=== PATIENT | female | born 1965 | race Caucasian/White ===

== ENCOUNTER 2020-01-14 15:50 | Inpatient (IN) | payer OTHER ==
[~2020-01-14] VITALS: Ht 165.1 cm; Wt 92.7 kg
[2020-01-14] MEDS ORDERED: MORPHINE SULFATE INJ 4 MG/ML INJ 1ML IV STA (16:09)
[2020-01-14] MEDS ORDERED: ONDANSETRON HCL INJ 2MG/ML 2ML 2 MG/ML VIAL IV STA (16:09)
[2020-01-14] MEDS ORDERED: KETOROLAC TROMETHAMINE 30 MG/ML VIAL IV STA (16:09)
[2020-01-14] MEDS ORDERED: SODIUM CHLORIDE 0.9% 1000ML 1,000 ML IV STA (16:09)
--- NOTE | 2020-01-14 17:01 | Diagnostic Imaging Report ---
CT Abdomen and Pelvis without contrast INDICATION: Right flank pain, ^kidney stones ^[id number] ^1627 TECHNIQUE: Thin collimation axial images obtained from the diaphragm to the level of the pubic symphysis without nonionic intravenous contrast. Dose reduction techniques used: Automated exposure control, adjustment of the mAs and/or kVp according to patient size, standardized low-dose protocol, and/or iterative reconstruction technique. RADIATION DOSE: Total DLP: 646.71 mGy*cm Estimated effective dose: (DLP x 0.015 x size factor) mSv CTDIvol has been reviewed. It is below the limits set by the Radiation Protocol Committee (RPC). COMPARISON: None. ABDOMEN FINDINGS: Lung Bases: Posterior layering right pleural effusion and overlying atelectasis/infiltrate in the posterior lower lobe. Mild eventration of the right diaphragm. Subcentimeter calcified granuloma in the left lower lobe. Visualized portion mediastinum is normal. Liver: Cirrhosis. Gallbladder: Absent. No ductal dilatation. Pancreas: Normal attenuation without mass. Spleen: Normal size without mass. Adrenal Glands: Nodule in the lateral limb of the right adrenal gland measures 2.0 cm and -2 Hounsfield units suggestive of adenoma. The right adrenal gland is thickened. Kidneys: Right: No renal calculus. No cortical mass or hydronephrosis Left: No renal calculus. No cortical mass or hydronephrosis Lymph Nodes: No lymphadenopathy. Aorta: Diffusely calcified. No aneurysmal dilatation. PELVIS FINDINGS: Bowel: Stomach: Normal. Small Bowel: Normal in caliber with normal wall thickness. Large Bowel: Normal in caliber with normal wall thickness. Appendix: Normal. Bladder: Mildly underdistended but grossly normal. Ureters: No ureteral dilatation or calculus. Uterus: Present and contains a calcified fibroid in the anterior fundus. No adnexal mass. Peritoneum/retroperitoneum: Small amount of abdominal and pelvic ascites. No loculated fluid collection. Bones: Diffuse degenerative changes. No compression fractures or focal osseous lesions. Soft tissues: Diffuse subcutaneous edema. IMPRESSION: 1. Anasarca. No loculated fluid collections to suggest abscess. 2. Right basilar atelectasis or developing infiltrate. 3. Cirrhosis. No splenomegaly. 4. No evidence of renal calculus or obstructive uropathy. 5. No evidence for bowel obstruction or inflammation. Signed by: Dr. Nadir Dillon MD on 01/14/2020 4:58 PM
--- NOTE | 2020-01-14 17:03 | Diagnostic Imaging Report ---
EXAMINATION: CHEST SINGLE (PORTABLE) COMPARISON: No relevant priors INDICATION: Right flank pain ^ERMD ORDER ^[id number] ^1625 ^Y DISCUSSION: Frontal view of the chest obtained at 1635 hours. HEART AND MEDIASTINUM: The cardiomediastinal silhouette is unremarkable. LINES: None. LUNGS/PLEURA: Medial right basilar airspace opacity is suggestive of atelectasis or pneumonia. Small right pleural effusion. Left lateral costophrenic angle was not included on this image. No pneumothorax. BONES AND SOFT TISSUES: No focal osseous lesion. The soft tissues are normal. IMPRESSION: Right basilar airspace opacity may represent atelectasis or infiltrate. Small right pleural effusion. Signed by: Dr. Nadir Dillon MD on 01/14/2020 4:59 PM
[2020-01-14 17:31] LABS: BASOPHILS % 0.2 % (0.0-1.0); EOSINOPHILS # (AUTO) 0.1 (0.0-0.4); EOSINOPHILS % 0.9 % (0.0-6.0); HEMOGLOBIN 7.7 g/dL (12.0-16.0); LYMPHOCYTES # (AUTO) 1.3 (1.0-3.2); LYMPHOCYTES % 15.2 % (18.0-39.1); MEAN CORPUSCULAR HEMOGLOBIN 24.1 pg (28-32); MEAN CORPUSCULAR HGB CONC 32.1 g/dL (31-35); MEAN CORPUSCULAR VOLUME 75.2 fL (81-99); MONOCYTES # (AUTO) 0.5 (0.2-0.8); MONOCYTES % 5.8 % (4.4-11.3); NEUTROPHILS # (AUTO) 6.8 (2.1-6.9); NEUTROPHILS % 77.1 % (38.7-80.0); PLATELET COUNT 323 x10e3/uL (140-360); RED BLOOD COUNT 3.19 x10e6/uL (3.6-5.1)
[2020-01-14 17:39] LABS: BILIRUBIN,URINE NEGATIVE (NEGATIVE); CLARITY,URINE HAZY (CLEAR); COLOR,URINE YELLOW (YELLOW); KETONES,URINE NEGATIVE (NEGATIVE); LEUKOCYTE ESTERASE ,URINE NEGATIVE (NEGATIVE); NITRITE,URINE NEGATIVE (NEGATIVE); PROTEIN,URINE DIPSTICK >=300 (NEGATIVE); URINE UROBILINOGEN 0.2 mg/dL (0.2 - 1)
[2020-01-14 17:42] LABS: BACTERIA,URINE FEW /HPF; EPITHELIAL CELLS,URINE FEW /LPF
[2020-01-14 17:43] LABS: AMORPHOUS SEDIMENT,URINE FEW (FEW)
[2020-01-14 17:44] LABS: HYALINE CASTS 0-1 (0-1)
[2020-01-14 17:50] LABS: ALBUMIN 1.6 g/dL (3.5-5.0); ALBUMIN/GLOBULIN RATIO 0.4 (0.8-2.0); ANION GAP 10.1 mmol/L (8-16); CALCIUM 8.2 mg/dL (8.4-10.2); CREATININE, SERUM 1.12 mg/dL (0.57-1.11); POTASSIUM 4.1 mmol/L (3.5-5.1)
[2020-01-14 17:51] LABS: INR 1.09; PARTIAL THROMBOPLASTIN TIME 28.8 seconds (23.8-35.5); PROTHROMBIN TIME 14.8 seconds (11.9-14.5)
[2020-01-14 17:57] LABS: CREATINE KINASE MB 4.2 ng/mL (0-5.0)
[2020-01-14] MEDS ORDERED: SODIUM CHLORIDE 0.9% 250ML 250 ML IV ONE (18:30)
[2020-01-14] MEDS ORDERED: ASPIRIN 81 MG CHEW TAB PO ONE ×2 (18:45→19:00)
[2020-01-14] MEDS ORDERED: DEXTROSE 50% SYRINGE 50 ML IV PRN (19:00)
--- OUTSIDE RECORDS SUMMARY | 2020-01-14 19:15 | XMS REPORT | Continuity of Care Document ---
Author Author [facility] Organization [facility] Address [address] [place] [address] Phone Unavailable Care Team Providers Care Research Associate Professor Name Role Phone OTHER, ENTER NAME IN NOTES PCP Unavailable Insurance Providers Guarantor Hilary Ramos Address [address] [place] [address] Email NO EMAIL [facility] Policy Number [id number] Subscriber's Name Hilary Ramos Huseyin Relationship Self / Same As Patient Group Number [id number] Group Name NA Advance Directives Directive Response Recorded Date/Time Advance Directives No 01/31/16 11:47pm Advance Directive on File No 08/22/18 8:00am Directive to Physicians/Living Will No 01/31/16 11:47pm Health Care Proxy No 01/31/16 11:47pm Name of Surrogate/Decision Maker NA 08/22/18 3:06am Organ Donor No 01/31/16 11:47pm Medical Power of Roller Skates Assembler No 01/31/16 11:47pm Patient/Family Given Education Material R/T Directives? Y - KR...08/22/18 08/22/18 8:00am Chief Complaint and Reason for Visit Chief Complaint DKA Reason for Visit DKA (diabetic ketoacidoses) Poorly controlled diabetes mellitus Hyperglycemia due to type 2 diabetes mellitus HTN (hypertension) CVA (cerebral vascular accident) Cellulitis and abscess of foot Problems Medical Problem Onset Date Status Abscess Unknown Acute CVA (cerebral vascular accident) Unknown Acute Cellulitis and abscess of foot Unknown Acute Cellulitis of right upper extremity Unknown Acute DKA (diabetic ketoacidoses) Unknown Acute DM (diabetes mellitus) Unknown Acute Diabetic acidosis Unknown Acute Facial cellulitis Unknown Acute Facial cellulitis Unknown Acute HLD (hyperlipidemia) Unknown Acute HTN (hypertension) Unknown Acute Hyperglycemia due to type 2 diabetes mellitus Unknown Acute MRSA cellulitis Unknown Acute Poorly controlled diabetes mellitus Unknown Acute Past Problems Medical Problem Onset Date Status Abscess, scalp Unknown Acute Hyponatremia Unknown Acute Medications Current Home Medications Medication Dose Units Route Directions Days Qty Instructions Start Date Albuterol Sulfate (Proair Hfa) 108 Mcg/Act Aer 2 Puff RESPIRATORY (INHALATION) Four Times Daily As Needed 1 Inh Anastrozole (Anastrozole *) 1 Mg Tab 1 Tab ORAL Daily 30 Tablet Benzonatate (Tessalon *) 100 Mg Cap 1 Tab ORAL Three Times Daily As Needed Clindamycin Hcl 300 Mg Cap 1 Cap ORAL Three Times A Day for Cellulitis Of The Lower Extrem 10 Days 30 Cap 08/24/18 Clonidine Hcl (Catapres *) 0.3 Mg Tab 0.3 Mg ORAL Twice A Day Esomeprazole Mag * (Nexium 40 Mg *) 40 Mg Cap 1 Cap ORAL Daily Fluticasone Propionate/Salmeterol * (Advair Diskus *) 250 /50 Aer 1 Puff RESPIRATORY (INHALATION) Rt-Twice Daily 10 Disk 01/04/14 Insulin Glargine (Lantus Solostar) 100 Unit/Ml Inj 28 Units SUBCUTANEOUS Every 12 Hours for Dm 30 Days 15 Milliliter 08/24/18 Insulin Human Aspart (Novolog) 100 Unit/Ml Inj 20 Mg SUBCUTANEOUS Before Meals And At Bedtime SLIDING SCALE Linagliptin * (Tradjenta 5 Mg *) 5 Mg Tab 1 Tab ORAL Daily Lisinopril (Zestril/Prinivil *) 40 Mg Tab 1 Tab ORAL Once Daily Phenazopyridine Hcl (Pyridium) 100 Mg Tab 100 Mg ORAL Three Times A Day Pregabalin (Lyrica 100 Mg *) 100 Mg Cap 100 Mg ORAL Three Times A Day Past Home Medications Medication Directions Ordered Status Albuterol Hfa* (Proventil Hfa 90 Mcg/Act *) Aer, 2 Puff Respiratory (Inhalation) Rt-Every 4 Hours Discontinued Ascorbic Acid (Vit C 250 Mg) 250 Mg Tab, 500 Mg Oral Daily Discontinued Aspirin (Aspirin *) 81 Mg Chw, 81 Mg Oral Daily Discontinued Benztropine Mesylate (Cogentin *) 1 Mg Tab, 2 Mg Oral Bedtime Discontinued Cefuroxime Axetil (Ceftin) 500 Mg Tab, 500 Mg Oral Twice A Day 01/04/14 Discontinued Cetirizine Hcl (Zyrtec Hives Relief) 10 Mg Tab, 1 Tab Oral Daily Discontinued Chlorpromazine Hcl (Thorazine 100 Mg *) 100 Mg Tab, 200 Mg Oral Bedtime Discontinued Chlorpromazine Hcl (Thorazine 25 Mg *) 25 Mg Tab, 25 Mg Oral Three Times A Day Discontinued Ciprofloxacin Hcl (Cipro 500 Mg*) 500 Mg Tab, 1 Tab Oral Twice A Day 02/06/16 Discontinued Clindamycin Hcl (Cleoci 300 Mgn *) 300 Mg Cap, 300 Mg Oral Every 6 Hours for Cellulitis 10/27/17 Discontinued Clindamycin Hcl (Cleoci 300 Mgn *) 300 Mg Cap, 1 Cap Oral Three Times A Day for Cellulitis 10/27/17 Discontinued Clindamycin Hcl (Cleoci 300 Mgn *) 300 Mg Cap, 300 Mg Oral Every 6 Hours 01/01/16 Discontinued Clindamycin Hcl (Clindamycin Hcl 300 Mg *) 300 Mg Cap, 300 Mg Oral Three Times A Day 05/01/14 Discontinued Clonazepam (Klonopin 0.5 Mg*) 0.5 Mg Tab, 0.5 Mg Oral Three Times A Day Discontinued Clonazepam (Clonazepam 1 Mg) 1 Mg Tab, 1 Mg Oral Three Times A Day Discontinued Clonazepam (Clonazepam 1 Mg) 1 Mg Tab, 0.5 Mg Oral Am Discontinued Clonidine Hcl 0.2 Mg Tab, 0.2 Mg Oral Three Times A Day as needed for Mg 01/04/14 Discontinued Detemir (Levemir) 100 Unit/Ml Inj, 25 Units Subcutaneous Twice A Day for Diabetes 10/27/17 Discontinued Detemir Insulin * (Levemir 100 Units/Ml Insulin *) Inj, 45 Units Subcutaneous Every Evening 05/01/14 Discontinued Detemir Insulin * (Levemir 100 Units/Ml Insulin *) Inj, 15 Units Subcutaneous Before Meals 05/01/14 Discontinued Detemir Insulin * (Levemir 100 Units/Ml Insulin *) Inj, 20 Units Subcutaneous Once Daily At Bedtime Discontinued Doxycycline Hyclate (Doxycycline Hyclate 100 Mg) 100 Mg Cap, 1 Cap Oral Twice A Day for Cellulitis 10/27/17 Discontinued Doxycycline Hyclate (Doxycycline Hyclate 100 Mg) 100 Mg Cap, 1 Cap Oral Twice A Day 01/01/16 Discontinued Esomeprazole Mag * (Nexium 40 Mg *) 40 Mg Cap, 1 Cap Oral Daily Discontinued Fluconazole (Diflucan 100 Mg *) 100 Mg Tab, 100 Mg Oral Daily 05/01/14 Discontinued Furosemide (Lasix 40 Mg*) 40 Mg Tab, 40 Mg Oral Once Daily Discontinued Hyoscyamine Sulfate (Hyoscyamine Sulfate 0.125 Mg) 0.125 Mg Tab, 0.125 Mg Oral Four Times Daily As Needed Discontinued Insulin Aspart (Novolog Flexpen) Inj, 25 Subcutaneous Three Times Daily Before Meals Discontinued Insulin Aspart * (Novolog *) Inj, 25 Units Subcutaneous Three Times Daily With Meals Discontinued Insulin Detemir (Levemir 100 Units/Ml Insulin*) 100 Units/ Inj, 45 Units Subcutaneous Twice A Day Discontinued Insulin Detemir (Levemir Flexpen) 100 Unit/Ml Inj, 15 Subcutaneous Before Breakfast Discontinued Insulin Detemir (Levemir Flexpen) 100 Unit/Ml Inj, 45 Subcutaneous After Dinner Discontinued Insulin Detemir (Levemir 100 Units/Ml Insulin*) 100 Units/ Inj, 45 Units Subcutaneous Once Daily At Bedtime Discontinued Linagliptin * (Tradjenta 5 Mg *) 5 Mg Tab, 1 Tab Oral Daily Discontinued Liraglutide (Victoza 18 Mg/3 Ml (6MG/Ml) *) 18 Mg/3 Ml Syr, 1.8 Mg Subcutaneous Daily Discontinued Lisinopril (Prinivil 20 Mg*) 20 Mg Tab, 20 Mg Oral Twice A Day Discontinued Lisinopril (Lisinopril 40 Mg) 40 Mg Tab, 20 Mg Oral Twice A Day Discontinued Metformin Hcl (Metformin Hcl Er 500 Mg) 500 Mg Tab, 500 Mg Oral Three Times A Day Discontinued Methylcobalamin ([id number]) 1 Mg Chw, 2000 Mcg Oral Daily Discontinued Nifedipine (Nifedical Xl 30 Mg*) 30 Mg Tab, 1 Tab Oral Daily Discontinued Nifedipine (Nifedical Xl 30 Mg*) 30 Mg Tab, 60 Mg Oral Daily 05/01/14 Discontinued Nifedipine (Nifedical Xl 30 Mg*) 30 Mg Tab, 30 Mg Oral Daily Discontinued Nifedipine (Nifedipine Er 60 Mg (Procardia/Adalat) *) 60 Mg Tab, 60 Mg Oral Once Daily Discontinued Ondansetron Hcl (Zofran *) 4 Mg Tab, 4 Mg Oral Every 6 Hours As Needed 05/01/14 Discontinued Prednisone (Prednisone 10 Mg) 10 Mg Jose, 10 Mg Oral Twice A Day 01/04/14 Discontinued Promethazine Hcl (Phenergan 25 Mg*) 25 Mg Tab, 1 Tab Oral Every 8 Hours As Needed Discontinued Ribavirin * (Rebetol 200 Mg*) 200 Mg Cap, 400 Mg Oral Twice A Day Discontinued Sertraline Hcl (Zoloft *) 100 Mg Tab, 200 Mg Oral Daily Discontinued Social History Social History Problem Response Recorded Date/Time Onset Date Status Hx Substance Use Treatment Y - in past 08/22/2018 11:06am Not Applicable Not Applicable Hx Alcohol Use No 08/22/2018 11:06am Not Applicable Not Applicable Hx Inhalant Use Y - METHAMPHETAMINE 08/22/2018 11:06am Not Applicable Not Applicable Hx Physical Abuse No 08/22/2018 3:00am Not Applicable Not Applicable Hx Suicide Attempt Y - june 2013 08/22/2018 11:06am Not Applicable Not Applicable Smoking Status Start Date Stop Date Current every day smoker Hospital Discharge Instructions No hospital discharge instruction information available. Plan of Care Discharge Date 08/24/18 2:30pm Disposition PATIENT DISCHARGE HOME OR SELF Instructions/Education Provided Diabetic Ketoacidosis Clindamycin capsules Insulin Glargine injection Forms Provided Portal Welcome Letter Prescriptions See Medication Section Functional Status No functional status information available. Allergies, Adverse Reactions, Alerts No known allergies. Immunizations No immunization information available. Vital Signs Acute Vital Signs Vital Response Date/Time Blood Pressure 140/80 mm Hg 08/24/2018 11:44am Pulse Pulse Rate (adult) 100 beats per minute (60 - 100) 08/24/2018 11:20am Respiratory Rate 17 breaths per minute (10 - 24) 08/24/2018 11:20am Temperature Source Oral 08/24/2018 11:20am Height 5 ft 4 in 08/22/2018 3:00am Weight 204.44 lb 08/24/2018 4:58am Body Mass Index 35.1 kg/m^2 08/24/2018 4:58am Results Laboratory Results Test Name Result Units Flags Reference Collection Date/Time Result Date/Time Comments White Blood Count 6.2 K/ul 4.0-11.5 08/24/2018 5:16am 08/24/2018 5:57am Red Blood Count 4.66 M/ul 3.80-5.20 08/24/2018 5:16am 08/24/2018 5:57am Hemoglobin 11.9 g/dl 10.5-15.7 08/24/2018 5:16am 08/24/2018 5:57am Hematocrit 35.8 % 34.0-50.0 08/24/2018 5:16am 08/24/2018 5:57am Mean Corpuscular Volume 76.8 fl L 78-98 08/24/2018 5:16am 08/24/2018 5:57am Mean Corpuscular Hemoglobin 25.5 pg L 26.2-33.4 08/24/2018 5:16am 08/24/2018 5:57am Mean Corpuscular Hemoglobin Concent 33.2 g/dl 31.5-36.2 08/24/2018 5:16am 08/24/2018 5:57am Red Cell Distribution Width 13.3 % 11.5-15.5 08/24/2018 5:16am 08/24/2018 5:57am Platelet Count 145 K/ul 137-338 08/24/2018 5:16am 08/24/2018 5:57am Mean Platelet Volume 11.8 fl 8.4-11.8 08/24/2018 5:16am 08/24/2018 5:57am Neutrophils (%) (Auto) 56.5 % 44.4-80.1 08/24/2018 5:16am 08/24/2018 5:57am Lymphocytes (%) (Auto) 32.8 % 10.0-50.0 08/24/2018 5:16am 08/24/2018 5:57am Monocytes (%) (Auto) 7.5 % 3.6-12.04 08/24/2018 5:16am 08/24/2018 5:57am Eosinophils (%) (Auto) 1.6 % 0.0-5.41 08/24/2018 5:16am 08/24/2018 5:57am Basophils (%) (Auto) 1.6 % H 0.0-0.79 08/24/2018 5:16am 08/24/2018 5:57am Urine Color COLORLESS 08/22/2018 5:40am 08/22/2018 6:08am Urine Appearance CLEAR CLEAR 08/22/2018 5:40am 08/22/2018 6:08am Urine Glucose 4+ (1000 mg/dL) H NEGATIVE 08/22/2018 5:40am 08/22/2018 6:08am Urine Bilirubin NEGATIVE NEGATIVE 08/22/2018 5:40am 08/22/2018 6:08am Urine Ketones NEGATIVE NEGATIVE 08/22/2018 5:40am 08/22/2018 6:08am Urine Specific [place] 1.028 1.003-1.030 08/22/2018 5:40am 08/22/2018 6:08am Urine Blood NEGATIVE NEGATIVE 08/22/2018 5:40am 08/22/2018 6:08am Urine pH 6.000 5-9 08/22/2018 5:40am 08/22/2018 6:08am Urine Protein 2+ (200 mg/dL) H NEGATIVE 08/22/2018 5:40am 08/22/2018 6:08am Urine Urobilinogen NORMAL mg/dL 0.2-1.0 08/22/2018 5:40am 08/22/2018 6:08am Urine Nitrate NEGATIVE NEGATIVE 08/22/2018 5:40am 08/22/2018 6:08am Urine Leukocyte Esterase NEGATIVE NEGATIVE 08/22/2018 5:40am 08/22/2018 6:08am Urine RBC 20-29 /hpf H 0-5 08/22/2018 5:40am 08/22/2018 6:08am Urine WBC 1-5 /hpf 0-5 08/22/2018 5:40am 08/22/2018 6:08am Urine Epithelial Cells 1-5 /hpf 0-5 08/22/2018 5:40am 08/22/2018 6:08am Urine Bacteria None Detected /hpf None Detect 08/22/2018 5:40am 08/22/2018 6:08am Urine Casts None Detected /lpf None Detect 08/22/2018 5:40am 08/22/2018 6:08am Urine Culture Reflexed NO 08/22/2018 5:40am 08/22/2018 6:08am Venous Blood pH 7.383 7.31-7.41 08/22/2018 7:50am 08/22/2018 8:05am Venous Blood pCO2 at Patient Temp 43 mmHg 40-50 08/22/2018 7:50am 08/22/2018 8:05am Venous Blood Partial Pressure O2 58 mmHg H 36-42 08/22/2018 7:50am 08/22/2018 8:05am Venous Blood HCO3 24.6 mmol/L 22.0-26.0 08/22/2018 7:50am 08/22/2018 8:05am Venous Blood Base Excess 0.6 mmol/L -2.0-2.0 08/22/2018 7:50am 08/22/2018 8:05am Venous Blood Total Carbon Dioxide 23.6 mmol/L 22-26 08/22/2018 7:50am 08/22/2018 8:05am Venous Blood O2 Saturation (Calc) 91 % H 60-80 08/22/2018 7:50am 08/22/2018 8:05am This is a calculated result. Venous Blood Oxygen Content 6.6 mmol/L L 6.7-15.6 08/22/2018 7:50am 08/22/2018 8:05am POC Capillary Blood Glucose (Chem) 312 mg/dL H 70.0 - 110 08/24/2018 11:59am 08/24/2018 2:17pm Lactic Acid Level 3.70 mmoL/L H 0.5-2.2 08/22/2018 5:58am 08/22/2018 6:22am Results have been broadcasted to patient's location and called to (PAT). By KAREN BLOOM 08/22/18 @0621 Results read back for confirmation. Random Glucose 89 mg/dL 74-106 08/24/2018 5:16am 08/24/2018 6:17am Blood Urea Nitrogen 14 mg/dL 6-20 08/24/2018 5:16am 08/24/2018 6:17am Serum Osmolality 276 L 280-300 08/24/2018 5:16am 08/24/2018 6:17am Creatinine 0.9 mg/dL 0.50-0.90 08/24/2018 5:16am 08/24/2018 6:17am Glomerular Filtration Rate Calc > 60.00 08/24/2018 5:16am 08/24/2018 6:17am GFR RESULTS ARE REPORTED IN mL/min/1.73m2. Normal GFR: >60mL/min Moderately decreased GFR: 30-59 mL/min Severely decreased GFR: 15-29 mL/min Kidney Failure (or Dialysis): <15 mL/min The calculated eGFR is not valid for patients younger than 18 years or older than 75 years. BUN/Creatinine Ratio 15.6 09-0908/24/2018 5:1608/24/2018 6:17am Sodium Level 138 mmol/L 135-145 08/24/2018 5:1608/24/2018 6:17am Potassium Level 4.1 mmol/L 3.5-5.2 08/24/2018 5:1608/24/2018 6:17am Chloride Level 108 mmol/L 98-108 08/24/2018 5:1608/24/2018 6:17am Carbon Dioxide Level 22 mmol/L 21-32 08/24/2018 5:1608/24/2018 6:17am Anion Gap 12.1 mEq/L 09-0908/24/2018 5:1608/24/2018 6:17am Calcium Level 8.3 mg/dL L 8.6-10.0 08/24/2018 5:1608/24/2018 6:17am Phosphorus Level 3.3 mg/dL 2.5-4.5 08/22/2018 7:5008/22/2018 8:17am Magnesium Level 1.9 mg/dL 1.6-2.6 08/22/2018 7:5008/22/2018 8:17am Total Protein 5.8 g/dL L 6.6-8.7 08/23/2018 5:08/23/2018 6:02am Albumin 2.2 g/dL L 3.5-5.2 08/23/2018 5:08/23/2018 6:02am Globulin 3.6 gm/dL 08/23/2018 5:08/23/2018 6:02am Albumin/Globulin Ratio 0.6 >1.0 08/23/2018 5:08/23/2018 6:02am Total Bilirubin < 0.3 mg/dL 0.0-1.2 08/23/2018 5:08/23/2018 6:02am Aspartate Amino Transf (AST/SGOT) 20 U/L 08/23/2018 5:22am 08/23/2018 6:02am Alanine Aminotransferase (ALT/SGPT) 17 U/L 0-33 08/23/2018 5:22am 08/23/2018 6:02am Lipase 238 U/L H 13-60 08/22/2018 3:33am 08/22/2018 4:12am Hemoglobin A1c > 15.2 % H 4.0-6.0 08/22/2018 3:33am 08/22/2018 4:03am Total Alkaline Phosphatase 97 U/L 35-105 08/23/2018 5:22am 08/23/2018 6:02am Urine Amphetamines Screen POSITIVE NG/ML H NEGATIVE 08/22/2018 5:40am 08/22/2018 6:13am Urine Barbiturates, Quantitative NEGATIVE NG/ML NEGATIVE 08/22/2018 5:40am 08/22/2018 6:13am Urine Benzodiazepines Screen NEGATIVE NG/ML NEGATIVE 08/22/2018 5:40am 08/22/2018 6:13am Urine Cannabinoids NEGATIVE NG/ML NEGATIVE 08/22/2018 5:40am 08/22/2018 6:13am Urine Cocaine Metabolite NEGATIVE NG/ML NEGATIVE 08/22/2018 5:40am 08/22/2018 6:13am Urine Opiates Screen NEGATIVE NG/ML NEGATIVE 08/22/2018 5:40am 08/22/2018 6:13am Urine Phencyclidine (PCP) Level NEGATIVE NG/ML NEGATIVE 08/22/2018 5:40am 08/22/2018 6:13am Methadone Level NEGATIVE NG/ML NEGATIVE 08/22/2018 5:40am 08/22/2018 6:13am Propoxyphene Level NEGATIVE NG/ML NEGATIVE 08/22/2018 5:40am 08/22/2018 6:13am Oxycodone Level NEGATIVE NG/ML NEGATIVE 08/22/2018 5:40am 08/22/2018 6:13am Urine Drug Screen Note . 08/22/2018 5:40am 08/22/2018 5:49am DRUGS OF ABUSE CUT-OFF VALUES AMPHETAMINES (AMPH) NEGATIVE (CUT OFF CONC: 1000 NG/ML) BARBITUATES (PARAM) NEGATIVE (CUT OFF CONC: 200 NG/ML) BENZODIAZEPINES (PRECIOUS) NEGATIVE (CUT OFF CONC: 300 NG/ML) CANNABINOIDS (THC) NEGATIVE (CUT OFF CONC: 50 NG/ML) COCAINE (KIANA) NEGATIVE (CUT OFF CONC: 300 NG/ML) OPIATES (OPI) NEGATIVE (CUT OFF CONC: 300 NG/ML) PHENCYCLIDINE (PCP) NEGATIVE (CUT OFF CONC: 25 NG/ML)METHADONE (MTD) NEGATIVE (CUT OFF CONC: 300 NG/ML) PROPOXYPHENE (PPX) NEGATIVE (CUT OFF CONC: 300 NG/ML) OXYCODONE (OXY) NEGATIVE (CUT OFF CONC: 100 NG/ML) ANY POSITIVE RESULT IS UNCONFIRMED. CONFIRMATION AND QUANTITATION AVAILABLE UPON MD REQUEST. Vancomycin Level Trough 18.5 ug/mL 10-20 08/23/2018 10:23pm 08/23/2018 10:50pm Thyroid Stimulating Hormone (TSH) 0.70 uIU/mL 0.36-3.74 08/22/2018 3:33am 08/22/2018 4:15am Creatine Kinase 91 U/L 20-180 08/22/2018 3:33am 08/22/2018 4:12am Troponin I < 0.30 ng/mL 0.0-0.5 08/22/2018 3:33am 08/22/2018 4:15am Published clinical studies have shown elevations of cTnI in patients with myocardial injury, as seen in unstable angina pectoris, cardiac contusions, and heart transplants. Elevations have also been seen in patients with rhabdomyolysis and polymyositis. Elevated troponin levels point to myocardial injury, but are not necessarily indicative of an ischemic mechanism. The term W[place] should be used when there is evidence of cardiac damage, as detected by marker proteins in a clinical setting consistent with myocardial ischemia. If the clinical circumstance suggests that an ischemic mechanism is unlikely, other causes of cardiac injury should be considered. For diagnostic purposes, the results should always be assessed in conjunction with the patient's medical history, clinical examination and other findings. Creatine Kinase MB 4.5 ng/ml H 0.0-3.6 08/22/2018 3:33am 08/22/2018 4:15am DIAGNOSTIC CITERIA: CKMB CKMB RELATIVE INDEX SUGGESTIVE OF NON-AMI < or=5 N/A AWAD ZONE (INCONCLUSIVE) > 5 < or=4 SUGGESTIVE OF AMI >5 > 4 Microbiology Results Procedure Source Organism/Result Collection Date/Time Result Date/Time Result Status Blood Culture Blood SPECIMEN HAS BEEN RECEIVED IN LAB AND IS IN PROGRESS. 08/22/2018 5:58am 08/22/2018 6:01am Preliminary Procedures Procedure Status Date Provider(s) X-ray of abdomen, single view Completed 08/22/18 SHINE SCHWARZ MD X-ray of chest, single view Completed 08/22/18 SHINE SCHWARZ MD Encounters Encounter Location Arrival/Admit Date Discharge/Depart Date Attending Provider Discharged Inpatient [facility] 08/22/18 5:21am 08/24/18 2:30pm MAREN FLORIAN MD Recent Diagnosis DKA (diabetic ketoacidoses) Poorly controlled diabetes mellitus Hyperglycemia due to type 2 diabetes mellitus HTN (hypertension) CVA (cerebral vascular accident) Cellulitis and abscess of foot
--- OUTSIDE RECORDS SUMMARY | 2020-01-14 19:16 | XMS REPORT | Continuity of Care Document ---
Author Author [facility] Organization [facility] Address [address] [place] [address] Phone Unavailable Care Team Providers Care Stoker Erector Name Role Phone PHYSICIAN, NO PCP Unavailable Insurance Providers Guarantor Hilary Ramos Address [address] [place] [address] Email NONE Payer [facility] Policy Number [id number] Subscriber's Name RamosHilary alex Relationship Self / Same As Patient Group Number [id number] Group Name NA Advance Directives Directive Response Recorded Date/Time Advance Directives No 01/31/16 11:47pm Advance Directive on File No 05/22/19 1:47am Directive to Physicians/Living Will No 01/31/16 11:47pm Health Care Proxy No 01/31/16 11:47pm Organ Donor No 01/31/16 11:47pm Medical Power of Company Driver No 01/31/16 11:47pm Patient/Family Given Education Material R/T Directives? No 05/22/19 1:47am Chief Complaint and Reason for Visit Chief Complaint HYPONTREMIA,DEHYDRATION Reason for Visit Poorly controlled diabetes mellitus HTN (hypertension) PUD (peptic ulcer disease) Marijuana abuse Methamphetamine abuse Hepatitis C Breast cancer COPD (chronic obstructive pulmonary disease) Schizophrenia Diabetes mellitus Cocaine abuse Dehydration Breast cancer Cellulitis of right upper extremity CVA (cerebral vascular accident) Problems Medical Problem Onset Date Status Abdominal pain Unknown Resolved Abscess Unknown Acute Breast cancer Unknown Chronic COPD (chronic obstructive pulmonary disease) Unknown Chronic CVA (cerebral vascular accident) Unknown Acute Cellulitis and abscess of foot Unknown Acute Cellulitis of right upper extremity Unknown Acute Cocaine abuse Unknown Chronic DKA (diabetic ketoacidoses) Unknown Acute DM (diabetes mellitus) Unknown Acute Dehydration Unknown Acute Diabetes mellitus Unknown Chronic Diabetic acidosis Unknown Acute Facial cellulitis Unknown Acute Facial cellulitis Unknown Acute HLD (hyperlipidemia) Unknown Acute HTN (hypertension) Unknown Chronic Headache Unknown Resolved Hepatitis C Unknown Chronic Hyperglycemia due to type 2 diabetes mellitus Unknown Chronic Intractable vomiting with nausea Unknown Resolved MRSA cellulitis Unknown Acute Marijuana abuse Unknown Chronic Methamphetamine abuse Unknown Chronic PUD (peptic ulcer disease) Unknown Chronic Poorly controlled diabetes mellitus Unknown Chronic Schizophrenia Unknown Chronic Past Problems Medical Problem Onset Date Status Abscess, scalp Unknown Acute Dehydration Unknown Acute Hyperglycemia Unknown Resolved Hypertension Unknown Acute Hypokalemia Unknown Resolved Hyponatremia Unknown Acute Hyponatremia Unknown Resolved Intractable nausea and vomiting Unknown Acute Liver cirrhosis Unknown Acute Medications Current Home Medications Medication Dose Units Route Directions Days Qty Instructions Start Date Anastrozole (Anastrozole *) 1 Mg Tab 1 Tab ORAL Daily 30 Days 30 Tablet Aspirin (Aspirin *) 81 Mg Tab 1 Tab ORAL Daily 30 Days 30 Tablet Citalopram * (Celexa *) 20 Mg Tab 20 Mg ORAL Once Daily At Bedtime Clonidine Hcl (Catapres *) 0.3 Mg Tab 0.3 Mg ORAL Twice A Day Cyanocobalamin (Vitamin B12) 1,000 Mcg Tab 500 Mcg ORAL Once Daily Detemir (Levemir) 100 Unit/Ml Inj 25 Units SUBCUTANEOUS Twice A Day Ergocalciferol (Vitamin D) 50,000 Unit Cap 10,000 Units ORAL Daily Fluticasone Propionate 50 Mcg/Act Spr 2 [place] NASAL Daily 1 Inh Hydrochlorothiazide (Hydrochlorothiazide *) 25 Mg Tab 1 Tab ORAL Daily 30 Days 30 Tablet Insulin Human Aspart (Novolog) 100 Unit/Ml Inj Loratadine (Claritin 10 Mg) 10 Mg Cap 1 Cap ORAL Daily for Allergy Symptoms 30 Days 30 Cap Losartan Potassium (Cozaar 100 Mg *) 100 Mg Tab 1 Tab ORAL Daily 30 Days 30 Tablet Metformin Hcl (Glucophage Xr *) 500 Mg Tab 500 Mg ORAL Twice A Day Metoprolol Tartrate (Lopressor *) 50 Mg Tab 1 Tab ORAL Twice A Day 30 Days 60 Tablet Ondansetron Hcl (Zofran *) 4 Mg Tab 1 Tab ORAL Every 6 Hours (4-10-16-) for N/V 5 Days 20 Tablet 03/02/19 Pantoprazole Sodium (Protonix Ec *) 40 Mg Tab 40 Mg ORAL Before Breakfast for Gerd 30 Days 30 Tablet 12/08/18 Pregabalin (Lyrica 100 Mg *) 100 Mg Cap 100 Mg ORAL Three Times A Day Salmeterol Xinafoate/Fluticasone (Advair Diskus *) 250 /50 Aer 1 Puff RESPIRATORY (INHALATION) Rt-Twice Daily 10 Disk 01/04/14 Past Home Medications Medication Directions Ordered Status Albuterol Hfa* (Proventil Hfa 90 Mcg/Act *) Aer, 2 Puff Respiratory (Inhalation) Rt-Every 4 Hours Discontinued Albuterol Sulfate (Proair Hfa *) 108 Mcg/Act Aer, 2 Puff Respiratory (Inhalation) Four Times Daily As Needed Discontinued Amoxicillin/Clavulanate Potassium (Augmentin *) 875 Mg Tab, 1 Tab Oral Twice A Day for Pneumonia 12/08/18 Discontinued Anastrozole (Anastrozole *) 1 Mg Tab, 1 Tab Oral Daily Discontinued Ascorbic Acid (Vit C 250 Mg) 250 Mg Tab, 500 Mg Oral Daily Discontinued Aspirin (Aspirin *) 81 Mg Chw, 81 Mg Oral Daily Discontinued Benzonatate (Tessalon *) 100 Mg Cap, 1 Tab Oral Three Times Daily As Needed Discontinued Benztropine Mesylate (Cogentin *) 1 Mg [...] Times A Day Discontinued Ciprofloxacin Hcl (Cipro *) 500 Mg Tab, 1 Tab Oral Twice A Day 02/06/16 Discontinued Citalopram * (Celexa*) 10 Mg Tab, 10 Mg Oral Once Daily At Bedtime Discontinued Clindamycin Hcl (Cleocin *) 300 Mg Cap, 1 Cap Oral Three Times A Day for Cellulitis Of The Lower Extrem 08/24/18 Discontinued Clindamycin Hcl (Cleoci 300 Mgn) 300 Mg Cap, 300 Mg Oral Every 6 Hours for Cellulitis 10/27/17 Discontinued Clindamycin Hcl (Cleoci 300 Mgn) 300 Mg Cap, 1 Cap Oral Three Times A Day for Cellulitis 10/27/17 Discontinued Clindamycin Hcl (Cleoci 300 Mgn) 300 Mg Cap, 300 Mg Oral Every [...] 0.5 Mg Oral Am Discontinued Clonidine Hcl (Catapres *) 0.1 Mg Tab, 0.1 Mg Oral Twice A Day for Hypertension 12/08/18 Discontinued Clonidine Hcl (Catapres *) 0.3 Mg Tab, 0.3 Mg Oral Twice A Day Discontinued Clonidine Hcl 0.2 Mg Tab, 0.2 [...] Mg Cap, 1 Cap Oral Daily Discontinued Esomeprazole Mag * (Nexium 40 Mg *) 40 Mg Cap, 1 Cap Oral Daily Discontinued Fluconazole (Diflucan *) 100 Mg Tab, 100 Mg Oral [...] Units Subcutaneous Once Daily At Bedtime Discontinued Insulin Glargine (Toujeo Max Solostar) 300 Unit/Ml Inj, 70 Units Subcutaneous One Dose At 1999 Discontinued Insulin Glargine (Lantus Solostar) 100 Unit/Ml Inj, 28 Units Subcutaneous Every 12 Hours for Dm 08/24/18 Discontinued Insulin Glargine (Toujeo Solostar) 300 Unit/Ml Inj, 70 Subcutaneous Once Daily Discontinued Insulin Human Aspart (Novolog) 100 Unit/Ml Inj, 20 Mg Subcutaneous Before Meals And At Bedtime Discontinued Linagliptin * (Tradjenta 5 Mg *) 5 Mg Tab, 1 Tab Oral Daily Discontinued Linagliptin * (Tradjenta 5 Mg *) 5 Mg Tab, 1 Tab Oral Daily Discontinued Liraglutide (Victoza 18 Mg/3 Ml (6MG/Ml) *) 18 Mg/3 Ml Syr, 1.8 Mg Subcutaneous Daily Discontinued Lisinopril (Zestril/Prinivil *) 40 Mg Tab, 1 Tab Oral Once Daily Discontinued Lisinopril (Prinivil 20 Mg*) 20 Mg Tab, 20 Mg Oral Twice A Day Discontinued Lisinopril (Lisinopril 40 Mg) 40 Mg Tab, 20 Mg Oral Twice A Day Discontinued Magnesium Oxide (Mg Supplement (Magnesium 400 Mg) 400 Mg Cap, 1 Cap Oral Daily Discontinued Metformin Hcl (Glucophage 500 Mg *) 500 Mg Tab, 1 Tab Oral Twice A Day Discontinued Metformin Hcl (Metformin Hcl Er 500 Mg) 500 Mg Tab, 500 Mg Oral Three Times A Day Discontinued Methylcobalamin ([id number]) 1 Mg Chw, 2000 Mcg Oral Daily Discontinued Metoprolol Tartrate (Lopressor *) 25 Mg Tab, 25 Mg Oral Twice A Day Discontinued Nifedipine (Nifedical Xl 30 Mg*) 30 Mg Tab, 1 Tab Oral Daily Discontinued Nifedipine (Nifedical Xl 30 Mg*) 30 Mg Tab, 60 Mg Oral Daily 05/01/14 Discontinued Nifedipine (Nifedical Xl 30 Mg*) 30 Mg Tab, 30 Mg Oral Daily Discontinued Nifedipine (Procardia Xl *) 60 Mg Tab, 60 Mg Oral Once Daily Discontinued Ondansetron Hcl (Zofran *) 4 Mg Tab, 4 Mg Oral Every 6 Hours As Needed 05/01/14 Discontinued Phenazopyridine Hcl (Pyridium) 100 Mg Tab, 100 Mg Oral Three Times A Day Discontinued Prednisone (Prednisone 10 Mg) 10 Mg Jose, 10 Mg Oral Twice A Day 01/04/14 Discontinued Promethazine Hcl (Phenergan *) 25 Mg Tab, 1 Tab Oral Every 8 Hours As Needed Discontinued Ranitidine Hcl (Ranitidine Hcl 150 Mg) 150 Mg Tab, 1 Tab Oral Twice A Day Discontinued Ribavirin * (Rebetol 200 Mg*) 200 Mg Cap, 400 Mg Oral Twice A Day Discontinued Sertraline Hcl (Zoloft *) 100 Mg Tab, 200 Mg Oral Daily Discontinued Social History Social History Problem Response Recorded Date/Time Onset Date Status Hx Substance Use Treatment Y - in past 05/22/2019 2:02am Not Applicable Not Applicable Hx Alcohol Use No 05/22/2019 2:02am Not Applicable Not Applicable Hx Inhalant Use Y - METHAMPHETAMINE 05/22/2019 2:02am Not Applicable Not Applicable Hx Physical Abuse No 05/22/2019 2:02am Not Applicable Not Applicable Hx Suicide Attempt Y - june 2013 05/22/2019 2:02am Not Applicable Not Applicable Smoking Status Start Date Stop Date Current some day smoker Hospital Discharge Instructions No hospital discharge instruction information available. Plan of Care Discharge Date 05/22/19 5:50pm Disposition PATIENT DISCHARGE HOME OR SELF Instructions/Education Provided Dehydration, Adult, [id number] Hyponatremia, [id number] Forms Provided Portal Welcome Letter Prescriptions See Medication Section Functional Status No functional status information available. Allergies, Adverse Reactions, Alerts No known allergies. Immunizations No immunization information available. Vital Signs Acute Vital Signs Vital Response Date/Time Blood Pressure 137/78 mm Hg 05/22/2019 4:17pm Pulse Pulse Rate (adult) 64 beats per minute (60 - 100) 05/22/2019 4:17pm Respiratory Rate 17 breaths per minute (10 - 24) 05/22/2019 4:17pm Temperature Source Oral 05/22/2019 4:17pm Height 5 ft 5 in 05/21/2019 7:00pm Weight 164.19 lb 05/22/2019 4:47am Body Mass Index 27.3 kg/m^2 05/22/2019 4:47am Results Laboratory Results Test Name Result Units Flags Reference Collection Date/Time Result Date/Time Comments White Blood Count 7.6 K/ul 4.0-11.5 05/22/2019 10:05/22/2019 11:21am Red Blood Count 4.66 M/ul 3.80-5.20 05/22/2019 10:05/22/2019 11:21am Hemoglobin 11.3 g/dL 10.5-15.7 05/22/2019 10:05/22/2019 11:21am Hematocrit 34.2 % 34.0-50.0 05/22/2019 10:05/22/2019 11:21am Mean Corpuscular Volume 73.4 fl L 86-100 05/22/2019 10:05/22/2019 11:21am Mean Corpuscular Hemoglobin 24.2 pg L 26.2-33.4 05/22/2019 10:05/22/2019 11:21am Mean Corpuscular Hemoglobin Concent 33.0 g/dL 30-34 05/22/2019 10:05/22/2019 11:21am Red Cell Distribution Width 13.2 % 12.0-15.5 05/22/2019 10:05/22/2019 11:21am Platelet Count 133 K/uL L 165-450 05/22/2019 10:05/22/2019 11:21am Absolute Immature Platelet Fraction 17.4 05/22/2019 10:05/22/2019 11:21am Immature Platelet Fraction 13.1 % H 0-8 05/22/2019 10:05/22/2019 11:21am Mean Platelet Volume 13.9 fL H 9.4-12.6 05/22/2019 10:05/22/2019 11:21am Neutrophils (%) (Auto) 52.3 % 44.4-80.1 05/22/2019 10:05/22/2019 11:21am Immature Granulocyte % (Auto) 0.3 % 0.0-0.4 05/22/2019 10:05/22/2019 11:21am Lymphocytes (%) (Auto) 34.6 % 10.0-50.0 05/22/2019 10:05/22/2019 11:21am Monocytes (%) (Auto) 5.1 % 3.6-12.0 05/22/2019 10:05/22/2019 11:21am Eosinophils (%) (Auto) 6.5 % H 0.0-5.4 05/22/2019 10:05/22/2019 11:21am Basophils (%) (Auto) 1.2 % 0.1-1.2 05/22/2019 10:05/22/2019 11:21am Neutrophils # (Auto) 4.00 K/uL 1.56-6.13 05/22/2019 10:05/22/2019 11:21am Absolute Immature Granulocyte (auto 0.0 K/uL 0.0-0.03 05/22/2019 10:05/22/2019 11:21am Lymphocytes # (Auto) 2.6 K/uL 1.18-3.74 05/22/2019 10:05/22/2019 11:21am Monocytes # (Auto) 0.39 K/uL 0.24-0.86 05/22/2019 10:05/22/2019 11:21am Eosinophils # (Auto) 0.50 K/uL H 0.04-0.36 05/22/2019 10:05/22/2019 11:21am Basophils # (Auto) 0.09 K/uL H 0.01-0.08 05/22/2019 10:05/22/2019 11:21am Nucleated Red Blood Cells % 0 /100 WBC 0-0.2 05/22/2019 10:05/22/2019 11:21am Nucleated Red Blood Cells # 0 K/uL 0 05/22/2019 10:05/22/2019 11:21am Prothrombin Time 10.4 SECONDS 10.3-12.3 05/21/2019 8:05/21/2019 8:41pm THERAPEUTIC LEVEL: 1.5 to 1.9 times normal range of PT Prothromb Time International Ratio 0.94 05/21/2019 8:05/21/2019 8:41pm Recommended therapeutic range for patients receiving warfarin (coumadin) therapy: INR is 2.0 to 3.0 Recommended range for patients with mechanical prosthetic heart valves: INR is 2.5 to 3.5 Activated Partial Thromboplast Time 25.5 SECONDS 22.5-37.0 05/21/2019 8:26pm 05/21/2019 8:41pm Urine Color YELLOW 05/21/2019 9:05/21/2019 9:41pm Urine Appearance CLEAR CLEAR 05/21/2019 9:05/21/2019 9:41pm Urine Glucose (UA) >=1000 H NEGATIVE 05/21/2019 9:27pm 05/21/2019 9:41pm Urine Bilirubin NEGATIVE NEGATIVE 05/21/2019 9:05/21/2019 9:41pm Urine Ketones TRACE H NEGATIVE 05/21/2019 9:27pm 05/21/2019 9:41pm Urine Specific [place] 1.015 1.003-1.030 05/21/2019 9:27pm 05/21/2019 9:41pm Urine Blood SMALL H NEGATIVE 05/21/2019 9:27pm 05/21/2019 9:41pm Urine pH 7.000 5-9 05/21/2019 9:27pm 05/21/2019 9:41pm Urine Protein 3+ (>300 mg/dL) H NEGATIVE 05/21/2019 9:05/21/2019 9:41pm Urine Urobilinogen 0.2 E.U./dL 0.2-1.0 05/21/2019 9:2705/21/2019 9:41pm Urine Nitrate NEGATIVE NEGATIVE 05/21/2019 9:05/21/2019 9:41pm Urine Leukocyte Esterase NEGATIVE NEGATIVE 05/21/2019 9:27pm 05/21/2019 9:41pm Urine RBC 4-6 /hpf H 0-5 05/21/2019 9:27pm 05/21/2019 9:41pm Urine WBC 5-9 /hpf H 0-5 05/21/2019 9:2705/21/2019 9:41pm Urine Epithelial Cells 11-25 /hpf H 0-5 05/21/2019 9:27pm 05/21/2019 9:41pm Urine Bacteria TRACE /hpf None Detect 05/21/2019 9:27pm 05/21/2019 9:41pm Urine Casts NONE SEEN /lpf None Detect 05/21/2019 9:27pm 05/21/2019 9:41pm Urine Culture Reflexed NO 05/21/2019 9:27pm 05/21/2019 9:41pm Venous Blood pH 7.429 phunit H 7.310 - 7.410 05/21/2019 8:57pm 05/21/2019 9:52pm Venous Blood pCO2 at Patient Temp 38 mmHg L 40.0 - 50.0 05/21/2019 8:57pm 05/21/2019 9:52pm Venous Blood Partial Pressure O2 36 mmHg 36.0 - 42.0 05/21/2019 8:57pm 05/21/2019 9:52pm Venous Blood HCO3 24.5 mmol/l 18.0 - 28.2 05/21/2019 8:57pm 05/21/2019 9:52pm Venous Blood Base Excess 0.6 mmol/l -2.0 - 2.3 05/21/2019 8:57pm 05/21/2019 9:52pm Venous Blood Total Carbon Dioxide 22.7 mmol/l 22.0 - 26.0 05/21/2019 8:57pm 05/21/2019 9:52pm Venous Blood O2 Saturation (Calc) 71 % 60.0 - 80.0 05/21/2019 8:57pm 05/21/2019 9:52pm This is a calculated result. Venous Blood Oxygen Content 5.4 mmol/l 6.7 - 15.6 05/21/2019 8:57pm 05/21/2019 9:52pm POC Capillary Blood Glucose (Chem) 372 mg/dL H 70.0 - 110 05/22/2019 4:20pm 05/22/2019 4:21pm Random Glucose 265 mg/dL H 74-106 05/22/2019 10:25am 05/22/2019 11:41am Blood Urea Nitrogen 14 mg/dL 6-20 05/22/2019 10:25am 05/22/2019 11:41am Serum Osmolality 274 L 280-300 05/22/2019 10:05/22/2019 11:41am Creatinine 0.9 mg/dL 0.50-0.90 05/22/2019 10:05/22/2019 11:41am Glomerular Filtration Rate Calc > 60.00 05/22/2019 10:05/22/2019 11:41am GFR RESULTS ARE REPORTED IN mL/min/1.73m2. Normal GFR: >60mL/min Moderately decreased GFR: 30-59 mL/min Severely decreased GFR: 15-29 mL/min Kidney Failure (or Dialysis): <15 mL/min The calculated eGFR is not valid for patients younger than 18 years or older than 75 years. BUN/Creatinine Ratio 15.6 09-0905/22/2019 10:05/22/2019 11:41am Sodium Level 132 mmol/L L 135-145 05/22/2019 10:05/22/2019 11:41am Potassium Level 4.0 mmol/L 3.5-5.2 05/22/2019 10:05/22/2019 11:41am Chloride Level 99 mmol/L 98-108 05/22/2019 10:05/22/2019 11:41am Carbon Dioxide Level 22 mmol/L 21-32 05/22/2019 10:05/22/2019 11:41am Anion Gap 15.0 mEq/L 09-0905/22/2019 10:05/22/2019 11:41am Calcium Level 8.3 mg/dL L 8.6-10.0 05/22/2019 10:05/22/2019 11:41am Phosphorus Level 3.1 mg/dL 2.5-4.5 05/22/2019 10:05/22/2019 11:41am Magnesium Level 1.8 mg/dL 1.6-2.6 05/22/2019 10:05/22/2019 11:41am Total Protein 5.3 g/dL L 6.6-8.7 05/22/2019 10:05/22/2019 11:41am Albumin 2.6 g/dL L 3.5-5.2 05/22/2019 10:05/22/2019 11:41am Globulin 2.7 gm/dL 05/22/2019 10:05/22/2019 11:41am Albumin/Globulin Ratio 1.0 >1.0 05/22/2019 10:05/22/2019 11:41am Total Bilirubin 0.5 mg/dL 0.0-1.2 05/22/2019 10:05/22/2019 11:41am Aspartate Amino Transf (AST/SGOT) 23 U/L 15-32 05/22/2019 10:05/22/2019 11:41am Alanine Aminotransferase (ALT/SGPT) 16 U/L 0-33 05/22/2019 10:05/22/2019 11:41am RF-Tnd-L-Type Natriuretic Peptide 3038 pg/mL H 0-125 05/22/2019 10:05/22/2019 11:42am Total Alkaline Phosphatase 93 U/L 35-105 05/22/2019 10:05/22/2019 11:41am Troponin I < 0.30 ng/mL 0.0-0.5 05/21/2019 8:18pm 05/21/2019 9:07pm Published clinical studies have shown elevations of cTnI in patients with myocardial injury, as seen in unstable angina pectoris, cardiac contusions, and heart transplants. Elevations have also been seen in patients with rhabdomyolysis and polymyositis. Elevated troponin levels point to myocardial injury, but are not necessarily indicative of an ischemic mechanism. The term HI should be used when there is evidence of cardiac damage, as detected by marker proteins in a clinical setting consistent with myocardial ischemia. If the clinical circumstance suggests that an ischemic mechanism is unlikely, other causes of cardiac injury should be considered. For diagnostic purposes, the results should always be assessed in conjunction with the patient's medical history, clinical examination and other findings. Clinical Summary Created on: 05/22/2019 Hilary Ramos : 1965 Sex: Female Author Author [facility] Organization [facility] ist Address Unknown Phone Unavailable Care Team Providers Care Stoker Erector Name Role Phone Gustabo Mattie Figueredo MD Primary Care Physician [phone] Allergies No Known Allergies Medications End Date Status Medication Sig Dispensed Refills Start Date Active clonIDINE HCl (CATAPRES) Take 0.3 mg 0 0.3 MG tablet by mouth 2 (two) times a day. Active fluticasone-salmeterol Inhale 1-2 0 (ADVAIR) 250-50 mcg/dose puffs daily. DISKUS Active albuterol (PROAIR Inhale 2 0 HFA,PROVENTIL puffs as HFA,VENTOLIN HFA) 90 needed for mcg/actuation inhaler wheezing. Active metoprolol tartrate Take 25 mg by 0 (LOPRESSOR) 25 mg tablet mouth 2 (two) times a day. Active ranitidine (ZANTAC) 150 Take 150 mg 0 MG tablet by mouth 2 (two) times a day. Active clonIDINE (CATAPRES) 0.1 Take 0.1 mg 0 MG tablet by mouth 2 (two) times a day as needed for high blood pressure. Active citalopram (CeleXA) 10 MG Take 10 mg by 0 tablet mouth daily. 03/08/2019 Discontinued ( Reorder) insulin detemir U-100 Inject 25 0 (LEVEMIR) 100 unit/mL Units under injection the skin 2 (two) times a day. 03/08/2019 Discontinued ( Reorder) insulin ASPART (NovoLOG) Inject 6-20 0 100 unit/mL injection Units under the skin 3 (three) times a day before meals. SLIDING SCALE TID WITH MEALS 03/08/2019 Discontinued ( Stop Taking at Discharge) lisinopril Take 40 mg by 0 (PRINIVIL,ZESTRIL) 40 mg mouth daily. tablet 03/08/2019 Discontinued ( Stop Taking at Discharge) hydroCHLOROthiazide Take 25 mg by 0 (HYDRODIURIL) 25 MG mouth daily. tablet 03/08/2019 Discontinued ( Stop Taking at Discharge) atorvastatin (LIPITOR) 20 Take 40 mg by 0 MG tablet mouth nightly. Default OP ins 03/26/2019 Discontinued ( Stop Taking at Discharge) gabapentin (NEURONTIN) Take 300 mg 0 300 mg capsule by mouth 2 (two) times a day. 03/08/2019 Discontinued ( Stop Taking at Discharge) metFORMIN (GLUCOPHAGE) Take 500 mg 0 500 mg tablet by mouth 2 (two) times a day with meals. 03/08/2019 Discontinued ( Stop Taking at Discharge) losartan (COZAAR) 100 MG Take 100 mg 0 tablet by mouth daily. 03/26/2019 Discontinued ( Stop Taking at Discharge) ondansetron (ZOFRAN) 8 MG Take 8 mg by 0 tablet mouth every 8 (eight) hours as needed for nausea or vomiting. 03/26/2019 Discontinued ( Stop Taking at Discharge) pregabalin (LYRICA) 100 Take 100 mg 0 MG capsule by mouth 3 (three) times a day. 03/26/2019 Discontinued ( Stop Taking at Discharge) pantoprazole (PROTONIX) Take 40 mg by 0 40 MG EC tablet mouth daily. 04/07/2019 atorvastatin (LIPITOR) 80 Take 1 tablet 30 tablet 0 MG tablet (80 mg total) 9 by mouth nightly for 30 days. 04/08/2019 aspirin (ECOTRIN) 81 MG Take 1 tablet 30 tablet 0 enteric coated tablet (81 mg total) 9 by mouth daily for 30 days. 04/08/2019 clopidogrel (PLAVIX) 75 Take 1 tablet 30 tablet 0 mg tablet (75 mg total) 9 by mouth daily for 30 days. 04/07/2019 ranolazine (RANEXA) 500 Take 1 tablet 60 tablet 0 MG 12 hr ER tablet (500 mg 9 total) by mouth 2 (two) times a day for 30 days. 04/08/2019 isosorbide mononitrate Take 1 tablet 30 tablet 0 (IMDUR) 30 MG 24 hr (30 mg total) 9 tablet by mouth daily for 30 days. 04/07/2019 insulin detemir U-100 Inject 25 15 mL 0 (LEVEMIR) 100 unit/mL Units under 9 injection the skin 2 (two) times a day for 30 days. 04/07/2019 insulin ASPART (NovoLOG) Inject 6-20 18 mL 0 100 unit/mL injection Units under 9 the skin 3 (three) times a day before meals for 30 days. SLIDING SCALE TID WITH MEALS 03/26/2019 Discontinued ( Stop Taking at Discharge) metFORMIN (GLUCOPHAGE) Take 500 mg 0 500 mg tablet by mouth 2 (two) times a day with meals. 04/25/2019 pantoprazole (PROTONIX) Take 1 tablet 60 tablet 0 40 MG EC tablet (40 mg total) 9 by mouth 2 (two) times a day for 30 days. 04/25/2019 pregabalin (LYRICA) 75 MG Take 1 60 capsule 0 capsule capsule (75 9 mg total) by mouth 2 (two) times a day for 30 days. 04/26/2019 multivitamin (THERAGRAN) Take 1 tablet 30 tablet 0 tablet by mouth 9 daily for 30 days. 04/26/2019 thiamine mononitrate, vit Take 1 tablet 30 tablet 0 B1, (B-1) 100 mg tablet (100 mg 9 total) by mouth daily for 30 days. 04/02/2019 metoclopramide (REGLAN) 5 Take 1 tablet 21 tablet 0 MG tablet (5 mg total) 9 by mouth 3 (three) times a day before meals for 7 days. Active Problems Problem Noted Date Intractable vomiting with nausea 9 Hypertensive emergency 03/05/2019 Encounters Care Team Description Date Type Spec Mariela Alvarenga MD 03/25/2019 Anesthesia [facility] roenterology Event Geraldo Morrissey MD ESOPHAGOGASTRODUODENOSCOPY (EG D) 03/25/2019 Surgery [facility] roenterology Mattie Montejo MD Polyneuropathy (Primary Dx); Intractable vomiting with nausea, unspecified vomiting type; Cervical radiculopathy 03/23/2019 [facility] Internal Medicine - Encounter 03/26/2019 Joe Martinez MD Bhatt, Sandeep, MD Hypertensive emergency (Primar y Dx); Troponin level elevated; Elevated serum creatinine; Abdominal pain, unspecified abdominal location; Left arm numbness; Left leg numbness; Left leg weakness 03/05/2019 [facility] Surgery - Encounter 03/08/2019 03/05/2019 Travel after 05/21/2018 Social History Date Tobacco Use Types Packs/Day Years Used Current Some Day Smoker Cigarettes 1 0 Smokeless Tobacco: Never Used Tobacco Cessation: Ready to Qu it: Yes; Counseling Given: Yes Drinks/Week oz/Week Comme nts Alcohol Use Never Alcohol Habits Answer Date Recorded How often do you have a drink containing alcohol? Never 03/05/2019 How many drinks containing alcohol do you have on Not asked a typical day when you are dr inking? How often do you have six or more drinks on on e Not asked occasion? Sex Assigned at Date Recorded Not on file Industry Job Start Date Occupation Not on file Not on file Not on file Travel End Travel History Travel Start No recent travel history kamila daly. Last Filed Vital Signs Reading Time Taken Comme nts Vital Sign 135/68 03/26/2019 11:13 AM CDT Blood Pressure 64 03/26/2019 11:13 AM CDT Pulse 35.9 C (96.7 F) 03/26/2019 11:13 AM CDT Temperature 18 03/26/2019 11:13 AM CDT Respiratory Rate 98% 03/26/2019 11:13 AM CDT Oxygen Saturation - - Inhaled Oxygen Concentration 83 kg (183 lb) 03/26/2019 5:00 AM CDT Weight 165.1 cm (5' 5") 03/23/2019 10:56 AM CDT Height 30.45 03/23/2019 10:56 AM CDT Body Mass Index Plan of Treatment Health Maintenance Due Date Last Done Comments CERVICAL CANCER SCREENING 1984 BREAST CANCER SCREENING 2013 COLONOSCOPY SCREENING 2013 SHINGLES VACCINES (#1) 2013 INFLUENZA VACCINE 04/21/201909/2013 Implants Device Identifier Shelf Expiration Date Model / Serial / Lot Implanted Type Area Manufactur er Plate Plate Righ t: Ankle Procedures Comments Procedure Name Priority Date/Time Associated Diagnosis POC GLUCOSE Routine 02/2019 11:12 AM CDT POC GLUCOSE Routine 02/2019 7:28 AM CDT ESTIMATED GFR Routine 02/2019 5:15 AM CDT HC COMPLETE BLD COUNT Routine 02/2019 W/AUTO DIFF 5:15 AM CDT BASIC METABOLIC PANEL Routine 02/2019 5:15 AM CDT POC GLUCOSE Routine 01/2019 8:43 PM CDT POC GLUCOSE Routine 01/2019 5:12 PM CDT POC GLUCOSE Routine 01/2019 12:56 PM CDT ESOPHAGOGASTRODUODENOSCOP 03/25/2019 Intractable vomiting with Y (EGD) 11:24 AM CDT naus ea, unspecified vomiting type POC GLUCOSE Routine 01/2019 8:11 AM CDT ESTIMATED GFR Routine 01/2019 4:30 AM CDT HC COMPLETE BLD COUNT Routine 01/2019 W/AUTO DIFF 4:30 AM CDT BASIC METABOLIC PANEL Routine 01/2019 4:30 AM CDT POC GLUCOSE Routine 12/2018 9:38 PM CDT POC GLUCOSE Routine 12/2018 4:36 PM CDT HCV QUALITATIVE BY PCR Routine 12:22 PM CDT HEPATITIS ACUTE PANEL Routine 12/2018 12:22 PM CDT SYPHILIS TOTAL ANTIBODY STAT 0 03/24/2019 12:22 PM CDT RAPID HIV 1 & 2 STAT 03/24/2019 12:22 PM CDT HEMOGLOBIN A1C STAT 12/2018 12:22 PM CDT VITAMIN B1 LEVEL, WHOLE STAT 0 03/24/2019 BLOOD 12:22 PM CDT VITAMIN B12 LEVEL Routine 12/2018 12:22 PM CDT POC GLUCOSE Routine 12/2018 11:42 AM CDT MRI CERVICAL SPINE WO Routine 12/2018 CONTRAST 10:08 AM CDT POC GLUCOSE Routine 070 12/2018 8:[address] HEAD WO CONTRAST STAT 0 12/2018 1:20 AM CDT TROPONIN Timed 11/2018 9:30 PM CDT ECG 12-LEAD Routine 0 11/2018 8:32 PM CDT POC GLUCOSE Routine 0 11/2018 8:08 PM CDT BILIRUBIN DIRECT Timed 0 11/2018 3:30 PM CDT ESTIMATED GFR Timed 0 11/2018 3:30 PM CDT TROPONIN Timed 0 11/2018 3:30 PM CDT T4, FREE Timed 11/2018 3:30 PM CDT THYROID STIMULATING Timed 11/2018 HORMONE 3:30 PM CDT PREALBUMIN LEVEL Timed 11/2018 3:30 PM CDT PHOSPHORUS LEVEL Timed 11/2018 3:30 PM CDT MAGNESIUM LEVEL Timed 11/2018 3:30 PM CDT LIPID PANEL Timed 11/2018 3:30 PM CDT AMYLASE LEVEL Timed 11/2018 3:30 PM CDT LIPASE LEVEL Timed 0 11/2018 3:30 PM CDT LACTIC ACID LEVEL Timed 11/2018 3:30 PM CDT HEMOGLOBIN A1C Timed 11/2018 3:30 PM CDT COMPREHENSIVE METABOLIC Timed 0 03/23/2019 PANEL 3:30 PM CDT CREATINE KINASE, TOTAL Timed (CPK) 3:30 PM CDT B NATRIURETIC PEPTIDE Timed 11/2018 3:30 PM CDT PROTHROMBIN TIME WITH INR Timed 03/23/2019 3:30 PM CDT HC COMPLETE BLD COUNT Timed 11/2018 W/AUTO DIFF 3:30 PM CDT POC GLUCOSE Routine 11/2018 3:16 PM CDT POC GLUCOSE Routine 02/19 11:49 AM CDT ESTIMATED GFR STAT 02/19 9:40 AM CDT BASIC METABOLIC PANEL STAT 9:40 AM CDT POC GLUCOSE Routine 02/19 8:23 AM CDT POC GLUCOSE Routine 02/19 7:08 AM CDT POC GLUCOSE Routine 02/19 3:58 AM CDT POC GLUCOSE Routine 02/19 11:49 PM CDT POC GLUCOSE Routine 02/19 8:48 PM CDT POC GLUCOSE Routine 02/19 5:02 PM CDT US RENAL Routine 02/19 4:30 PM CDT NM MYOCARDIAL PERFUSION Routine 0 03/07/2019 REST STRESS 1 DAY 12:26 PM CDT CV STRESS TEST NUCLEAR Routine CARDIO 12:26 PM CDT POC GLUCOSE Routine 02/19 12:03 PM CDT ESTIMATED GFR Routine 02/19 5:30 AM CDT HC COMPLETE BLD COUNT Routine W/AUTO DIFF 5:30 AM CDT PHOSPHORUS LEVEL Routine 02/19 5:30 AM CDT MAGNESIUM LEVEL Routine 02/19 5:30 AM CDT COMPREHENSIVE METABOLIC Routine 0 03/07/2019 PANEL 5:30 AM CDT POC GLUCOSE Routine 02/19 4:53 AM CDT POC GLUCOSE Routine 02/19 12:14 AM CDT POC GLUCOSE Routine 02/19 8:34 PM CDT POC GLUCOSE Routine 02/19 5:43 PM CDT MRA NECK WO CONTRAST Routine 02/19 4:54 PM CDT MRI BRAIN WO CONTRAST Routine 4:28 PM CDT ECHOCARDIOGRAM WITH Routine 02/19 AGITATED SALINE (73401) 2:45 PM CDT POC GLUCOSE Routine 02/19 10:33 AM CDT POC GLUCOSE Routine 02/19 6:00 AM CDT TROPONIN Timed 02/19 5:55 AM CDT ESTIMATED GFR Routine 02/19 3:00 AM CDT TROPONIN Timed 02/19 3:00 AM CDT COMPREHENSIVE METABOLIC Routine 0 03/06/2019 PANEL 3:00 AM CDT CBC WITH PLATELET AND Routine DIFFERENTIAL 3:00 AM CDT LIPID PANEL Routine 02/19 3:00 AM CDT MAGNESIUM LEVEL Routine 02/19 3:00 AM CDT PHOSPHORUS LEVEL Routine 02/19 3:00 AM CDT IONIZED CALCIUM Routine 02/19 3:00 AM CDT POC GLUCOSE Routine 02/19 2:47 AM CDT URINALYSIS SCREEN AND STAT MICROSCOPY, WITH REFLEX 2:00 AM CDT TO CULTURE URINE CULTURE STAT 02/19 2:[address] ABDOMEN PELVIS WO STAT 02/19 CONTRAST 10:[address] HEAD WO CONTRAST STAT 02/19 10:24 PM CDT XR CHEST 1 VW PORTABLE STAT 9:52 PM CDT ESTIMATED GFR STAT 02/19 9:40 PM CDT TROPONIN STAT 02/19 9:40 PM CDT LIPASE LEVEL STAT 02/19 9:40 PM CDT COMPREHENSIVE METABOLIC STAT 0 03/05/2019 PANEL 9:40 PM CDT HC COMPLETE BLD COUNT STAT W/AUTO DIFF 9:40 PM CDT ECG ED PRELIMINARY Routine 02/19 INTERPRETATION 9:24 PM CDT HI CRITICAL CARE, E/M Routine 30-74 MINUTES 9:24 PM CDT ECG 12-LEAD Routine 02/19 9:20 PM CDT after 05/21/2018 Results * POC glucose (03/26/2019 11:12 AM CDT) Only the most recent of 27 results within the time period is included. POC glucose 189 (H) 65 - 99 mg/dL LIND Comment: TAOISM ROQUE YANG RN Notified [facility] Meter ID: [id number] [employer] Inspector: Reina Marx Specimen Performing Organization Address City/[facility]/ Zipcode Phone Number [facility] [id number] [place] [address] PATHOLOGY AND GENOMIC MEDICINE [address] * Estimated GFR (03/26/2019 5:15 AM CDT) Only the most recent of 7 results within the time period is included. Estimated GFR 36 (A) mL/min/1.73 m2 LIND Comment: TAOISM SUG [place] CatergoryUnitsNov[facility] Hospit[facility] rpretation G1 >=90 Normal or high G2 60-89Mildly decreased S1n03-12 Mildly to moderately decreased R0n27-99 Moderately to severely decreased G4 15-29Severely decreased G5 <15Kidney failure The eGFR was calculated using the Chronic Kidney Disease Epidemiology Collaboration (CKD-EPI) equation. Interpretation is based on recommendations of the National Kidney Foundation-Kidney Disease Outcomes Quality Initiative (NKF-KDOQI) published in 2014. Specimen Plasma specimen Performing Organization Address City/[facility]/ [place] [address] PATHOLOGY AND GENOMIC MEDICINE [address] * CBC with platelet and differential (03/26/2019 5:15 AM CDT) Only the most recent of 6 results within the time period is included. WBC 5.9 4.5 - 11.0 k/uL [facility] RBC 3.83 (L) 4.20 - 5.50 m/uL [facility] HGB 9.8 (L) 12.0 - 16.0 g/dL [facility] HCT 29.8 (L) 37.0 - 47.0 % [facility] MCV 77.8 (L) 82.0 - 100.0 fL [facility] MCH 25.6 (L) 27.0 - 34.0 pg [facility] MCHC 32.9 31.0 - 37.0 g/dL [facility] RDW - SD 38.5 37.0 - 55.0 fL [facility] MPV 14.1 (H) 6.9 - 11.0 fL [facility] Platelet count 105 (L) 150 - 400 K/uL [facility] Nucleated RBC 0.00 /100 WBC [facility] Neutrophils 52.5 39.0 - 69.0 % [facility] Lymphocytes 35.2 25.0 - 45.0 % [facility] Monocytes 8.2 0.0 - 10.0 % [facility] Eosinophils 2.9 0.0 - 5.0 % [facility] Basophils 0.9 0.0 - 1.0 % [facility] Immature 0.3 0.0 - 1.0 % LIND granulocytes [facility] Specimen Blood Performing Organization Address City/State/ [place] [address] PATHOLOGY AND GENOMIC MEDICINE [address] * Basic metabolic panel (03/26/2019 5:15 AM CDT) Only the most recent of 3 results within the time period is included. Sodium 138 135 - 148 mEq/L [facility] Potassium 4.3 3.5 - 5.0 mEq/L [facility] Chloride 104 98 - 112 mEq/L [facility] CO2 25 24 - 31 mEq/L [facility] Anion gap 9@ANIO 7 - 15 mEq/L [facility] BUN 39 (H) 6 - 20 mg/dL [facility] Creatinine 1.59 (H) 0.50 - 0.90 mg/dL [facility] Glucose 146 (H) 65 - 99 mg/dL [facility] Calcium 8.2 (L) 8.3 - 10.2 mg/dL [facility] Specimen Plasma specimen Performing Organization Address City/State/ [place] [address] PATHOLOGY AND GENOMIC MEDICINE [address] * Syphilis total antibody (03/24/2019 12:22 PM CDT) [facility] Syphilis total Non-reactiveComment: No Non-reactiv e LIND antibody serological evidence of TAOISM syphilis infection. HOSPITAL Specimen Blood Performing Organization Address City/State/ Zipcode Phone Number [facility] DEPARTMENT OF [address] [place] [address] PATHOLOGY AND GENOMIC MEDICINE [place]IND TAOISM[address] * HCV qualitative by PCR (03/24/2019 12:22 PM CDT) [facility] HCV PCR result Detected (A) Not-Detected [facility] HCV RNA See link below for PDF Lab LIND qualitative ReportComment: Case Number: TAOISM [id number] HOSPITAL Specimen Serum Performing Organization Address City/State/ Zipcode Phone Number [facility] DEPARTMENT OF [address] [place] [address] PATHOLOGY AND GENOMIC MEDICINE [id number] [place] [address] * Rapid HIV 1 & 2 (03/24/2019 12:22 PM CDT) [facility] Rapid HIV 1 and Non-Reactive Non-Reactive [place] [id number] [facility] Specimen Blood Performing Organization Address City/State/ Zipcode Phone Number [facility] [place] [address] [place] [address] PATHOLOGY AND GENOMIC MEDICINE [facility] [id number] [place] [address] * Vitamin B1 level, whole blood (03/24/2019 12:22 PM CDT) [facility] Vitamin B1 108 70 - 180 nmol/L [facility] REF LAB Comment: INTERPRETIVE INFORMATION: Vitamin B1, Whole Blood This assay measures the concentration of thiamine diphosphate (TDP), the primary active for m of vitamin B1. Approximately 90 percent of vitamin B1 present in whole blood is TDP. Thiamine and thiamine monophosphate, which comprise the remaining 10 percent, are not measured. Test developed and characteristics determined by [facility]. See Compliance Statement B: [employer]/CS Performed by [facility], [address], [place] [id number] [email or web address], Amrik Mckeon MD - Lab. Director Specimen Plasma specimen Performing Organization Address City/[facility]/ Zipcode Phone Number [facility] [address] [place] [address] [facility] [address] [place] [address] * Hepatitis acute panel (03/24/2019 12:22 PM CDT) Pathologist [facility] Hepatitis A IgM Non-reactive Non-reactive [facility] Hepatitis B Non-reactive Non-reactive LIND core IgM [facility] Hepatitis B Non-reactive Non-reactive LIND surface Ag [facility] Hepatitis C Ab Reactive (A) Non-reactive LIND Comment: TAOISM HCV antibody testing initially HOSPITAL Reactive. Confirmation by HCV RNA PCR will be performed and reported separately when completed. Repeat HCV RNA PCR will not be performed if done within 30 days. Specimen Serum Performing Organization Address City/State/ Zipcode Phone Number [facility] DEPARTMENT OF [address] [place] [id number] PATHOLOGY AND [address] * Hemoglobin A1c (03/24/2019 12:22 PM CDT) Only the most recent of 2 results within the time period is included. Pathologist [facility] Hemoglobin A1C 8.8 (H) 4.0 - 5.6 % LIND Comment: TAOISM SUG [place] HbA1c cutoffs for diagnosing [facility] diabetes: 4.0% - 5.6%=normal 5.7% - 6.4%=increased risk fo r diabetes (prediabetes) >=6.5%=diabetes Goals for glycemic control (ADA 2016) < 7.0%Target for non adults with diabetes. More or less stringent target s may be appropriate for individual patients. <7.5% Target for Children and adolescents with type 1 diabetes. Specimen Blood Performing Organization Address City/State/ Zipcode Phone Number [facility] [place] [address] [place] [address] PATHOLOGY AND GENOMIC MEDICINE [facility] [place] [address] [facility]. [address] * Vitamin B12 level (03/24/2019 12:22 PM CDT) Pathologist [facility] Vitamin B12 >1600 (H) 211 - 946 pg/mL LIND Comment: TAOISM Significant overlap exists HOSPITAL between normal and deficiency states. However, most patients with deficiencies will have Serum B12 <200 pg/mL. Specimen Serum Performing Organization Address City/State/ Zipcode Phone Number [facility] DEPARTMENT OF [address] [place] [address] PATHOLOGY AND GENOMIC MEDICINE LIND TAOISM [address] [place] [id number] HOSPITAL * MRI Cervical Spine Wo Contrast (03/24/2019 10:08 AM CDT) Specimen Narrative Performed At This result has an attachment that is not avai lable. [facility] EXAMINATION: MRI CERVICAL SPI NE WO CONTRAST CLINICAL HISTORY: Radiculopat hy, Breast cancerhepatitis CMRI screen for metallic implant COMPARISON:None TECHNIQUE: Multiplanar multis equence noncontrast enhanced examination was performed of the cervical spi ne. FINDINGS: Examination is slightly degra ded by patient motion. No fracture. 2 mm anterolisthesis C3 on C4, C4 on C5, C5 on C6, C6 on C7, C7 on T1, and T1 on T2, degenerative. No suspicious o sseous lesion. Marrow edema about the left C3-4 facet joint greater the right, degenerative. The cerv icomedullary junction is normal in appearance. No spinal cord signal abnormalit y. No prevertebral edema. Multip le thyroid nodules are present bilaterally. Axial images through the disc spaces demonstrate the following: C1-C2: Degenerative changes a tlantodental articulation without significant spinal canal stenosis. C2-C3: Severe left facet arth ropathy and mild uncovertebral arthropathy contributes to moderate left neural foraminal stenosis, without significant spinal canal, subarticular zo ne, or right neural foraminal stenosis. C3-C4: Severe facet arthropat hy with marrow edema and mild uncovertebral arthropathy contributes to se agustina bilateral neural foraminal stenosis, mild spinal canal and mild bilater al subarticular zone stenosis. C4-C5: Severe facet arthropat hy contributes to severe right greater than left neural foraminal stenosis as well as mild right greater than left subarticular zone stenosis without signifi cant spinal canal stenosis. C5-C6: Uncovertebral and face t arthropathy contributes to severe right and moderate to severe left neura l foraminal stenosis as well as mild bilateral subarticular zone stenosis, w ithout significant spinal canal stenosis. C6-C7: Uncovertebral and face t arthropathy contributes to severe right and moderate to severe left neura l foraminal stenosis as well as mild bilateral subarticular zone stenosis, w ithout significant spinal canal stenosis. C7-T1: Facet arthropathy cont ributes to severe left and moderate to severe right neural foraminal stenosis as well as mild bilateral subarticular zone stenosis, without significant spinal ca nal stenosis. IMPRESSION: 1. Multilevel severe facet ar thropathy with multilevel degenerative spondylolisthesis resulting i n severe neural foraminal stenosis and mild subarticular zone stenosis. T here is marrow edema about the C3-4 facet joints, degenerative. 2. Multiple thyroid nodules. Further evaluation with thyroid ultrasound can be performed. [facility]-[id number] Procedure Note Hm Interface, Radiology Results Incoming - 03/24/2019 10:21 AM CDT EXAMINATION: MRI CERVICAL SPINE WO CONTRAST CLINICAL HISTORY: Radiculopathy, Breast cancer hepatitis C MRI screen for meta llic implant COMPARISON: None TECHNIQUE: Multiplanar multisequence noncontrast enhanced examination was perfor med of the cervical spine. FINDINGS: Examination is slightly degraded by patient motion. No fracture. 2 mm anterolist hesis C3 on C4, C4 on C5, C5 on C6, C6 on C7, C7 on T1, and T1 on T2, degenerative. No suspicious o sseous lesion. Marrow edema about the left C3-4 facet joint greater the right, degenerative. The cervicomedullary junction is normal in appearance. No s cyrus cord signal abnormality. No prevertebral edema. Multiple thyroid nodules are present bilaterally. Axial images through the disc spaces demonstrate the following: C1-C2: Degenerative changes atlantodental articulation without significant spina l canal stenosis. C2-C3: Severe left facet arthropathy and mild uncovertebral arthropathy contribu leticia to moderate left neural foraminal stenosis, without significant spinal canal, subarticular zone, or right neural foraminal stenosis. C3-C4: Severe facet arthropathy with marrow edema and mild uncovertebral arthrop athy contributes to severe bilateral neural foraminal stenosis, mild spinal canal and mild bilateral subarticular zone stenosis. C4-C5: Severe facet arthropathy contributes to severe right greater than left ne ural foraminal stenosis as well as mild right greater than left subarticular zone stenosis with out significant spinal canal stenosis. C5-C6: Uncovertebral and facet arthropathy contributes to severe right and moder ate to severe left neural foraminal stenosis as well as mild bilateral subarticular zone stenosis, without significant spinal canal stenosis. C6-C7: Uncovertebral and facet arthropathy contributes to severe right and moder ate to severe left neural foraminal stenosis as well as mild bilateral subarticular zone stenosis, without significant spinal canal stenosis. C7-T1: Facet arthropathy contributes to severe left and moderate to severe right neural foraminal stenosis as well as mild bilateral subarticular zone stenosis, without significa nt spinal canal stenosis. IMPRESSION: 1. Multilevel severe facet art hropathy with multilevel degenerative spondylolisthesis resulting in severe neural foraminal stenosis and mild subarticular zone stenosis. There is marrow edema about the C3-4 facet joints, degenerative. 2. Multiple thyroid nodules. F urther evaluation with thyroid ultrasound can be performed. [facility]-[id number] Performing Organization Address City/State/ Zipcode Phone Number [facility] [address] [place] [address] * CT Head Wo Contrast (03/24/2019 1:20 AM CDT) Only the most recent of 2 results within the time period is included. Specimen Narrative Performed At EXAMINATION: CT HEAD WO CONTRAST JARRETT Rooney CLINICAL HISTORY: Altered lev el of consciousness (LOC)unexplained COMPARISON:03/05/[address] TECHNIQUE: Noncontrast enhanc ed images of the brain were obtained from the skull base to the vertex. Both soft tissue and bone reconstruction algorithms were performed. CT scans are performed using radiation dose reduction techniques (iterative reconstruction and/or automat ed exposure control). Technical factors are evaluated and adjusted to ens ure appropriate moderation of exposure. Automated dose management technology is applied to adjust radiatio n exposure while achieving a diagnostic quality image. FINDINGS: Mild generalized brain parenc hymal volume loss. Nonspecific hypoattenuation of the supratentorial white pj er, likely chronic microangiopathic changes. Mild cerebrovascular calcification s. The brain parenchyma is other smith unremarkable. The brothers-white matter differentiation is preserved. No evidence of acute intra or extra-axial hemorrhage, mass, mass effect or acute territorial infarction. There is no acute hydrocephalus. Basal cisterns are patent. No acute soft tissue hematoma or laceration. No skull fractures or aggressive bony lesions. Paranasal sinuses and mastoid air cells are clear. Orbits are normal. IMPRESSION: No acute intracranial abnorma lity identified. [facility]-[id number] Procedure Note Interface, Radiology Results Incoming - 03/24/2019 1:27 AM CDT EXAMINATION: CT HEAD WO CONTRAST CLINICAL HISTORY: Altered level of consciousness (LOC) unexplained COMPARISON: 03/05/[address] TECHNIQUE: Noncontrast enhanced images of the brain were obtained from the skull base to the vertex. Both soft tissue and bone reconstruction algorithms were performed. CT scans are performed using radiation dose reduction techniques (iterative nohemi nstruction and/or automated exposure control). Technical factors are evaluated and adjusted to ens ure appropriate moderation of exposure. Automated dose management technology is applied to adjust radiation exposure while achieving a diagnostic quality im age. FINDINGS: Mild generalized brain parenchymal volume loss. Nonspecific hypoattenuation of t he supratentorial white matter, likely chronic microangiopathic changes. Mild cerebrovascular calc ifications. The brain parenchyma is otherwise unremarkable. The brothers-white matter differenti ation is preserved. No evidence of acute intra or extra-axial hemorrhage, mass, mass effect or acute territorial infarction. There is no acute hydrocephalus. Basal cisterns are patent. No acute soft tissue hematoma or laceration. No skull fractures or aggressive govind ny lesions. Paranasal sinuses and mastoid air cells are clear. Orbits are normal. IMPRESSION: No acute intracranial abnormality identified. [facility]-[id number] Performing Organization Address City/[facility]/ Zipcode Phone Number [facility] [address] [place] [address] * Troponin (03/23/2019 9:30 PM CDT) Only the most recent of 5 results within the time period is included. Pathologist [facility] Troponin 0.049 (H) 0.000 - 0.040 ng/mL LIND Comment: TAOISM ROQUE YANG [facility] changed methodology effective : 01/25/2019 at 10:00 am The new method has a 99th percentile cutoff of 0.040 ng/mL Specimen Plasma specimen Performing Organization Address [facility]/ Zipcode Phone Number [facility] [place] [address] [facility] [place] [address] PATHOLOGY AND GENOMIC MEDICINE [facility] [address] * ECG 12 lead (03/23/2019 8:32 PM CDT) Only the most recent of 2 results within the time period is included. Ventricular 71 [facility] rate Atrial rate 71 [facility] HI interval 166 [facility] QRSD interval 90 [facility] QT interval 410 [facility] QTC interval 445 [facility] P axis 1 64 [facility] QRS axis 1 56 [facility] T wave axis 259 [facility] EKG impression Normal sinus rhythm-T wave [facility] MUSE abnormality, consider inferio r ischemia-T wave abnormality, consider anterolateral ischemia-Abnormal ECG-- Specimen Narrative Performed At Performing Organization Address City/State/ Zipcode Phone Number [facility] MUSE [address] [facility] [place] [address] * Prothrombin time with INR (03/23/2019 3:30 PM CDT) Prothrombin 13.5 11.5 - 14.5 sec [facility].1 HOUS TON Comment: TAOISM [facility] International Normalized [facility] Ratio (INR) is a therapeutic monitoring tool for patients who are stable on oral anticoagulant therapy. An INR of 2.0-3.0 is suggested for deep vein thrombosis/pulmonary embolism. Specimen Blood Performing Organization Address [facility]/ [facility] Phone Number [facility] [place] [address] PATHOLOGY [address] * Thyroid stimulating hormone (03/23/2019 3:30 PM CDT) TSH 0.97 0.27 - 4.20 uIU/mL [facility] Specimen Plasma specimen Performing Organization Address [facility]/ [facility] Phone Number [facility] [place] [address] PATHOLOGY [address] * T4, free (03/23/2019 3:30 PM CDT) T4, free 1.4 0.9 - 1.7 ng/dL [facility] Specimen Plasma specimen Performing Organization Address [facility]/ [place] [facility] Phone Number [facility] DEPARTMENT [address] * Prealbumin level (03/23/2019 3:30 PM CDT) Prealbumin 17 16 - 32 mg/dL [facility] Specimen Serum Performing Organization Address City/State/ Zipcode Phone Number [facility] DEPARTMENT OF [address] [place] [address] PATHOLOGY AND GENOMIC MEDICINE [facility] [address] [place] [address] HOSPITAL * Phosphorus level (03/23/2019 3:30 PM CDT) Only the most recent of 3 results within the time period is included. Phosphorus 3.4 2.4 - 4.5 mg/dL [facility] Specimen Plasma specimen Performing Organization Address City/[facility]/ [facility] Phone Number [facility] DEPARTMENT OF [address] [place] [address]. [place] [address] PATHOLOG[address] * B natriuretic peptide (03/23/2019 3:30 PM CDT) BNP 453 (H) 0 - 100 pg/mL [facility] Specimen Blood Performing Organization Address [facility]/ [facility] Phone Number [facility] DEPARTMENT OF [address] [place] [address]. [place] [address] PATHOLOG[address] * Magnesium level (03/23/2019 3:30 PM CDT) Only the most recent of 3 results within the time period is included. Magnesium 1.6 1.6 - 2.6 mg/dL [facility] Specimen Plasma specimen Performing Organization Address [facility]/ [facility] Phone Number [facility] DEPARTMENT OF [address] [place] [address]. [place] [address] PATHOLOGY AND GENOMIC MEDICINE [address] * Lipase level (03/23/2019 3:30 PM CDT) Only the most recent of 2 results within the time period is included. Lipase 58 13 - 60 U/L [facility] Specimen Plasma specimen Performing Organization Address City/[facility]/ Zipcode Phone Number [facility] DEPARTMENT OF [address] [place] [address]. [place] [address] PATHOLOGY AND GENOMIC MEDICINE [address] * Lactic acid level (03/23/2019 3:30 PM CDT) Lactic acid 1.0 0.5 - 2.2 mmol/L [facility] Specimen Plasma specimen Performing Organization Address City/State/ Zipcode Phone Number [facility] DEPARTMENT OF [address] [place] [address]. [place] [address] PATHOLOGY AND GENOMIC MEDICINE [address] * Creatine kinase, total (CPK) (03/23/2019 3:30 PM CDT) Creatine kinase 62 26 - 192 U/L [facility] Specimen Plasma specimen Performing Organization Address City/State/ Zipcode Phone Number [facility] [place] [address] PATHOLOGY [address] * Bilirubin direct (03/23/2019 3:30 PM CDT) Bilirubin <0.2 0.0 - 0.3 mg/dL [facility] Specimen Plasma specimen Performing Organization Address City/[facility]/ [facility] Phone Number [facility] [place] [address] PATHOLOGY [address] * Amylase level (03/23/2019 3:30 PM CDT) Amylase 33 13 - 73 U/L [facility] Specimen Plasma specimen Performing Organization Address City/[facility]/ [facility] Phone Number [facility] DEPARTMENT [address] [place] [address] PATHOLOGY AND GENOMIC MEDICINE [address] * Lipid panel (03/23/2019 3:30 PM CDT) Only the most recent of 2 results within the time period is included. Cholesterol 160 0 - 199 mg/dL [facility] Triglycerides 190 (H) 0 - 149 mg/dL [facility] HDL cholesterol 38 (L) 40 - 99,999 mg/dL [facility] LDL cholesterol 99 0 - 99 mg/dL [facility] Lipid panel See below HOUS TON interpretation Comment: METH ODIST SUGAR Total Cholesterol [facility] (mg/dL) <200 Desirable 200-239Borderline -high >=240High Triglycerides (mg/dL) <150 Normal 150-199Borderline -high 200-499High >=500Very high HDL Cholesterol (mg/dL) <40Low (male) <50Low (female) LDL Cholesterol (mg/dL) <100 Optimal 100-129Near or above optimal 130-159Borderline -high 160-189High >=190Very high Risk Catergories that modify LDL goals. Risk Catergories LDL goal (mg/dL) CHD and CHD risk equivalent<100 (10-year risk >20%) Multiple (2+) risk factors <130 (10-year risk=<20%) 0-1 risk factors <160 (<10-year risk) Defining levels of lipids in metabolic syndrome Triglycerides >=150 mg/dL HDL Cholesterol Men <40 mg/dL Women <50 mg/dL Non-HDL cholesterol is a second target for therapy in persons with high triglycerides (> =200 mg/dL) Specimen Plasma specimen Performing Organization Address City/State/ Zipcode Phone Number [facility] [place] [address] [place] [address] PATHOLOGY AND GENOMIC MEDICINE [facility] [id number] [place] [address] * Comprehensive metabolic panel (03/23/2019 3:30 PM CDT) Only the most recent of 4 results within the time period is included. Sodium 141 135 - 148 mEq/L [facility] Potassium 3.7 3.5 - 5.0 mEq/L [facility] Chloride 104 98 - 112 mEq/L [facility] CO2 28 24 - 31 mEq/L [facility] Anion gap 9@ANIO 7 - 15 mEq/L [facility] BUN 24 (H) 6 - 20 mg/dL [facility] Creatinine 1.32 (H) 0.50 - 0.90 mg/dL [facility] Glucose 165 (H) 65 - 99 mg/dL [facility] Calcium 9.0 8.3 - 10.2 mg/dL [facility] Protein 6.3 6.3 - 8.3 g/dL [facility] Albumin 2.7 (L) 3.5 - 5.0 g/dL [facility] A/G ratio 0.8 0.7 - 3.8 [facility] Alkaline 92 35 - 104 U/L LIND phosphatase [facility] AST 27 10 - 35 U/L [facility] ALT 24 5 - 50 U/L [facility] Total bilirubin 0.4 0.2 - 1.2 mg/dL [facility] Specimen Plasma specimen Performing Organization Address City/State/ Zipcode Phone Number [facility] [place] [address] [place] [address] PATHOLOGY AND GENOMIC MEDICINE [facility] [address] * US Renal (03/07/2019 4:30 PM CDT) Specimen Narrative Performed At EXAMINATION:US RENAL RADI[facility] CLINICAL HISTORY:Renal fa ilureacute (kidney injury) COMPARISON:None. FINDINGS: The right kidney measures 9.8 x 4.5 x 4.7 cm, parenchymal thickness 1.6 cm The left kidney measures9 .8 x 6 x 5 cm, parenchymal thickness 1.9 cm The kidneys are normal in siz e and echogenicity. There is no evidence of renal mass, calculi, or hydronephro sis. The urinary bladder is unrema rkable. Incidental note is made of mi ld splenomegaly, splenic length 14.3 cm, unchanged from a recent CT 03/05/2019. IMPRESSION: Normal renal ultrasound exami [facility]. [id number] Procedure Note Interface, Radiology Results Incoming - 03/07/2019 4:55 PM CDT EXAMINATION: US RENAL CLINICAL HISTORY: Renal failure acute (kidney injury) COMPARISON: None. FINDINGS: The right kidney measures 9.8 x 4.5 x 4.7 cm, parenchymal thickness 1.6 cm The left kidney measures 9.8 x 6 x 5 cm, parenchymal thickness 1.9 cm The kidneys are normal in size and echogenicity. There is no evidence of renal m ass, calculi, or hydronephrosis. The urinary bladder is unremarkable. Incidental note is made of mild splenomegaly, splenic length 14.3 cm, unchanged from a recent CT 03/05/2019. IMPRESSION: Normal renal ultrasound examination. [id number] Performing Organization Address [facility]/ [facility] Phone Number [facility] [address] [place] [address] * Cv stress test (03/07/2019 12:26 PM CDT) Resting BP [facility] Protocol Name FRANKIE [facility] Time in 00:03:03 [facility] Exercise Phase Max Systolic BP 150 [facility] Max Diastolic 92 [facility] BP Max Heart Rate 82 [facility] Max Predicted 165 [facility] Heart Rate Test Indication [facility] Arrhy During Ex [facility] ECG Interp [facility] Before EX ECG Interp [facility] During Ex Ex Summary [facility] Comment Overall HR [facility] Response to Exercise Overall BP [facility] Response To Exercise Reason for [facility] Termination Stress Test Reason for Termination: [facility] Impression -Comments: -- Waveform interpreted in report associated with image study.No interpretation i s provided as part of this Stress ECG report.- Specimen Narrative Performed At Performing Organization Address [facility]/ [facility] Phone Number [facility] MUSE [address] [place] [address] * Nm myocardial perfusion (03/07/2019 12:26 PM CDT) Target HR 165.00 bpm HM SYN[facility] Resting HR 66 BPM HM [facility] Resting BP 150/92 mmHg HM [facility] Specimen Narrative Performed At This result has an attachment that is not avai lable. SYNGO The study is normal. SPECT images demonstrate a normal perfusion study. Normal left ventricular sy stolic function. Performing Organization Address [facility]/ [facility] Phone Number [facility] [address] [place] [address] * MRA Neck Wo Contrast (03/06/2019 4:54 PM CDT) Specimen Narrative Performed At EXAMINATION:MRA NECK WO CONTRAST HM RA DIANT CLINICAL HISTORY:Stroke follow up COMPARISON:None. TECHNIQUE: Neck MRA using 2D and 3D time -of-flight technique with multi-planar MIP and 3D reconstruction. T1 weighted M RI images of the neck were obtained . FINDINGS: There is atherosclerotic dise ase with 30% narrowing of the right carotid bulb/proximal ICA according t o the NASCET criteria. There is no evidence of signi ficant stenosis of the left carotid bulb/proximal ICA according to the NASCET c riteria (0%). There is normal flow-related signal with no significant stenosis of the bilateral vertebral arteries. The left vertebral artery is dominant. IMPRESSION: Approximately 30% stenosis of the right proximal internal carotid artery per NASCET criteria. No other sig nificant stenosis of the cervical carotid or vertebral arteries. [id number] Procedure Note Interface, Radiology Results Incoming - 03/06/2019 6:22 PM CDT EXAMINATION: MRA NECK WO CONTRAST CLINICAL HISTORY: Stroke follow up COMPARISON: None. TECHNIQUE: Neck MRA using 2D and 3D [id number] technique with multi-planar MIP and 3D r econstruction. T1 weighted MRI images of the neck were obtained . FINDINGS: There is atherosclerotic disease with 30% narrowing of the right carotid bulb/pr oximal ICA according to the NASCET criteria. There is no evidence of significant stenosis of the left carotid bulb/proximal I CA according to the NASCET criteria (0%). There is normal flow-related signal with no significant stenosis of the bilatera l vertebral arteries. The left vertebral artery is dominant. IMPRESSION: Approximately 30% stenosis of the right proximal internal carotid artery per JORGE LUIS CET criteria. No other significant stenosis of the cervical carotid or vertebral arteries. [facility]-[id number] Performing Organization Address City/State/ Zipcode Phone Number [facility] [address] [place] [address] * MRI Brain Wo Contrast (03/06/2019 4:28 PM CDT) Specimen Narrative Performed At EXAMINATION: MRI BRAIN WO CONTRAST RADI ANT CLINICAL HISTORY: Strokef ollow up COMPARISON:CT head 019 TECHNIQUE: Multiplanar and mu ltisequence MRI imaging of the brain was obtained without contrast. FINDINGS: No evidence of acute intracra nial hemorrhage, mass, mass effect, acute infarct or midline shift. Ventricles and sulci are norm al in appearance for patient's age. Minimal chronic microvascular ischemic change . No abnormal susceptibility. Basal cisterns are clear. Major intracranial massimo w voids are maintained. Bilateral lens extractions. M ild scattered paranasal sinus mucosal thickening. Mastoid air cells are clear. IMPRESSION: 1. No acute intracranial abno rmality. [facility]-[id number] Procedure Note Hm Interface, Radiology Results Incoming - 03/06/2019 4:34 PM CDT EXAMINATION: MRI BRAIN WO CONTRAST CLINICAL HISTORY: Stroke follow up COMPARISON: CT head 03/05/2019 TECHNIQUE: Multiplanar and multisequence MRI imaging of the brain was obtained w ithout contrast. FINDINGS: No evidence of acute intracranial hemorrhage, mass, mass effect, acute infarct o r midline shift. Ventricles and sulci are normal in appearance for patient's age. Minimal chronic microvascular ischemic change. No abnormal susceptibility. Basal cisterns are clear. Major int racranial flow voids are maintained. Bilateral lens extractions. Mild scattered paranasal sinus mucosal thickening. Mastoid air cells are clear. IMPRESSION: 1. No acute intracranial abnor mality. [facility]-[id number] Performing Organization Address City/State/ Zipcode Phone Number NAT [address] [place] [address] * Echocardiogram complete w contrast and 3D if needed (03/06/2019 2:45 PM CDT) Velocity Ratio 0.86 m/s SYNGO (V1/V2) IVS,d 0.99 cm SYNGO Ao root annulus 2.97 cm HM SY[facility] EF 55.32 % HM [facility] LA volume 58.00 cm3 HM [facility] LVPWD,d 1.27 cm HM [facility] AoV Mean PG 4.21 mmHg SYNGO AV LVOT peak 6.65 mmHg HM SYNGO gradient MV valve area p 3.21 cm2 SYNGO 1/2 method E/A ratio 1.15 S YNGO E wave 278.71 msec HM SYNGO decelartion time LVOT Diam,S 1.90 cm HM SYNGO LVOT area 2.83 cm2 HM SY[facility]GO LVOT Vmax 1.29 m/s HM SY[facility]GO LVOT VTI 0.23 m HM [facility] AoV Peak PG 9.05 mmHg HM SYNGO MV Peak E Wally 0.94 m/s HM SYNGO MV stenosis 68.50 ms HM SYNGO pressure 1/2 time MV Peak A Wally 0.82 m/s HM SYNGO LV Vol,s A2C 42.60 mL HM SYNGO LV Vol,d A2C 95.78 mL HM [facility] AoV Area, Vmax 2.44 cm2 HM [facility] AoV Area, VTI 2.54 cm2 HM SY[facility] AoV Vmax 1.50 m/s HM SYNGO LA Area d A4C 31 cm2 HM SYNGO LV,d 3.13 cm HM SYNGO LV,s 2.26 cm HM SYNGO LV Vol,d A4C 89.78 ml HM SYNGO LV Vol,s A4C 33.01 ml HM SYNGO RVSP (TR) 23.80 mmHg HM SYNGO TR Vpeak 2.29 mm/s HM SYNGO MV E A ratio 1.15 HM S YNGO RA pressure 5.00 mmHg HM SYNGO TR pk grad 19 mmHg HM SYNGO MR peak grad 56.04 mmHg HM SYNGO RVSP 23.80 mmHg HM SYN[facility] LV SYS VOL 17.38 ml HM SYNGO LV NIETO VOL 38.90 ml HM SYNGO LA diam s 3.10 cm HM SYNGO LA Vol MOD A4C 30.77 ml HM SYNGO LV SV Teich 2D 21.52 ml HM SYNGO LVOT SI 35.25 ml/m2 HM SYNGO AoV Cusp sep 1.56 HM S YNGO Aortic Root 3.00 cm HM SYNGO AoV Vmn 0.96 HM S YNGO IVS s 2D 1.48 HM S YNGO LA Ao Ratio 1.04 HM S YNGO Mmode D E excurs 1.30 HM S YNGO E f slope 0.05 HM S YNGO E prime lat 0.04 HM S YNGO E fidencio sept 0.06 HM S YNGO PV acc T slope 6.50 HM S YNGO PV AT 69.20 msec HM SYNGO AoV VTI 0.26 m HM SYNGO LV EF,A2C 55.52 % HM SYNGO LV EF,A4C 63.23 % HM SYNGO LV EF,BP 59.64 % HM SYNGO [place],d A2C 7.22 cm HM SYNGO Ram[place],d A4C 7.43 cm HM SYNGO Ramírez [place],s A2C 6.15 cm HM SYNGO Ramí[place],s A4C 6.00 cm HM SYNGO LV SV,A2C 53.18 % HM SYNGO LV SV,A4C 56.77 % HM SYNGO LV Vol,d BP 93.92 ml HM SYNGO LV Vol,s BP 37.91 nl HM SYNGO MR Vmax 4.09 m/s HM SYNGO LVOT Vmn 0.97 HM S YNGO LVOT mean grad 3.93 mmHg HM SYNGO LVPW s PLAX 1.58 cm HM SYNGO MV Decel slope 3.39 m/s2 HM SYNGO Specimen Narrative Performed At This result has an attachment that is not avai lable. HM SYNGO Left ventricular systolic function is normal. Left Ventricular ejection fraction is 55 - 60%. BUBBLE STUDY PERFORMED. Performing Organization Address City/State/ Zipcode Phone Number SY[facility] [address] [place] [address] * Ionized calcium (03/06/2019 3:00 AM CDT) pH 7.48 [facility] Ionized calcium 1.09 (L) 1.11 - 1.32 mmol/L [facility] Specimen Plasma specimen Performing Organization Address City/[facility]/ Zipcode Phone Number [facility] [place] [id number] [place] [address] [place] [address] PATHOLOGY AND GENOMIC MEDICINE [facility] [id number] [place] [address] [place] [address] [facility] * Urinalysis screen and microscopy, with reflex to culture (03/06/2019 2:00 AM CDT) Specimen site Clean catch [facility] Color, UA Yellow [facility] Appearance, UA Clear [facility] Specific 1.022 1.001 - 1.035 LIND gravity, UA [facility] pH, UA 7.0 5.0 - 8.5 [facility] Protein, UA 3+ (A) Negative [facility] Glucose, UA 3+ (A) Negative [facility] Ketones, UA Trace (A) Negative [facility] Bilirubin, UA Negative Negative [facility] Blood, UA Small (A) Negative [facility] Nitrite, UA Negative Negative [facility] Urobilinogen, Negative <2.0 [facility] Leukocyte Negative Negative LIND esterase, UA [facility] Epithelial Few Few /HPF [place] cells, UA [facility] WBC, UA 0-5 0 - 4 /HPF [facility] RBC, UA 0-5 0 - 5 /HPF [facility] Bacteria, UA None seen None seen [facility] Yeast, UA None seen RYAN DAN [facility] Yeast with None seen RYAN DAN pseudohyphae, TAOISM BERK[facility] Specimen Urine Performing Organization Address City/[facility]/ Zipcode Phone Number [facility] [place] [id number] [place] [address] [place] [address] PATHOLOGY AND GENOMIC MEDICINE [address] [facility] [address] * Urine culture (03/06/2019 2:00 AM CDT) Urine culture SEE COMMENTComment: RYAN DAN Bacteriuria screen negative. TAOISM CL [facility] Specimen Urine Performing Organization Address City/[facility]/ Zipcode Phone Number [facility] DEPARTMENT OF [address] [place] [address] [place] [address] PATHOLOGY AND GENOMIC MEDICINE [address] Ha [address] * CT Abdomen Pelvis Wo Contrast (03/05/2019 10:25 PM CDT) Specimen Narrative Performed At EXAM: CT ABDOMEN PELVIS WO CONTRAST RAD IANT CLINICAL HISTORY:Abd pain unspecified, Nauseavomiting TECHNIQUE: Multidetector CT o f the abdomen and pelvis was performed without intravenous administration of iodinated contrast with multiplanar reformats. CT scans are performed using radiation dose reduction techniques (iterative reconstruction and/or automat ed exposure control). Technical factors are evaluated and adjusted to ens ure appropriate moderation of exposure. Automated dose management technology is applied to adjust radiatio n exposure while achieving a diagnostic quality image. COMPARISON:None FINDINGS: Evaluation of the parenchyma, lymph nodes, and the vessels is limited without intravenous contrast. Lung bases: Dependent atelect asis. A couple scattered calcified granulomas seen. Otherwise unremarkable. Liver:No evidence for amy picious focal hepatic lesion. Gallbladder and biliary:T he gallbladder is absent. Clips within the gallbladder fossa. Pancreas:No focal pancrea tic lesion identified. No pancreatic duct dilatation. Spleen: Unremarkable. Gastrointestinal:Stomach is unremarkable in appearance. Large and small bowel are normal in caliber. Appendix is visualized and appears normal. Minimal amount of scattered colonic s tool identified. Peritoneum:No ascites or free air. Adrenals: Right adrenal later al limb lipid rich adenoma measuring 2.1 cm (axial image 39, series 3). Kidneys and ureters:There is no evidence for large irregular renal mass, obstructing calculi, hydronep hrosis, or hydroureter. Urinary bladder: Unremarkable . Reproductive organs:Parti ally calcified fundal fibroid measuring less than 2 cm seen. Lymph nodes:No enlarged l ymph nodes in the abdomen or pelvis. Vascular:Mild atheroscler otic changes of the abdominal aorta and major branch vessels. Evaluation of vessel lumens is limited due to lack of IV contrast. Abdominal wall:Unremarkab le. Bones:Minimal thoracolumb ar spondylosis. No acute osseous bodies seen. IMPRESSION: 1.No evidence for acute a bdominopelvic for process on the current noncontrast CT. 2.Patient is status post cholecystectomy. 3.Right adrenal lateral l imb lipid rich adenoma measuring 2.1 cm (axial image 39, series 3). 4.Partially calcified fun casimiro fibroid measuring less than 2 cm. 5.Additional chronic find ings as listed. [facility]-[id number] Procedure Note Interface, Radiology Results Incoming - 03/05/2019 10:35 PM CDT EXAM: CT ABDOMEN PELVIS WO CONTRAST CLINICAL HISTORY: Abd pain unspecified, Nausea vomiting TECHNIQUE: Multidetector CT of the abdomen and pelvis was performed without intr avenous administration of iodinated contrast with multiplanar reformats. CT scans are performed using radiation dose reduction techniques (iterative nohemi nstruction and/or automated exposure control). Technical factors are evaluated and adjusted to ens ure appropriate moderation of exposure. Automated dose management technology is applied to adjust radiation exposure while achieving a diagnostic quality im age. COMPARISON: None FINDINGS: Evaluation of the parenchyma, lymph nodes, and the vessels is limited without in travenous contrast. Lung bases: Dependent atelectasis. A couple scattered calcified granulomas seen. Otherwise unremarkable. Liver: No evidence for suspicious focal hepatic lesion. Gallbladder and biliary: The gallbladder is absent. Clips within the gallbladde r fossa. Pancreas: No focal pancreatic lesion identified. No pancreatic duct dilatation. Spleen: Unremarkable. Gastrointestinal: Stomach is unremarkable in appearance. Large and small bowel are normal in caliber. Appendix is visualized and appears normal. Minimal amount of scattered colonic stool identified. Peritoneum: No ascites or free air. Adrenals: Right adrenal lateral limb lipid rich adenoma measuring 2.1 cm (axial image 39, series 3). Kidneys and ureters: There is no evidence for large irregular renal mass, obstr ucting calculi, hydronephrosis, or hydroureter. Urinary bladder: Unremarkable. Reproductive organs: Partially calcified fundal fibroid measuring less than 2 c m seen. Lymph nodes: No enlarged lymph nodes in the abdomen or pelvis. Vascular: Mild atherosclerotic changes of the abdominal aorta and major branch vessels. Evaluation of vessel lumens is limited due to lack of IV contrast. Abdominal wall: Unremarkable. Bones: Minimal thoracolumbar spondylosis. No acute osseous bodies seen. IMPRESSION: 1. No evidence for acute abdo minopelvic for process on the current noncontrast CT. 2. Patient is status post cho lecystectomy. 3. Right adrenal lateral limb lipid rich adenoma measuring 2.1 cm (axial image 39, series 3). 4. Partially calcified fundal fibroid measuring less than 2 cm. 5. Additional chronic finding s as listed. [facility]-[id number] Performing Organization Address City/State/ Zipcode Phone Number [facility] [address] [place] [address] * XR Chest 1 Vw Portable (03/05/2019 9:52 PM CDT) Specimen Narrative Performed At EXAMINATION:XR CHEST 1 VW PORTABLE [facility] CLINICAL HISTORY:SOB TECHNIQUE:XR CHEST 1 VW P ORTABLE COMPARISON:None. FINDINGS: Lines/tubes:Multiple EKG leads project over the patient. Heart and mediastinum:Unr emarkable Lungs:The lungs are well inflated. There is no evidence of pneumonia or pulmonary edema. Pleura:There is no pleura l effusion. There is no pneumothorax. Bones and Soft Tissues:Th ere are mild degenerative changes of the visualized skeleton. There is no acute o r suspicious osseous abnormality. IMPRESSION: No acute cardiopulmonary abno rmality. [facility]-[id number] Procedure Note Interface, Radiology Results Incoming - 03/05/2019 10:03 PM CDT EXAMINATION: XR CHEST 1 VW PORTABLE CLINICAL HISTORY: SOB TECHNIQUE: XR CHEST 1 VW PORTABLE COMPARISON: None. FINDINGS: Lines/tubes: Multiple EKG leads project over the patient. Heart and mediastinum: Unremarkable Lungs: The lungs are well inflated. There is no evidence of pneumonia or pulmon rich edema. Pleura: There is no pleural effusion. There is no pneumothorax. Bones and Soft Tissues: There are mild degenerative changes of the visualized s [place]. There is no acute or suspicious osseous abnormality. IMPRESSION: No acute cardiopulmonary abnormality. [facility]-[id number] Performing Organization Address City/State/ Zipcode Phone Number [address] [place] [address] * ECG ED Preliminary Interpretation - Not an Order (03/05/2019 9:24 PM CDT) Narrative Performed At Joe Martinez MD 03/05/2019 11:34 PM ECG ED Preliminary Interpreta tion - Not an Order Performed by: Joe Martinez MD Authorized by: Joe Martinez MD ECG reviewed by ED Physician in the absence of a lace machine operator: yes Interpretation: Interpretation: abnormal Rate: ECG rate:107 ECG rate assessment: tach ycardic Rhythm: Rhythm: sinus tachycardia Ectopy: Ectopy: none QRS: QRS axis:Normal Conduction: Conduction: normal ST segments: ST segments:Non-speci fic T waves: T waves: non-specific * CRITICAL CARE (03/05/2019 9:24 PM CDT) Narrative Performed At Joe Martinez MD 03/05/2019 11:34 PM Critical Care Performed by: Joe Martinez MD Authorized by: Joe Martinez MD Critical care provider statem ent: Critical care time (minut es):45 Critical care was necessa ry to treat or prevent imminent or life-threatening deterioratio n of the following conditions: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 failure or compromise Critical care was time sp ent personally by me on the following activities:Ordering and p erforming treatments and interventions, ordering and review of labora tory studies, ordering and review of radiographic studies, pulse o ximetry, re-evaluation of patient's condition and discussions with consulta nts after 05/21/2018 Insurance Type Payer Benefit Subscriber ID Effective Phone Address Plan / Dates Group O SHYAM HOWE xxxxxxxxx [id number] HE[employer] [facility] Advance Directives For more information, please contact: [phone] 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 05/21/19 11:54pm 05/22/19 5:50pm MAREN FLORIAN MD Recent Diagnosis Poorly controlled diabetes mellitus HTN (hypertension) PUD (peptic ulcer disease) Marijuana abuse Methamphetamine abuse Hepatitis C Breast cancer COPD (chronic obstructive pulmonary disease) Schizophrenia Diabetes mellitus Cocaine abuse Dehydration Breast cancer Cellulitis of right upper extremity CVA (cerebral vascular accident)
--- OUTSIDE RECORDS SUMMARY | 2020-01-14 19:16 | XMS REPORT | Continuity of Care Document ---
Author Author [facility] Organization [facility] Address [address] [place] [address] Phone Unavailable Care Team Providers Care Estimation Manager Name Role Phone CAITLIN COHEN PCP Insurance Providers Guarantor Hilary Ramos Address [address] [place] [address] Email NO EMAIL [facility] Policy Number [id number] Subscriber's Name David Ramoscarmel Fontanez Relationship Self / Same As Patient Group Number [id number] Group Name NA Advance Directives Directive Response Recorded Date/Time Advance Directives No 01/31/16 11:47pm Advance Directive on File No 10/21/18 3:07pm Resuscitation Status Full Code 10/22/18 10:34am Directive to Physicians/Living Will No 01/31/16 11:47pm Health Care Proxy No 01/31/16 11:47pm Organ Donor No 01/31/16 11:47pm Medical Power of Special Trackwork Blacksmith No 01/31/16 11:47pm Patient/Family Given Education Material R/T Directives? Yes 10/21/18 3:07pm Chief Complaint and Reason for Visit Chief Complaint INTACTABLE NAUSEA, VOMITING, HYPERTENSION, HYPERGL Reason for Visit Hyperglycemia due to type 2 diabetes mellitus HTN (hypertension) COPD (chronic obstructive pulmonary disease) Abscess PUD (peptic ulcer disease) Marijuana abuse Methamphetamine abuse Hepatitis C Breast cancer COPD (chronic obstructive pulmonary disease) Schizophrenia Diabetes mellitus Abdominal pain Intractable vomiting with nausea Problems Medical Problem Onset Date Status Abdominal pain Unknown Resolved Abscess Unknown Acute Breast cancer Unknown COPD (chronic obstructive pulmonary disease) Unknown Chronic CVA (cerebral vascular accident) Unknown Acute Cellulitis and abscess of foot Unknown Acute Cellulitis of right upper extremity Unknown Acute DKA (diabetic ketoacidoses) Unknown Acute DM (diabetes mellitus) Unknown Acute Diabetes mellitus Unknown Chronic Diabetic acidosis Unknown Acute Facial cellulitis Unknown Acute Facial cellulitis Unknown Acute HLD (hyperlipidemia) Unknown Acute HTN (hypertension) Unknown Chronic Hepatitis C Unknown Chronic Hyperglycemia due to type 2 diabetes mellitus Unknown Acute Intractable vomiting with nausea Unknown Resolved MRSA cellulitis Unknown Acute Marijuana abuse Unknown Chronic Methamphetamine abuse Unknown Chronic PUD (peptic ulcer disease) Unknown Chronic Poorly controlled diabetes mellitus Unknown Acute Schizophrenia Unknown Chronic Past Problems Medical Problem Onset Date Status Abscess, scalp Unknown Acute Hypertension Unknown Acute Hyponatremia Unknown Acute Intractable nausea and vomiting Unknown Acute Medications Current Home Medications Medication Dose Units Route Directions Days Qty Instructions Start Date Albuterol Sulfate (Proair Hfa) 108 Mcg/Act Aer 2 Puff RESPIRATORY (INHALATION) Four Times Daily As Needed 1 Inh Clonidine Hcl (Catapres *) 0.3 Mg Tab 0.3 Mg ORAL Twice A Day Esomeprazole Mag * (Nexium 40 Mg *) 40 Mg Cap 1 Cap ORAL Daily Fluticasone Propionate/Salmeterol * (Advair Diskus *) 250 /50 Aer 1 Puff RESPIRATORY (INHALATION) Rt-Twice Daily 10 Disk 01/04/14 Hydrochlorothiazide (Hydrochlorothiazide *) 25 Mg Tab 1 Tab ORAL Daily 30 Days 30 Tablet Insulin Glargine (Lantus Solostar) 100 Unit/Ml Inj 28 Units SUBCUTANEOUS Every 12 Hours for Dm 30 Days 15 Milliliter 08/24/18 Insulin Glargine (Toujeo Solostar) 300 Unit/Ml Inj 70 SUBCUTANEOUS Once Daily Linagliptin * (Tradjenta 5 Mg *) 5 Mg Tab 1 Tab ORAL Daily Lisinopril (Zestril/Prinivil *) 40 Mg Tab 1 Tab ORAL Once Daily Phenazopyridine Hcl (Pyridium) 100 Mg Tab 100 Mg ORAL Three Times A Day Pregabalin (Lyrica 100 Mg *) 100 Mg Cap 100 Mg ORAL Three Times A Day Ranitidine Hcl (Ranitidine Hcl 150 Mg) 150 Mg Tab 1 Tab ORAL Twice A Day Past Home Medications Medication Directions Ordered Status Albuterol Hfa* (Proventil Hfa 90 Mcg/Act *) Aer, 2 Puff Respiratory (Inhalation) Rt-Every 4 Hours Discontinued Anastrozole (Anastrozole *) 1 Mg Tab, [...] Three Times A Day Discontinued Ciprofloxacin Hcl (Cipro*) 500 Mg Tab, 1 Tab Oral Twice A Day 02/06/16 Discontinued Clindamycin Hcl (Cleocin *) 300 Mg Cap, 1 Cap Oral Three Times A Day for Cellulitis Of The Lower Extrem 08/24/18 Discontinued Clindamycin Hcl (Cleoci 300 Mgn *) [...] Subcutaneous Once Daily At Bedtime Discontinued Insulin Human Aspart (Novolog) 100 Unit/Ml [...] Oral Three Times A Day Discontinued Methylcobalamin (Z08-Sibkta) 1 Mg Chw, 2000 Mcg Oral Daily [...] Substance Use Treatment Y - in past 10/21/2018 12:42pm Not Applicable Not Applicable Hx Alcohol Use No 10/21/2018 12:42pm Not Applicable Not Applicable Hx Inhalant Use Y - METHAMPHETAMINE 10/21/2018 12:42pm Not Applicable Not Applicable Hx Physical Abuse No 10/21/2018 12:42pm Not Applicable Not Applicable Hx Suicide Attempt Y - june 2013 10/21/2018 12:42pm Not Applicable Not Applicable Smoking Status Start Date Stop Date Current every day smoker Hospital Discharge Instructions No hospital discharge instruction information available. Plan of Care Discharge Date 10/22/18 3:09pm Disposition PATIENT DISCHARGE HOME OR SELF Instructions/Education Provided Nausea, Adult Hyperglycemia, Ygvr-ye-Elhm Hypertension, Lpgs-gx-Msiy Forms Provided Portal Welcome Letter Prescriptions See Medication Section Functional Status No functional status information available. Allergies, Adverse Reactions, Alerts No known allergies. Immunizations No immunization information available. Vital Signs Acute Vital Signs Vital Response Date/Time Blood Pressure 146/86 mm Hg 10/22/2018 11:40am Pulse Pulse Rate (adult) 89 beats per minute (60 - 100) 10/22/2018 11:40am Respiratory Rate 20 breaths per minute (10 - 24) 10/22/2018 11:40am Temperature Source Oral 10/22/2018 11:40am Height 5 ft 5 in 10/21/2018 8:00am Weight 181.38 lb 10/22/2018 5:22am Body Mass Index 30.2 kg/m^2 10/22/2018 5:22am Results Laboratory Results Test Name Result Units Flags Reference Collection Date/Time Result Date/Time Comments White Blood Count 8.8 K/ul 4.0-11.5 10/22/2018 4:10/22/2018 5:17am Red Blood Count 5.76 M/ul H 3.80-5.20 10/22/2018 4:10/22/2018 5:17am Hemoglobin 13.9 g/dl 10.5-15.7 10/22/2018 4:10/22/2018 5:17am Hematocrit 43.8 % 34.0-50.0 10/22/2018 4:10/22/2018 5:17am Mean Corpuscular Volume 76.0 fl L 78-98 10/22/2018 4:10/22/2018 5:17am Mean Corpuscular Hemoglobin 24.1 pg L 26.2-33.4 10/22/2018 4:10/22/2018 5:17am Mean Corpuscular Hemoglobin Concent 31.7 g/dl 31.5-36.2 10/22/2018 4:10/22/2018 5:17am Red Cell Distribution Width 13.2 % 11.5-15.5 10/22/2018 4:10/22/2018 5:17am Platelet Count 161 K/ul 137-338 10/22/2018 4:10/22/2018 5:17am Mean Platelet Volume 12.5 fl H 8.4-11.8 10/22/2018 4:10/22/2018 5:17am Neutrophils (%) (Auto) 68.1 % 44.4-80.1 10/22/2018 4:1210/22/2018 5:17am Lymphocytes (%) (Auto) 19.5 % 10.0-50.0 10/22/2018 4:10/22/2018 5:17am Monocytes (%) (Auto) 8.1 % 3.6-12.04 10/22/2018 4:10/22/2018 5:17am Eosinophils (%) (Auto) 2.8 % 0.0-5.41 10/22/2018 4:10/22/2018 5:17am Basophils (%) (Auto) 1.5 % H 0.0-0.79 10/22/2018 4:10/22/2018 5:17am Urine Color LIGHT YELLOW 10/21/2018 10:0510/21/2018 10:20am Urine Appearance CLEAR CLEAR 10/21/2018 10:0510/21/2018 10:20am Urine Glucose 4+ (1000 mg/dL) H NEGATIVE 10/21/2018 10:0510/21/2018 10:20am Urine Bilirubin NEGATIVE NEGATIVE 10/21/2018 10:0510/21/2018 10:20am Urine Ketones 1+(SMALL) H NEGATIVE 10/21/2018 10:0510/21/2018 10:20am Urine Specific [place] 1.020 1.003-1.030 10/21/2018 10:0510/21/2018 10:20am Urine Blood TRACE NEGATIVE 10/21/2018 10:0510/21/2018 10:20am Urine pH 8.000 5-9 10/21/2018 10:0510/21/2018 10:20am Urine Protein 3+ (600 mg/dL) H NEGATIVE 10/21/2018 10:0510/21/2018 10:20am Urine Urobilinogen NORMAL mg/dL 0.2-1.0 10/21/2018 10:0510/21/2018 10:20am Urine Nitrate NEGATIVE NEGATIVE 10/21/2018 10:0510/21/2018 10:20am Urine Leukocyte Esterase NEGATIVE NEGATIVE 10/21/2018 10:05am 10/21/2018 10:20am Urine RBC 6-10 /hpf H 0-5 10/21/2018 10:0510/21/2018 10:20am Urine WBC 1-5 /hpf 0-5 10/21/2018 10:05am 10/21/2018 10:20am Urine Epithelial Cells 1-5 /hpf 0-5 10/21/2018 10:05am 10/21/2018 10:20am Urine Bacteria None Detected /hpf None Detect 10/21/2018 10:05am 10/21/2018 10:20am Urine Casts 2-5 /lpf None Detect 10/21/2018 10:05am 10/21/2018 10:20am Urine Culture Reflexed NO 10/21/2018 10:05am 10/21/2018 10:20am Arterial Blood pH 7.48 phunit H 7.350 - 7.450 10/21/2018 8:49am 10/21/2018 8:50am Arterial Blood Partial Pressure CO2 47 mmHg H 23.0 - 33.0 10/21/2018 8:49am 10/21/2018 8:50am Arterial Blood Partial Pressure O2 75 mmHg L 83.0 - 108 10/21/2018 8:49am 10/21/2018 8:50am Arterial Blood HCO3 33.2 mmol/l 18.0 - 28.2 10/21/2018 8:49am 10/21/2018 8:50am POC Capillary Blood Glucose (Chem) 277 mg/dL H 70.0 - 110 10/22/2018 11:11am 10/22/2018 11:12am Arterial Blood Base Excess 11.0 mmol/l H -2.0-2.0 10/21/2018 8:49am 10/21/2018 12:59pm Arterial Blood Total CO2 30.2 mmol/l 22.0 - 26.0 10/21/2018 8:49am 10/21/2018 8:50am Arterial Blood Oxygen Saturation 96 % 94.0 - 98.0 10/21/2018 8:49am 10/21/2018 8:50am This is a calculated result. Oxygen Content 8.6 mmol/l 6.7 - 15.6 10/21/2018 8:49am 10/21/2018 8:50am Random Glucose 73 mg/dL L 74-106 10/22/2018 4:12am 10/22/2018 5:35am Blood Urea Nitrogen 18 mg/dL 6-20 10/22/2018 4:12am 10/22/2018 5:35am Serum Osmolality 278 L 280-300 10/22/2018 4:10/22/2018 5:35am Creatinine 1.2 mg/dL H 0.50-0.90 10/22/2018 4:10/22/2018 5:35am Glomerular Filtration Rate Calc 46.82 L 10/22/2018 4:10/22/2018 5:35am GFR RESULTS ARE REPORTED IN mL/min/1.73m2. Normal GFR: >60mL/min Moderately decreased GFR: 30-59 mL/min Severely decreased GFR: 15-29 mL/min Kidney Failure (or Dialysis): <15 mL/min The calculated eGFR is not valid for patients younger than 18 years or older than 75 years. BUN/Creatinine Ratio 15.0 09-0910/22/2018 4:10/22/2018 5:35am Sodium Level 139 mmol/L 135-145 10/22/2018 4:10/22/2018 5:35am Potassium Level 3.0 mmol/L L 3.5-5.2 10/22/2018 4:10/22/2018 5:35am Chloride Level 98 mmol/L 98-108 10/22/2018 4:10/22/2018 5:35am Carbon Dioxide Level 28 mmol/L 21-32 10/22/2018 4:10/22/2018 5:35am Anion Gap 16.0 mEq/L 09-0910/22/2018 4:10/22/2018 5:35am Calcium Level 8.5 mg/dL L 8.6-10.0 10/22/2018 4:10/22/2018 5:35am Magnesium Level 1.8 mg/dL 1.6-2.6 10/21/2018 8:0810/21/2018 9:02am Total Protein 6.3 g/dL L 6.6-8.7 10/22/2018 4:10/22/2018 5:35am Albumin 2.3 g/dL L 3.5-5.2 10/22/2018 4:10/22/2018 5:35am Globulin 4.0 gm/dL 10/22/2018 4:10/22/2018 5:35am Albumin/Globulin Ratio 0.6 >1.0 10/22/2018 4:12am 10/22/2018 5:35am Total Bilirubin 0.3 mg/dL 0.0-1.2 10/22/2018 4:12am 10/22/2018 5:35am Aspartate Amino Transf (AST/SGOT) 25 U/L 15-32 10/22/2018 4:12am 10/22/2018 5:35am Alanine Aminotransferase (ALT/SGPT) 19 U/L 0-33 10/22/2018 4:12am 10/22/2018 5:35am Amylase Level 90 U/L 28-100 10/21/2018 8:08am 10/21/2018 9:02am Lipase 124 U/L H 13-60 10/21/2018 8:08am 10/21/2018 9:02am Total Alkaline Phosphatase 124 U/L H 35-105 10/22/2018 4:12am 10/22/2018 5:35am Urine Amphetamines Screen POSITIVE NG/ML H NEGATIVE 10/21/2018 10:05am 10/21/2018 10:29am Urine Barbiturates, Quantitative NEGATIVE NG/ML NEGATIVE 10/21/2018 10:05am 10/21/2018 10:29am Urine Benzodiazepines Screen NEGATIVE NG/ML NEGATIVE 10/21/2018 10:05am 10/21/2018 10:29am Urine Cannabinoids NEGATIVE NG/ML NEGATIVE 10/21/2018 10:05am 10/21/2018 10:29am Urine Cocaine Metabolite NEGATIVE NG/ML NEGATIVE 10/21/2018 10:05am 10/21/2018 10:29am Urine Opiates Screen NEGATIVE NG/ML NEGATIVE 10/21/2018 10:05am 10/21/2018 10:29am Urine Phencyclidine (PCP) Level NEGATIVE NG/ML NEGATIVE 10/21/2018 10:05am 10/21/2018 10:29am Methadone Level NEGATIVE NG/ML NEGATIVE 10/21/2018 10:05am 10/21/2018 10:29am Propoxyphene Level NEGATIVE NG/ML NEGATIVE 10/21/2018 10:05am 10/21/2018 10:29am Oxycodone Level NEGATIVE NG/ML NEGATIVE 10/21/2018 10:05am 10/21/2018 10:29am Urine Drug Screen Note . 10/21/2018 10:05am 10/21/2018 10:08am DRUGS OF ABUSE CUT-OFF VALUES AMPHETAMINES (AMPH) [...] CONFIRMATION AND QUANTITATION AVAILABLE UPON MD REQUEST. Venous Blood pH 7.383 7.31-7.41 08/22/2018 7:50am [...] mmol/L L 6.7-15.6 08/22/2018 7:50am 08/22/2018 8:05am Lactic Acid Level 3.70 mmoL/L H 0.5-2.2 08/22/2018 5:58am 08/22/2018 6:22am Results have been broadcasted to patient's location and called to (PAT). By KAREN BLOOM 08/22/18 @0621 Results read back for confirmation. Phosphorus Level 3.3 mg/dL 2.5-4.5 08/22/2018 7:50am 08/22/2018 8:17am Hemoglobin A1c > 15.2 % H 4.0-6.0 08/22/2018 3:33am 08/22/2018 4:03am Vancomycin Level Trough 18.5 ug/mL 10-20 08/23/2018 [...] indicative of an ischemic mechanism. The term CA should be used when there is evidence [...] Result Date/Time Result Status Blood Culture Blood FINAL REPORT. 08/22/2018 5:58am 08/22/2018 6:01am Final Procedures Procedure Status Date Provider(s) INSERTION OF INFUSION DEV INTO R SUBCLAV VEIN, PERC APPROACH Completed 08/22/18 MAREN FLORIAN MD ULTRASONOGRAPHY OF RIGHT SUBCLAVIAN VEIN, GUIDANCE Completed 08/22/18 MAREN FLORIAN MD X-ray of abdomen, single view Completed 08/22/18 SHINE SCHWARZ MD X-ray of chest, single view Completed 08/22/18 SHINE SCHWARZ MD Encounters Encounter Location Arrival/Admit Date Discharge/Depart Date Attending Provider Discharged Inpatient [facility] 10/21/18 10:13am 10/22/18 3:09pm MIKI MASON JR, MD Discharged Inpatient [facility] 08/22/18 5:21am 08/24/18 2:30pm MAREN FLORIAN MD Recent Diagnosis Hyperglycemia due to type 2 diabetes mellitus HTN (hypertension) COPD (chronic obstructive pulmonary disease) Abscess PUD (peptic ulcer disease) Marijuana abuse Methamphetamine abuse Hepatitis C Breast cancer COPD (chronic obstructive pulmonary disease) Schizophrenia Diabetes mellitus Abdominal pain Intractable vomiting with nausea
--- OUTSIDE RECORDS SUMMARY | 2020-01-14 19:16 | XMS REPORT | Continuity of Care Document ---
Author Author [facility] Organization [facility] Address [address] [place] [address] Phone Unavailable Care Team Providers Care Dining Room Hostess Name Role Phone BERT HERNADEZ MD PCP Insurance Providers Guarantor Fernando Ramos Address [address] [place] [address] Email NONE [facility] Policy Number [id number] Subscriber's Name Fernando Ramos Relationship Self / Same As Patient Group Number [id number] Group Name NA Advance Directives Directive Response Recorded Date/Time Advance Directives No 01/31/16 11:47pm Advance Directive on File No 12/06/18 8:19am Directive to Physicians/Living Will No 01/31/16 11:47pm Health Care Proxy No 01/31/16 11:47pm Name of Surrogate/Decision Maker N/A 12/05/18 11:47pm Organ Donor No 01/31/16 11:47pm Medical Power of Differential Specialist No 01/31/16 11:47pm Patient/Family Given Education Material R/T Directives? Y - SIGNED 12/05/18...AG 12/06/18 8:19am Chief Complaint and Reason for Visit Chief Complaint LIVER CIRRHOSIS,DEHYDRATION,METHAMPHETAMINE ABUSE Reason for Visit Methamphetamine abuse Abdominal pain Cellulitis and abscess of foot Abscess Problems Medical Problem Onset Date Status Abdominal [...] Abscess, scalp Unknown Acute Dehydration Unknown Acute Hypertension Unknown Acute Hyponatremia Unknown Acute Intractable nausea and vomiting Unknown Acute Liver cirrhosis Unknown Acute Medications Current Home Medications Medication Dose Units Route Directions Days Qty Instructions Start Date Amoxicillin/Clavulanate Potassium (Augmentin *) 875 Mg Tab 1 Tab ORAL Twice A Day for Pneumonia 10 Days 20 Tablet 12/08/18 Anastrozole (Anastrozole *) 1 Mg Tab 1 Tab ORAL Daily 30 Days 30 Tablet Aspirin (Aspirin *) 81 Mg Tab 1 Tab ORAL Daily 30 Days 30 Tablet Citalopram * (Celexa*) 10 Mg Tab 10 Mg ORAL Once Daily At Bedtime Clonidine Hcl (Catapres *) 0.1 Mg Tab 0.1 Mg ORAL Twice A Day for Hypertension 60 Tablet 12/08/18 Cyanocobalamin (Vitamin B12) 1,000 Mcg Tab 500 Mcg ORAL Once Daily Fluticasone Propionate 50 Mcg/Act Spr 2 [place] NASAL Daily 1 Inh Hydrochlorothiazide (Hydrochlorothiazide *) 25 Mg Tab 1 Tab ORAL Daily 30 Days 30 Tablet Insulin Glargine (Toujeo Max Solostar) 300 Unit/Ml Inj 70 Units SUBCUTANEOUS One Dose At 1999 Loratadine (Claritin 10 Mg) 10 Mg Cap 1 Cap ORAL Daily for Allergy Symptoms 30 Days 30 Cap Losartan Potassium (Cozaar 100 Mg *) 100 Mg Tab 1 Tab ORAL Daily 30 Days 30 Tablet Magnesium Oxide (Mg Supplement (Magnesium 400 Mg) 400 Mg Cap 1 Cap ORAL Daily 30 Days 30 Cap Metformin Hcl (Glucophage 500 Mg *) 500 Mg Tab 1 Tab ORAL Twice A Day 30 Days 60 Tablet Metformin Hcl (Glucophage Xr *) 500 Mg Tab 500 Mg ORAL Twice A Day Metoprolol Tartrate (Lopressor *) 25 Mg Tab 25 Mg ORAL Twice A Day 30 Days 60 Tablet Pantoprazole Sodium (Protonix Ec *) 40 Mg Tab 40 Mg ORAL Before Breakfast for Gerd 30 Days 30 Tablet 12/08/18 Pregabalin (Lyrica 100 Mg *) 100 Mg Cap 100 Mg ORAL Three Times A Day Ranitidine Hcl (Ranitidine Hcl 150 Mg) 150 Mg Tab 1 Tab ORAL Twice A Day Salmeterol Xinafoate/Fluticasone (Advair Diskus *) 250 /50 Aer 1 Puff RESPIRATORY (INHALATION) Rt-Twice Daily 10 Disk 01/04/14 Past Home Medications Medication Directions Ordered Status Albuterol Hfa* (Proventil Hfa 90 Mcg/Act *) Aer, 2 Puff Respiratory (Inhalation) Rt-Every 4 Hours Discontinued Albuterol Sulfate (Proair Hfa *) 108 Mcg/Act Aer, 2 Puff Respiratory (Inhalation) Four Times Daily As Needed Discontinued Anastrozole (Anastrozole *) 1 Mg Tab, [...] Oral Am Discontinued Clonidine Hcl (Catapres *) 0.3 Mg [...] Once Daily At Bedtime Discontinued Insulin Glargine (Lantus Solostar) 100 Unit/Ml [...] Oral Three Times A Day Discontinued Methylcobalamin ([id number]) 1 Mg Chw, 2000 Mcg Oral Daily [...] Substance Use Treatment Y - in past 12/06/2018 8:22am Not Applicable Not Applicable Hx Alcohol Use No 12/06/2018 8:22am Not Applicable Not Applicable Hx Inhalant Use Y - METHAMPHETAMINE 12/06/2018 8:22am Not Applicable Not Applicable Hx Physical Abuse No 12/06/2018 8:22am Not Applicable Not Applicable Hx Suicide Attempt Y - june 2013 12/06/2018 8:22am Not Applicable Not Applicable Smoking Status Start Date Stop Date Current every day smoker Hospital Discharge Instructions No hospital discharge instruction information available. Plan of Care Discharge Date 12/08/18 6:45pm Disposition PATIENT DISCHARGE HOME OR SELF Instructions/Education Provided Amoxicillin; Clavulanic Acid tablets Cirrhosis Pantoprazole tablets Clonidine tablets Stimulant Use Disorder-Methamphetamines Forms Provided Portal Welcome Letter Prescriptions See Medication Section Additional Instructions/Education 1. Dr[facility] [address] [place], [place] [id number] [phone] [facility] [address] [place] [address] [phone] [facility] [address] [facility] [place], [place] [address] [phone] Care Plan and Goals OK TO DC IV AND DC HOME FOLLOW-UP WITH PRIMARY CARE PROVIDER IN 1-2 WEEKS FOLLOW-UP WITH GI IN 1-2 WEEKS RETURN TO THE ER IF symptoms worsen CALL DR. DEGROOT AT [phone] IF ANY QUESTIONS REGARDING HOSPITAL STAY. PLEASE CALL THE FLOOR AT [phone] IF ANY MEDICATION OR NURSING QUESTIONS Functional Status No functional status information available. Allergies, Adverse Reactions, Alerts No known allergies. Immunizations No immunization information available. Vital Signs Acute Vital Signs Vital Response Date/Time Blood Pressure 171/95 mm Hg 12/08/2018 5:23pm Blood Pressure 171/95 mm Hg 12/08/2018 5:23pm Pulse Pulse Rate (adult) 86 beats per minute (60 - 100) 12/08/2018 5:23pm Pulse Pulse Rate (adult) 86 beats per minute (60 - 100) 12/08/2018 5:23pm Respiratory Rate 17 breaths per minute (10 - 24) 12/08/2018 4:21pm Temperature Source Oral 12/08/2018 4:21pm Height 5 ft 5 in 12/06/2018 12:16am Weight 187.19 lb 12/08/2018 4:31am Body Mass Index 31.1 kg/m^2 12/08/2018 4:31am Results Laboratory Results Test Name Result Units Flags Reference Collection Date/Time Result Date/Time Comments Urine Casts 2-5 /lpf None Detect 10/21/2018 10:05am 10/21/2018 10:20am Arterial Blood pH 7.48 phunit H 7.350 - 7.450 10/21/2018 8:49am 10/21/2018 8:50am Arterial Blood Partial Pressure CO2 47 mmHg H 23.0 - 33.0 10/21/2018 8:49am 10/21/2018 8:50am Arterial Blood Partial Pressure O2 75 mmHg L 83.0 - 108 10/21/2018 8:49am 10/21/2018 8:50am Arterial Blood HCO3 33.2 mmol/l 18.0 - 28.2 10/21/2018 8:49am 10/21/2018 8:50am Arterial Blood Base Excess 11.0 mmol/l H -2.0-2.0 10/21/2018 8:49am 10/21/2018 12:59pm Arterial Blood Total CO2 30.2 mmol/l 22.0 - 26.0 10/21/2018 8:49am 10/21/2018 8:50am Arterial Blood Oxygen Saturation 96 % 94.0 - 98.0 10/21/2018 8:49am 10/21/2018 8:50am This is a calculated result. Oxygen Content 8.6 mmol/l 6.7 - 15.6 10/21/2018 8:49am 10/21/2018 8:50am White Blood Count 10.3 K/ul 4.0-11.5 12/08/2018 5:15am 12/08/2018 5:27am Red Blood Count 4.88 M/ul 3.80-5.20 12/08/2018 5:15am 12/08/2018 5:27am Hemoglobin 12.4 g/dl 10.5-15.7 12/08/2018 5:15am 12/08/2018 5:27am Hematocrit 37.9 % 34.0-50.0 12/08/2018 5:15am 12/08/2018 5:27am Mean Corpuscular Volume 77.6 fl L 78-98 12/08/2018 5:15am 12/08/2018 5:27am Mean Corpuscular Hemoglobin 25.4 pg L 26.2-33.4 12/08/2018 5:15am 12/08/2018 5:27am Mean Corpuscular Hemoglobin Concent 32.7 g/dl 31.5-36.2 12/08/2018 5:15am 12/08/2018 5:27am Red Cell Distribution Width 14.9 % 11.5-15.5 12/08/2018 5:15am 12/08/2018 5:27am Platelet Count 162 K/ul 137-338 12/08/2018 5:15am 12/08/2018 5:27am Mean Platelet Volume 11.3 fl 8.4-11.8 12/08/2018 5:15am 12/08/2018 5:27am Neutrophils (%) (Auto) 48.5 % 44.4-80.1 12/08/2018 5:15am 12/08/2018 5:27am Lymphocytes (%) (Auto) 37.3 % 10.0-50.0 12/08/2018 5:15am 12/08/2018 5:27am Monocytes (%) (Auto) 7.7 % 3.6-12.04 12/08/2018 5:15am 12/08/2018 5:27am Eosinophils (%) (Auto) 5.0 % 0.0-5.41 12/08/2018 5:15am 12/08/2018 5:27am Basophils (%) (Auto) 1.5 % H 0.0-0.79 12/08/2018 5:15am 12/08/2018 5:27am Prothrombin Time 10.1 SECONDS L 10.3-12.3 12/07/2018 5:05pm 12/07/2018 5:40pm THERAPEUTIC LEVEL: 1.5 to 1.9 times normal range of PT Prothromb Time International Ratio 0.92 12/07/2018 5:05pm 12/07/2018 5:40pm Recommended therapeutic range for patients receiving warfarin (coumadin) therapy: INR is 2.0 to 3.0 Recommended range for patients with mechanical prosthetic heart valves: INR is 2.5 to 3.5 Activated Partial Thromboplast Time 29.1 SECONDS 22.5-37.0 12/07/2018 5:05pm 12/07/2018 5:40pm Urine Color YELLOW 12/06/2018 3:12/06/2018 3:32am Urine Appearance CLEAR CLEAR 12/06/2018 3:12/06/2018 3:32am Urine Glucose 3+ (500 mg/dL) H NEGATIVE 12/06/2018 3:12/06/2018 3:32am Urine Bilirubin NEGATIVE NEGATIVE 12/06/2018 3:12/06/2018 3:32am Urine Ketones NEGATIVE NEGATIVE 12/06/2018 3:12/06/2018 3:32am Urine Specific [place] 1.020 1.003-1.030 12/06/2018 3:12/06/2018 3:32am Urine Blood SMALL H NEGATIVE 12/06/2018 3:12/06/2018 3:32am Urine pH 7.000 5-9 12/06/2018 3:12/06/2018 3:32am Urine Protein 3+ (>300 mg/dL) H NEGATIVE 12/06/2018 3:12/06/2018 3:32am Urine Urobilinogen 0.2 E.U./dL 0.2-1.0 12/06/2018 3:12/06/2018 3:32am Urine Nitrate NEGATIVE NEGATIVE 12/06/2018 3:12/06/2018 3:32am Urine Leukocyte Esterase NEGATIVE NEGATIVE 12/06/2018 3:am 12/06/2018 3:32am Urine RBC 0-3 /hpf 0-5 12/06/2018 3:am 12/06/2018 3:32am Urine WBC 3-4 /hpf 0-5 12/06/2018 3:19am 12/06/2018 3:32am Urine Epithelial Cells 11-25 /hpf H 0-5 12/06/2018 3:19am 12/06/2018 3:32am Urine Bacteria TRACE /hpf None Detect 12/06/2018 3:1912/06/2018 3:32am Urine Culture Reflexed NO 12/06/2018 3:12/06/2018 3:32am POC Capillary Blood Glucose (Chem) 164 mg/dL H 70.0 - 110 12/08/2018 3:53pm 12/08/2018 3:54pm Random Glucose 142 mg/dL H 74-106 12/08/2018 5:15am 12/08/2018 5:44am Blood Urea Nitrogen 32 mg/dL H 6-20 12/08/2018 5:15am 12/08/2018 5:44am Serum Osmolality 285 280-300 12/08/2018 5:15am 12/08/2018 5:44am Creatinine 1.3 mg/dL H 0.50-0.90 12/08/2018 5:15am 12/08/2018 5:44am Glomerular Filtration Rate Calc 42.53 L 12/08/2018 5:15am 12/08/2018 5:44am GFR RESULTS ARE REPORTED IN mL/min/1.73m2. Normal GFR: >60mL/min Moderately decreased GFR: 30-59 mL/min Severely decreased GFR: 15-29 mL/min Kidney Failure (or Dialysis): <15 mL/min The calculated eGFR is not valid for patients younger than 18 years or older than 75 years. BUN/Creatinine Ratio 24.6 H 12-20 12/08/2018 5:15am 12/08/2018 5:44am Sodium Level 138 mmol/L 135-145 12/08/2018 5:15am 12/08/2018 5:44am Potassium Level 3.9 mmol/L 3.5-5.2 12/08/2018 5:15am 12/08/2018 5:44am Chloride Level 103 mmol/L 98-108 12/08/2018 5:15am 12/08/2018 5:44am Carbon Dioxide Level 24 mmol/L 21-32 12/08/2018 5:15am 12/08/2018 5:44am Anion Gap 14.9 mEq/L 12-20 12/08/2018 5:15am 12/08/2018 5:44am Calcium Level 8.4 mg/dL L 8.6-10.0 12/08/2018 5:15am 12/08/2018 5:44am Phosphorus Level 4.2 mg/dL 2.5-4.5 12/07/2018 5:05pm 12/07/2018 5:49pm Magnesium Level 1.8 mg/dL 1.6-2.6 12/07/2018 5:05pm 12/07/2018 5:49pm Total Protein 5.6 g/dL L 6.6-8.7 12/08/2018 5:15am 12/08/2018 5:44am Albumin 2.0 g/dL L 3.5-5.2 12/08/2018 5:15am 12/08/2018 5:44am Globulin 3.6 gm/dL 12/08/2018 5:15am 12/08/2018 5:44am Albumin/Globulin Ratio 0.6 >1.0 12/08/2018 5:1512/08/2018 5:44am Total Bilirubin < 0.3 mg/dL 0.0-1.2 12/08/2018 5:15am 12/08/2018 5:44am Aspartate Amino Transf (AST/SGOT) 27 U/L 15-32 12/08/2018 5:15am 12/08/2018 5:44am Alanine Aminotransferase (ALT/SGPT) 27 U/L 0-33 12/08/2018 5:15am 12/08/2018 5:44am Amylase Level 203 U/L H 28-100 12/06/2018 4:10am 12/06/2018 4:46am Lipase 63 U/L H 13-60 12/07/2018 5:05pm 12/07/2018 5:49pm Total Alkaline Phosphatase 115 U/L H 35-105 12/08/2018 5:15am 12/08/2018 5:44am Urine Amphetamines Screen POSITIVE NG/ML H NEGATIVE 12/06/2018 3:19am 12/06/2018 3:40am Urine Barbiturates, Quantitative NEGATIVE NG/ML NEGATIVE 12/06/2018 3:19am 12/06/2018 3:40am Urine Benzodiazepines Screen NEGATIVE NG/ML NEGATIVE 12/06/2018 3:19am 12/06/2018 3:40am Urine Cannabinoids NEGATIVE NG/ML NEGATIVE 12/06/2018 3:19am 12/06/2018 3:40am Urine Cocaine Metabolite NEGATIVE NG/ML NEGATIVE 12/06/2018 3:19am 12/06/2018 3:40am Urine Opiates Screen NEGATIVE NG/ML NEGATIVE 12/06/2018 3:19am 12/06/2018 3:40am Urine Phencyclidine (PCP) Level NEGATIVE NG/ML NEGATIVE 12/06/2018 3:19am 12/06/2018 3:40am Methadone Level NEGATIVE NG/ML NEGATIVE 12/06/2018 3:19am 12/06/2018 3:40am Propoxyphene Level NEGATIVE NG/ML NEGATIVE 12/06/2018 3:19am 12/06/2018 3:40am Oxycodone Level NEGATIVE NG/ML NEGATIVE 12/06/2018 3:19am 12/06/2018 3:40am Urine Drug Screen Note . 12/06/2018 3:19am 12/06/2018 3:23am DRUGS OF ABUSE CUT-OFF VALUES AMPHETAMINES (AMPH) [...] CONFIRMATION AND QUANTITATION AVAILABLE UPON MD REQUEST. Pending Laboratory Results Test Name Collection Date/Time Hepatitis B Core IgM Antibody 12/07/2018 5:05pm Hepatitis C Antibody 12/07/2018 5:05pm Hepatitis A IgM Antibody 12/07/2018 5:05pm Hepatitis C RNA Quant (bDNA) 12/07/2018 5:05pm Hepatitis C RNA (PCR) IU log10 12/07/2018 5:05pm .TEST INFO 12/07/2018 5:05pm Hepatitis B Surface Antigen 12/07/2018 5:05pm Procedures Procedure Status Date Provider(s) Computed tomography of abdomen and pelvis without contrast Completed 12/06/18 SHINE SCHWARZ MD X-ray of chest, single view Completed 12/06/[address] thorax wo contrast Completed 12/08/18 FABIÁN DEGROOT MD Encounters Encounter Location Arrival/Admit Date Discharge/Depart Date Attending Provider Discharged Inpatient (obs) [facility] 12/06/18 4:41am 12/08/18 6:45pm FABIÁN DEGROOT MD Discharged Inpatient [facility] 10/21/18 10:13am 10/22/18 3:09pm MIKI MASON JR, MD Recent Diagnosis Methamphetamine abuse Abdominal pain Cellulitis and abscess of foot Abscess
--- OUTSIDE RECORDS SUMMARY | 2020-01-14 19:16 | XMS REPORT | Continuity of Care Document ---
Author Author [facility] Organization [facility] Address [address] [place] [address] Phone Unavailable Care Team Providers Care Receiving Coordinator Name Role Phone BERT HERNADEZ MD PCP Insurance Providers Guarantor Fernando Ramos Address [address] [place] [address] Email NONE [facility] Policy Number [id number] Subscriber's Name Fernando Ramos Relationship Self / Same As Patient Group Number [id number] Group Name NA Advance Directives Directive Response Recorded Date/Time Advance Directives No 01/31/16 11:47pm Advance Directive on File No 03/01/19 3:20am Directive to Physicians/Living Will No 01/31/16 11:47pm Health Care Proxy No 01/31/16 11:47pm Name of Surrogate/Decision Maker N/A 02/28/19 11:57pm Organ Donor No 01/31/16 11:47pm Medical Power of Drafting Teacher No 01/31/16 11:47pm Patient/Family Given Education Material R/T Directives? Y - SIGNED 02/28/19...AG 03/01/19 3:20am Chief Complaint and Reason for Visit Chief Complaint HTN,HYPERGLYCEMIA,DEHYDRATION,HEADACHE Reason for Visit Hyperglycemia due to type 2 diabetes mellitus HTN (hypertension) Intractable vomiting with nausea Problems Medical Problem Onset Date Status Abdominal pain Unknown Resolved Abscess Unknown Acute Breast cancer Unknown COPD (chronic obstructive pulmonary disease) Unknown Chronic CVA (cerebral vascular accident) Unknown Acute Cellulitis and abscess of foot Unknown Acute Cellulitis of right upper extremity Unknown Acute Cocaine abuse Unknown DKA (diabetic ketoacidoses) Unknown Acute DM (diabetes [...] Daily Fluticasone Propionate 50 Mcg/Act Spr 2 [place] NASAL Daily 1 Inh Hydrochlorothiazide (Hydrochlorothiazide *) [...] Tab 1 Tab ORAL Every 6 Hours (12-29-) for N/V 5 Days 20 Tablet 03/02/19 [...] Oral Three Times A Day Discontinued Methylcobalamin ([id number]) 1 Mg Chw, 2000 Mcg Oral Daily [...] Substance Use Treatment Y - in past 03/01/2019 3:28am Not Applicable Not Applicable Hx Alcohol Use No 03/01/2019 3:28am Not Applicable Not Applicable Hx Inhalant Use Y - METHAMPHETAMINE 03/01/2019 3:28am Not Applicable Not Applicable Hx Physical Abuse No 03/01/2019 3:28am Not Applicable Not Applicable Hx Suicide Attempt Y - june 2013 03/01/2019 3:28am Not Applicable Not Applicable Smoking Status Start Date Stop Date Current every day smoker Hospital Discharge Instructions No hospital discharge instruction information available. Plan of Care Discharge Date 03/02/19 12:40pm Disposition PATIENT DISCHARGE HOME OR SELF Instructions/Education Provided Ondansetron tablets Hyperglycemia General Headache Without Cause, Qkwq-cf-Gykb Hypertension Dehydration, Adult Forms Provided Portal Welcome Letter Prescriptions See Medication Section Functional Status No functional status information available. Allergies, Adverse Reactions, Alerts No known allergies. Immunizations No immunization information available. Vital Signs Acute Vital Signs Vital Response Date/Time Blood Pressure 150/82 mm Hg 03/02/2019 12:05pm Pulse Pulse Rate (adult) 87 beats per minute (60 - 100) 03/02/2019 12:05pm Respiratory Rate 18 breaths per minute (10 - 24) 03/02/2019 12:05pm Temperature Source Tympanic 03/02/2019 12:05pm Height 5 ft 4 in 02/28/2019 11:47pm Weight 178 lb 03/02/2019 4:21am Body Mass Index 30.6 kg/m^2 03/02/2019 4:21am Results Laboratory Results Test Name Result Units Flags Reference Collection Date/Time Result Date/Time Comments White Blood Count 6.3 K/ul 4.0-11.5 03/02/2019 9:03/02/2019 9:36am Red Blood Count 4.51 M/ul 3.80-5.20 03/02/2019 9:03/02/2019 9:36am Hemoglobin 11.8 g/dl 10.5-15.7 03/02/2019 9:03/02/2019 9:36am Hematocrit 35.7 % 34.0-50.0 03/02/2019 9:03/02/2019 9:36am Mean Corpuscular Volume 79.3 fl 78-98 03/02/2019 9:03/02/2019 9:36am Mean Corpuscular Hemoglobin 26.2 pg 26.2-33.4 03/02/2019 9:03/02/2019 9:36am Mean Corpuscular Hemoglobin Concent 33.0 g/dl 31.5-36.2 03/02/2019 9:03/02/2019 9:36am Red Cell Distribution Width 12.2 % 11.5-15.5 03/02/2019 9:03/02/2019 9:36am Platelet Count 113 K/ul L 137-338 03/02/2019 9:03/02/2019 9:36am Mean Platelet Volume 12.1 fl H 8.4-11.8 03/02/2019 9:03/02/2019 9:36am Neutrophils (%) (Auto) 52.1 % 44.4-80.1 03/02/2019 9:03/02/2019 9:36am Lymphocytes (%) (Auto) 38.7 % 10.0-50.0 03/02/2019 9:03/02/2019 9:36am Monocytes (%) (Auto) 5.6 % 3.6-12.0 03/02/2019 9:03/02/2019 9:36am Eosinophils (%) (Auto) 1.8 % 0.0-5.4 03/02/2019 9:03/02/2019 9:36am Basophils (%) (Auto) 1.8 % H 0.0-0.79 03/02/2019 9:23am 03/02/2019 9:36am Prothrombin Time 10.0 SECONDS L 10.3-12.3 02/28/2019 12:00am 03/01/2019 12:29am THERAPEUTIC LEVEL: 1.5 to 1.9 times normal range of PT Prothromb Time International Ratio 0.91 02/28/2019 12:0003/01/2019 12:29am Recommended therapeutic range for patients receiving warfarin (coumadin) therapy: INR is 2.0 to 3.0 Recommended range for patients with mechanical prosthetic heart valves: INR is 2.5 to 3.5 Activated Partial Thromboplast Time 22.8 SECONDS 22.5-37.0 02/28/2019 12:00am 03/01/2019 12:29am Urine Color YELLOW 03/01/2019 9:00am 03/01/2019 9:32am Urine Appearance CLEAR CLEAR 03/01/2019 9:0003/01/2019 9:32am Urine Glucose 3+ (500 mg/dL) H NEGATIVE 03/01/2019 9:0003/01/2019 9:32am Urine Bilirubin NEGATIVE NEGATIVE 03/01/2019 9:00am 03/01/2019 9:32am Urine Ketones NEGATIVE NEGATIVE 03/01/2019 9:0003/01/2019 9:32am Urine Specific [place] 1.022 1.003-1.030 03/01/2019 9:00am 03/01/2019 9:32am Urine Blood NEGATIVE NEGATIVE 03/01/2019 9:0003/01/2019 9:32am Urine pH 7.500 5-9 03/01/2019 9:0003/01/2019 9:32am Urine Protein OVER NEGATIVE 03/01/2019 9:0003/01/2019 9:32am Urine Urobilinogen NORMAL mg/dL 0.2-1.0 03/01/2019 9:0003/01/2019 9:32am Urine Nitrate NEGATIVE NEGATIVE 03/01/2019 9:00am 03/01/2019 9:32am Urine Leukocyte Esterase NEGATIVE NEGATIVE 03/01/2019 9:00am 03/01/2019 9:32am Urine RBC 1-5 /hpf 0-5 03/01/2019 9:0003/01/2019 9:38am Urine WBC 1-5 /hpf 0-5 03/01/2019 9:0003/01/2019 9:38am Urine Epithelial Cells 1-5 /hpf 0-5 03/01/2019 9:0003/01/2019 9:38am Urine Bacteria TRACE /hpf None Detect 03/01/2019 9:0003/01/2019 9:38am Urine Casts None Detected /lpf None Detect 03/01/2019 9:0003/01/2019 9:38am Urine Culture Reflexed NO 03/01/2019 9:0003/01/2019 9:38am POC Capillary Blood Glucose (Chem) 184 mg/dL H 70.0 - 110 03/02/2019 7:4203/02/2019 9:22am Random Glucose 275 mg/dL H 74-106 03/02/2019 9:03/02/2019 9:57am Blood Urea Nitrogen 26 mg/dL H 6-03/02/2019 9:03/02/2019 9:57am Serum Osmolality 283 280-300 03/02/2019 9:03/02/2019 9:57am Creatinine 0.5 mg/dL 0.50-0.90 03/02/2019 9:03/02/2019 9:57am Glomerular Filtration Rate Calc > 60.00 03/02/2019 9:03/02/2019 9:57am GFR RESULTS ARE REPORTED IN mL/min/1.73m2. Normal GFR: >60mL/min Moderately decreased GFR: 30-59 mL/min Severely decreased GFR: 15-29 mL/min Kidney Failure (or Dialysis): <15 mL/min The calculated eGFR is not valid for patients younger than 18 years or older than 75 years. BUN/Creatinine Ratio 52.0 H 12-03/02/2019 9:03/02/2019 9:57am Sodium Level 134 mmol/L L 135-145 03/02/2019 9:03/02/2019 9:57am Potassium Level 4.1 mmol/L 3.5-5.2 03/02/2019 9:03/02/2019 9:57am Chloride Level 98 mmol/L 98-108 03/02/2019 9:03/02/2019 9:57am Carbon Dioxide Level 36 mmol/L H 21-32 03/02/2019 9:2303/02/2019 9:57am Anion Gap 4.1 mEq/L L 12-20 03/02/2019 9:2303/02/2019 9:57am Calcium Level 8.4 mg/dL L 8.6-10.0 03/02/2019 9:2303/02/2019 9:57am Phosphorus Level 4.0 mg/dL 2.5-4.5 03/01/2019 9:3603/01/2019 10:21am Magnesium Level 1.9 mg/dL 1.6-2.6 03/01/2019 9:3603/01/2019 10:21am Total Protein 7.1 g/dL 6.6-8.7 02/28/2019 12:0003/01/2019 12:29am Albumin 2.9 g/dL L 3.5-5.2 02/28/2019 12:0003/01/2019 12:29am Globulin 4.2 gm/dL 02/28/2019 12:0003/01/2019 12:29am Albumin/Globulin Ratio 0.7 >1.0 02/28/2019 12:0003/01/2019 12:29am Total Bilirubin 0.5 mg/dL 0.0-1.2 02/28/2019 12:00am 03/01/2019 12:29am Aspartate Amino Transf (AST/SGOT) 21 U/L 15-32 02/28/2019 12:0003/01/2019 12:29am Alanine Aminotransferase (ALT/SGPT) 18 U/L 0-33 02/28/2019 12:0003/01/2019 12:29am Hemoglobin A1c 9.4 % H 4.0-6.0 03/01/2019 9:3603/01/2019 10:08am GM-Qqz-O-Type Natriuretic Peptide 2100 pg/mL H 0-125 02/28/2019 12:00am 03/01/2019 12:30am Total Alkaline Phosphatase 126 U/L H 35-105 02/28/2019 12:00am 03/01/2019 12:29am Urine Amphetamines Screen POSITIVE NG/ML H NEGATIVE 03/01/2019 9:0003/01/2019 9:50am Urine Barbiturates, Quantitative NEGATIVE NG/ML NEGATIVE 03/01/2019 9:00am 03/01/2019 9:50am Urine Benzodiazepines Screen NEGATIVE NG/ML NEGATIVE 03/01/2019 9:00am 03/01/2019 9:50am Urine Cannabinoids NEGATIVE NG/ML NEGATIVE 03/01/2019 9:00am 03/01/2019 9:50am Urine Cocaine Metabolite POSITIVE NG/ML H NEGATIVE 03/01/2019 9:00am 03/01/2019 9:50am Urine Opiates Screen NEGATIVE NG/ML NEGATIVE 03/01/2019 9:00am 03/01/2019 9:50am Urine Phencyclidine (PCP) Level NEGATIVE NG/ML NEGATIVE 03/01/2019 9:00am 03/01/2019 9:50am Methadone Level NEGATIVE NG/ML NEGATIVE 03/01/2019 9:00am 03/01/2019 9:50am Propoxyphene Level NEGATIVE NG/ML NEGATIVE 03/01/2019 9:00am 03/01/2019 9:50am Oxycodone Level NEGATIVE NG/ML NEGATIVE 03/01/2019 9:00am 03/01/2019 9:50am Urine Drug Screen Note . 03/01/2019 9:00am 03/01/2019 9:21am DRUGS OF ABUSE CUT-OFF VALUES AMPHETAMINES (AMPH) [...] CONFIRMATION AND QUANTITATION AVAILABLE UPON MD REQUEST. Creatine Kinase 51 U/L 20-180 03/01/2019 9:36am 03/01/2019 10:21am Troponin I < 0.30 ng/mL 0.0-0.5 03/01/2019 9:36am 03/01/2019 10:12am Published clinical studies have shown elevations of cTnI in patients with myocardial injury, as seen in unstable angina pectoris, cardiac contusions, and heart transplants. Elevations have also been seen in patients with rhabdomyolysis and polymyositis. Elevated troponin levels point to myocardial injury, but are not necessarily indicative of an ischemic mechanism. The term WA should be used when there is evidence [...] examination and other findings. Creatine Kinase MB 2.4 ng/ml 0.0-3.6 03/01/2019 9:36am 03/01/2019 10:12am DIAGNOSTIC CITERIA: CKMB CKMB RELATIVE INDEX SUGGESTIVE OF NON-AMI < or=5 N/A AWAD ZONE (INCONCLUSIVE) > 5 < or=4 SUGGESTIVE OF AMI >5 > 4 Procedures Procedure Status Date Provider(s) DXA BONE DENSITY AXIAL Completed 01/17/19 X-ray of chest, single view Completed 02/28/19 SHINE SCHWARZ MD Computed tomography of head without contrast Completed 03/01/19 SHINE SCHWARZ MD Encounters Encounter Location Arrival/Admit Date Discharge/Depart Date Attending Provider Discharged Inpatient (obs) [facility] 03/01/19 2:54am 03/02/19 12:40pm FABIÁN DEGROOT MD Registered Clinic [facility] 01/17/19 11:07am PAPO NEW MD Recent Diagnosis Hyperglycemia due to type 2 diabetes mellitus HTN (hypertension) Intractable vomiting with nausea
--- OUTSIDE RECORDS SUMMARY | 2020-01-14 19:17 | XMS REPORT | Continuity of Care Document ---
Author Author [facility] Organization [facility] Address [address] [place] [address] Phone Unavailable Allergies, Adverse Reactions, Alerts No known allergies. Medications Medication Status Dose Units Route Sig Qty Days Start Date End Date Instructions Anastrozole Active 1 ORAL Daily 30 30 Aspirin Active 1 ORAL Daily 30 30 Citalopram * Active 20 ORAL Once Daily At Bedtime Clonidine Hcl Active 0.3 ORAL Twice A Day Cyanocobalamin Active 500 ORAL Once Daily Detemir Active 25 SUBCUTANEOUS Twice A Day Ergocalciferol Active 19451 ORAL Daily Fluticasone Propionate Active 2 NASAL Daily 1 Hydrochlorothiazide Active 1 ORAL Daily 30 30 Insulin Human Aspart Active Loratadine Active 1 ORAL Daily for Allergy Symptoms 30 30 Losartan Potassium Active 1 ORAL Daily 30 30 Metformin Hcl Active 500 ORAL Twice A Day Metoprolol Tartrate Active 1 ORAL Twice A Day 60 30 Ondansetron Hcl Discontinued 1 ORAL Every 6 Hours (12-30-15) for N/V 20 March 02, 2019 11:35am March 07, 2019 Pantoprazole Sodium Discontinued 40 ORAL Before Breakfast for Gerd 30 December 08, 2018 5:41pm January 07, 2019 Pregabalin Active 100 ORAL Three Times A Day Salmeterol Xinafoate/Fluticasone Discontinued 1 RESPIRATORY (INHALATION) Rt-Twice Daily January 04, 2014 7:39am (One-Time) Albuterol Hfa* Discontinued 2 RESPIRATORY (INHALATION) Rt-Every 4 Hours August 22, 2018 Albuterol Sulfate Discontinued 2 RESPIRATORY (INHALATION) Four Times Daily As Needed December 06, 2018 Amoxicillin/Clavulanate Potassium Discontinued 1 ORAL Twice A Day for Pneumonia 10 07December 08, 2018 5:41pm March 02, 2019 Anastrozole Discontinued 1 ORAL Daily 30 October 21, 2018 Ascorbic Acid Discontinued 500 ORAL Daily April 28, 2014 Aspirin Discontinued 81 ORAL Daily December 29, 2015 Benzonatate Discontinued 1 ORAL Three Times Daily As Needed October 21, 2018 Benztropine Mesylate Discontinued 2 ORAL Bedtime January 02, 2014 Cefuroxime Axetil Discontinued 500 ORAL Twice A Day January 04, 2014 7:39am April 28, 2014 Cetirizine Hcl Discontinued 1 ORAL Daily August 22, 2018 Chlorpromazine Hcl Discontinued 200 ORAL Bedtime August 22, 2018 Chlorpromazine Hcl Discontinued 25 ORAL Three Times A Day January 02, 2014 Ciprofloxacin Hcl Discontinued 1 ORAL Twice A Day February 06, 2016 6:49pm October 27, 2017 Citalopram * Discontinued 10 ORAL Once Daily At Bedtime May 22, 2019 Clindamycin Hcl Discontinued 1 ORAL Three Times A Day for Cellulitis Of The Lower Extrem 30 August 24, 2018 12:21pm September 04, 2018 Clindamycin Hcl Discontinued 300 ORAL Every 6 Hours for Cellulitis October 27, 2017 5:27pm August 22, 2018 Clindamycin Hcl Discontinued 1 ORAL Three Times A Day for Cellulitis October 27, 2017 5:27pm August 22, 2018 Clindamycin Hcl Discontinued 300 ORAL Every 6 Hours January 01, 2016 11:58am October 27, 2017 Clindamycin Hcl Discontinued 300 ORAL Three Times A Day May 01, 2014 12:26pm August 29, 2014 one tablet po tid for 7 days Clonazepam Discontinued 0.5 ORAL Three Times A Day December 29, 2015 Clonazepam Discontinued 1 ORAL Three Times A Day April 28, 2014 Clonazepam Discontinued 0.5 ORAL Am January 02, 2014 Clonidine Hcl Discontinued 0.1 ORAL Twice A Day for Hypertension 60 December 08, 2018 5:42pm May 22, 2019 Clonidine Hcl Discontinued 0.3 ORAL Twice A Day December 06, 2018 Clonidine Hcl Discontinued 0.2 ORAL Three Times A Day as needed for Mg January 04, 2014 7:39am April 28, 2014 Detemir Discontinued 25 SUBCUTANEOUS Twice A Day for Diabetes 2 October 27, 2017 12:34pm August 24, 2018 Detemir Insulin * Discontinued 45 SUBCUTANEOUS Every Evening May 01, 2014 12:26pm November 06, 2014 Detemir Insulin * Discontinued 15 SUBCUTANEOUS Before Meals May 01, 2014 12:26pm November 06, 2014 Detemir Insulin * Discontinued 20 SUBCUTANEOUS Once Daily At Bedtime May 21, 2013 Doxycycline Hyclate Discontinued 1 ORAL Twice A Day for Cellulitis October 27, 2017 5:27pm August 22, 2018 Doxycycline Hyclate Discontinued 1 ORAL Twice A Day 20 January 01, 2016 11:58am October 27, 2017 Esomeprazole Mag * Discontinued 1 ORAL Daily December 06, 2018 Esomeprazole Mag * Discontinued 1 ORAL Daily August 22, 2018 Fluconazole Discontinued 100 ORAL Daily 7 May 01, 2014 12:26pm August 29, 2014 one tablet daily for 7 days Furosemide Discontinued 40 ORAL Once Daily December 29, 2015 Hyoscyamine Sulfate Discontinued 0.125 ORAL Four Times Daily As Needed January 02, 2014 Insulin Aspart Discontinued 25 SUBCUTANEOUS Three Times Daily Before Meals May 01, 2014 Insulin Aspart * Discontinued 25 SUBCUTANEOUS Three Times Daily With Meals October 27, 2017 Insulin Detemir Discontinued 45 SUBCUTANEOUS Twice A Day October 27, 2017 Insulin Detemir Discontinued 15 SUBCUTANEOUS Before Breakfast May 01, 2014 Insulin Detemir Discontinued 45 SUBCUTANEOUS After Dinner May 01, 2014 Insulin Detemir Discontinued 45 SUBCUTANEOUS Once Daily At Bedtime April 28, 2014 Insulin Glargine Discontinued 70 SUBCUTANEOUS One Dose At 2000 May 22, 2019 Insulin Glargine Discontinued 70 SUBCUTANEOUS Once Daily December 06, 2018 Insulin Glargine * Discontinued 28 SUBCUTANEOUS Every 12 Hours for Dm 15 August 24, 2018 11:04am December 06, 2018 Insulin Human Aspart Discontinued 20 SUBCUTANEOUS Before Meals And At Bedtime October 21, 2018 SLIDING SCALE Linagliptin * Discontinued 1 ORAL Daily December 06, 2018 Linagliptin * Discontinued 1 ORAL Daily 90 August 22, 2018 Liraglutide Discontinued 1.8 SUBCUTANEOUS Daily August 22, 2018 Lisinopril Discontinued 1 ORAL Once Daily December 06, 2018 Lisinopril Discontinued 20 ORAL Twice A Day August 22, 2018 Lisinopril Discontinued 20 ORAL Twice A Day May 01, 2014 Magnesium Oxide (Mg Supplement Discontinued 1 ORAL Daily 30 May 22, 2019 Metformin Hcl Discontinued 1 ORAL Twice A Day 60 May 22, 2019 Metformin Hcl Discontinued 500 ORAL Three Times A Day December 29, 2015 Methylcobalamin Discontinued 2000 ORAL Daily April 28, 2014 Metoprolol Tartrate Discontinued 25 ORAL Twice A Day 60 May 22, 2019 Nifedipine Discontinued 1 ORAL Daily August 22, 2018 Nifedipine Discontinued 60 ORAL Daily 60 May 01, 2014 12:26pm December 29, 2015 Nifedipine Discontinued 30 ORAL Daily May 01, 2014 Nifedipine Discontinued 60 ORAL Once Daily April 28, 2014 Ondansetron Hcl Discontinued 4 ORAL Every 6 Hours As Needed May 01, 2014 1:34pm August 29, 2014 Phenazopyridine Hcl Discontinued 100 ORAL Three Times A Day December 06, 2018 Prednisone Discontinued 10 ORAL Twice A Day January 04, 2014 7:39am April 28, 2014 Promethazine Hcl Discontinued 1 ORAL Every 8 Hours As Needed August 22, 2018 Ranitidine Hcl Discontinued 1 ORAL Twice A Day May 22, 2019 Ribavirin * Discontinued 400 ORAL Twice A Day January 02, 2014 Sertraline Hcl Discontinued 200 ORAL Daily August 22, 2018 Problems Active Problems Medical Problem Onset Date Status Abdominal pain Resolved Abscess Active Breast cancer Active COPD (chronic obstructive pulmonary disease) Active CVA (cerebral vascular accident) Active Cellulitis and abscess of foot Active Cellulitis of right upper extremity Active Cocaine abuse Active DKA (diabetic ketoacidoses) Active DM (diabetes mellitus) Active Dehydration Active Diabetes mellitus Active Diabetic acidosis Active Facial cellulitis Active Facial cellulitis Active HLD (hyperlipidemia) Active HTN (hypertension) Active Headache Resolved Hepatitis C Active Hyperglycemia due to type 2 diabetes mellitus Active Intractable vomiting with nausea Resolved MRSA cellulitis Active Marijuana abuse Active Methamphetamine abuse Active PUD (peptic ulcer disease) Active Poorly controlled diabetes mellitus Active Schizophrenia Active Inactive/Resolved Problems Medical Problem Onset Date Status Abnormal CT of the head Resolved Abscess, scalp Resolved Altered mental status Resolved Contusion of back wall of thorax Resolved Dehydration Resolved Forehead contusion Resolved Hyperglycemia Resolved Hypertension Resolved Hypokalemia Resolved Hyponatremia Resolved Hyponatremia Resolved Intractable nausea and vomiting Resolved Liver cirrhosis Resolved Procedures Procedure Date Performed Status Computed tomography of abdomen and pelvis with contrast May 21, 2019 completed Computed tomography of head without contrast June 27, 2019 completed Computed tomography of abdomen and pelvis with contrast June 27, 2019 completed Relevant Diagnostic Tests and/or Laboratory Data Laboratory Results Test Date/Time Result Interpretation Reference Range Result Comment Performing Site White Blood Count June 27, 2019 4:08pm 12.9 4.0-11.5 [facility], [address] [place] [id number] Red Blood Count June 27, 2019 4:08pm 4.88 3.80-5.20 [facility], [address] [place] [address] 27250 Hemoglobin June 27, 2019 4:08pm 11.4 10.5-15.7 [facility], [address] [place] [address] 18710 Hematocrit June 27, 2019 4:08pm 35.2 34.0-50.0 [facility], [address] [place] [address]054 Mean Corpuscular Volume June 27, 2019 4:08pm 72.1 86-100 [facility], [address] [place], [place] [id number] Mean Corpuscular Hemoglobin June 27, 2019 4:08pm 23.4 26.2-33.4 [facility], [address] [place] [address] Mean Corpuscular Hemoglobin Concent June 27, 2019 4:08pm 32.4 30-34 [facility], [address] [place], [place] [id number] Red Cell Distribution Width June 27, 2019 4:08pm 14.1 12.0-15.5 [facility], [address] [place], [place] [id number] Platelet Count June 27, 2019 4:08pm 222 165-450 [facility], [address] [place] [address] Absolute Immature Platelet Fraction May 22, 2019 10:25am 17.4 [facility], [address] [place] [address] Immature Platelet Fraction May 22, 2019 10:25am 13.1 0-8 [facility], [address] [place] [address] Mean Platelet Volume June 27, 2019 4:08pm 13.7 9.4-12.6 [facility], [address] [place], [place] [id number] Neutrophils (%) (Auto) June 27, 2019 4:08pm 82.1 44.4-80.1 [facility], [address] [place], [place] [id number] Immature Granulocyte % (Auto) June 27, 2019 4:08pm 0.5 0.0-0.4 [facility], [address] [place], [place] [id number] Lymphocytes (%) (Auto) June 27, 2019 4:08pm 11.1 10.0-50.0 [facility], [address] [place], [place] [id number] Monocytes (%) (Auto) June 27, 2019 4:08pm 5.9 3.6-12.0 [facility], [address] [place], [place] [id number] Eosinophils (%) (Auto) June 27, 2019 4:08pm 0.1 0.0-5.4 [facility], [address] [place], [place] [id number] Basophils (%) (Auto) June 27, 2019 4:08pm 0.3 0.1-1.2 [facility], [address] [place], [place] [id number] Neutrophils # (Auto) June 27, 2019 4:08pm 10.62 1.56-6.13 [facility], [address] [place], [place] [id number] Absolute Immature Granulocyte (auto June 27, 2019 4:08pm 0.1 0.0-0.03 [facility], [address] [place] [address] Lymphocytes # (Auto) June 27, 2019 4:08pm 1.4 1.18-3.74 [facility], [address] [place] [address] Monocytes # (Auto) June 27, 2019 4:08pm 0.76 0.24-0.86 [facility], [address] [place] [address] Eosinophils # (Auto) June 27, 2019 4:08pm 0.01 0.04-0.36 [facility], [address] [place] [address] Basophils # (Auto) June 27, 2019 4:08pm 0.04 0.01-0.08 [facility], [address] [place] [address] Nucleated Red Blood Cells % June 27, 2019 4:08pm 0 0-0.2 [facility], [address] [place] [address] Nucleated Red Blood Cells # June 27, 2019 4:08pm 0 0 [facility], [address] [place] [address] Prothrombin Time May 21, 2019 8:26pm 10.4 10.3-12.3 THERAPEUTIC LEVEL: 1.5 to 1.9 times normal range of PT [facility], [address] [place] [address] Prothromb Time International Ratio May 21, 2019 8:26pm 0.94 Recommended therapeutic range for patients receiving warfarin (coumadin) therapy: INR is 2.0 to 3.0Recommended range for patients with mechanical prosthetic heart valves: INR is 2.5 to 3.5 [facility], [address] [place] [address] Activated Partial Thromboplast Time May 21, 2019 8:26pm 25.5 22.5-37.0 [facility], [address] [place] [address] Urine Color June 27, 2019 5:35pm [facility], [address] [place] [address] Urine Appearance June 27, 2019 5:35pm [facility], [address] [place] [address] Urine Glucose (UA) June 27, 2019 5:35pm 4+ (1000 mg/dL) NEGATIVE [facility], [address] [place] [address] Urine Bilirubin June 27, 2019 5:35pm NEGATIVE NEGATIVE [facility], [address] [place] [address] Urine Ketones June 27, 2019 5:35pm TRACE NEGATIVE [facility], [address] [place] [address] Urine Specific [place] June 27, 2019 5:35pm 1.031 1.003-1.030 [facility], [address] [place] [address] Urine Blood June 27, 2019 5:35pm NEGATIVE NEGATIVE [facility], [address] [place] [address] Urine pH June 27, 2019 5:35pm 7.000 5-9 [facility], [address] [place] [address] Urine Protein June 27, 2019 5:35pm 3+ (300 mg/dL) NEGATIVE [facility], [address] [place] [address] Urine Urobilinogen June 27, 2019 5:35pm NORMAL 0.2-1.0 [facility], [address] [place] [address] Urine Nitrate June 27, 2019 5:35pm NEGATIVE NEGATIVE [facility], [address] [place] [address] Urine Leukocyte Esterase June 27, 2019 5:35pm NEGATIVE NEGATIVE [facility], [address] [place] [address] Urine RBC June 27, 2019 5:35pm 1-5 0-5 [facility], [address] [place] [address] Urine WBC June 27, 2019 5:35pm 1-5 0-5 [facility], [address] [place] [address] Urine Epithelial Cells June 27, 2019 5:35pm 1-5 0-5 [facility], [address] [place] [address] Urine Bacteria June 27, 2019 5:35pm None Detected None Detect [facility], [address] [place] [address] Urine Casts June 27, 2019 5:35pm None Detected None Detect [facility], [address] [place] [address] Urine Culture Reflexed June 27, 2019 5:35pm NO [facility], [address] [place] [address] Venous Blood pH May 21, 2019 8:57pm 7.429 7.310 - 7.410 [facility], [address] [place] [address] Venous Blood pCO2 at Patient Temp May 21, 2019 8:57pm 38 40.0 - 50.0 [facility], [address] [place] [address] Venous Blood Partial Pressure O2 May 21, 2019 8:57pm 36 36.0 - 42.0 [facility], [address] [place] [address] Venous Blood HCO3 May 21, 2019 8:57pm 24.5 18.0 - 28.2 [facility], [address] [place], [place] [id number] Venous Blood Base Excess May 21, 2019 8:57pm 0.6 -2.0 - 2.3 [facility], [address] [place] [id number] Venous Blood Total Carbon Dioxide May 21, 2019 8:57pm 22.7 22.0 - 26.0 [facility], [address] [place] [address] Venous Blood O2 Saturation (Calc) May 21, 2019 8:57pm 71 60.0 - 80.0 This is a calculated result. [facility], [address] [place] [address] Venous Blood Oxygen Content May 21, 2019 8:57pm 5.4 6.7 - 15.6 [facility], [address] [place] [id number] POC Capillary Blood Glucose (Chem) June 27, 2019 7:53pm 237 70.0 - 110 [facility], [address] [place] [id number] Random Glucose June 27, 2019 4:08pm 541 74-106 Results have been broadcasted to patient's location and called to (RISSA JARRETT). By NATASHA DIAL 06/27/19 @1633Results read back for confirmation. [facility], [address] [place] [id number] Blood Urea Nitrogen June 27, 2019 4:08pm 15 6-20 [facility], [address] [place] [id number] Serum Osmolality June 27, 2019 4:08pm 277 280-300 [facility], [address] [place] [id number] Creatinine June 27, 2019 4:08pm 1.0 0.50-0.90 [facility], [address] [place] [id number] Glomerular Filtration Rate Calc June 27, 2019 4:08pm 57.56 GFR RESULTS ARE REPORTED IN mL/min/1.73m2.Normal GFR: >60mL/minModerately decreased GFR: 30-59 mL/minSeverely decreased GFR: 15-29 mL/minKidney Failure (or Dialysis): <15 mL/minThe calculated eGFR is not valid for patients younger than 18 years or older than 75 years. [facility], [address] [place] [id number] BUN/Creatinine Ratio June 27, 2019 4:08pm 15.0 12-20 [facility], [address] [place] [id number] Sodium Level June 27, 2019 4:08pm 125 135-145 [facility], [address] [place] [id number] Potassium Level June 27, 2019 4:08pm 4.0 3.5-5.2 [facility], [address] [place] [address] Chloride Level June 27, 2019 4:08pm 86 98-108 [facility], [address] [place], [place] [id number] Carbon Dioxide Level June 27, 2019 4:08pm 22 21-32 [facility], [address] [place], [place] [id number] Anion Gap June 27, 2019 4:08pm 21.0 12-20 [facility], [address] [place], [place] [id number] Calcium Level June 27, 2019 4:08pm 9.2 8.6-10.0 [facility], [address] [place], [place] [id number] Phosphorus Level May 22, 2019 10:25am 3.1 2.5-4.5 [facility], [address] [place], [place] [id number] Magnesium Level May 22, 2019 10:25am 1.8 1.6-2.6 [facility], [address] [place] [id number] Total Protein June 27, 2019 4:08pm 6.8 6.6-8.7 [facility], [address] [place] [id number] Albumin June 27, 2019 4:08pm 2.6 3.5-5.2 [facility], [address] [place] [id number] Globulin June 27, 2019 4:08pm 4.2 [facility], [address] [place], [place] [id number] Albumin/Globulin Ratio June 27, 2019 4:08pm 0.6 >1.0 [facility], [address] [place] [id number] Total Bilirubin June 27, 2019 4:08pm 0.4 0.0-1.2 [facility], [address] [place], [place] [id number] Aspartate Amino Transf (AST/SGOT) June 27, 2019 4:08pm 16 15-32 [facility], [address] [place], [place] [id number] Alanine Aminotransferase (ALT/SGPT) June 27, 2019 4:08pm 17 0-33 [facility], [address] [place], [place] [id number] Lipase June 27, 2019 4:08pm 93 13-60 [facility], [address] [place], [place] [id number] Acetone Level June 27, 2019 4:08pm POSITIVE NEGATIVE [facility], [address] [place], [place] [id number] [id number]-Uqp-Q-Type Natriuretic Peptide May 22, 2019 10:25am 3038 0-125 [facility], [address] [place] [address]68 Total Alkaline Phosphatase June 27, 2019 4:08pm 115 35-105 [facility], [address] [place] [address] Urine Amphetamines Screen June 27, 2019 5:35pm NEGATIVE NEGATIVE [facility], [address] [place] [address] 116[address] Urine Barbiturates, Quantitative June 27, 2019 5:35pm NEGATIVE NEGATIVE [facility], [address] [place] [address]56[address] Urine Benzodiazepines Screen June 27, 2019 5:35pm NEGATIVE NEGATIVE [facility], [address] [place] [address]10 Urine Cannabinoids June 27, 2019 5:35pm NEGATIVE NEGATIVE [facility], [address] [place] [address] 48436 Urine Cocaine Metabolite June 27, 2019 5:35pm NEGATIVE NEGATIVE [facility], [address] [place] [address]27 Urine Opiates Screen June 27, 2019 5:35pm POSITIVE NEGATIVE [facility], [address] [place], [place] [id number] Urine Phencyclidine (PCP) Level June 27, 2019 5:35pm NEGATIVE NEGATIVE [facility], [address] [place] [address] Methadone Level June 27, 2019 5:35pm NEGATIVE NEGATIVE [facility], [address] [place] [address] Propoxyphene Level June 27, 2019 5:35pm NEGATIVE NEGATIVE [facility], [address] [place] [address]49[address] Oxycodone Level June 27, 2019 5:35pm NEGATIVE NEGATIVE [facility], [address] [place] [address] Urine Drug Screen Note June 27, 2019 5:35pm . DRUGS OF ABUSE CUT-OFF VALUESAMPHETAMINES (AMPH) NEGATIVE (CUT OFF CONC: 1000 NG/ML)BARBITUATES (PARAM) NEGATIVE (CUT OFF CONC: 200 NG/ML)BENZODIAZEPINES (PRECIOUS) NEGATIVE (CUT OFF CONC: 300 NG/ML)CANNABINOIDS (THC) NEGATIVE (CUT OFF CONC: 50 NG/ML)COCAINE (KIANA) NEGATIVE (CUT OFF CONC: 300 NG/ML)OPIATES (OPI) NEGATIVE (CUT OFF CONC: 300 NG/ML)PHENCYCLIDINE (PCP) NEGATIVE (CUT OFF CONC: 25 NG/ML)METHADONE (MTD) NEGATIVE (CUT OFF CONC: 300 NG/ML)PROPOXYPHENE (PPX) NEGATIVE (CUT OFF CONC: 300 NG/ML)OXYCODONE (OXY) NEGATIVE (CUT OFF CONC: 100 NG/ML)ANY POSITIVE RESULT IS UNCONFIRMED. CONFIRMATION AND QUANTITATION AVAILABLE UPON MD REQUEST. [facility], [address] [place] [address] Troponin I May 21, 2019 8:18pm < 0.30 0.0-0.5 Published clinical studies have shown elevations of cTnI in patients with myocardial injury, as seen in unstable angina pectoris, cardiac contusions, and heart transplants. Elevations have also been seen in patients with rhabdomyolysis and polymyositis.Elevated troponin levels point to myocardial injury, but are not necessarily indicative of an ischemic mechanism. The term IA should be used when there is evidence of cardiac damage, as detected by marker proteins in a clinical setting consistent with myocardial ischemia. If the clinical circumstance suggests that an ischemic mechanism is unlikely, other causes of cardiac injury should be considered.For diagnostic purposes, the results should always be assessed in conjunction with the patient's medical history, clinical examination and other findings. [facility], [address] [facility] [address] Diagnostic Imaging Reports Report Dictated Date/Time Dictated By Status May 21, 2019 11:30pm WILLIAM NASCIMENTO MD completed Patient: FERNANDO RAMOS MR#: [id number] : [address] BRYANT HAYES MD Pt Status: REG Pt Location: [facility] Date/Time: 05/21/19 190 Primary Care Physician: . CLARI PHYSICIAN Technologist(s): REJI WORKMAN Procedure(s): [id number] CT/CT ABD & PELVIS W Signed EXAMINATION: CT of the abdomen and pelvis with contrast. TECHNIQUE: Spiral CT images of the abdomen and pelvis were performed from the lung bases to the lesser trochanters after the intravenous administration of 100 cc Isovue-300. Coronal and sagittal reformatted images were obtained. COMPARISON: CT abdomen and pelvis without contrast 12/06/2018 CLINICAL HISTORY:Right lower quadrant pain DISCUSSION: ABDOMEN/PELVIS: LOWER THORAX:4 mm left lower lobe nodule among fibrotic scar in the lateral lung base, unchanged. HEPATOBILIARY: Nodular contour in keeping with cirrhosis. No focal hepatic lesion. No intrahepatic biliary ductal dilatation. Gallbladder has been removed. SPLEEN: Mildly heterogeneous splenic attenuation likely reflects arterial phase of scan. Mild splenomegaly (13 cm in craniocaudal span.) PANCREAS: No focal masses or ductal dilatation. ADRENALS: Unchanged right adrenal nodule measuring 2 cm, compatible with a lipid rich adenoma as shown on comparison study. No left adrenal nodule. KIDNEYS/URETERS: Punctate left renal calculus described on the comparison study is less conspicuous on the current study. No focal renal lesion with the exception of a subcentimeter hypoattenuating lesion projecting from the right kidney which is too small to further characterize though likely to represent a small cyst. No hydronephrosis. PELVIC ORGANS/BLADDER: The urinary bladder is incompletely distended but otherwise unremarkable. Uterus is neutral in position with a 2.2 cm coarsely calcified degenerated fibroid. PERITONEUM/RETROPERITONEUM: No ascites. No pneumoperitoneum. LYMPH NODES: No pelvic sidewall, retroperitoneal, or mesenteric lymphadenopathy. VESSELS: Atherosclerotic calcification of the abdominal aorta, major branch vessels, and iliac arterial systems without aneurysmal dilatation. Portal vein, splenic vein, and central superior mesenteric vein are patent. GI TRACT: The large bowel shows no evidence of distention or wall thickening. There are diverticula along the descending and sigmoid colon without wall thickening or adjacent inflammatory change. The appendix is normal. The stomach is collapsed with prominent rugal folds. There is no small bowel dilatation to suggest obstruction. Enteric contrast extends to the level of the distal ileum. BONES AND SOFT TISSUE: No osseous destructive lesions. Healed fracture deformities of the left superior and inferior pubic rami. No focal soft tissue abnormality. IMPRESSION: No acute intra-abdominal or pelvic CT abnormalities. Normal appendix in this patient with reported history of right lower quadrant pain. Cirrhosis with portal hypertension evidenced by splenomegaly. Atherosclerotic vascular disease. Large bowel diverticulosis without findings of diverticulitis. Previously described punctate left renal calculus is less conspicuous on this contrast enhanced examination. Signed by: Dr. William Nascimento M.D. on 05/21/2019 11:30 PM Transcribed By: Stagee SIGNED <electronically signed by WILLIAM NASCIMENTO MD> [id number] WILLIAM NASCIMENTO MD May 23, 2019 4:45pm NI HUANG MD completed Patient: FERNANDO RAMOS MR#: [id number] : 1965 Pt Location: [facility] [place] Date/Time: 05/21/19 Primary Care Physician: . 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 : 1965 Requested By: Order Number: Reading MD: Malika GlasgowAVanessaAVanessaC Measurements Intervals [place] Rate: 104 P: 74 DE: 144 QRS: 82 QRSD: 89 T: 31 QT: 396 QTc: 521 Interpretive Statements Sinus tachycardia Right atrial enlargement Consider left ventricular hypertrophy Prolonged QT interval Electronically Signed On 05-23-2019 16:45:33 CDT by Malika Glasgow Transcribed By: [employer] SIGNED <electronically signed by NI HUANG MD> [id number] [phone] NI HUANG MD Health Concerns No known health concerns documented Advance Directives Advance Directive Response Recorded Date/Time Advance Directives No January 31, 2016 11:47pm Advance Directive on File No June 27, 2019 3:23pm Directive to Physicians/Living Will No January 31, 2016 11:47pm Health Care Proxy No January 31, 2016 11:47pm Organ Donor No January 31, 2016 11:47pm Medical Power of Process Improvement Analyst No January 31, 2016 11:47pm Chief Complaint and Reason for Visit Chief Complaint General Complaint Reason for Visit [id number] Encounters Encounter Location(s) Arrival/Admit Date Discharge/Depart Date Provider(s) Departed Emergency Room [facility] June 27, 2019 3:10pm June 27, 2019 9:09pm ZEE DEMPSEY MD Discharged Inpatient [facility] May 21, 2019 11:54pm May 22, 2019 5:50pm MRAEN FLORIAN MD Assessments No Assessments Information Available Functional Status No Functional Status information available Goals No Goals Information Available Immunizations No Immunization Information Available Mental Status No Mental Status Information Available Medical Equipment No Medical Equipment Information available Insurance Providers Guarantor Fernando Ramos Address [address] [place] [id number] Contact Info. Home Phone: Payer Policy Id Coverage Id Subscriber's Name Subscriber Id Effective Date Expiration Date [facility] [id number] Fernando Ramos [id number] Plan of Treatment Future Tests Future scheduled test information is unavailable Pending Tests Pending diagnostic test information is unavailable Future Visits Future appointment information is unavailable Referrals to Other Providers Reason for Referral Referral Start Date Provider Provider Contact Information Provider Address FRANCES PRINGLE MD Work Phone: [phone] [facility] [address] Future Procedures Future procedure information is unavailable Future Medications Future medication information is unavailable Patient Instructions Patient instructions are unavailable Social History Smoking Status Status Date of Observation Current some day smoker June 27, 2019 3:23pm Observation Status Observation Response Date of Response Hx Substance Use Treatment Y - in past May 22, 2019 2:02am Hx Alcohol Use No May 22, 2019 2:02am Hx Inhalant Use Y - METHAMPHETAMINE May 22, 2019 2:02am Hx Physical Abuse No June 27, 2019 3:23pm Hx Suicide Attempt Y - june 2013 May 22, 2019 2:02am Assigned Sex Female Vital Signs Vital Reading Result Collection Date/Time
--- OUTSIDE RECORDS SUMMARY | 2020-01-14 19:18 | XMS REPORT | Continuity of Care Document ---
Author Author [facility] Organization [facility] Address [address] [place] [address] Phone Unavailable Allergies, Adverse Reactions, Alerts Allergen Type Severity Reaction Last Updated Verified Status Sulfa Antibiotics ([id number]) Allergy Moderate July 07, 2019 Yes Active Medications Medication Status Dose Units Route Sig Qty Days Start Date End Date Instructions Aspirin Active 1 ORAL Daily 30 30 Atorvastatin Calcium Active 20 ORAL Daily 30 30 Clopidogrel Bisulfate Active 75 ORAL Daily Detemir Active 25 SUBCUTANEOUS Twice A Day Furosemide Active 40 ORAL Once Daily 30 30 Insulin Human Aspart Active Loratadine Active 1 ORAL Daily for Allergy Symptoms 30 30 Metoclopramide Hcl Active 1 ORAL Three Times A Day 90 30 Nifedipine Active 90 ORAL Once Daily 30 30 Pantoprazole Sodium Discontinued 40 ORAL Before Breakfast for Gerd 30 December 08, 2018 5:41pm January 07, 2019 Potassium Chloride Er * Active 20 ORAL Once Daily Pregabalin Active 100 ORAL Three Times A Day Salmeterol Xinafoate/Fluticasone Discontinued 1 RESPIRATORY (INHALATION) Rt-Twice Daily January 04, 2014 7:39am (One-Time) Tamsulosin Hcl Active 1 ORAL Twice A Day 1 tab bid for 15 days Albuterol Hfa* Discontinued 2 RESPIRATORY (INHALATION) Rt-Every 4 Hours August 22, 2018 Albuterol Sulfate Discontinued 2 RESPIRATORY (INHALATION) Four Times Daily As Needed December 06, 2018 Amoxicillin/Clavulanate Potassium Discontinued 1 ORAL Twice A Day for Pneumonia 20 December 08, 2018 5:41pm March 02, 2019 Anastrozole Discontinued 1 ORAL Daily 30 30 July 07, 2019 Anastrozole Discontinued 1 ORAL Daily 30 [...] 6:49pm October 27, 2017 Citalopram * Discontinued 20 ORAL Once Daily At Bedtime July 07, 2019 Citalopram * Discontinued 10 ORAL Once Daily [...] Am January 02, 2014 Clonidine Hcl Discontinued 0.3 ORAL Twice A Day July 07, 2019 Clonidine Hcl Discontinued 0.1 ORAL Twice A Day for Hypertension 60 December 08, 2018 5:42pm May 22, 2019 Clonidine Hcl Discontinued 0.3 ORAL Twice A Day December 06, 2018 Clonidine Hcl Discontinued 0.2 ORAL Three Times A Day as needed for Mg January 04, 2014 7:39am April 28, 2014 Cyanocobalamin Discontinued 500 ORAL Once Daily July 07, 2019 Detemir Discontinued 25 SUBCUTANEOUS Twice A Day [...] January 01, 2016 11:58am October 27, 2017 Ergocalciferol Discontinued 03168 ORAL Daily July 07, 2019 Esomeprazole Mag * Discontinued 1 ORAL Daily December 06, 2018 Esomeprazole Mag * Discontinued 1 ORAL Daily 30 August 22, 2018 Fluconazole Discontinued 100 ORAL Daily 7 May 01, 2014 12:26pm August 29, 2014 one tablet daily for 7 days Fluticasone Propionate Discontinued 2 NASAL Daily 1 July 07, 2019 Furosemide Discontinued 40 ORAL Once Daily December 29, 2015 Hydrochlorothiazide Discontinued 1 ORAL Daily 30 July 07, 2019 Hyoscyamine Sulfate Discontinued 0.125 ORAL Four Times [...] Discontinued 45 SUBCUTANEOUS Once Daily At Bedtime 45 April 28, 2014 Insulin Glargine Discontinued 70 [...] ORAL Twice A Day May 01, 2014 Losartan Potassium Discontinued 1 ORAL Daily 30 July 07, 2019 Magnesium Oxide (Mg Supplement Discontinued 1 ORAL Daily 30 May 22, 2019 Metformin Hcl Discontinued 500 ORAL Twice A Day July 07, 2019 Metformin Hcl Discontinued 1 ORAL Twice A Day 60 May 22, 2019 Metformin Hcl Discontinued 500 ORAL Three Times A Day December 29, 2015 Methylcobalamin Discontinued 2000 ORAL Daily April 28, 2014 Metoprolol Tartrate Discontinued 1 ORAL Twice A Day 60 July 07, 2019 Metoprolol Tartrate Discontinued 25 ORAL Twice A Day 60 30 May 22, 2019 Nifedipine Discontinued 1 ORAL Daily August 22, 2018 Nifedipine Discontinued 60 ORAL Daily 60 May 01, 2014 12:26pm December 29, 2015 Nifedipine Discontinued 30 ORAL Daily May 01, 2014 Nifedipine Discontinued 60 ORAL Once Daily April 28, 2014 Ondansetron Hcl Discontinued 1 ORAL Every 6 Hours (4-10-16-22) for N/V 20 March 02, 2019 11:35am July 07, 2019 Ondansetron Hcl Discontinued 4 ORAL Every 6 Hours As Needed May 01, 2014 1:34pm August 29, 2014 Phenazopyridine Hcl Discontinued 100 ORAL Three Times A Day December 06, 2018 Prednisone Discontinued 10 ORAL Twice A Day January 04, 2014 7:39am April 28, 2014 Pregabalin Discontinued 100 ORAL Three Times A Day July 07, 2019 Promethazine Hcl Discontinued 1 ORAL Every 8 Hours As Needed August 22, 2018 Ranitidine Hcl Discontinued 1 ORAL Twice A Day May 22, 2019 Ribavirin * Discontinued 400 ORAL Twice A Day January 02, 2014 Sertraline Hcl Discontinued 200 ORAL Daily August 22, 2018 Trimethoprim/Sulfamethoxazole Discontinued 1 ORAL Twice A Day for Infection 20 July 07, 2019 Problems Active Problems Medical Problem Onset Date Status Abdominal pain Resolved Abscess Active Anxiety Active Breast cancer Active CAD (coronary artery disease) Active COPD (chronic obstructive pulmonary disease) Active CVA (cerebral vascular accident) Resolved Cellulitis and abscess of foot Active Cellulitis [...] of the head Resolved Abscess, scalp Resolved Acute exacerbation of CHF (congestive heart failure) Resolved Altered mental status Resolved Anemia Resolved Benzodiazepine abuse Resolved Contusion of back wall of thorax Resolved Dehydration Resolved Forehead contusion Resolved Hyperglycemia Resolved Hypertension Resolved Hypokalemia Resolved Hyponatremia Resolved Hyponatremia Resolved Intractable nausea and vomiting Resolved Liver cirrhosis Resolved Renal insufficiency Resolved Procedures No procedure information available. Relevant Diagnostic Tests and/or Laboratory Data Laboratory Results Test Date/Time Result Interpretation Reference Range Result Comment Performing Site White Blood Count October 08, 2019 3:40pm 11.2 4.0-11.5 [facility], [address] [place], [place] [id number] Red Blood Count October 08, 2019 3:40pm 5.80 3.80-5.20 [facility], [address] [place], [place] [id number] Hemoglobin October 08, 2019 3:40pm 13.6 10.5-15.7 [facility], [address] [place], [place] [id number] Hematocrit October 08, 2019 3:40pm 42.3 34.0-50.0 [facility], [address] [place], [place] [id number] Mean Corpuscular Volume October 08, 2019 3:40pm 72.9 86-100 [facility], [address] [place], [place] [id number] Mean Corpuscular Hemoglobin October 08, 2019 3:40pm 23.4 26.2-33.4 [facility], [address] [place], [place] [id number] Mean Corpuscular Hemoglobin Concent October 08, 2019 3:40pm 32.2 30-34 [facility], [address] [place], [place] [id number] Red Cell Distribution Width October 08, 2019 3:40pm 14.3 12.0-15.5 [facility], [address] [place], [place] [id number] Platelet Count October 08, 2019 3:40pm 240 165-450 [facility], [address] [place], [place] [id number] Mean Platelet Volume October 08, 2019 3:40pm 12.0 9.4-12.6 [facility], [address] [place], [place] [id number] Neutrophils (%) (Auto) October 08, 2019 3:40pm 54.9 44.4-80.1 [facility], [address] [place], [place] [id number] Immature Granulocyte % (Auto) October 08, 2019 3:40pm 0.4 0.0-0.4 [facility], [address] [place], [place] [id number] Lymphocytes (%) (Auto) October 08, 2019 3:40pm 34.9 10.0-50.0 [facility], [address] [place], [place] [id number] Monocytes (%) (Auto) October 08, 2019 3:40pm 7.8 3.6-12.0 [facility], [address] [place], [place] [id number] Eosinophils (%) (Auto) October 08, 2019 3:40pm 0.8 0.0-5.4 [facility], [address] [place], [place] [address] Basophils (%) (Auto) October 08, 2019 3:40pm 1.2 0.1-1.2 [facility], [address] [place], [place] [id number] Neutrophils # (Auto) October 08, 2019 3:40pm 6.17 1.56-6.13 [facility], [address] [place] [address] Absolute Immature Granulocyte (auto October 08, 2019 3:40pm 0.0 0.0-0.03 [facility], [address] [place], [place] [id number] Lymphocytes # (Auto) October 08, 2019 3:40pm 3.9 1.18-3.74 [facility], [address] [place] [address] Monocytes # (Auto) October 08, 2019 3:40pm 0.88 0.24-0.86 [facility], [address] [place] [address] Eosinophils # (Auto) October 08, 2019 3:40pm 0.09 0.04-0.36 [facility], [address] [place] [address] Basophils # (Auto) October 08, 2019 3:40pm 0.14 0.01-0.08 [facility], [address] [place] [address] Nucleated Red Blood Cells % October 08, 2019 3:40pm 0 0-0.2 [facility], [address] [place] [address] Nucleated Red Blood Cells # October 08, 2019 3:40pm 0 0 [facility], [address] [place] [address] Urine Color October 08, 2019 4:30pm LT. YELLOW [facility], [address] [place] [address] Urine Appearance October 08, 2019 4:30pm CLEAR CLEAR [facility], [address] [place], [place] [id number] Urine Glucose (UA) October 08, 2019 4:30pm >=1000 NEGATIVE [facility], [address] [place] [address] Urine Bilirubin October 08, 2019 4:30pm NEGATIVE NEGATIVE [facility], [address] [place] [address] Urine Ketones October 08, 2019 4:30pm SMALL, 15 MG/DL NEGATIVE [facility], [address] [place] [address] Urine Specific Varnell October 08, 2019 4:30pm 1.020 1.003-1.030 [facility], [address] [place], [place] [id number] Urine Blood October 08, 2019 4:30pm TRACE-INTACT NEGATIVE [facility], [address] [place], [place] [id number] Urine pH October 08, 2019 4:30pm 6.500 5-9 [facility], [address] [place], [place] [id number] Urine Protein October 08, 2019 4:30pm 3+ (>300 mg/dL) NEGATIVE [facility], [address] [place] [address] Urine Urobilinogen October 08, 2019 4:30pm 0.2 0.2-1.0 [facility], [address] [place], [place] [id number] Urine Nitrate October 08, 2019 4:30pm NEGATIVE NEGATIVE [facility], [address] [place], [place] [id number] Urine Leukocyte Esterase October 08, 2019 4:30pm NEGATIVE NEGATIVE [facility], [address] [place] [address] Urine RBC October 08, 2019 4:30pm 0-3 0-5 [facility], [address] [place], [place] [id number] Urine WBC October 08, 2019 4:30pm 0-5 0-5 [facility], [address] [place], [place] [id number] Urine Epithelial Cells October 08, 2019 4:30pm 0-5 0-5 [facility], [address] [place], [place] [id number] Urine Bacteria October 08, 2019 4:30pm SMALL None Detect [facility], [address] [place] [address] Urine Culture Reflexed October 08, 2019 4:30pm NO [facility], [address] [place], [place] [id number] Random Glucose October 08, 2019 3:40pm 154 74-106 [facility], [address] [place], [place] [id number] Blood Urea Nitrogen October 08, 2019 3:40pm 30 6-20 [facility], [address] [place], [place] [address] Serum Osmolality October 08, 2019 3:40pm 274 280-300 [facility], [address] [place], [place] [address] Creatinine October 08, 2019 3:40pm 1.7 0.50-0.90 [facility], [address] [place], [place] [id number] Glomerular Filtration Rate Calc October 08, 2019 3:40pm 31.20 GFR RESULTS ARE REPORTED IN mL/min/1.73m2.Normal GFR: >60mL/minModerately decreased GFR: 30-59 mL/minSeverely decreased GFR: 15-29 mL/minKidney Failure (or Dialysis): <15 mL/minThe calculated eGFR is not valid for patients younger than 18 years or older than 75 years. [facility], [address] [place] [address] BUN/Creatinine Ratio October 08, 2019 3:40pm 17.6 12-20 [facility], [address] [place] [address] Sodium Level October 08, 2019 3:40pm 132 135-145 [facility], [address] [place], [place] [address] Potassium Level October 08, 2019 3:40pm 3.9 3.5-5.2 [facility], [address] [place] [address] Chloride Level October 08, 2019 3:40pm 89 98-108 [facility], [address] [place], [place] [address] Carbon Dioxide Level October 08, 2019 3:40pm 25 21-32 [facility], [address] [place], [place] [address] Anion Gap October 08, 2019 3:40pm 21.9 12-20 [facility], [address] [place], [place] [id number] Calcium Level October 08, 2019 3:40pm 9.6 8.6-10.0 [facility], [address] [place], [place] [address] Total Protein October 08, 2019 3:40pm 7.1 6.6-8.7 [facility], [address] [place], [place] [address] Albumin October 08, 2019 3:40pm 3.3 3.5-5.2 [facility], [address] [place], [place] [address] Globulin October 08, 2019 3:40pm 3.8 [facility], [address] [place], [place] [address] Albumin/Globulin Ratio October 08, 2019 3:40pm 0.9 >1.0 [facility], [address] [place], [place] [address] Total Bilirubin October 08, 2019 3:40pm 0.4 0.0-1.2 [facility], [address] [place], [place] [address] Aspartate Amino Transf (AST/SGOT) October 08, 2019 3:40pm 22 15-32 [facility], [address] [place], [place] [address] Alanine Aminotransferase (ALT/SGPT) October 08, 2019 3:40pm 25 0-33 [facility], [address] [place] [address] Amylase Level October 08, 2019 3:40pm 87 28-100 [facility], [address] [place] [address] Lipase October 08, 2019 3:40pm 91 13-60 [facility], [address] [place] [address] Total Alkaline Phosphatase October 08, 2019 3:40pm 194 35-105 [facility], [address] [place] [address] Urine Amphetamines Screen October 08, 2019 4:30pm POSITIVE NEGATIVE [facility], [address] [place], [place] [id number] Urine Barbiturates, Quantitative October 08, 2019 4:30pm NEGATIVE NEGATIVE [facility], [address] [place] [address] Urine Benzodiazepines Screen October 08, 2019 4:30pm POSITIVE NEGATIVE [facility], [address] [place], [place] [id number] Urine Cannabinoids October 08, 2019 4:30pm NEGATIVE NEGATIVE [facility], [address] [place], [place] [address] Urine Cocaine Metabolite October 08, 2019 4:30pm NEGATIVE NEGATIVE [facility], [address] [place], [place] [address] Urine Opiates Screen October 08, 2019 4:30pm NEGATIVE NEGATIVE [facility], [address] [place], [place] [address] Urine Phencyclidine (PCP) Level October 08, 2019 4:30pm NEGATIVE NEGATIVE [facility], [address] [place] [address] Methadone Level October 08, 2019 4:30pm NEGATIVE NEGATIVE [facility], [address] [place], [place] [address] Propoxyphene Level October 08, 2019 4:30pm NEGATIVE NEGATIVE [facility], [address] [place], [place] [address] Oxycodone Level October 08, 2019 4:30pm NEGATIVE NEGATIVE [facility], [address] [place], [place] [id number] Urine Drug Screen Note October 08, 2019 4:30pm . DRUGS OF ABUSE CUT-OFF VALUESAMPHETAMINES (AMPH) [...] CONFIRMATION AND QUANTITATION AVAILABLE UPON MD REQUEST. [facility], [address] [facility] [address] Health Concerns No known health concerns documented Advance Directives Advance Directive Response Recorded Date/Time Advance Directives No January 31, 2016 11:47pm Advance Directive on File No October 08, 2019 2:59pm Directive to Physicians/Living Will No January 31, 2016 11:47pm Health Care Proxy No January 31, 2016 11:47pm Organ Donor No January 31, 2016 11:47pm Medical Power of Industrial Staff Nurse No January 31, 2016 11:47pm Chief Complaint and Reason for Visit Chief Complaint General Complaint Reason for Visit [id number] Encounters Encounter Location(s) Arrival/Admit Date Discharge/Depart Date Provider(s) Departed Emergency Room [facility] October 08, 2019 3:00pm October 08, 2019 7:49pm Aidee ESPARZA DO Assessments No Assessments Information Available Functional Status No Functional Status information available Goals No Goals Information Available Immunizations No Immunization Information Available Mental Status No Mental Status Information Available Medical Equipment No Medical Equipment Information available Insurance Providers Guarantor Hilary Ramos Address [address] [address] Contact Info. Home Phone: Payer Policy Id Coverage Id Subscriber's Name Subscriber Id Effective Date Expiration Date [facility] [id number] Hilary Ramos [id number] Plan of Treatment Future Tests Future scheduled test information is unavailable Pending Tests Pending diagnostic test information is unavailable Future Visits Future appointment information is unavailable Referrals to Other Providers Reason for Referral Referral Start Date Provider Provider Contact Information Provider Address FRANCES PRINGLE MD Work Phone: [phone] [facility] [address] Future Procedures Future procedure information is unavailable Future Medications Future medication information is unavailable Patient Instructions Stimulant Use Disorder-Amphetamines Substance Use Disorder Social History Smoking Status Status Date of Observation Smokes tobacco daily (finding) October 08, 2019 2:59pm Observation Status Observation Response Date of Response Hx Substance Use Treatment Y - in past July 07, 2019 3:32am Hx Alcohol Use No July 07, 2019 3:32am Hx Inhalant Use Y - METHAMPHETAMINE July 07, 2019 3:32am Hx Physical Abuse No October 08, 2019 2:59pm Hx Suicide Attempt Y - june 2013 July 07, 2019 3:32am Assigned Sex Female Vital Signs Vital Reading Result Collection Date/Time
--- OUTSIDE RECORDS SUMMARY | 2020-01-14 19:18 | XMS REPORT ---
Author Author [facility] Address Unknown Phone Unavailable Care Team Providers Care Tool Machinist Name Role Phone Fer DOTY GARCÍA Unavailable Unavailable SHIMON TENORIO Unavailable Unavailable DR Olivier SILVER Unavailable Unavailable Papo Yang Unavailable Unavailable Payers Payer Name Policy Type Policy Number Effective Date Expiration Date Problems This patient has no known problems. Allergies, Adverse Reactions, Alerts Allergy Name Allergy Type Status Severity Reaction(s) Onset Date Inactive Date Treating Clinician Comments Sulfa (Sulfonamide Antibiotics) DA Active U 2019-06-21 00:00:00 Medications This patient has no known medications. Encounters Start Date/Time End Date/Time Encounter Type Admission Type Attending Clinicians Care Facility Care Department Encounter ID 2019-06-27 22:34:00 2019-07-01 19:18:00 Inpatient [facility] [id number] Results Test Description Test Time Test Comments Text Results Atomic Results Result Comments CHEST SINGLE (PORTABLE) 2020-01-14 16:58:00 [facility] [address] [place], [place] [address] Patient Name: FERNANDO BOO MR #: [id number] : 1965 Age/Sex: 54/F Req #: [id number] Adm Physician: Ordered by: LEE CALDERA PROGRAM FACILITATOR Report #: [id number] Location: ER Room/Bed: Procedure: [id number] DX/CHEST SINGLE (PORTABLE) Exam Date: 01/14/20 Exam Time: 1625 REPORT STATUS: Signed EXAMINATION: CHEST SINGLE (PORTABLE) GAMA RISON: No relevant priors INDICATION: Right flank pain ERMD ORDER [id number] 1625 Y DISCUSSION: Frontal view of the chest obtained at 1635 hours. HEART AND MEDIASTINUM: The cardiomediastinal silhouette is unremarkable. LINES: None. LUNGS/PLEURA: Medial right basilar airspace opacity is suggestive of atelectasis or pneumonia. Small right pleural effusion. Left lateral costophrenic angle was not included on this image. No pneumothorax. BONES AND SOFT TISSUES: No focal osseous lesion. The soft tissues are normal. IMPRESSION: Right basilar airspace opacity may represent atelectasis or infiltrate. Small right pleural effusion. Signed by: Dr. Issac Mi MD on 01/14/2020 4:59 PM Dictated By: ISSAC MI MD 58 Transcribed By: SHARON on 01/14/201658 COPY TO: LEE CALDERA NP CT ABDOMEN/PELVIS 2020-01-14 16:53:00 [place] [address] Patient Name: FERNANDO BOO MR #: [id number] : 1965 Age/Sex: 54/F Req #: [id number] Adm Physician: Ordered by: LEE CALDERA NP Report #: [id number] Location: ER Room/Bed: Procedure: [id number] CT/CT ABDOMEN/PELVIS WO Exam Date: 01/14/20 Exam Time: 1625 REPORT STATUS: Signed CT Abdomen and Pelvis without contrast INDICATION: Right flank pain, kidney stones [id number] 1625 TECHNIQUE: Thin collimation axial images obtained from the diaphragm to the level of the pubic symphysis without nonionic intravenous contrast. Dose reduction techniques used: Automated exposure control, adjustment of the mAs and/or kVp according to patient size, standardized low-dose protocol, and/or iterative reconstruction technique. RADIATION DOSE: Total DLP: 646.71 mGy*cm Estimated effective dose: (DLP x 0.015 x size factor) mSv CTDIvol has been reviewed. It is below the limits set by the Radiation Protocol Committee (RPC). COMPARISON: None. ABDOMEN FINDINGS: Lung Bases: Posterior layering right pleural effusion and overlying atelectasis/infiltrate in the posterior lower lobe. Mild eventration of the right diaphragm. Subcentimeter calcified granuloma in the left lower lobe. Visualized portion mediastinum is normal. Liver: Cirrhosis. Gallbladder: Absent. No ductal dilatation. Pancreas: Normal attenuation without mass. Spleen: Normal size without mass. Adrenal Glands: Nodule in the lateral limb of the right adrenal gland measures 2.0 cm and -2 Hounsfield units suggestive of adenoma. The right adrenal gland is thickened. Kidneys: Right: No renal calculus. No cortical mass or hydronephrosis Left: No renal calculus. No cortical mass or hydronephrosis Lymph Nodes: No lymphadenopathy. Aorta: Diffusely calcified. No aneurysmal dilatation. PELVIS FINDINGS: Bowel: Stomach: Normal. Small Bowel: Normal in caliber with normal wall thickness. Large Bowel: Normal in caliber with normal wall thickness. Appendix: Normal. Bladder: Mildly underdistended but grossly normal. Ureters: No ureteral dilatation or calculus. Uterus: Present and contains a calcified fibroid in the anterior fundus. No adnexal mass. Peritoneum/retroperitoneum: Small amount of abdominal and pelvic ascites. No loculated fluid collection. Bones: Diffuse degenerative changes. No compression fractures or focal osseous lesions. Soft tissues: Diffuse subcutaneous edema. IMPRESSION: 1. Anasarca. No loculated fluid collections to suggest abscess. 2. Right basilar atelectasis or developing infiltrate. 3. Cirrhosis. No splenomegaly. 4. No evidence of renal calculus or obstructive uropathy. 5. No evidence for bowel obstruction or inflammation. Signed by: Dr. Issac Mi MD on 01/14/2020 4:58 PM Dictated By: ISSAC MI MD Electronically Sig niels By: ISSAC MI MD on 01/14/201657 Transcribed By: SHARON on 01/14/201657 COPY TO: LEE CALDERA NP POCT-GLUCOSE METER 2019-10-26 16:47:00 POC-GLUCOSE METER ([employer]) (test nkpu=5486) 150 mg/dL 70-110 : Notified RN/MD: TESTED AT [address] [address]: Brush Or Broom Cutter/Mastic Sprayer DD=[id number] for Marylu Ellison MR, MRA, BRAIN, WITHOUT [id number] 14:45:00Reason for exam:->EVAL FOR STROKEAddendum BeginsREPORT STATUS:A The findings were discussed with Dr. Lang on 10/26/2019 2:43 PM. Signed: Taylor Abernathy MDReport Verified Date/Time: 10/26/2019 14:45:38 Addendum EndsFINAL REPORT MR, MRA, BRAIN, WITHOUT CONTRAST, MR, BRAIN, WITH \\T\\ WITHOUT CONTRAST, MR, MRA, NECK, WITHOUT IV CONTRAST INDICATION: EVAL FOR STROKEEVAL FOR STROKE TECHNIQUE: Multiplanar, multisequence MR imaging of the brain without intravenous contrast.MRA of the head utilizing 3-D xbmi-qn-flkcxt technique, with 3-D reconstructions.MRA of the neck utilizing 2-D and 3-D jfjx-qc-ccwkkd technique, with 3-D reconstructions. COMPARISON: None FINDINGS: MRI Brain:Intracranial: There is restricted diffusion and FLAIR hyperintensity within the mesial left occipital and parietal lobes as well as within the left splenium of the corpus callosum, without associated enhancement, consistent with acute infarct in the left RESOLUTION AGENT territory. No intracranial hemorrhage. A few scattered foci of T2 prolongation within the periventricular and subcortical white matter are a nonspecific finding commonly attributed to chronic small vessel ischemic disease. No mass effect. No hydrocephalus. Sinuses: Mucosal thickening and frothy secretions within the right sphenoid sinus. Mildly coastal thickening in the remainder of the paranasal sinuses. Mastoids are clear. Orbits: Globes are intact. Calvarium \\T\\ scalp: Unremarkable. MRA Head:No proximal branch arterial occlusion. There is severe focal stenosis of the left RESOLUTION AGENT at the P2/P3 junction. Distal reconstitution with normal caliber of left P3 and P4. Left RESOLUTION AGENT is predominantly supplied by P-comm. Anterior circulation is unremarkable. No evidence of intracranial aneurysm. MRA Neck:The carotid arteries in the neck are patent including their bifurcations. There is antegrade flow in the vertebral arteries in the neck. IMPRESSION:1.Acute infarc t in the left RESOLUTION AGENT territory.2.No acute intracranial hemorrhage.3.High-grade foca l stenosis of the left RESOLUTION AGENT at the P2/P3 junction, with distal reconstitution to normal caliber. No arterial occlusion. Addendum will be made to this report upo n successful communication with the ordering physician. Signed: Taylor Abernathy Verified Date/Time: 10/26/2019 14:26:17 , MRA, NECK, WITHOUT IV [id number] 14:45:00Reason for exam:->EVAL FOR STROKEAddendum BeginsREPORT STATUS:A The findings were discussed with Dr. Lang on 10/26/2019 2:43 PM. Signed: [facility] Verified Date/Time: 10/26/2019 14:45:38 Addendum EndsFINAL REPORT MR, MRA, BRAIN, WITHOUT CONTRAST, MR, BRAIN, WITH \\T\\ WITHOUT CONTRAST, MR, MRA, NECK, WITHOUT IV CONTRAST INDICATION: EVAL FOR STROKEEVAL FOR STROKE TECHNIQUE: Multiplanar, multisequence MR imaging of the brain without intravenous contr ast.MRA of the head utilizing 3-D gfua-rj-ehgvrw technique, with 3-D reconstruct ions.MRA of the neck utilizing 2-D and 3-D dzru-xv-etxbac technique, with 3-D re constructions. COMPARISON: None FINDINGS: MRI Brain:Intracranial: There is restr icted diffusion and FLAIR hyperintensity within the mesial left occipital and pa rietal lobes as well as within the left splenium of the corpus callosum, without associated enhancement, consistent with acute infarct in the left RESOLUTION AGENT territory. No intracranial hemorrhage. A few scattered foci of T2 prolongation within the periventricular and subcortical white matter are a nonspecific finding commonly attributed to chronic small vessel ischemic disease. No mass effect. No hydro cephalus. Sinuses: Mucosal thickening and frothy secretions within the right sph enoid sinus. Mildly coastal thickening in the remainder of the paranasal sinuses . Mastoids are clear. Orbits: Globes are intact. Calvarium \\T\\ scalp: Unremarkab le. MRA Head:No proximal branch arterial occlusion. There is severe focal stenos is of the left RESOLUTION AGENT at the P2/P3 junction. Distal reconstitution with normal mel fawn of left P3 and P4. Left RESOLUTION AGENT is predominantly supplied by P-comm. Anterior ci rculation is unremarkable. No evidence of intracranial aneurysm. MRA Neck:The ca rotid arteries in the neck are patent including their bifurcations. There is antegrade flow in the vertebral arteries in the neck. IMPRESSION:1.Acute infarc t in the left RESOLUTION AGENT territory.2.No acute intracranial hemorrhage.3.High-grade foca l stenosis of the left RESOLUTION AGENT at the P2/P3 junction, with distal reconstitution to normal caliber. No arterial occlusion. Addendum will be made to this report upo n successful communication with the ordering physician. Signed: Taylor Abernathy Verified Date/Time: 10/26/2019 14:26:17 , BRAIN, [id number] 14:45:00Reason for exam:->EVAL FOR STROKEAddendum BeginsREPORT STATUS:A The findings were discussed with Dr. Lang on 10/26/2019 2:43 PM. Signed: Taylor Abernathy Verified Date/Time: 10/26/2019 14:45:38 Addendum EndsFINAL REPORT MR, MRA, BRAIN, WITHOUT CONTRAST, MR, BRAIN, WITH \\T\\ WITHOUT CONTRAST, MR, MRA, NECK, WITHOUT IV CONTRAST INDICATION: EVAL FOR STROKEEVAL FOR STROKE TECHNIQUE: Multiplanar, multisequence MR imaging of the brain without intravenous contrast.MRA of the head utilizing 3-D wraj-fl-cqcfyk technique, with 3-D reconstructions.MRA of the neck utilizing 2-D and 3-D yyji-bg-ievjcl technique, with 3-D reconstructions. COMPARISON: None FINDINGS: MRI Brain:Intracranial: There is restricted diffusion and FLAIR hyperintensity within the mesial left occipital and parietal lobes as well as within the left splenium of the corpus callosum, without associated enhancement, consistent with acute infarct in the left RESOLUTION AGENT territory. No intracranial hemorrhage. A few scattered foci of T2 prolongation within the periventricular and subcortical white matter are a nonspecific finding commonly attributed to chronic small vessel ischemic disease. No mass effect. No hydro cephalus. Sinuses: Mucosal thickening and frothy secretions within the right sph enoid sinus. Mildly coastal thickening in the remainder of the paranasal sinuses . Mastoids are clear. Orbits: Globes are intact. Calvarium \\T\\ scalp: Unremarkab le. MRA Head:No proximal branch arterial occlusion. There is severe focal stenos is of the left RESOLUTION AGENT at the P2/P3 junction. Distal reconstitution with normal mel fawn of left P3 and P4. Left RESOLUTION AGENT is predominantly supplied by P-comm. Anterior ci rculation is unremarkable. No evidence of intracranial aneurysm. MRA Neck:The ca rotid arteries in the neck are patent including their bifurcations. There is antegrade flow in the vertebral arteries in the neck. IMPRESSION:1.Acute infarc t in the left RESOLUTION AGENT territory.2.No acute intracranial hemorrhage.3.High-grade foca l stenosis of the left RESOLUTION AGENT at the P2/P3 junction, with distal reconstitution to normal caliber. No arterial occlusion. Addendum will be made to this report upo n successful communication with the ordering physician. Signed: Taylor Abernathy Verified Date/Time: 10/26/2019 14:26:17 -GLUCOSE [id number] 12:10:00* Test Item Value Reference Range Comments POC-GLUCOSE METER (BEAKER) (test jeeo=4449) 235 mg/dL 70-110 : Notified RN/MD: TESTED AT [place] [address]: Brush Or Broom Cutter/Mastic Sprayer IQ=[id number] for Marylu Ellison RAPID INFLUENZA A&B [id number] 10:26:00* Test Item Value Reference Range Comments RAPID INFLUENZA A AG (BEAKER) (test qqeu=7740) Negative Negative, Inconclusive RAPID INFLUENZA B AG (BEAKER) (test aerv=1682) Negative Negative, Inconclusive RAD, CHEST, 1 VIEW, NON [id number] 08:50:00Reason for exam:->PNEUMONIAIs the patient ?->NoShould this be performed at the bedside?->YesFINAL REPORT Comparison: None TECHNIQUE: Single view of the chest FINDINGS: Trace left pleural effusion otherwise lungs are clear. Cardiac silhouette is within normal limits. Soft tissues and bones unremarkable. Signed: Wellington Lamepyeimy Verified Date/Time: 10/26/2019 08:50:55 Reading Location: [facility] Radiology Reading Room -GLUCOSE [id number] 06:46:00* Test Item Value Reference Range Comments POC-GLUCOSE METER (BEAKER) (test tcpz=9030) 130 mg/dL 70-110 : Notified RN/MD: TESTED AT [address] [address]: Brush Or Broom Cutter/Mastic Sprayer NP=[id number] for Vannesa Zuniga COMPREHENSIVE METABOLIC [id number] 06:03:00* Test Item Value Reference Range Comments TOTAL PROTEIN (BEAKER) (test baqf=428) 5.5 gm/dL 6.0-8.5 ALBUMIN (BEAKER) (test qcng=4432) 2.7 g/dL 3.5-5.0 ALKALINE PHOSPHATASE (BEAKER) (test efvc=845) 138 U/L 30-115 BILIRUBIN TOTAL (BEAKER) (test zrpr=595) 0.5 mg/dL 0.1-1.2 SODIUM (BEAKER) (test exxo=950) 139 meq/L 135-148 POTASSIUM (BEAKER) (test zzrm=318) 3.8 meq/L 3.6-5.5 CHLORIDE (BEAKER) (test thzw=204) 113 meq/L 98-106 CO2 (BEAKER) (test vhoc=049) 19 meq/L 20-29 BLOOD UREA NITROGEN (BEAKER) (test waud=651) 34 mg/dL 10-26 CREATININE (BEAKER) (test fdng=323) 1.03 mg/dL 0.50-1.20 GLUCOSE RANDOM (BEAKER) (test wcnc=109) 116 mg/dL 70-110 CALCIUM (BEAKER) (test xhkz=597) 8.5 mg/dL 8.5-10.5 AST (SGOT) (BEAKER) (test qjur=015) 48 U/L 5-40 ALT (SGPT) (BEAKER) (test hcav=220) 43 U/L 5-50 EGFR (BEAKER) (test gbta=5854) 56 mL/min/1.73 sq m ESTIMATED GFR IS NOT ACCURATE CREATININE CLEARANCE IN PREDICTING GLOMERULAR FILTRATION RATE. ESTIMATED GFR IS NOT APPLICABLE FOR DIALYSIS PATIENTS. Brush Or Broom Cutter ID - FELIPAINTROPONIN [id number] 05:48:00* Test Item Value Reference Range Comments TROPONIN I (BEAKER) (test meaf=382) 0.03 ng/mL 0.00-0.15 Troponin I (TnI) levels must be interpreted in the context of the presenting sym ptoms and the clinical findings. Elevated TnI levels indicate myocardial damage, but are not specific for ischemic heart disease. Elevated TnI levels are seen in patients with other cardiac conditions (including myocarditis and congestive h eart failure), and slight TnI elevations occur in patients with other conditions , including sepsis, renal failure, acidosis, acute neurological disease, and per sistent tachyarrhythmia.Brush Or Broom Cutter ID - [id number] 05:42:00* Test Item Value Reference Range Comments MAGNESIUM (BEAKER) (test flxq=495) 1.7 mg/dL 1.5-3.0 Brush Or Broom Cutter ID - FELIPAINCBC W/PLT COUNT & AUTO [id number] 05:22:00* Test Item Value Reference Range Comments WHITE BLOOD CELL COUNT (BEAKER) (test recm=526) 12.9 K/ L 4.0-10.0 RED BLOOD CELL COUNT (BEAKER) (test xahf=541) 3.88 M/ L 4.00-5.00 HEMOGLOBIN (BEAKER) (test ibtq=338) 9.5 GM/DL 12.0-15.5 HEMATOCRIT (BEAKER) (test sovo=200) 29.3 % 36.0-46.0 MEAN CORPUSCULAR VOLUME (BEAKER) (test yfpm=767) 75.5 fL 82.0-99.0 MEAN CORPUSCULAR HEMOGLOBIN (BEAKER) (test ekdn=524) 24.5 pg 27.0-33.0 MEAN CORPUSCULAR HEMOGLOBIN CONC (BEAKER) (test ymqz=764) 32.4 GM/DL 32.0-36.0 RED CELL DISTRIBUTION WIDTH (BEAKER) (test nzcz=343) 15.6 % 12.0-15.0 PLATELET COUNT (BEAKER) (test nhuz=439) 159 K/CU MM 150-430 MEAN PLATELET VOLUME (BEAKER) (test lmct=073) 12.7 fL 6.0-11.5 NUCLEATED RED BLOOD CELLS (BEAKER) (test iurp=086) 0 /100 WBC 0-0 NEUTROPHILS RELATIVE PERCENT (BEAKER) (test xnzw=256) 79 % LYMPHOCYTES RELATIVE PERCENT (BEAKER) (test clrj=028) 16 % MONOCYTES RELATIVE PERCENT (BEAKER) (test pdqs=751) 5 % EOSINOPHILS RELATIVE PERCENT (BEAKER) (test gjig=829) 0 % BASOPHILS RELATIVE PERCENT (BEAKER) (test rdcg=762) 1 % NEUTROPHILS ABSOLUTE COUNT (BEAKER) (test mhaw=333) 10.11 K/ L 1.80-8.00 LYMPHOCYTES ABSOLUTE COUNT (BEAKER) (test mcpy=559) 1.99 K/ L 1.48-4.50 MONOCYTES ABSOLUTE COUNT (BEAKER) (test bemo=348) 0.61 K/ L 0.00-1.30 EOSINOPHILS ABSOLUTE COUNT (BEAKER) (test iqov=550) 0.04 K/ L 0.00-0.50 BASOPHILS ABSOLUTE COUNT (BEAKER) (test mhva=994) 0.06 K/ L 0.00-0.20 IMMATURE GRANULOCYTES-RELATIVE PERCENT (BEAKER) (test itqc=2127) 1 % 0-0 URINALYSIS W/ REFLEX URINE [id number] 04:45:00* Test Item Value Reference Range Comments COLOR (BEAKER) (test dmau=516) Yellow CLARITY (BEAKER) (test dvbn=513) Clear SPECIFIC GRAVITY UA (BEAKER) (test zprl=703) 1.020 1.001-1.035 PH UA (BEAKER) (test ibls=049) 6.0 5.0-8.0 PROTEIN UA (BEAKER) (test klmq=615) 100 mg/dL Negative GLUCOSE UA (BEAKER) (test eema=315) Negative Negative KETONES UA (BEAKER) (test vjup=976) Negative Negative BILIRUBIN UA (BEAKER) (test izsb=098) Negative Negative BLOOD UA (BEAKER) (test wmgq=809) Moderate Negative NITRITE UA (BEAKER) (test hnur=265) Negative Negative LEUKOCYTE ESTERASE UA (BEAKER) (test adhu=622) Trace Negative UROBILINOGEN UA (BEAKER) (test vipb=288) 0.2 mg/dL 0.2-1.0 BACTERIA (BEAKER) (test jnmw=411) Occasional RBC UA-MANUAL (BEAKER) (test hvcb=3990) 10-20 /HPF WBC UA-MANUAL (BEAKER) (test wetp=0865) <5 /HPF SQUAMOUS EPITHELIAL MANUAL (BEAKER) (test jicl=3559) 5-10 /HPF SOURCE(BEAKER) (test gnuq=0289) HEMOGLOBIN [id number] 00:43:00* Test Item Value Reference Range Comments HEMOGLOBIN A1C (BEAKER) (test hhia=453) 13.6 % 4.3-6.1 Brush Or Broom Cutter ID - JUSTINTROPONIN [id number] 00:32:00* Test Item Value Reference Range Comments TROPONIN I (BEAKER) (test pqnc=540) < ng/mL 0.00-0.15 Troponin I (TnI) levels must be interpreted in the context of the presenting sym ptoms and the clinical findings. Elevated TnI levels indicate myocardial damage, but are not specific for ischemic heart disease. Elevated TnI levels are seen in patients with other cardiac conditions (including myocarditis and congestive h eart failure), and slight TnI elevations occur in patients with other conditions , including sepsis, renal failure, acidosis, acute neurological disease, and per sistent tachyarrhythmia.Brush Or Broom Cutter ID - [id number] 00:26:00* Test Item Value Reference Range Comments MAGNESIUM (BEAKER) (test yccq=524) 1.7 mg/dL 1.5-3.0 Specimen markedly hemolyzed Brush Or Broom Cutter ID - JUSTINLIPID [id number] 00:25:00* Test Item Value Reference Range Comments TRIGLYCERIDES (BEAKER) (test lhve=787) 87 mg/dL Specimen markedly hemolyzed CHOLESTEROL (BEAKER) (test ekin=709) 139 mg/dL Specimen markedly hemolyzed HDL CHOLESTEROL (BEAKER) (test tyxe=062) 56 mg/dL LDL CHOLESTEROL CALCULATED (BEAKER) (test lgdx=386) 66 mg/dL Triglyceride Reference Range: Low Risk <150 Borderline 150-199 High Risk 200-499 Very High Risk >=500Cholesterol Reference Range: Low Risk <200 Borderline 200-239 High Risk >240HDL Cholesterol Reference Range: Low Risk >=60 High Risk <40LDL Cholesterol Reference Range: Optimal <100 Near Optimal 100-129 Borderline 130-159 High 160-189 Very High >=190 Brush Or Broom Cutter ID - JUSTINOperator ID - JUSTINOperator ID - JUSTINCBC W/PLT COUNT & AUTO [id number] 00:25:00* Test Item Value Reference Range Comments WHITE BLOOD CELL COUNT (BEAKER) (test xkwj=929) 14.2 K/ L 4.0-10.0 RED BLOOD CELL COUNT (BEAKER) (test tfxk=831) 4.17 M/ L 4.00-5.00 HEMOGLOBIN (BEAKER) (test elfd=383) 10.1 GM/DL 12.0-15.5 HEMATOCRIT (BEAKER) (test zsdh=328) 32.6 % 36.0-46.0 MEAN CORPUSCULAR VOLUME (BEAKER) (test nrhl=266) 78.2 fL 82.0-99.0 MEAN CORPUSCULAR HEMOGLOBIN (BEAKER) (test mbbp=108) 24.2 pg 27.0-33.0 MEAN CORPUSCULAR HEMOGLOBIN CONC (BEAKER) (test qlrt=733) 31.0 GM/DL 32.0-36.0 RED CELL DISTRIBUTION WIDTH (BEAKER) (test ffpj=886) 15.9 % 12.0-15.0 PLATELET COUNT (BEAKER) (test rfoq=557) 149 K/CU MM 150-430 MEAN PLATELET VOLUME (BEAKER) (test asrs=043) 12.7 fL 6.0-11.5 NUCLEATED RED BLOOD CELLS (BEAKER) (test bmxs=480) 0 /100 WBC 0-0 NEUTROPHILS RELATIVE PERCENT (BEAKER) (test otxo=377) 79 % LYMPHOCYTES RELATIVE PERCENT (BEAKER) (test wqqw=272) 15 % MONOCYTES RELATIVE PERCENT (BEAKER) (test xvtq=791) 5 % EOSINOPHILS RELATIVE PERCENT (BEAKER) (test ihpb=640) 1 % BASOPHILS RELATIVE PERCENT (BEAKER) (test ajaf=845) 1 % NEUTROPHILS ABSOLUTE COUNT (BEAKER) (test echi=455) 11.23 K/ L 1.80-8.00 LYMPHOCYTES ABSOLUTE COUNT (BEAKER) (test yvkp=403) 2.13 K/ L 1.48-4.50 MONOCYTES ABSOLUTE COUNT (BEAKER) (test qcck=436) 0.67 K/ L 0.00-1.30 EOSINOPHILS ABSOLUTE COUNT (BEAKER) (test iuer=153) 0.07 K/ L 0.00-0.50 BASOPHILS ABSOLUTE COUNT (BEAKER) (test gxwv=493) 0.07 K/ L 0.00-0.20 IMMATURE GRANULOCYTES-RELATIVE PERCENT (BEAKER) (test kjys=1745) 0 % 0-0 POCT-GLUCOSE [id number] 23:57:00* Test Item Value Reference Range Comments POC-GLUCOSE METER (BEAKER) (test ubzl=7208) 98 mg/dL 70-110 : TESTED AT [address] [address]: Brush Or Broom Cutter/Mastic Sprayer SZ=[id number] for Haydee Reyna BLOOD [id number] 07:43:00* Test Item Value Reference Range Comments Culture Observations (test code=COB1) NO GROWTH AFTER 5 DAYS URINE [id number] 13:08:00* Test Item Value Reference Range Comments Culture Observations (test code=COB1) THREE OR MORE SPECIES OF BACTERIA ISOLATED. PROBABLE CONTAMINATION. Culture Observations (test code=COB17) IDENTIFICATION AND SUSCEPTIBILITY NOT INDICATED. Isolate 1 (test code=ISO1) METHICILLIN RESISTANT STAPH AUREUS oxacillin maribell (test code=ox) ug/mL gentamicin (test code=gm) ug/mL ciprofloxacin (test code=cip) ug/mL levofloxacin (test code=lev) ug/mL clindamycin (test code=cc) ug/mL linezolid (test code=lnz) ug/mL doxycycline (test code=dx) ug/mL tetracycline (test code=tet) ug/mL nitrofurantoin (test code=ftn) ug/mL rifampicin (test code=rif) ug/mL trimethoprim/sulfamethoxazole (test code=sxt) ug/mL Isolate 1 (test code=ISO11) METHICILLIN RESISTANT STAPH AUREUS oxacillin maribell (test code=ox) ug/mL gentamicin (test code=gm) ug/mL ciprofloxacin (test code=cip) ug/mL levofloxacin (test code=lev) ug/mL clindamycin (test code=cc) ug/mL linezolid (test code=lnz) ug/mL doxycycline (test code=dx) ug/mL tetracycline (test code=tet) ug/mL nitrofurantoin (test code=ftn) ug/mL rifampicin (test code=rif) ug/mL trimethoprim/sulfamethoxazole (test code=sxt) ug/mL GLUCOMETER GLUCOSE- LAB USE [id number] 16:24:00* Test Item Value Reference Range Comments GLUCOMETER (test code=GMG) 117 mg/dL 70-100 DAILY MAINTENANCEMeter ID: [id number]: [id number] RADHA ROSY GLUCOMETER GLUCOSE- LAB USE [id number] 10:30:00* Test Item Value Reference Range Comments GLUCOMETER (test code=GMG) 209 mg/dL 70-100 DAILY MAINTENANCEMeter ID: [id number]: [id number] RADHA ROSY BASIC METABOLIC PANEL 2019-07-01 06:05:00* Test Item Value Reference Range Comments GLUCOSE (test code=06D) 168 mg/dL 75-100 SODIUM (test code=01A) 135 mmol/L 136-145 POTASSIUM (test code=01B) 4.2 mmol/L 3.6-5.1 CHLORIDE (test code=04A) 104 mmol/L 98-107 CO2 (test code=02A) 23 mmol/L 22-32 ANION GAP (test code=ANG) 12.2 mmol/L BUN (test code=05D) 34 mg/dL 7-18 CREATININE (test code=03E) 1.2 mg/dL 0.4-1.1 BUN/CREA (test code=BCR) 29 12-20 CALCIUM (test code=09D) 7.9 mg/dL 8.3-9.5 CBC (INCLUDES AUTOMATED DIFFERENTIAL)*[id number] 05:49:00* Test Item Value Reference Range Comments WBC (test code=WBC) 9.4 10\\S\\3/uL 4.5-11.0 RBC (test code=RBC) 4.16 10\\S\\6/uL 4.20-5.60 HGB (test code=HBG) 9.7 g/dL 12.0-15.5 HCT (test code=HCT) 31.4 % 35.0-44.0 MCV (test code=MCV) 75.5 fL 81.0-99.0 MCH (test code=MCH) 23.3 pg 27.0-31.0 MCHC (test code=MCHC) 30.9 g/dL 32.0-36.0 RDW (test code=RDW) 14.5 % 11.5-14.5 PLT (test code=PLT) 277 10\\S\\3/uL 130-400 MPV (test code=MPV) 12.4 fL 9.4-12.4 NEUTROP # (test code=NE#) 5.9 10\\S\\3/uL 1.6-8.0 LYMPH # (test code=LY#) 2.1 10\\S\\3/uL 1.1-3.5 MONOCYTE # (test code=MO#) 0.7 10\\S\\3/uL 0.0-1.1 EOSINOPH # (test code=EO#) 0.5 10\\S\\3/uL 0.0-0.7 BASOPHIL # (test code=BA#) 0.1 10\\S\\3/uL 0.0-0.3 IG # (test code=IG#) 0.08 10\\S\\3/uL 0.00-0.06 NRBC # (test code=NRBC#) 0.00 10\\S\\3/uL 0.00-0.01 NEUTROPH % (test code=NE%) 63.4 % 35.0-73.0 LYMPH % (test code=LY%) 22.6 % 20.0-55.0 MONO % (test code=MO%) 7.6 % 2.5-10.0 EOSINOPH % (test code=EO%) 4.8 % 0.0-5.0 BASOPHIL % (test code=BA%) 0.7 % 0.0-2.0 IG % (test code=IG%) 0.9 % 0.0-0.8 NRBC% (test code=NRBC%) 0.0 % 0.0-0.2 MANDIFF (test code=WMDIFF) NO NO RBC MORPH (test code=WRBCMOR) NORMAL GLUCOMETER GLUCOSE- LAB USE [id number] 04:40:00* Test Item Value Reference Range Comments GLUCOMETER (test code=GMG) 188 mg/dL 70-100 Meter ID: [id number]: 9586 JORGE UKAGWU GLUCOMETER GLUCOSE- LAB USE [id number] 19:43:00* Test Item Value Reference Range Comments GLUCOMETER (test code=GMG) 196 mg/dL 70-100 Meter ID: [id number]: 9586 JORGE UKAGWU GLUCOMETER GLUCOSE- LAB USE [id number] 16:55:00* Test Item Value Reference Range Comments GLUCOMETER (test code=GMG) 227 mg/dL 70-100 DAILY MAINTENANCEMeter ID: [id number]: 9924 RADHA GALLEGOS GLUCOMETER GLUCOSE- LAB USE [id number] 04:26:00* Test Item Value Reference Range Comments GLUCOMETER (test code=GMG) 232 mg/dL 70-100 Meter ID: [id number]: 9586 JORGE UKAGWU BASIC METABOLIC PANEL *WW*2019-06-30 02:17:00* Test Item Value Reference Range Comments GLUCOSE (test code=06D) 186 mg/dL 75-100 SODIUM (test code=01A) 135 mmol/L 136-145 POTASSIUM (test code=01B) 4.3 mmol/L 3.6-5.1 CHLORIDE (test code=04A) 100 mmol/L 98-107 CO2 (test code=02A) 27 mmol/L 22-32 ANION GAP (test code=ANG) 12.3 mmol/L BUN (test code=05D) 34 mg/dL 7-18 CREATININE (test code=03E) 1.5 mg/dL 0.4-1.1 BUN/CREA (test code=BCR) 23 12-20 CALCIUM (test code=09D) 7.4 mg/dL 8.3-9.5 VANCOMYCIN TROUGH *WW*2019-06-30 02:17:00* Test Item Value Reference Range Comments VANC TROGH (test code=VANCT) 24.6 ug/dL 10.0-20.0 PRO TIME AND PTT *WW*2019-06-30 01:35:00* Test Item Value Reference Range Comments PT (test code=TT) 11.3 s 9.8-13.6 INR (test code=INR) 1.0 INRH (test code=INRH) SUGGESTED THERAPEUTIC RANGE FOR INR: 2.5 - 3.5 For Patients with Prosthetic Valves or Patients with recurrent Thromboembolic Events 2.0 - 3.0 For Most Other Applications PTT (test code=PTT) 21.4 s 20.2-38.0 PTTH (test code=PTTH) To monitor the effectiveness of heparin, we offer the Anti-Xa (Heparin Assay). It can be used for either unfractionated or LMW Heparin. Order Code is ANTI-XA CBC (INCLUDES AUTOMATED DIFFERENTIAL)*[id number] 01:19:00* Test Item Value Reference Range Comments WBC (test code=WBC) 11.9 10\\S\\3/uL 4.5-11.0 RBC (test code=RBC) 3.85 10\\S\\6/uL 4.20-5.60 HGB (test code=HBG) 9.0 g/dL 12.0-15.5 HCT (test code=HCT) 28.8 % 35.0-44.0 MCV (test code=MCV) 74.8 fL 81.0-99.0 MCH (test code=MCH) 23.4 pg 27.0-31.0 MCHC (test code=MCHC) 31.3 g/dL 32.0-36.0 RDW (test code=RDW) 14.4 % 11.5-14.5 PLT (test code=PLT) 244 10\\S\\3/uL 130-400 MPV (test code=MPV) 12.8 fL 9.4-12.4 NEUTROP # (test code=NE#) 8.2 10\\S\\3/uL 1.6-8.0 LYMPH # (test code=LY#) 2.3 10\\S\\3/uL 1.1-3.5 MONOCYTE # (test code=MO#) 1.1 10\\S\\3/uL 0.0-1.1 EOSINOPH # (test code=EO#) 0.2 10\\S\\3/uL 0.0-0.7 BASOPHIL # (test code=BA#) 0.1 10\\S\\3/uL 0.0-0.3 IG # (test code=IG#) 0.09 10\\S\\3/uL 0.00-0.06 NRBC # (test code=NRBC#) 0.00 10\\S\\3/uL 0.00-0.01 NEUTROPH % (test code=NE%) 68.6 % 35.0-73.0 LYMPH % (test code=LY%) 19.3 % 20.0-55.0 MONO % (test code=MO%) 8.9 % 2.5-10.0 EOSINOPH % (test code=EO%) 2.0 % 0.0-5.0 BASOPHIL % (test code=BA%) 0.4 % 0.0-2.0 IG % (test code=IG%) 0.8 % 0.0-0.8 NRBC% (test code=NRBC%) 0.0 % 0.0-0.2 MANDIFF (test code=WMDIFF) NO NO RBC MORPH (test code=WRBCMOR) NORMAL GLUCOMETER GLUCOSE- LAB USE [id number] 20:31:00* Test Item Value Reference Range Comments GLUCOMETER (test code=GMG) 104 mg/dL 70-100 Meter ID: [id number]: 9586 JORGE UKAGWU PROTEIN URINE RANDOM 2019-06-29 18:15:00* Test Item Value Reference Range Comments PROT RAND (test code=ID) 809 mg/dL NRR (test code=NRR) * NO REFRENCE RANGE AVAILABLE FOR RANDOM SPECIMEN* DRUGS OF ABUSE *WW*2019-06-29 18:15:00* Test Item Value Reference Range Comments DRUG SCRN (test code=HDOA) URINE DRUG SCREEN This is an unconfirmed screening result and should not be used for non-medical purposes CANNABINOD (test code=88C) Negative NEGATIVE AMPHETAMINE (test code=84A) Negative NEGATIVE BENZODIAZP (test code=86A) Negative NEGATIVE BARBITURAT (test code=85A) Negative NEGATIVE OPIATES (test code=92B) POSITIVE NEGATIVE COCAINE (test code=87A) Negative NEGATIVE PHENCYCLID (test code=66A) Negative NEGATIVE METHADONE (test code=64A) Negative NEGATIVE DOAH (test code=DOAH.) URINE DRUG SCREEN Cut-off values are as follows: Cannabinoids 50 ng/mL Cocaine 300 ng/mL Amphetamines 1000 ng/mL Phencyclidine 25 ng/mL Benzodiazepines 200 ng.mL Methadone 300 ng/mL Barbiturates 200 ng/mL Opiates 2000 ng/mL CREATININE RANDOM URINE *WW*2019-06-29 18:15:00* Test Item Value Reference Range Comments NRR (test code=NRR) * NO REFRENCE RANGE AVAILABLE FOR RANDOM SPECIMEN* JOANNE GUZMÁN (test code=CREAR) 233.0 mg/dL GLUCOMETER GLUCOSE- LAB USE [id number] 16:44:00* Test Item Value Reference Range Comments GLUCOMETER (test code=GMG) 211 mg/dL 70-100 CLEANED METERMeter ID: [id number]: 9150 JOSÉ MIGUEL SUBRAMANIAN VANCOMYCIN RANDOM WW2019-06-29 13:23:00* Test Item Value Reference Range Comments VANC RANDOM (test code=VANCR) 18.7 ug/dL 10.0-20.0 GLYCOHEMOGLOBIN *WW*2019-06-29 12:38:00* Test Item Value Reference Range Comments Hb A1C % (test code=HBA) 13.3 % 4.2-6.3 GLUCOMETER GLUCOSE- LAB USE [id number] 12:04:00* Test Item Value Reference Range Comments GLUCOMETER (test code=GMG) 131 mg/dL 70-100 CLEANED METERMeter ID: [id number]: 9150 JOSÉ MIGUEL SUBRAMANIAN ERYTHROCYTE SED RATE *WW*2019-06-29 08:38:00* Test Item Value Reference Range Comments SED RATE (test code=SEDR) 54 mm/hr 0-30 U/S CAROTID COLOR DOPPLER GIOVANNA*WW*2019-06-29 08:16:35Exam: Carotid Doppler ultrasoundHistory: Acute strokeLocation: X4Jphvrttly: High-resolution grayscale, color Doppler, and spectral analysis ofthe carotid and vertebral arteries was performed.Findings:There is mild calcified and soft plaque within the carotid bulbs and proximalinternal carotid arteries bilaterally but without evidence of high velocitystenosis. Velocities are within normal limits. Normal antegrade flow is seen inboth vertebral arteries.The ICA to CCA ratio on the right was 0.4 and on the left was 1.1.Note is made of large multinodular goiter bilaterally with solid and cysticcomponents on the right measuring 3.7 x 3.4 cm and on the left measuring 2.2 x2.4 cm.Impression:1. Mild calcified and soft plaque within the carotid bulbs and proximalinternal carotid arteries without evidence of high velocity stenosis. Likelylarge multinodular goiter. Comparison with any prior exams recommended. If notavailable, ultrasound-guided fine-needle aspiration of the largest lesion onthe right may be of further benefit.CBC (INCLUDES AUTOMATED DIFFERENTIAL)*[id number] 08:15:00* Test Item Value Reference Range Comments WBC (test code=WBC) 7.8 10\\S\\3/uL 4.5-11.0 RBC (test code=RBC) 3.51 10\\S\\6/uL 4.20-5.60 HGB (test code=HBG) 8.3 g/dL 12.0-15.5 HCT (test code=HCT) 26.2 % 35.0-44.0 MCV (test code=MCV) 74.6 fL 81.0-99.0 MCH (test code=MCH) 23.6 pg 27.0-31.0 MCHC (test code=MCHC) 31.7 g/dL 32.0-36.0 RDW (test code=RDW) 14.2 % 11.5-14.5 PLT (test code=PLT) 180 10\\S\\3/uL 130-400 MPV (test code=MPV) 12.4 fL 9.4-12.4 NEUTROP # (test code=NE#) 5.1 10\\S\\3/uL 1.6-8.0 LYMPH # (test code=LY#) 1.7 10\\S\\3/uL 1.1-3.5 MONOCYTE # (test code=MO#) 0.8 10\\S\\3/uL 0.0-1.1 EOSINOPH # (test code=EO#) 0.1 10\\S\\3/uL 0.0-0.7 BASOPHIL # (test code=BA#) 0.0 10\\S\\3/uL 0.0-0.3 IG # (test code=IG#) 0.03 10\\S\\3/uL 0.00-0.06 NRBC # (test code=NRBC#) 0.00 10\\S\\3/uL 0.00-0.01 NEUTROPH % (test code=NE%) 64.9 % 35.0-73.0 LYMPH % (test code=LY%) 21.9 % 20.0-55.0 MONO % (test code=MO%) 10.6 % 2.5-10.0 EOSINOPH % (test code=EO%) 1.7 % 0.0-5.0 BASOPHIL % (test code=BA%) 0.5 % 0.0-2.0 IG % (test code=IG%) 0.4 % 0.0-0.8 NRBC% (test code=NRBC%) 0.0 % 0.0-0.2 MANDIFF (test code=WMDIFF) NO NO RBC MORPH (test code=WRBCMOR) NORMAL BASIC METABOLIC PANEL *WW*2019-06-29 06:28:00* Test Item Value Reference Range Comments GLUCOSE (test code=06D) 400 mg/dL 75-100 SODIUM (test code=01A) 133 mmol/L 136-145 POTASSIUM (test code=01B) 4.2 mmol/L 3.6-5.1 CHLORIDE (test code=04A) 97 mmol/L 98-107 CO2 (test code=02A) 29 mmol/L 22-32 ANION GAP (test code=ANG) 11.2 mmol/L BUN (test code=05D) 22 mg/dL 7-18 CREATININE (test code=03E) 1.6 mg/dL 0.4-1.1 BUN/CREA (test code=BCR) 14 12-20 CALCIUM (test code=09D) 7.2 mg/dL 8.3-9.5 GLUCOMETER GLUCOSE- LAB USE [id number] 06:10:00* Test Item Value Reference Range Comments GLUCOMETER (test code=GMG) 426 mg/dL 70-100 Meter ID: [id number]: 9125 IRVINEstatelyDilcia LISA LIPID PANEL WW2019-06-29 06:09:00* Test Item Value Reference Range Comments CHOLESTROL (test code=44A) 138 mg/dL 140-200 TRIGLYCERI (test code=42B) 145 mg/dL <=149 HDL (test code=83D) 34.0 mg/dL 40.0-60.0 LDL (test code=34B) 83 mg/dL <=99 CHL/HDL (test code=CHR) 4.0 0.0-3.4 GLYCOHEMOGLOBIN *WW*2019-06-28 22:29:00* Test Item Value Reference Range Comments Hb A1C % (test code=HBA) 13.4 % 4.2-6.3 GLUCOMETER GLUCOSE- LAB USE [id number] 22:11:00* Test Item Value Reference Range Comments GLUCOMETER (test code=GMG) 186 mg/dL 70-100 Meter ID: [id number]: 9125 Power LiensN LISA GLUCOMETER GLUCOSE- LAB USE [id number] 20:44:00* Test Item Value Reference Range Comments GLUCOMETER (test code=GMG) 68 mg/dL 70-100 Meter ID: [id number]: 9936 COLLEEN MCDANIEL GLUCOMETER GLUCOSE- LAB USE [id number] 20:14:00* Test Item Value Reference Range Comments GLUCOMETER (test code=GMG) 57 mg/dL 70-100 Meter ID: [id number]: 9936 COLLEEN MCDANIEL GLUCOMETER GLUCOSE- LAB USE [id number] 18:42:00* Test Item Value Reference Range Comments GLUCOMETER (test code=GMG) 80 mg/dL 70-100 CLEANED METERMeter ID: [id number]: 9383 CELSO FERRER GLUCOMETER GLUCOSE- LAB USE [id number] 16:44:00* Test Item Value Reference Range Comments GLUCOMETER (test code=GMG) 52 mg/dL 70-100 Meter ID: [id number]: 3654 ESEQUIEL BROWN LIPID PANEL 2019-06-28 16:18:00* Test Item Value Reference Range Comments CHOLESTROL (test code=44A) 198 mg/dL 140-200 TRIGLYCERI (test code=42B) 202 mg/dL <=149 HDL (test code=83D) 41.0 mg/dL 40.0-60.0 LDL (test code=34B) 124 mg/dL <=99 CHL/HDL (test code=CHR) 4.8 0.0-3.4 CPK 2019-06-28 16:07:00* Test Item Value Reference Range Comments CPK (test code=32A) 53 IU/L 26-192 TROPONIN I 2019-06-28 16:05:00* Test Item Value Reference Range Comments TROPONIN I (test code=A84) 0.029 ng/mL 0.000-0.045 XR SPINE THORACIC W/SWIM 3VWS2019-06-28 15:04:09Thoracic spine, 3 viewsLocation Code: E5Rpqvlccy history: PainComments: AP, lateral, and swimmer lateral views of the thoracic spine wereobtained. There is no acute fracture or malalignment. Mild diffuse spondylosisis noted. The paraspinal soft tissues are unremarkable.Impression: No acute abnormality. Mild diffuse spondylosis.XR SPINE LUMBAR COMPLETE2019-06-28 15:02:03Lumbar spine series, 5 viewsLocation Code: [id number] HISTORY: [id number]: Left flank painCOMPARISON: None.COMMENTS: AP, oblique, and lateral views of the lumbar spine demonstrate noacute fracture or malalignment. There is moderate multilevel disc spacenarrowing with endplate sclerosis and osteophyte formation. The soft tissuesare unremarkable.IMPRESSION: Moderate multilevel lumbar spondylosis with otherwise no acuteabnormality. Note made of mild contrast within the renal collecting systems.MRA NECK W/O CONTRAST*WW*2019-06-28 14:20:20MRA of the neck without contrastLocation: [id number]: Acute strokeTECHNIQUE: 3-D time of flight MR angiography of the neck was performed.FINDINGS:1. The common, internal, and external carotid arteries have a normalappearance. There is no evidence of significant atheromatous plaque orstenosis.2. Normal appearing carotid bulbs bilaterally.3. Normal antegrade flow in both vertebral arteries.4. No evidence of ulceration.IMPRESSION:1. Unremarkable examination. No evidence of significant stenosis.MRA HEAD W/O CONTRAST*WW*2019-06-28 14:19:33MRA brain without contrastLocation code: Y9Bkpzurkm history: StrokeTechnique: 3-D [id number] MR angiography of the intracranial circulationwas performed without contrast. Volume rendered 3-D reformatted images of thevessels were obtained from source data. Findings:The terminal portions of the internal carotid arteries bifurcate into normalanterior and middle cerebral arteries. The anterior communicating artery ispatent. Basilar artery is seen terminating an feeding the right posteriorcerebral artery. The left posterior cerebral artery arises from the carotidsystem. The posterior communicating arteries are patent bilaterally. There isno focal stenosis, major branch occlusion, aneurysm, or vascular malformation.Impression: No acute abnormality. Left posterior cerebral artery arises fromthe carotid system which is a normal variation although the patient's acutestroke is in the left occipital region.MRI BRAIN W/O CONTRAST*WW*2019-06-28 14:17:23MRI brain without contrastLocation code: M7Miykjhrl history: Stroke, TIAComparison: NoneTechnique: Multiplanar multisequence MR imaging of the brain was perform edwithout contrast. Findings: There is a focal acute to subacute left occipital infarct withdiffusion restriction. No hemorrhagic component or mass effect. No o therinfarcts seen.No evidence of extra-axial fluid collections, midline shift, o r hydrocephalus.Normal appearing midline structures including corpus callosum, o ptic chiasm,and pituitary gland.The posterior fossa and internal auditory canals are unremarkable. The orbits,globes, sinuses, and skull base are unremarkable.I mpression: Acute to subacute nonhemorrhagic left occipital infarct. The patient' s nurse,Celso, was called with these results immediately at 2:15 PM on 07/08/19. URINALYSIS WITH MICRO *WW*2019-06-28 13:39:00* Test Item Value Reference Range Comments COLOR (test code=COLU) YELLOW YELLOW CLARITY (test code=CLA) HAZY CLEAR GLUCOSE UR (test code=UA GLUCOSE) 3+ NEGATIVE BILI UR (test code=BILE) NEGATIVE NEGATIVE KETONES UR (test code=FARTUN) NEGATIVE NEGATIVE SP GRAVITY (test code=SPGR) 1.020 1.005-1.030 PH UR (test code=PH) 6.5 4.5-8.0 PROTEIN UR (test code=PU) 3+ NEGATIVE UROBIL UR (test code=UROQ) 0.2 EU/dL 0.2-1.0 NITRITE UR (test code=NITRITE) NEGATIVE NEGATIVE BLOOD UR (test code=UA BLOOD) TRACE-INTACT NEGATIVE LEUK ES UR (test code=LEUK) TRACE NEGATIVE WBC UR (test code=UWBC) 30 /HPF 0-5 RBC UR (test code=URBC) 6 /HPF 0-2 EPITH UR (test code=UEPC) MODERATE /LPF FEW BACTERIA UR (test code=UBACT) MODERATE /HPF NONE CAST UR (test code=CAST) /LPF NONE CRYSTAL UR (test code=CRYU) / LPF NONE MUCUS UR (test code=MUC) / HPF NONE AMORPH UR (test code=DASHA) / HPF NONE TRICH UR (test code=UTRICH) /HPF NONE YEAST UR (test code=UY) /HPF NONE SPERM UR (test code=USPERM) /HPF NONE U/S KIDNEY (RENAL)*WW*2019-06-28 12:49:19RENAL ULTRASOUNDLocation Code: [id number] HISTORY: Left flank painCOMPARISON: None.COMMENT: Mead scale and selective color Doppler sonographic imaging of thekidneys was performed.The kidneys are of normal echogenicity with no focal mass, or hydronephrosis.The right kidney measures 10.6 x 4.3 x 4.6 cm. 6 mm calculus present along theupper pole.The left kidney measures 11.9 x 5.7 x 4.8 cm. 7 mm nonobstructing calculus ispresent within a midpole calyx. Cortical thickness is normal on each side.The bladder is unremarkable. IMPRESSION: 1. Small, nonobstructing bilateral renal calculi.2. Small amount of perisplenic fluid within the left upper quadrant. GLUCOMETER GLUCOSE- LAB USE [id number] 11:23:00* Test Item Value Reference Range Comments GLUCOMETER (test code=GMG) 192 mg/dL 70-100 CLEANED METERMeter ID: [id number]: 3654 ESEQUIEL EALM PRO TIME AND PTT 2019-06-28 06:35:00* Test Item Value Reference Range Comments PT (test code=TT) 11.6 s 9.8-13.6 INR (test code=INR) 1.0 INRH (test code=INRH) SUGGESTED THERAPEUTIC RANGE FOR INR: 2.5 - 3.5 For Patients with Prosthetic Valves or Patients with recurrent Thromboembolic Events 2.0 - 3.0 For Most Other Applications PTT (test code=PTT) 23.2 s 20.2-38.0 PTTH (test code=PTTH) To monitor the effectiveness of heparin, we offer the Anti-Xa (Heparin Assay). It can be used for either unfractionated or LMW Heparin. Order Code is ANTI-XA COMPREHENSIVE METABOLIC ENGLISH *WW*2019-06-28 06:02:00* Test Item Value Reference Range Comments GLUCOSE (test code=06D) 313 mg/dL 75-100 SODIUM (test code=01A) 133 mmol/L 136-145 POTASSIUM (test code=01B) 3.6 mmol/L 3.6-5.1 CHLORIDE (test code=04A) 96 mmol/L 98-107 CO2 (test code=02A) 26 mmol/L 22-32 ANION GAP (test code=ANG) 14.6 mmol/L BUN (test code=05D) 13 mg/dL 7-18 CREATININE (test code=03E) 1.0 mg/dL 0.4-1.1 BUN/CREA (test code=BCR) 13 12-20 CALCIUM (test code=09D) 8.4 mg/dL 8.3-9.5 BILI TOTAL (test code=11A) 0.4 mg/dL 0.2-1.0 PROTEIN (test code=07D) 6.4 g/dL 6.4-8.2 ALBUMIN (test code=08D) 1.9 g/dL 3.5-4.8 GLOBULIN (test code=GLB) 4.5 g/dL 1.5-3.8 ALB/GLOB (test code=AGRR) 0.4 1.0-2.6 ALK PHOS (test code=35A) 103 IU/L 42-121 AST (test code=30A) 16 IU/L <=42 ALT (test code=31A) 19 IU/L <=78 MAGNESIUM WW2019-06-28 06:02:00* Test Item Value Reference Range Comments MAGNESIUM (test code=48A) 1.7 mg/dL 1.8-2.4 CBC (INCLUDES AUTOMATED DIFFERENTIAL)*[id number] 05:56:00* Test Item Value Reference Range Comments WBC (test code=WBC) 11.5 10\\S\\3/uL 4.5-11.0 RBC (test code=RBC) 4.32 10\\S\\6/uL 4.20-5.60 HGB (test code=HBG) 10.0 g/dL 12.0-15.5 HCT (test code=HCT) 31.6 % 35.0-44.0 MCV (test code=MCV) 73.1 fL 81.0-99.0 MCH (test code=MCH) 23.1 pg 27.0-31.0 MCHC (test code=MCHC) 31.6 g/dL 32.0-36.0 RDW (test code=RDW) 13.9 % 11.5-14.5 PLT (test code=PLT) 229 10\\S\\3/uL 130-400 MPV (test code=MPV) 12.4 fL 9.4-12.4 NEUTROP # (test code=NE#) 8.2 10\\S\\3/uL 1.6-8.0 LYMPH # (test code=LY#) 2.1 10\\S\\3/uL 1.1-3.5 MONOCYTE # (test code=MO#) 0.8 10\\S\\3/uL 0.0-1.1 EOSINOPH # (test code=EO#) 0.3 10\\S\\3/uL 0.0-0.7 BASOPHIL # (test code=BA#) 0.1 10\\S\\3/uL 0.0-0.3 IG # (test code=IG#) 0.05 10\\S\\3/uL 0.00-0.06 NRBC # (test code=NRBC#) 0.00 10\\S\\3/uL 0.00-0.01 NEUTROPH % (test code=NE%) 71.2 % 35.0-73.0 LYMPH % (test code=LY%) 18.3 % 20.0-55.0 MONO % (test code=MO%) 7.0 % 2.5-10.0 EOSINOPH % (test code=EO%) 2.6 % 0.0-5.0 BASOPHIL % (test code=BA%) 0.5 % 0.0-2.0 IG % (test code=IG%) 0.4 % 0.0-0.8 NRBC% (test code=NRBC%) 0.0 % 0.0-0.2 MANDIFF (test code=WMDIFF) NO NO RBC MORPH (test code=WRBCMOR) NORMAL GLUCOMETER GLUCOSE- LAB USE [id number] 04:31:00* Test Item Value Reference Range Comments GLUCOMETER (test code=GMG) 341 mg/dL 70-100 CLEANED METERMeter ID: [id number]: 9588 LAURA ENGLE [id number] 12:10:00* Test Item Value Reference Range Comments GLUBED (test code=GLUBED) 91 mg/dL 74-106 Performed by certified chemical plant operator at [facility] [id number] 08:33:00* Test Item Value Reference Range Comments GLUBED (test code=GLUBED) 161 mg/dL 74-106 Performed by certified chemical plant operator at [facility] BASIC METABOLIC [id number] 06:12:00* Test Item Value Reference Range Comments SODIUM (test code=NA) 135 mmol/L 136-145 POTASSIUM (test code=K) 3.6 mmol/L 3.5-5.1 CHLORIDE (test code=CL) 100.0 mmol/L 98-107 CARBON DIOXIDE (test code=CO2) 22.0 mmol/L 21-32 ANION GAP (test code=GAP) 16.6 10-20 GLUCOSE (test code=GLU) 251 mg/dL 74-106 BLOOD UREA NITROGEN (test code=BUN) 22 mg/dL 7-18 GLOMERULAR FILTRATION RATE (test code=GFR) 39 mL/min >=60 Estimated GFR by using Modified MDRD formula.Chronic kidney disease is defined as either kidney damageor GFR <60 mL/min/1.73 m2 for >3 months. CREATININE (test code=CREAT) 1.40 mg/dL 0.55-1.02 Note change in reference range due to change in reagent. BUN/CREATININE RATIO (test code=BUN/CREA) 15.4 10-20 CALCIUM (test code=CA) 7.8 mg/dL 8.5-10.1 [id number] 03:55:00* Test Item Value Reference Range Comments GLUBED (test code=GLUBED) 289 mg/dL 74-106 Performed by certified chemical plant operator at [facility] [id number] 00:41:00* Test Item Value Reference Range Comments GLUBED (test code=GLUBED) 83 mg/dL 74-106 Performed by certified chemical plant operator at [facility] [id number] 00:41:00* Test Item Value Reference Range Comments GLUBED (test code=GLUBED) 59 mg/dL 74-106 Performed by certified chemical plant operator at [facility] [id number] 00:41:00* Test Item Value Reference Range Comments GLUBED (test code=GLUBED) 50 mg/dL 74-106 Performed by certified chemical plant operator at [facility] [id number] 20:32:00* Test Item Value Reference Range Comments GLUBED (test code=GLUBED) 225 mg/dL 74-106 Performed by certified chemical plant operator at [facility] [id number] 16:07:00* Test Item Value Reference Range Comments GLUBED (test code=GLUBED) 334 mg/dL 74-106 [facility] [id number] 13:40:00* Test Item Value Reference Range Comments GLUBED (test code=GLUBED) 149 mg/dL 74-106 Performed by certified chemical plant operator at [facility] [id number] 12:38:00* Test Item Value Reference Range Comments GLUBED (test code=GLUBED) 44 mg/dL 74-106 Performed by certified chemical plant operator at [facility] [id number] 11:35:00* Test Item Value Reference Range Comments GLUBED (test code=GLUBED) 47 mg/dL 74-106 Performed by certified chemical plant operator at [facility] [id number] 08:16:00* Test Item Value Reference Range Comments GLUBED (test code=GLUBED) 91 mg/dL 74-106 Performed by certified chemical plant operator at [facility] COMPREHENSIVE METABOLIC [id number] 06:14:00* Test Item Value Reference Range Comments SODIUM (test code=NA) 138 mmol/L 136-145 POTASSIUM (test code=K) 3.7 mmol/L 3.5-5.1 CHLORIDE (test code=CL) 104.0 mmol/L 98-107 CARBON DIOXIDE (test code=CO2) 26.0 mmol/L 21-32 ANION GAP (test code=GAP) 11.7 10-20 GLUCOSE (test code=GLU) 109 mg/dL 74-106 BLOOD UREA NITROGEN (test code=BUN) 27 mg/dL 7-18 GLOMERULAR FILTRATION RATE (test code=GFR) 43 mL/min >=60 Estimated GFR by using Modified MDRD formula.Chronic kidney disease is defined as either kidney damageor GFR <60 mL/min/1.73 m2 for >3 months. CREATININE (test code=CREAT) 1.30 mg/dL 0.55-1.02 Note change in reference range due to change in reagent. BUN/CREATININE RATIO (test code=BUN/CREA) 20.3 10-20 TOTAL PROTEIN (test code=PROT) 4.9 gram/dL 6.4-8.2 ALBUMIN (test code=ALB) 1.7 g/dL 3.4-5.0 GLOBULIN (test code=GLOB) 3.2 gram/dL 2.7-4.2 ALBUMIN/GLOBULIN RATIO (test code=A/G) 0.5 0.75-1.50 CALCIUM (test code=CA) 7.6 mg/dL 8.5-10.1 BILIRUBIN TOTAL (test code=BILT) 0.30 mg/dL 0.0-1.0 SGOT/AST (test code=AST) 24 IUnit/L 15-37 SGPT/ALT (test code=ALT) 18 IUnit/L 12-78 ALKALINE PHOSPHATASE TOTAL (test code=ALKP) 72 IUnit/L 45-117 Note change in reference range due to change in reagent. [id number] 06:14:00* Test Item Value Reference Range Comments LIPASE (test code=LIP) 189 U/L 73.0-393.0 COMPREHENSIVE METABOLIC [id number] 05:59:00* Test Item Value Reference Range Comments SODIUM (test code=NA) 138 mmol/L 136-145 POTASSIUM (test code=K) 3.7 mmol/L 3.5-5.1 CHLORIDE (test code=CL) 104.0 mmol/L 98-107 CARBON DIOXIDE (test code=CO2) mmol/L 21-32 ANION GAP (test code=GAP) 10-20 GLUCOSE (test code=GLU) mg/dL 74-106 BLOOD UREA NITROGEN (test code=BUN) mg/dL 7-18 GLOMERULAR FILTRATION RATE (test code=GFR) mL/min >=60 CREATININE (test code=CREAT) mg/dL 0.55-1.02 BUN/CREATININE RATIO (test code=BUN/CREA) 10-20 TOTAL PROTEIN (test code=PROT) gram/dL 6.4-8.2 ALBUMIN (test code=ALB) g/dL 3.4-5.0 GLOBULIN (test code=GLOB) gram/dL 2.7-4.2 ALBUMIN/GLOBULIN RATIO (test code=A/G) 0.75-1.50 CALCIUM (test code=CA) mg/dL 8.5-10.1 BILIRUBIN TOTAL (test code=BILT) mg/dL 0.0-1.0 SGOT/AST (test code=AST) IUnit/L 15-37 SGPT/ALT (test code=ALT) IUnit/L 12-78 ALKALINE PHOSPHATASE TOTAL (test code=ALKP) IUnit/L 45-117 [id number] 05:59:00* Test Item Value Reference Range Comments LIPASE (test code=LIP) U/L 73.0-393.0 [id number] 01:19:00* Test Item Value Reference Range Comments GLUBED (test code=GLUBED) 114 mg/dL 74-106 Performed by certified chemical plant operator at [facility] [id number] 20:24:00* Test Item Value Reference Range Comments GLUBED (test code=GLUBED) 37 mg/dL 74-106 [facility] certified chemical plant [facility] [id number] 19:37:00* Test Item Value Reference Range Comments GLUBED (test code=GLUBED) 135 mg/dL 74-106 Performed by certified chemical plant operator at [facility] [id number] 15:38:00* Test Item Value Reference Range Comments GLUBED (test code=GLUBED) 267 mg/dL 74-106 Performed by certified chemical plant operator at [facility] [id number] 11:37:00* Test Item Value Reference Range Comments GLUBED (test code=GLUBED) 284 mg/dL 74-106 Performed by certified chemical plant operator at [facility] [id number] 08:30:00* Test Item Value Reference Range Comments GLUBED (test code=GLUBED) 331 mg/dL 74-106 [facility] certified chemical [facility] BASIC METABOLIC [id number] 06:41:00* Test Item Value Reference Range Comments SODIUM (test code=NA) 136 mmol/L 136-145 POTASSIUM (test code=K) 3.3 mmol/L 3.5-5.1 CHLORIDE (test code=CL) 95.0 mmol/L 98-107 CARBON DIOXIDE (test code=CO2) 29.0 mmol/L 21-32 ANION GAP (test code=GAP) 15.3 10-20 GLUCOSE (test code=GLU) 332 mg/dL 74-106 BLOOD UREA NITROGEN (test code=BUN) 26 mg/dL 7-18 GLOMERULAR FILTRATION RATE (test code=GFR) 36 mL/min >=60 Estimated GFR by using Modified MDRD formula.Chronic kidney disease is defined as either kidney damageor GFR <60 mL/min/1.73 m2 for >3 months. CREATININE (test code=CREAT) 1.50 mg/dL 0.55-1.02 Note change in reference range due to change in reagent. BUN/CREATININE RATIO (test code=BUN/CREA) 17.7 10-20 CALCIUM (test code=CA) 8.4 mg/dL 8.5-10.1 LIPID PROFILE (CORONARY RISK)2019-06-22 06:41:00* Test Item Value Reference Range Comments TRIGLYCERIDES (test code=TRIG) 272 mg/dL 20-150 CHOLESTEROL (test code=CHOL) 202 mg/dL 0-200 CHOLESTEROL/HDL RATIO (test code=CHOLHDL) 5.0 RATIO 0-4.9 RISK ASSOCIATED WITH CHOL/HDL RATIOS: Risk Male Female1/2 AVERAGE 3.43 3.27AVERAGE 4.97 4.442X AVERAGE 9.55 7.053X AVERAGE 23.39 11.04 REFERENCE VALUE IS RELATED TO RISK LEVELS ASRECOMMENDED BY THE STUART. HEART, LUNG, AND BLOOD INST. HDL CHOLESTEROL (test code=HDL) 40 mg/dL 40-60 LIPOPROTEIN LDL (test code=LDL) 127 mg/dL 100-129 RN PERSONNEL, CONTACT PHYSICIAN IMMEDIATELY IF THIS IS A STROKE, AMI OR CAROTID STENOSIS PATIENT WHEN THE LDL >100 (1ST OCCURENCE, THIS ADMISSION) Reference Interval: mg/dL mmol/L Optimal <100 <2.6Near/above optimal 100-129 2.6- 3.3Borderline High 130-159 3.4-4.1High 160-189 4.1-4.9Very High >=190 >=4.9=========This LDL result is a direct measurement.========= [id number] 06:41:00* Test Item Value Reference Range Comments LIPASE (test code=LIP) 533 U/L 73.0-393.0 BASIC METABOLIC [id number] 06:31:00* Test Item Value Reference Range Comments SODIUM (test code=NA) 136 mmol/L 136-145 POTASSIUM (test code=K) 3.3 mmol/L 3.5-5.1 CHLORIDE (test code=CL) 95.0 mmol/L 98-107 CARBON DIOXIDE (test code=CO2) mmol/L 21-32 ANION GAP (test code=GAP) 10-20 GLUCOSE (test code=GLU) mg/dL 74-106 BLOOD UREA NITROGEN (test code=BUN) mg/dL 7-18 GLOMERULAR FILTRATION RATE (test code=GFR) mL/min >=60 CREATININE (test code=CREAT) mg/dL 0.55-1.02 BUN/CREATININE RATIO (test code=BUN/CREA) 10-20 CALCIUM (test code=CA) mg/dL 8.5-10.1 LIPID PROFILE (CORONARY RISK)2019-06-22 06:31:00* Test Item Value Reference Range Comments TRIGLYCERIDES (test code=TRIG) mg/dL 20-150 CHOLESTEROL (test code=CHOL) mg/dL 0-200 CHOLESTEROL/HDL RATIO (test code=CHOLHDL) RATIO 0-4.9 HDL CHOLESTEROL (test code=HDL) mg/dL 40-60 LIPOPROTEIN LDL (test code=LDL) mg/dL 100-129 [id number] 06:31:00* Test Item Value Reference Range Comments LIPASE (test code=LIP) U/L 73.0-393.0 CBC W/O [id number] 06:25:00* Test Item Value Reference Range Comments WHITE BLOOD CELL (test code=WBC) 10.2 K/mm3 4.5-12.5 RED BLOOD CELL (test code=RBC) 4.95 mill/mm3 3.7-5.2 HEMOGLOBIN (test code=HGB) 11.4 gram/dL 11.5-15.5 HEMATOCRIT (test code=HCT) 35.6 % 36.0-46.0 MEAN CELL VOLUME (test code=MCV) 71.9 fL 80-98 MEAN CELL HGB (test code=MCH) 23.0 picogram 27.0-33.0 MEAN CELL HGB CONCETRATION (test code=MCHC) 32.0 gram/dL 33.0-36.0 RED CELL DISTRIBUTION WIDTH (test code=RDW) 13.8 % 11.6-16.2 PLATELET COUNT (test code=PLT) 138 K/mm3 150-450 MEAN PLATELET VOLUME (test code=MPV) TEST NOT PERFORMED fL 6.7-11.0 Unable to determine due to platelet abnormality [id number] 06:22:00* Test Item Value Reference Range Comments GLYCOSYLATED HEMOGLOBIN (HA1C) (test code=GLYHGB) 13.8 % HbA1 4.8-6.0 ESTIMATED AVERAGE GLUCOSE (test code=EAG) 349 MG/DL [id number] 20:37:00* Test Item Value Reference Range Comments GLUBED (test code=GLUBED) 111 mg/dL 74-106 Performed by certified chemical plant operator at [facility] [id number] 19:00:00* Test Item Value Reference Range Comments GLUBED (test code=GLUBED) 182 mg/dL 74-106 Performed [facility] certified chemical plant [facility] [id number] 17:19:00* Test Item Value Reference Range Comments TROPONIN-I (test code=TROPI) 0.069 ng/mL 0-0.045 PREVIOUSLY CALLED COMMENTS TO RETAIL STORE ASSOCIATE: COLLECT 3 HOURS AFTER PREVIOUS [id number] 16:37:00* Test Item Value Reference Range Comments GLUBED (test code=GLUBED) 256 mg/dL 74-106 Performed by certified chemical plant operator at [facility] [id number] 13:52:00* Test Item Value Reference Range Comments TROPONIN-I (test code=TROPI) 0.063 ng/mL 0-0.045 Results called to PREVIOUS [facility] V.LAB.DRP 06/21/19 2716 COMMENTS TO RETAIL STORE ASSOCIATE: COLLECT 3 HOURS AFTER PREVIOUS [id number] 12:09:00* Test Item Value Reference Range Comments GLUBED (test code=GLUBED) 444 mg/dL 74-106 Performed by certified chemical plant operator at [facility] [id number] 07:08:00* Test Item Value Reference Range Comments GLUBED (test code=GLUBED) 349 mg/dL 74-106 Performed by certified chemical plant operator at [facility] - CT ABD PELVIS [id number] 06:01:00 Name: FERNANDO BOO [facility] : 1965 Age/S: 53 / F Osmar Gomes Unit #: [id number] Loc: [place] [address] Phys: Dorothea Ramires MD Acct: [id number] Dis Date: Status: REG ER PHONE #: [phone] Exam Date: 06/21/2019 05 FAX #: [phone] Reason: falls, bruising to abdomen EXAMS: CPT CODE: [id number] CT ABD PELVIS W/CONT 73731 EXAM: - CT ABD PELVIS W/CONT HISTORY: Fall, pain. TECHNIQUE: Axial tomograms through the abdomen and pelvis were obtained after intravenous contrast. Coronal and sagittal reformatted images are provided. This exam was performed according to our departmental dose-optimization program, which includes automated exposure control, adjustment of the mA and/or kV according to patient size and/or use of iterative reconstruction technique. COMPARISON: None available time of interpretation. FINDINGS: The visualized lung bases are clear. Status post cholecystectomy. The liver, spleen, pancreas, left adrenal and kidneys demonstrate no significant abnormalities. There is a 1.6 cm nodule in right adrenal gland. The appendix has a normal appearance. The bowel is unremarkable. There is no adenopathy or free fluid. The osseous structures demonstrate degenerative change without focal lesion. There is no evidence of acute osseous abnormality. There is calcified plaque involving the abdominal aorta and it's major branching vessels. IMPRESSION: No significant abnormalities demonstrated. Other findings as mentioned above. at 0601 Reported and signed by: Lawrence Dai MD PAGE 1 Signed Report (CONTINUED) Name: FERNANDO BOO [facility] : 1965 Age/S: 53 / F Osmar Gomes Unit #: [id number] Loc: [place] [address] Phys: Dorothea Ramires MD Acct: [id number] Dis Date: Status: REG ER PHONE #: [phone] Exam Date: 06/21/2019 05 FAX #: [phone] Reason: falls, bruising to abdomen EXAMS: CPT CODE: [id number] CT ABD PELVIS W/CONT 61214 <Continued> CC: Dorothea Ramires MD Technologist:OSMIN TORRES CT CTDI: DLP: Trnscb Date/Time: 06/21/2019 (600) [email or web address] Orig Print D/T: S: 06/21/2019 (0604) PAGE 2 Signed Report URINALYSIS [id number] 04:44:00* Test Item Value Reference Range Comments UA COLOR (test code=COLU) LIGHT YELLOW YELLOW UA APPEARANCE (test code=APPU) CLEAR CLEAR UA GLUCOSE DIPSTICK (test code=DGLUU) 300-500 (3+) mg/dL NEGATIVE UA BILIRUBIN DIPSTICK (test code=BILU) NEGATIVE NEGATIVE UA KETONE DIPSTICK (test code=KETU) TRACE mg/dL NEGATIVE UA SPECIFIC GRAVITY (test code=SGU) 1.010 1.001-1.035 UA BLOOD DIPSTICK (test code=JULIANNA) 1+ (Small) NEGATIVE UA PH DIPSTICK (test code=RAFIA) 7.0 5.0-8.0 UA PROTEIN DIPSTICK (test code=PROU) 100 (2+) mg/dL Neg-15 UA UROBILINIOGEN DIPSTICK (test code=URO) 0.2 mg/dL 0.0-0.2 UA NITRITE DIPSTICK (test code=COLETTE) NEGATIVE NEGATIVE UA LEUKOCYTE ESTERASE W REFLEX (test code=LEUUR) NEGATIVE NEGATIVE UA WBC (test code=WBCU) 0-5 per HPF 0-5 UA RBC (test code=RBCU) 0-2 #/HPF 0-5 UA EPITHELIAL CELLS (test code=EPIU) None seen per HPF FEW UA BACTERIA (test code=BACU) NONE SEEN #/HPF NONE Urine Source? Clean CatchDRUGS OF ABUSE SCREEN [id number] 04:44:00* Test Item Value Reference Range Comments URN COCAINE (test code=COCAURN) NEGATIVE <300 ng/mL URN CANNABINOIDS (test code=CANNABURN) NEGATIVE <50 ng/mL URN AMPHETAMINE (test code=AMPHETURN) NEGATIVE <1000 ng/mL URN BARBITURATE (test code=BARBITURN) NEGATIVE <200 ng/mL URN BENZODIAZEPINE (test code=BENZOURN) NEGATIVE <200 ng/mL URN OPIATES (test code=OPIATURN) NEGATIVE <300 ng/mL URN PHENCYCLIDINE (PCP) (test code=PHENCURN) NEGATIVE <25 ng/mL URN METHADONE (test code=METHAURN) NEGATIVE <300 ng/mL Urine Source? Clean CatchURINALYSIS [id number] 04:32:00* Test Item Value Reference Range Comments UA COLOR (test code=COLU) LIGHT YELLOW YELLOW UA APPEARANCE (test code=APPU) CLEAR CLEAR UA GLUCOSE DIPSTICK (test code=DGLUU) 300-500 (3+) mg/dL NEGATIVE UA BILIRUBIN DIPSTICK (test code=BILU) NEGATIVE NEGATIVE UA KETONE DIPSTICK (test code=KETU) TRACE mg/dL NEGATIVE UA SPECIFIC GRAVITY (test code=SGU) 1.010 1.001-1.035 UA BLOOD DIPSTICK (test code=JULIANNA) 1+ (Small) NEGATIVE UA PH DIPSTICK (test code=RAFIA) 7.0 5.0-8.0 UA PROTEIN DIPSTICK (test code=PROU) 100 (2+) mg/dL Neg-15 UA UROBILINIOGEN DIPSTICK (test code=URO) 0.2 mg/dL 0.0-0.2 UA NITRITE DIPSTICK (test code=COLETTE) NEGATIVE NEGATIVE UA LEUKOCYTE ESTERASE W REFLEX (test code=LEUUR) NEGATIVE NEGATIVE UA WBC (test code=WBCU) 0-5 per HPF 0-5 UA RBC (test code=RBCU) 0-2 #/HPF 0-5 UA EPITHELIAL CELLS (test code=EPIU) None seen per HPF FEW UA BACTERIA (test code=BACU) NONE SEEN #/HPF NONE Urine Source? Clean CatchDRUGS OF ABUSE SCREEN [id number] 04:32:00* Test Item Value Reference Range Comments URN COCAINE (test code=COCAURN) <300 ng/mL URN CANNABINOIDS (test code=CANNABURN) <50 ng/mL URN AMPHETAMINE (test code=AMPHETURN) <1000 ng/mL URN BARBITURATE (test code=BARBITURN) <200 ng/mL URN BENZODIAZEPINE (test code=BENZOURN) <200 ng/mL URN OPIATES (test code=OPIATURN) <300 ng/mL URN PHENCYCLIDINE (PCP) (test code=PHENCURN) <25 ng/mL URN METHADONE (test code=METHAURN) <300 ng/mL Urine Source? Clean CatchURINALYSIS [id number] 04:30:00* Test Item Value Reference Range Comments UA COLOR (test code=COLU) YELLOW UA APPEARANCE (test code=APPU) CLEAR UA BILIRUBIN DIPSTICK (test code=BILU) NEGATIVE UA SPECIFIC GRAVITY (test code=SGU) 1.001-1.035 UA PH DIPSTICK (test code=RAFIA) 5.0-8.0 UA UROBILINIOGEN DIPSTICK (test code=URO) mg/dL 0.0-0.2 UA NITRITE DIPSTICK (test code=COLETTE) NEGATIVE UA LEUKOCYTE ESTERASE W REFLEX (test code=LEUUR) NEGATIVE UA WBC (test code=WBCU) 0-5 per HPF 0-5 UA RBC (test code=RBCU) 0-2 #/HPF 0-5 UA EPITHELIAL CELLS (test code=EPIU) None seen per HPF FEW UA BACTERIA (test code=BACU) NONE SEEN #/HPF NONE Urine Source? Clean CatchDRUGS OF ABUSE SCREEN [id number] 04:30:00* Test Item Value Reference Range Comments URN COCAINE (test code=COCAURN) <300 ng/mL URN CANNABINOIDS (test code=CANNABURN) <50 ng/mL URN AMPHETAMINE (test code=AMPHETURN) <1000 ng/mL URN BARBITURATE (test code=BARBITURN) <200 ng/mL URN BENZODIAZEPINE (test code=BENZOURN) <200 ng/mL URN OPIATES (test code=OPIATURN) <300 ng/mL URN PHENCYCLIDINE (PCP) (test code=PHENCURN) <25 ng/mL URN METHADONE (test code=METHAURN) <300 ng/mL Urine Source? Clean CatchBASIC METABOLIC [id number] 04:08:00* Test Item Value Reference Range Comments SODIUM (test code=NA) 125 mmol/L 136-145 RESULT VERIFIED BY REPEAT ANALYSIS POTASSIUM (test code=K) 3.5 mmol/L 3.5-5.1 CHLORIDE (test code=CL) 81.0 mmol/L 98-107 CARBON DIOXIDE (test code=CO2) 31.0 mmol/L 21-32 ANION GAP (test code=GAP) 16.5 10-20 GLUCOSE (test code=GLU) 650 mg/dL 74-106 Results called to by DARA 06/21/19 0406Critical results verified and read back by Nurse? Y BLOOD UREA NITROGEN (test code=BUN) 26 mg/dL 7-18 GLOMERULAR FILTRATION RATE (test code=GFR) 29 mL/min >=60 Estimated GFR by using Modified MDRD formula.Chronic kidney disease is defined as either kidney damageor GFR <60 mL/min/1.73 m2 for >3 months. CREATININE (test code=CREAT) 1.80 mg/dL 0.55-1.02 Note change in reference range due to change in reagent. BUN/CREATININE RATIO (test code=BUN/CREA) 14.5 10-20 CALCIUM (test code=CA) 7.9 mg/dL 8.5-10.1 HEPATIC FUNCTION [id number] 04:08:00* Test Item Value Reference Range Comments TOTAL PROTEIN (test code=PROT) 6.2 gram/dL 6.4-8.2 ALBUMIN (test code=ALB) 2.2 g/dL 3.4-5.0 GLOBULIN (test code=GLOB) 4.0 gram/dL 2.7-4.2 ALBUMIN/GLOBULIN RATIO (test code=A/G) 0.6 0.75-1.50 BILIRUBIN TOTAL (test code=BILT) 0.70 mg/dL 0.0-1.0 BILIRUBIN DIRECT (test code=BILD) 0.18 mg/dL 0.0-0.20 SGOT/AST (test code=AST) 26 IUnit/L 15-37 SGPT/ALT (test code=ALT) 22 IUnit/L 12-78 ALKALINE PHOSPHATASE TOTAL (test code=ALKP) 111 IUnit/L 45-117 Note change in reference range due to change in reagent. CREATINE KINASE (CK)2019-06-21 04:08:00* Test Item Value Reference Range Comments CREATINE KINASE (CK) (test code=CK) 78 IUnit/L 26-208 [id number] 04:08:00* Test Item Value Reference Range Comments LIPASE (test code=LIP) 451 U/L 73.0-393.0 [id number] 04:08:00* Test Item Value Reference Range Comments TROPONIN-I (test code=TROPI) 0.053 ng/mL 0-0.045 Results called to by [employer]LAB.SABRINA 06/21/19 0407Critical results verified and read back by Nurse? Y [id number] 04:08:00* Test Item Value Reference Range Comments ALCOHOL (test code=ALC) 4 mg/dL 0.0-3.0 INTERPRETIVE DATA NOTE: POSITIVE SCREENING RESULTS SHOULD BE CONSIDERED PRESUMPTIVE.WHEN COLLECTED FOR MEDICAL PURPOSES ONLY. SPECIMEN WILL NOTBE COLLECTED BY CHAIN OF CUSTODY.IF A CONFIRMATION OF POSITIVE RESULTS IS DESIRED, ACONFIRMATION TEST MUST BE REQUESTED BY THE PHYSICIAN AT ANADDITIONAL CHARGE TO THE PATIENT. LACTIC [id number] 04:08:00* Test Item Value Reference Range Comments LACTIC ACID (test code=LACT) 2.9 mmol/L 0.4-1.[address] RAMIRES by [facility] GroupLAB.SABRINA 06/21/19 0408Critical results verified and read back by Nurse? Y HCG SERUM [id number] 03:53:00* Test Item Value Reference Range Comments HCG SERUM QUAL (test code=HCGQL) NEGATIVE NEGATIVE This HCGQL test is NOT applicable for MALE patients.Check with nurse about probable order error.If Tumor Marker Test needed, nurse should order test "HCGTU"(Test #[id number]) BASIC METABOLIC [id number] 03:48:00* Test Item Value Reference Range Comments SODIUM (test code=NA) 125 mmol/L 136-145 RESULT VERIFIED BY REPEAT ANALYSIS POTASSIUM (test code=K) 3.5 mmol/L 3.5-5.1 CHLORIDE (test code=CL) 81.0 mmol/L 98-107 CARBON DIOXIDE (test code=CO2) mmol/L 21-32 ANION GAP (test code=GAP) 10-20 GLUCOSE (test code=GLU) mg/dL 74-106 BLOOD UREA NITROGEN (test code=BUN) mg/dL 7-18 GLOMERULAR FILTRATION RATE (test code=GFR) mL/min >=60 CREATININE (test code=CREAT) mg/dL 0.55-1.02 BUN/CREATININE RATIO (test code=BUN/CREA) 10-20 CALCIUM (test code=CA) mg/dL 8.5-10.1 HEPATIC FUNCTION [id number] 03:48:00* Test Item Value Reference Range Comments TOTAL PROTEIN (test code=PROT) gram/dL 6.4-8.2 ALBUMIN (test code=ALB) g/dL 3.4-5.0 GLOBULIN (test code=GLOB) gram/dL 2.7-4.2 ALBUMIN/GLOBULIN RATIO (test code=A/G) 0.75-1.50 BILIRUBIN TOTAL (test code=BILT) mg/dL 0.0-1.0 BILIRUBIN DIRECT (test code=BILD) mg/dL 0.0-0.20 SGOT/AST (test code=AST) IUnit/L 15-37 SGPT/ALT (test code=ALT) IUnit/L 12-78 ALKALINE PHOSPHATASE TOTAL (test code=ALKP) IUnit/L 45-117 CREATINE KINASE (CK)2019-06-21 03:48:00* Test Item Value Reference Range Comments CREATINE KINASE (CK) (test code=CK) IUnit/L 26-208 [id number] 03:48:00* Test Item Value Reference Range Comments LIPASE (test code=LIP) U/L 73.0-393.0 [id number] 03:48:00* Test Item Value Reference Range Comments TROPONIN-I (test code=TROPI) ng/mL 0-0.045 [id number] 03:48:00* Test Item Value Reference Range Comments ALCOHOL (test code=ALC) mg/dL 0-3 - XR CHEST 1 [id number] 03:44:00 FAX: [facility] [phone] [place]: B St: REG Name: FERNANDO HAHN [facility] : [birth year] Age/S: 53/F [address] Unit #: [id number] Loc: [place] [address] Phys: Dorothea Ramires MD Acct: [id number] Dis Date: Status: REG ER PHONE #: [phone] Exam Date: 06/21/2019322 FAX #: [phone] Reason: Altered Mental Status EXAMS: CPT CODE: [id number] XR CHEST 1 V 49078 - XR CHEST 1 V, 06/21/2019 2:48 AM Reason For Examination: Altered Mental Status Gama rison: None available Location: R16 Findings LUNGS: No definite pulmonary edema or consolidation PLEURA: No pleural effusions CARDIOMEDIASTINAL SILHOUETTE Unremarkable IMPRESSION: No plain film evidence of acute cardiopulmonary abnormality at 0344 Reported and signed by: Mercy Murphy M.D. CC: Dorothea Ramires MD Technologist: RT ROGERS Trnscrd Date/Time/By: 06/21/2019 (0344) : By: [email or web address] Orig Print D/T: S: 06/21/2019 (0348) PAGE 1 Signed Report - CT C-SPINE W/O CONTRAST 2019-06-21 03:34:00 Name: FERNANDO BOO [facility] : 1965 Age/S: 53 / F [address] Unit #: [id number] Loc: [place] [address] Phys: Dorothea Ramires MD Acct: [id number] Dis Date: Status: REG ER PHONE #: [phone] Exam Date: 06/21/2019 0320 FAX #: [phone] Reason: fall EXAMS: CPT CODE: [id number] CT C-SPINE W/O CONTRAST 38[address] EXAM: - CT C-SPINE W/O CONTRAST HISTORY: Fall. TECHNIQUE: Axial tomograms through the cervical spine were obtained without intravenous contrast. Sagittal and coronal reformatted images are provided. This exam was performed according to our departmental dose-optimization program, which includes automated exposure control, adjustment of the mA and/or kV according to patient size and/or use of iterative reconstruction technique. COMPARISON: None available time of interpretation. FINDINGS: Vertebral heights and alignment are maintained. No acute fracture or subluxation. The prevertebral soft tissues are within normal limits. The visualized soft tissues of the neck show no significant abnormalities. Degenerative disc disease and facet arthropathy is present at multiple levels. Thyroid nodules are present, largest is complex 2 cm nodule in right lobe. Further evaluation is recommended. IMPRESSION: No acute osseous abnormality with other findings as above. at 0334 Reported and signed by: Lawrence Dai MD CC: Dorothea Ramires MD Technologist:YANCY FIGUEROA, RT CTDI: DLP: Trnscb Date/Time: 06/21/2019 (333) [email or web address] Orig Print D/T: S: 06/21/2019 (0337) PAGE 1 Signed Report CBC W/AUTO [id number] 03:30:00* Test Item Value Reference Range Comments WHITE BLOOD CELL (test code=WBC) 9.6 K/mm3 4.5-12.5 RED BLOOD CELL (test code=RBC) 4.73 mill/mm3 3.7-5.2 HEMOGLOBIN (test code=HGB) 11.2 gram/dL 11.5-15.5 HEMATOCRIT (test code=HCT) 34.2 % 36.0-46.0 MEAN CELL VOLUME (test code=MCV) 72.3 fL 80-98 MEAN CELL HGB (test code=MCH) 23.7 picogram 27.0-33.0 MEAN CELL HGB CONCETRATION (test code=MCHC) 32.7 gram/dL 33.0-36.0 RED CELL DISTRIBUTION WIDTH (test code=RDW) 13.5 % 11.6-16.2 RED CELL DISTRIBUTION WIDTH SD (test code=RDW-SD) 34.5 fL 37.0-51.0 PLATELET COUNT (test code=PLT) 131 K/mm3 150-450 MEAN PLATELET VOLUME (test code=MPV) TEST NOT PERFORMED fL 6.7-11.0 NEUTROPHIL % (test code=NT%) 71.4 % 39.0-69.0 IMMATURE GRANULOCYTE % (test code=IG%) 0.5 % 0.0-5.0 LYMPHOCYTE % (test code=LY%) 19.7 % 25.0-55.0 MONOCYTE % (test code=MO%) 6.4 % 0.0-10.0 EOSINOPHIL % (test code=EO%) 1.1 % 0.0-5.0 BASOPHIL % (test code=BA%) 0.9 % 0.0-1.0 NUCLEATED RBC % (test code=NRBC%) 0.0 % 0-0 NEUTROPHIL # (test code=NT#) 6.86 K/mm3 1.8-7.7 IMMATURE GRANULOCYTE # (test code=IG#) 0.05 x10 3/uL 0-0.03 LYMPHOCYTE # (test code=LY#) 1.90 K/mm3 1.0-5.0 MONOCYTE # (test code=MO#) 0.62 K/mm3 0-0.8 EOSINOPHIL # (test code=EO#) 0.11 K/mm3 0.0-0.5 BASOPHIL # (test code=BA#) 0.09 K/mm3 0.0-0.2 NUCLEATED RBC # (test code=NRBC#) 0.00 K/mm3 0.0-0.1 MANUAL DIFF REQUIRED (test code=MDIFF) NO - CT HEAD/BRAIN W/O [id number] 03:27:00 Name: BOOFERNANDO M [facility] : 1965 Age/S: 53 / F [address] Unit #: [id number] Loc: [facility] [place] [address] Phys: Dorothea Ramires MD Acct: [id number] Dis Date: Status: REG ER PHONE #: [phone] Exam Date: 06/21/2019 0310 FAX #: [phone] Reason: Altered Mental Status EXAMS: CPT CODE: [id number] CT HEAD/BRAIN W/O CONT 74869 Examination: Noncontrast head CT Indication: Altered mental status Comparison: None Location: R16 Technique: Multiple CT images of the brain were obtained from the skull base to the vertex. No intravenous contrast was administered. One or more of the following dose reduction techniques were used: Automated exposure control, adjustment of the mA and/or kV according to patient size, and/or utilization of iterative reconstruction technique. Findings: The ventricles and sulci are relatively symmetric The basilar cisterns are patent. There is no intracranial hemorrhage or mass effect. No intra-axial or extra-axial fluid collections are seen. There are mild periventricular and subcortical white matter hypodensities which are non specific, but likely the sequelae of chronic microvascular ischemia. The visualized paranasal sinuses and mastoid air cells are clear. Impression: 1. No acute intracranial hemo rrhage or significant mass effect 2. Additional findings as ab ove at 0327 Reported and signed by: Mercy Murphy M.D. PAGE 1 Signed Report (CONTINUED) Name: FERNANDO BOO [facility] : 1965 Age/S: 53 / F [address] [facility] Unit #: [id number] Loc: [place] [place] [address] Phys: Dorothea Ramires MD Acct: [id number] Dis Date: Status: REG ER PHONE #: [phone] Exam Date: 309 FAX #: [phone] Reason: Altered Men mikey Status EXAMS: CPT CODE: [id number] CT HEAD/BRAIN W/O CONT [id number] <Continued> CC: Dorothea Ramires MD Technologist:YANCY FIGUEROA, RT CTDI: DLP: Trnscb Date/Time: 06/21/2019 (326) [email or web address] Orig Print D/T: S: 06/21/2019 (033) PAGE 2 Signed Report [id number] 03:11:00* Test Item Value Reference Range Comments GLUBED (test code=GLUBED) > 500 mg/dL 74-106 Performed by certified chemical plant operator at [facility] Calcidiol [Mass/volume] in Serum or [id number] 15:52:00* Test Item Value Reference Range Comments Calcidiol [Mass/volume] in Serum or Plasma (test zois=0728-3) 9.2 ng/mL 30-100 Liver (Hepatic) [id number] 15:49:00* Test Item Value Reference Range Comments Aspartate aminotransferase [Enzymatic activity/volume] in Serum or Plasma by With P-5 (test wviw=38232-6) 45 U/L 15-37 Alanine aminotransferase [Enzymatic activity/volume] in Serum or Plasma by With P-5'- (test phta=6489-9) 86 U/L 12-78 Alkaline phosphatase [Enzymatic activity/volume] in Serum or Plasma (test kjwl=6155-2) 149 U/L 45-117 Bilirubin.total [Mass/volume] in Serum or Plasma (test vfsn=7744-7) 0.3 mg/dL 0.2-1.0 Bilirubin.direct [Mass/volume] in Serum or Plasma (test hkrl=4274-5) <0.1 mg/dL 0-0.2 Protein [Mass/volume] in Serum or Plasma (test fydw=5233-6) 6.0 g/dL 6.4-8.2 Albumin [Mass/volume] in Serum or Plasma by Bromocresol purple (BCP) dye binding meth (test oqgb=64717-1) 2.1 g/dL 3.4-5.0 Globulin (test code=GLOB) 3.9 g/dL 2.3-3.5 Albumin/Globulin Ratio (test code=A/G) 0.5 1.1-1.8 Urea nitrogen [Mass/volume] in Serum or [id number] 15:49:00* Test Item Value Reference Range Comments Urea nitrogen [Mass/volume] in Serum or Plasma (test tjas=5085-9) 34 mg/dL 7-18 Creatinine [Mass/volume] in Serum or Uxovcv1380-42-47 15:49:00* Test Item Value Reference Range Comments Creatinine [Mass/volume] in Serum or Plasma (test cagl=4024-0) 1.12 mg/dL 0.55-1.3 Glomerular Filtration Rate (test code=GFR) 51 mL =/>90 FOR CHRONIC KIDNEY DISEASE: GFR STAGE DESCRIPTION=/>90 STAGE 1 NORMAL--OR-- MINIMAL KIDNEY DAMAGE WITH NORMAL GFR 60-89 STAGE 2 MILD DECREASE IN GFR 30-59 STAGE 3 MODERATE DECREASE IN GFR 15-29 STAGE 4 SEVERE DECREASE IN GFR <15 STAGE 5 KIDNEY FAILURE The Glomerular Filtration Rate (GFR) has been calculated using the IDMS-Traceable MDRD Study Equation. Vitamin D, 25 (OH), [id number] 18:47:00* Test Item Value Reference Range Comments Vitamin D, 25 (OH), TOTAL (test code=VITD) 9.9 ng/mL 30-100 Vitamin D Concentration Vitamin D Status <20 ng/mL Deficient 20 - 30 ng/mL Insufficient 30 - 100 ng/mL Sufficient >100 ng/mL Upper Safety Limit Comprehensive metabolic [id number] 18:32:00* Test Item Value Reference Range Comments Sodium level (test tfkl=WPJ6862) 125 meq/L 135-145 4.4 Chloride measurement (test ztcv=HAQ0238) 94 meq/L 101-111 Bicarbonate (test code=CO2) 22 meq/L 21-31 Glucose measurement (test nfka=SMY8364) 586 mg/dL 65-120 Repeated & Called to PAPO YANG MD on 03/03/18 at 1831 by [employer] Was there 100% Readback? Y ADA Clinical Practice Recommendation: <100 mg/dl=Normal Fasting Glucose BUN Bld-mCnc (test vxjk=1929-5) 21 mg/dL 6-20 Creatinine measurement (test viaf=VSQ3085) 0.96 mg/dL 0.44-1.00 The creatinine method used has been calibrated to be traceable to Isotope dilution Mass Spectrometry (IDMS). For more information: www.nkdep.nih.gov Estimated glomerular filtration rate (GFR) determination (test pjsl=49290-7) 61 mL =/>90 FOR CHRONIC KIDNEY DISEASE: GFR STAGE DESCRIPTION=/>90 STAGE 1 NORMAL--OR-- MINIMAL KIDNEY DAMAGE WITH NORMAL GFR 60-89 STAGE 2 MILD DECREASE IN GFR 30-59 STAGE 3 MODERATE DECREASE IN GFR 15-29 STAGE 4 SEVERE DECREASE IN GFR <15 STAGE 5 KIDNEY FAILURE The Glomerular Filtration Rate (GFR) has been calculated using the IDMS-Traceable MDRD Study Equation. Aspartate aminotransferase (AST) measurement (test kdtq=NQL2107) 37 [iU]/L 10-42 ALT/SGPT (test code=SGPT) 34 [iU]/L 10-60 Alkaline Phosphatase (test code=ALK) 116 [iU]/L 42-121 Bilirubin total (test zxeu=JKX9428) 0.2 mg/dL 0.3-1.2 Calcium Level (test code=CA) 8.5 mg/dL 8.5-10.5 Serum total protein measurement (test lpib=3290-5) 5.9 g/dL 6.0-8.3 Albumin measurement (test qxah=AJB7554) 2.3 g/dL 3.2-5.5 Globulin (test code=GLOB) 3.6 g/dL 2.3-3.5 Albumin/Globulin Ratio (test code=A/G) 0.6 1.1-1.8
--- OUTSIDE RECORDS SUMMARY | 2020-01-14 19:18 | XMS REPORT | Continuity of Care Document ---
Author Author [facility] Organization [facility] Address [address] [place] [address] Phone Unavailable Allergies, Adverse Reactions, Alerts Allergen Type Severity Reaction Last Updated Verified Status Sulfa Antibiotics ([id number]) Allergy Moderate July 07, 2019 Yes Active [...] 2016 11:58am October 27, 2017 Ergocalciferol Discontinued 14207 ORAL Daily July 07, 2019 Esomeprazole Mag [...] 22, 2019 Nifedipine Discontinued 1 ORAL Daily 30 August 22, 2018 Nifedipine Discontinued 60 ORAL [...] Resolved Altered mental status Resolved Anemia Resolved Contusion of back wall of thorax Resolved Dehydration Resolved Forehead contusion Resolved Hyperglycemia Resolved Hypertension Resolved Hypokalemia Resolved Hyponatremia Resolved Hyponatremia Resolved Intractable nausea and vomiting Resolved Liver cirrhosis Resolved Renal insufficiency Resolved Procedures Procedure Date Performed Status EMERGENCY DEPT VISIT June 27, [address] HEAD/BRAIN W/O DYE June 27, 2019 completed TX/PRO/DX INJ NEW DRUG ADDON June 27, 2019 completed THER/PROPH/DIAG IV INF INIT June 27, 2019 completed ASSAY GLUCOSE BLOOD QUANT June 27, 2019 completed ASSAY GLUCOSE BLOOD QUANT June 27, 2019 completed ASSAY GLUCOSE BLOOD QUANT June 27, 2019 completed TEST FOR ACETONE/KETONES June 27, 2019 completed COMPLETE CBC W/AUTO DIFF WBC June 27, 2019 completed ASSAY OF LIPASE June 27, 2019 completed ROUTINE VENIPUNCTURE June 27, 2019 completed COMPREHEN METABOLIC PANEL June 27, 2019 completed DRUG TEST PRSMV CHEM ANLYZR June 27, [address] ABD & PELV W/CONTRAST June 27, 2019 completed URINALYSIS AUTO W/SCOPE June 27, 2019 completed June 27, 2019 completed June 27, 2019 completed MORPHINE SULFATE INJECTION June 27, 2019 completed INSULIN PER 5 UNITS INJ June 27, 2019 completed INSULIN PER 5 UNITS INJ June 27, 2019 completed Computed tomography of abdomen and pelvis with contrast May 21, 2019 completed Computed tomography of head without contrast June 27, 2019 completed Computed tomography of abdomen and pelvis with contrast June 27, 2019 completed X-ray of chest, single view July 06, 2019 completed X-ray of chest, single view July 07, 2019 completed Magnetic resonance imaging of brain without contrast July 07, 2019 completed Relevant Diagnostic Tests and/or Laboratory Data Laboratory Results Test Date/Time Result Interpretation Reference Range Result Comment Performing Site White Blood Count July 09, 2019 4:12pm 10.9 4.0-11.5 [facility], [address] [place] [address] Red Blood Count July 09, 2019 4:12pm 4.25 3.80-5.20 [facility], [address] [place] [address] Hemoglobin July 09, 2019 4:12pm 10.3 10.5-15.7 [facility], [address] [place] [address] Hematocrit July 09, 2019 4:12pm 32.6 34.0-50.0 [facility], [address] [place], [place] [id number] Mean Corpuscular Volume July 09, 2019 4:12pm 76.7 86-100 [facility], [address] [place] [address] 22968 Mean Corpuscular Hemoglobin July 09, 2019 4:12pm 24.2 26.2-33.4 [facility], [address] [place] [address] Mean Corpuscular Hemoglobin Concent July 09, 2019 4:12pm 31.6 30-34 [facility], [address] [place], [place] [id number] Red Cell Distribution Width July 09, 2019 4:12pm 15.9 12.0-15.5 [facility], [address] [place] [address] Platelet Count July 09, 2019 4:12pm 267 165-450 [facility], [address] [place] [address] Absolute Immature Platelet Fraction May 22, 2019 10:25am 17.4 [facility], [address] [place] [address] Immature Platelet Fraction May 22, 2019 10:25am 13.1 0-8 [facility], [address] [place] [address] Mean Platelet Volume July 09, 2019 4:12pm 12.6 9.4-12.6 [facility], [address] [place], [place] [id number] Neutrophils (%) (Auto) July 09, 2019 4:12pm 89.1 44.4-80.1 [facility], [address] [place] [address] Immature Granulocyte % (Auto) July 09, 2019 4:12pm 0.6 0.0-0.4 [facility], [address] [place], [place] [id number] Lymphocytes (%) (Auto) July 09, 2019 4:12pm 7.2 10.0-50.0 [facility], [address] [place] [address] Monocytes (%) (Auto) July 09, 2019 4:12pm 2.9 3.6-12.0 [facility], [address] [place] [address] Eosinophils (%) (Auto) July 09, 2019 4:12pm 0 0.0-5.4 [facility], [address] [place] [address] Basophils (%) (Auto) July 09, 2019 4:12pm 0.2 0.1-1.2 [facility], [address] [place], [place] [id number] Neutrophils # (Auto) July 09, 2019 4:12pm 9.67 1.56-6.13 [facility], [address] [place], [place] [id number] Absolute Immature Granulocyte (auto July 09, 2019 4:12pm 0.1 0.0-0.03 [facility], [address] [place], [place] [id number] Lymphocytes # (Auto) July 09, 2019 4:12pm 0.8 1.18-3.74 [facility], [address] [place] [address] Monocytes # (Auto) July 09, 2019 4:12pm 0.32 0.24-0.86 [facility], [address] [place] [address] Eosinophils # (Auto) July 09, 2019 4:12pm 0.00 0.04-0.36 [facility], [address] [place] [address] Basophils # (Auto) July 09, 2019 4:12pm 0.02 0.01-0.08 [facility], [address] [place] [address] Nucleated Red Blood Cells % July 09, 2019 4:12pm 0 0-0.2 [facility], [address] [place] [address] Nucleated Red Blood Cells # July 09, 2019 4:12pm 0 0 [facility], [address] [place] [address] Erythrocyte Sedimentation Rate July 07, 2019 9:20am 74 0.00-20 [facility], [address] [place] [address] Iron Level July 05, 2019 1:46pm 26 37-145 [facility], [address] [place] [address] Vitamin B12 Level July 05, 2019 1:46pm 1469 211-946 [facility], [address] [place], [place] [id number] Folate July 05, 2019 1:46pm 10.07 4.78-24.2 [facility], [address] [place] [address] Prothrombin Time May 21, 2019 8:26pm 10.4 10.3-12.3 THERAPEUTIC LEVEL: 1.5 to 1.9 times normal range of PT [place] [address] Prothromb Time International Ratio May 21, 2019 8:26pm 0.94 Recommended therapeutic range for patients receiving warfarin (coumadin) therapy: INR is 2.0 to 3.0Recommended range for patients with mechanical prosthetic heart valves: INR is 2.5 to 3.5 [facility], [address] [place] [address] Activated Partial Thromboplast Time May 21, 2019 8:26pm 25.5 22.5-37.0 [facility], [address] [place] [address] Urine Color July 07, 2019 2:45pm COLORLESS [facility], [address] [place] [address] Urine Appearance July 07, 2019 2:45pm CLEAR CLEAR [facility], [address] [place], [place] [id number] Urine Glucose (UA) July 07, 2019 2:45pm 4+ (1000 mg/dL) NEGATIVE [facility], [address] [place], [place] [id number] Urine Bilirubin July 07, 2019 2:45pm NEGATIVE NEGATIVE [facility], [address] [place] [address] Urine Ketones July 07, 2019 2:45pm NEGATIVE NEGATIVE [facility], [address] [place], [place] [id number] Urine Specific [place] July 07, 2019 2:45pm 1.009 1.003-1.030 [facility], [address] [place], [place] [id number] Urine Blood July 07, 2019 2:45pm NEGATIVE NEGATIVE [facility], [address] [place] [address] Urine pH July 07, 2019 2:45pm 7.000 5-9 [facility], [address] [place] [address] Urine Protein July 07, 2019 2:45pm 2+ (200 mg/dL) NEGATIVE [facility], [address] [place] [address] Urine Urobilinogen July 07, 2019 2:45pm NORMAL 0.2-1.0 [facility], [address] [place], [place] [id number] Urine Nitrate July 07, 2019 2:45pm NEGATIVE NEGATIVE [facility], [address] [place], [place] [id number] Urine Leukocyte Esterase July 07, 2019 2:45pm NEGATIVE NEGATIVE [facility], [address] [place], [place] [id number] Urine RBC July 07, 2019 2:45pm 1-5 0-5 [facility], [address] [place], [place] [id number] Urine WBC July 07, 2019 2:45pm 1-5 0-5 [facility], [address] [place], [place] [id number] Urine Epithelial Cells July 07, 2019 2:45pm <1 0-5 [facility], [address] [place], [place] [id number] Urine Bacteria July 07, 2019 2:45pm None Detected None Detect [facility], [address] [place] [address] Urine Casts July 07, 2019 2:45pm None Detected None Detect [facility], [address] [place] [address] Urine Culture Reflexed July 07, 2019 2:45pm ALREADY ORDERED [facility], [address] [place] [address] Urine Amorphous Sediment July 07, 2019 2:49am MODERATE None Seen [facility], [address] [place] [address] Urine Pathogenic Casts July 07, 2019 2:49am Coarse granular 1-5 None Detect [facility], [address] [place], [place] [address] Venous Blood pH May 21, 2019 8:57pm 7.429 7.310 - 7.410 [facility], [address] [place] [address] Venous Blood pCO2 at Patient Temp May 21, 2019 8:57pm 38 40.0 - 50.0 [facility], [address] [place] [address] Venous Blood Partial Pressure O2 May 21, 2019 8:57pm 36 36.0 - 42.0 [facility], [address] [place] [address] Venous Blood HCO3 May 21, 2019 8:57pm 24.5 18.0 - 28.2 [facility], [address] [place] [address] Venous Blood Base Excess May 21, 2019 8:57pm 0.6 -2.0 - 2.3 [facility], [address] [place] [address] Venous Blood Total Carbon Dioxide May 21, 2019 8:57pm 22.7 22.0 - 26.0 [facility], [address] [place] [address] Venous Blood O2 Saturation (Calc) May 21, 2019 8:57pm 71 60.0 - 80.0 This is a calculated result. [facility], [address] [place] [address] Venous Blood Oxygen Content May 21, 2019 8:57pm 5.4 6.7 - 15.6 [facility], [address] [place], [place] [id number] POC Capillary Blood Glucose (Chem) July 09, 2019 7:58pm 292 70.0 - 110 [facility], [address] [place], [place] [id number] Random Glucose July 09, 2019 4:12pm 567 74-106 Results have been broadcasted to patient's location and called to (RADHA). By TU BARAJAS 07/09/19 @1641[facility]. [facility], [address] [place], [place] [address] Blood Urea Nitrogen July 09, 2019 4:12pm 49 6-20 [facility], [address] [place], [place] [address] Serum Osmolality July 09, 2019 4:12pm 304 280-300 [facility], [address] [place], [place] [address] Creatinine July 09, 2019 4:12pm 1.5 0.50-0.90 [facility], [address] [place], [place] [address] Glomerular Filtration Rate Calc July 09, 2019 4:12pm 36.05 GFR RESULTS ARE REPORTED IN mL/min/1.73m2.Normal GFR: >60mL/minModerately decreased GFR: 30-59 mL/minSeverely decreased GFR: 15-29 mL/minKidney Failure (or Dialysis): <15 mL/minThe calculated eGFR is not valid for patients younger than 18 years or older than 75 years. [facility], [address] [place], [place] [address] BUN/Creatinine Ratio July 09, 2019 4:12pm 32.7 12-20 [facility], [address] [place], [place] [address] Sodium Level July 09, 2019 4:12pm 132 135-145 [facility], [address] [place], [place] [address] Potassium Level July 09, 2019 4:12pm 4.6 3.5-5.2 [facility], [address] [place], [place] [address] Chloride Level July 09, 2019 4:12pm 95 98-108 [facility], [address] [place], [place] [address] Carbon Dioxide Level July 09, 2019 4:12pm 24 21-32 [facility], [address] [place], [place] [address] Anion Gap July 09, 2019 4:12pm 17.6 12-20 [facility], [address] [place], [place] [address] Calcium Level July 09, 2019 4:12pm 9.0 8.6-10.0 [facility], [address] [place], [place] [address] Phosphorus Level July 08, 2019 8:45am 4.0 2.5-4.5 [facility], [address] [place], [place] [address] Magnesium Level July 08, 2019 8:45am 1.7 1.6-2.6 [facility], [address] [place], [place] [address] Total Protein July 06, 2019 10:02pm 7.1 6.6-8.7 [facility], [address] [place], [place] [address] Albumin July 06, 2019 10:02pm 3.3 3.5-5.2 [facility], [address] [place] [address] Globulin July 06, 2019 10:02pm 3.8 [facility], [address] [place], [place] [address] Albumin/Globulin Ratio July 06, 2019 10:02pm 0.9 >1.0 [facility], [address] [place] [address] Total Bilirubin July 06, 2019 10:02pm < 0.3 0.0-1.2 [facility], [address] [place] [address] Aspartate Amino Transf (AST/SGOT) July 06, 2019 10:02pm 27 15-32 [facility], [address] [place], [place] [address] Alanine Aminotransferase (ALT/SGPT) July 06, 2019 10:02pm 19 0-33 [facility], [address] [place], [place] [address] Lipase June 27, 2019 4:08pm 93 13-60 [facility], [address] [place], [place] [address] Ammonia July 05, 2019 1:46pm 22.0 11-51 [facility], [address] [place], [place] [address] Acetone Level June 27, 2019 4:08pm POSITIVE NEGATIVE [facility], [address] [place] [address] Hemoglobin A1c July 05, 2019 1:46pm 13.3 4.4-6.4 [facility], [address] [place] [address] WV-Ias-X-Type Natriuretic Peptide July 08, 2019 8:45am 4899 0-125 [facility], [address] [place], [place] [address] Total Alkaline Phosphatase July 06, 2019 10:02pm 129 35-105 [facility], [address] [place], [place] [address] Urine Amphetamines Screen July 07, 2019 2:45pm POSITIVE NEGATIVE [facility], [address] [place] [address] Urine Barbiturates, Quantitative July 08, 2019 11:38am NEGATIVE NEGATIVE [facility], [address] [place] [address] Urine Benzodiazepines Screen July 08, 2019 11:38am NEGATIVE NEGATIVE [facility], [address] [place], [place] [id number] Urine Cannabinoids July 08, 2019 11:38am NEGATIVE NEGATIVE [facility], [address] [place] [address] Urine Cocaine Metabolite July 08, 2019 11:38am NEGATIVE NEGATIVE [facility], [address] [place] [address] Urine Opiates Screen July 08, 2019 11:38am NEGATIVE NEGATIVE [facility], [address] [place] [address] Urine Phencyclidine (PCP) Level July 08, 2019 11:38am NEGATIVE NEGATIVE [facility], [address] [place], [place] [address] Methadone Level July 08, 2019 11:38am NEGATIVE NEGATIVE [facility], [address] [place] [address] Propoxyphene Level July 08, 2019 11:38am NEGATIVE NEGATIVE [place] [address] Oxycodone Level July 08, 2019 11:38am NEGATIVE NEGATIVE [place] [address] Urine Drug Screen Note July 07, 2019 2:45pm . DRUGS OF ABUSE CUT-OFF VALUESAMPHETAMINES (AMPH) [...] CONFIRMATION AND QUANTITATION AVAILABLE UPON MD REQUEST. [place] [address] Cholesterol Level July 08, 2019 8:45am 165 150-200 [place] [address] Triglycerides Level July 08, 2019 8:45am 143 <150 [place] [address] HDL Cholesterol July 08, 2019 8:45am 62 >65 HDL EXPECTED VALUES:FEMALES: >65 mg/dL NO RISK 45-65 mg/dL MODERATE RISK <45 mg/dL HIGH RISKMALES: >55 mg/dL NO RISK 35-55 mg/dL MODERATE RISK <35 mg/dL HIGH RISK [place] [address] LDL Cholesterol July 08, 2019 8:45am 82 <100 LDL Expected Values:Optimal <100 mg/dLNear optimal/above optimal 100-129 mg/dLBorderline high 130-159 mg/dLHigh 160-189 mg/dLVery high >190 mg/dL [place] [address] Coronary Heart Disease Risk Ratio July 08, 2019 8:45am 2.661 NATIONAL CHOLESTEROL GUIDELINES [facility] ([facility]) guidelines for classificaton, testing and management of cholesterol levels in adults over 20 years of age. This new classification creates three categories of risk for coronary heart disease, regardless of age or sex, according to total and LDL cholesterols levels: Based on total cholesterol levelDesirable <200 mg/dlBorderline-high 200-239 mg/dlHigh >=240 mg/dl Based on cholesterol ratioCHD RISK CHOL/HDL RATIO MALE FEMALE0.5 x Average 3.4 3.31.0 x Average 5.0 4.42.0 x Average 9.6 7.13.0 x Average 13.5 11.0 [facility], [address] [place] [address] Ferritin July 05, 2019 1:46pm 29.3 13-150 [facility], [address] [place], [place] [id number] Cortisol PM Sample July 05, 2019 1:46pm 13.1 2.3-11.9 [facility], [address] [place], [place] [address] DEHYDROEPIANDROSTERONE July 05, 2019 1:46pm <20 31-701 Age 1 - 5 years 0 - 67 6 - 7 years 0 - 110 8 - 10 years 0 - 185 11 - 12 years 0 - 201 13 - 14 years 0 - 318 15 - 16 years 39 - 481 17 - 19 years 40 - 491 >19 years 31 - 701Performed at: [facility] [id number] Director: Eliseo Stout MD, Phone: [phone] [facility] A# [id number], [address] [facility], [address] [facility] [address] Thyroid Stimulating Hormone (TSH) July 08, 2019 8:45am 0.67 0.36-3.74 [facility], [address] [place] [address] Thyroxine (T4) July 08, 2019 8:45am 8.4 4.5-11.7 [facility], [address] [place] [address] C-Peptide July 05, 2019 1:46pm 3.5 1.1-4.4 C-Peptide reference interval is for fasting patients. [facility] A# [id number], [address] [place] [address] Follicle Stimulating Hormone July 05, 2019 1:46pm 42.9 . Adult Female: Follicular phase 3.5 - 12.5 Ovulation phase 4.7 - 21.5 Luteal phase 1.7 - 7.7 Postmenopausal 25.8 - 134.8 [facility] A# [id number], [address] [place] [address] Luteinizing Hormone July 05, 2019 1:46pm 22.4 . Adult Female: Follicular phase 2.4 - 12.6 Ovulation phase 14.0 - 95.6 Luteal phase 1.0 - 11.4 Postmenopausal 7.7 - 58.5FOLLICULAR PHASE 2.4-126OVULATION PHASE 14.0- 95.6LUTEAL PHASE 1.0-11.4POSTMENOPAUSAL 7.7-58.5 [facility] A# [id number], [address] [place] [address] Tumor Marker Alpha Fetoprotein July 05, 2019 1:46pm 4.0 0.0-8.3 [facility] Electrochemiluminescence Immunoassay(ECLIA)Values obtained with different assay methods or kits cannotbe used interchangeably. Results cannot be interpreted asabsolute evidence of the presence or absence of malignantdisease.This test is not interpretable in females. [facility] A# [id number], [address] [place] [address] Hepatitis B Core IgM Antibody July 05, 2019 1:46pm Negative Negative [facility] A# [id number], [address] [place] [address] Hepatitis C Antibody July 05, 2019 1:46pm > 11.0 0.0-0.9 Negative: < 0.8 Indeterminate: 0.8 - 0.9 Positive: > 0.9 The CDC recommends that a positive HCV antibody result be followed up with a HCV Nucleic Acid Amplification test ([id number]).Performed at: [facility] [place], [place] [id number] Director: Mykel Ceja MD, Phone: [phone] NEGATIVE: <0.8 INDETERMINATE: 0.8-0.9 POSITIVE: >0.9In order to reduce the incidence of a false positive result, the [facility] recommends that all s/co ratios between 1.0 and 10.9 be confirmed with additional RIBA or PCR testing. [facility] A# [id number], [address] [place] [id number] Hepatitis A IgM Antibody July 05, 2019 1:46pm Negative Negative [facility] A# [id number], [address] [place], [place] [id number] Vitamin D 25-Hydroxy July 05, 2019 1:46pm 16.10 6.4-49.5 [facility], [address] [place] [address] Progesterone Level July 05, 2019 1:46pm 0.2 . Follicular phase 0.1 - 0.9 Luteal phase 1.8 - 23.9 Ovulation phase 0.1 - 12.0 First trimester 11.0 - 44.3 Second trimester 25.4 - 83.3 Third trimester 58.7 - 214.0 Postmenopausal 0.0 - 0.1Performed at: - [facility] [address] [id number] Director: Mykel Ceja MD, Phone: [phone] [facility] A# [id number], [address] [place] [address] Prolactin July 05, 2019 1:46pm 10.6 4.8-23.3 [facility] A# [id number], [address] [place], [place] [address] Insulin Level July 05, 2019 1:46pm 8.6 2.6-24.[address] [address] Insulin-like Growth Factor III July 05, 2019 1:46pm 9062 [phone] Performed at: - [facility] [address] [id number] Director: Eliseo Stout MD, Phone: [phone] [facility] A# [id number], [address] [place], [place] [address] Estradiol (E2) Level July 05, 2019 1:46pm <5.0 . Adult Female: Follicular phase 12.5 - 166.0 Ovulation phase 85.8 - 498.0 Luteal phase 43.8 - 211.0 Postmenopausal <6.0 - 54.7 1st trimester 215.0 - >4300.0 Girls (1-10 years) 6.0 - 27.0Roche ECLIA methodology [facility] A# [id number], [address] [facility] [address] [facility] [address] Insulin-like Growth Factor I July 05, 2019 1:46pm 36 53-190 Performed at: [facility] [address] [id number] Director: Eliseo Stout MD, Phone: [phone] [facility] A# [id number], [address] [facility], [facility] [address] [place] [id number] Hepatitis B Surface Antigen July 05, 2019 1:46pm Negative Negative [facility] A# [id number], [address] [facility] [address] [facility] [address] Creatine Kinase July 07, 2019 4:00pm 186 20-180 [facility], [address] [place], [place] [id number] Troponin I July 07, 2019 4:00pm < 0.30 0.0-0.5 Published clinical studies have shown elevations of cTnI in patients with myocardial injury, as seen in unstable angina pectoris, cardiac contusions, and heart transplants. Elevations have also been seen in patients with rhabdomyolysis and polymyositis.Elevated troponin levels point to myocardial injury, but are not necessarily indicative of an ischemic mechanism. The term ME should be used when there is evidence of cardiac damage, as detected by marker proteins in a clinical setting consistent with myocardial ischemia. If the clinical circumstance suggests that an ischemic mechanism is unlikely, other causes of cardiac injury should be considered.For diagnostic purposes, the results should always be assessed in conjunction with the patient's medical history, clinical examination and other findings. [facility], [address] [place] [address] Creatine Kinase MB July 07, 2019 4:00pm 5.3 0.0-3.6 DIAGNOSTIC CITERIA: CKMB CKMB RELATIVE INDEX SUGGESTIVE OF NON-AMI < or=5 N/AGRAY ZONE (INCONCLUSIVE) > 5 < or=4SUGGESTIVE OF AMI >5 > 4 [facility], [address] [place] [address] Microbiology Results Procedure Source Result Collection Date/Time Result Date/Time Result Comment Performing Site Blood Culture BLOOD SPECIMEN HAS BEEN RECEIVED IN LAB AND IS IN PROGRESS. July 07, 2019 11:50am July 07, 2019 11:55am [facility], [address] [facility] [address] Diagnostic Imaging Reports Report Dictated Date/Time Dictated By Status May 21, 2019 11:30pm WILLIAM DALE MD completed Patient: HILARY RAMOS MR#: [id number] : [address] BRYANT HAYES MD Pt Status: REG ER Pt Location: [facility] Date/Time: 05/21/19 190 Primary Care Physician: . NO PHYSICIAN Technologist(s): REJI WORKMAN Procedure(s): [id number] CT/CT ABD & PELVIS W Signed EXAMINATION: [...] contrast enhanced examination. Signed by: Dr. William Dale M.D. on 05/21/2019 11:30 PM Transcribed By: [employer] SIGNED <electronically signed by WILLIAM DALE MD> 29 31 WILLIAM DALE MD May 23, 2019 4:45pm NI RODRIGEZ MD completed Patient: HILARY RAMOS MR#: [id number] : 1965 Pt Location: [facility] Date/Time: 05/21/19 Primary Care Physician: . 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 F.A.A.C Transcribed By: [employer] SIGNED <electronically signed by NI RODRIGEZ MD> 1645 [id number] NI RODRIGEZ MD June 27, 2019 5:04pm WILLIAM VILLANUEVA MD completed Patient: HILARY RAMOS MR#: [id number] : [address] ENRIQUETA NICOLE ACNP Pt Status: REG ER Pt Location: [facility] Date/Time: 06/27/19 1547 Primary Care Physician: FRANCES PRINGLE MD Technologist(s): ANNALISA BROWN Procedure(s): [id number] CT/CT HEAD W/O CONTRAST Signed Exam: Head CT without contrast History: Trauma, fall, altered mental status Comparison studies: Head CT 03/01/2019 and 10/26/2017. Technique: Axial images were obtained from the skull base to the vertex. Coronal and sagittal images reconstructed from the axial data. Dose modulation, iterative reconstruction, and/or weight based adjustment of the mA/kV was utilized to reduce the radiation dose to as low as reasonably achievable. Radiation dose: Total DLP: 780 mGy*cm. Estimated effective dose: DLP x 0.015 Intravenous contrast: None Findings: Scalp: No abnormalities. Bones: No fractures, blastic or lytic lesions. Brain sulci: Appropriate for age. Ventricles: Normal in size and configuration. No hydrocephalus. Extra-axial spaces: No masses, no fluid collection. Parenchyma: Indeterminate 2.5 cm focal hypodensity in the splenium of the corpus callosum on the left without associated midline shift or herniation. No acute hemorrhage. No other mass or acute cortical infarct. Sellar/suprasellar region: No abnormalities. Craniocervical junction: Patent foramen magnum. No Chiari one malformation. Incidental findings: Lens replacements for previous cataract surgery. Atherosclerotic calcifications in the carotid siphons. IMPRESSION: 1. Indeterminate focal hypodensity centered in the splenium of the corpus callosum on the left without midline shift or herniation. Differential includes age-indeterminate nonhemorrhagic infarct, primary or metastatic neoplasm or less likely demyelinating lesion. Recommend brain MRI with IV contrast to further evaluate. 2. No acute hemorrhage or other changes from the prior head CT of 03/01/2019. Findings and recommendations were discussed with CERTIFIED PESTICIDE APPLICATOR Will Nicole at 5:01 PM on 06/27/2019. Signed by: Dr. William Villanueva M.D. on 06/27/2019 5:04 PM Transcribed By: [employer] SIGNED <electronically signed by WILLIAM VILLANUEVA MD> 03 06 WILLIAM VILLANUEVA MD June 27, 2019 5:12pm AKOSUA RUSSO MD completed Patient: HILARY RAMOS MR#: [id number] : [address] ENRIQUETA NICOLE ACNP Pt Status: REG ER Pt Location: [facility] Date/Time: 06/27/19 1641 Primary Care Physician: FRANCES PRINGLE MD Technologist(s): SELMA POE Procedure(s): [id number] CT/CT ABD & PELVIS W Signed EXAMINATION: CT of the abdomen and pelvis with contrast. TECHNIQUE: Helical CT images of the abdomen and pelvis were performed from the lung bases to the lesser trochanters after the intravenous administration of 100 cc of Isovue 300 and the oral administration of none. Coronal and sagittal reformatted images were obtained.Dose modulation, iterative reconstruction, and/or weight based adjustment of the mA/kV was utilized to reduce the radiation dose to as low as reasonably achievable. COMPARISON: None. CLINICAL HISTORY:Bilateral flank pain DISCUSSION: ABDOMEN/PELVIS: LOWER THORAX:Unremarkable. HEPATOBILIARY: Nodular contour of the liver No intra-or extrahepatic biliary ductal dilation. Cholecystectomy clips. SPLEEN: No splenomegaly. PANCREAS: No focal masses or ductal dilatation. ADRENALS: No adrenal nodules. KIDNEYS/URETERS: No hydronephrosis, stones, or solid mass lesions. Punctate left renal calculus. PELVIC ORGANS/BLADDER: Bladder is unremarkable. Calcified pelvic fibroid. PERITONEUM/RETROPERITONEUM: No free air or fluid. LYMPH NODES: No intra-abdominal, retroperitoneal, pelvic or inguinal lymphadenopathy. VESSELS: Vascular calcifications. GI TRACT: No distention or wall thickening. Scattered diverticulosis. BONES AND SOFT TISSUE: No bony destructive lesions. Soft tissue stranding in the subcutaneous fat. IMPRESSION: No acute CT finding. Cirrhotic liver morphology. Diffuse subcutaneous soft tissue edema. Signed by: Dr. Akosua Russo M.D. on 06/27/2019 5:12 PM Transcribed By: [employer] SIGNED <electronically signed by AKOSUA RUSSO MD> 11 13 AKOSUA RUSSO MD July 06, 2019 9:59pm FRED ALCOCER MD completed Patient: HILARY RAMOS MR#: [id number] : [address] ENRIQUETA NICOLE Pt Status: REG ER Pt Location: [facility] Date/Time: 07/06/19 2113 Primary Care Physician: FRANCES PRINGLE MD Technologist(s): SELMA POE Procedure(s): [id number] RAD/CHEST 1 VIEW Signed EXAMINATION: CHEST 1 VIEW INDICATION: Dyspnea COMPARISON: 02/28/2019 FINDINGS: AP view TUBES and LINES: None. LUNGS: Lungs are well inflated. Pulmonary vascular congestion and mild interstitial edema. PLEURA: No pneumothorax. Suspected trace bilateral pleural effusions. HEART AND MEDIASTINUM: The cardiomediastinal silhouette is unremarkable. BONES AND SOFT TISSUES: No acute osseous lesion. Soft tissues are unremarkable. UPPER ABDOMEN: No free air under the diaphragm. IMPRESSION: Pulmonary vascular congestion and mild additional edema. Suspected trace bilateral pleural effusions. Signed by: Dr. Fred Alcocer MD on 07/06/2019 9:59 PM Transcribed By: [employer] SIGNED <electronically signed by FRED ALCOCER MD> 58 01 FRED ALCOCER MD July 07, 2019 9:12am MOSHE PERKINS MD completed Patient: HILARY RAMOS MR#: [id number] : [address] FABIÁN DEGROOT MD Pt Status: ADM Mala Pt Location: [facility] Date/Time: 07/07/19 0800 Primary Care Physician: FRANCES PRINGLE MD Technologist(s): HANS FONTANEZ Procedure(s): [id number] RAD/CHEST 1 VIEW Signed EXAM: CHEST 1 VIEW DATE: 07/07/2019 3:11 AM INDICATION: Shortness of breath COMPARISON: 07/06/2019 FINDINGS: The trachea is midline. There is mild prominence of the interstitium and central pulmonary vasculature, similar to slightly decreased from the prior examination. There is no evidence for new large focal consolidation or pneumothorax. There is blunting of the bilateral costophrenic angles and trace pleural effusions are possible. The cardiomediastinal silhouette is stable in appearance. No acute osseous abnormalities identified. IMPRESSION: No significant detrimental interval change from 07/06/2019. Signed by: Dr. 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 F.A.A.C Transcribed By: [employer] SIGNED <electronically signed by NI RODRIGEZ MD> 7 7 NI RODRIGEZ MD July 07, 2019 4:18pm WILLIAM VILLANUEVA MD completed Patient: HILARY RAMOS MR#: [id number] : [address] NI RODRIGEZ MD Pt Status : ADM Mala Pt Location: [facility] Date/Time: 07/07/19 0749 Primary Care Physician: FRANCES PRINGLE MD Technologist(s): MRI OPERATIONS Procedure(s): [id number] MRI/MRI BRAIN WITHOUT CONTRAST Signed Exam: Brain MRI without IV contrast History: Altered mental status Comparison studies: Head CT 06/27/2019. Technique: Sagittal and axial T2 FS, axial DWI, axial T2*GRE, axial T1 FLAIR and axial coronal T2 FLAIR. Intravenous contrast: None Findings: Several pulse sequences are limited artifacts related to patient motion. In spite of limitations: Scalp: Normal in signal. No masses. Bone marrow: Normal in signal intensity. Brain sulci: Appropriate for age. Ventricles: Normal in size. No hydrocephalus. Extra axial spaces: No mass, no fluid collection. Extra axial spaces: No mass or fluid collection. Parenchyma: Hypodensity in the splenium of the corpus callosum on the left as described on the prior 06/27/2019 CT correlates to a now subacute infarct with T2 FLAIR hyperintensity and increased DWI signal with only slightly decreased ADC signal. Similar signal changes are also now present in the posterior sphenoid gyrus, precuneus gyrus of the left posterior medial parietal lobe and cuneus gyrus of the left superior medial occipital lobe. Chronic infarct with encephalomalacia and gliosis present in the right paramedian genu of the corpus callosum A few scattered T2 FLAIR hyperintense foci in the supratentorial white matter are nonspecific but are most compatible with chronic microvascular ischemic changes. Suprasellar region: No abnormalities. Craniocervical junction: Patent foramen magnum. No Chiari malformation. Vessels: Flow voids of the dural venous sinuses are maintained. Flow-voids of the major intracranial arteries are suboptimally evaluated due to motion artifacts. Grossly patent internal carotid arteries, vertebral arteries and basilar artery. IMPRESSION: Exam limited by motion artifacts. In spite of artifacts: 1. Subacute, nonhemorrhagic left medial parieto-occipital infarct which involves the splenium of the corpus callosal in the distal left [place] territory. Infarct in the splenium of the corpus callosum correlates to hypodensity described on the prior 06/27/[address] and may have been acute at that time. 2. Small chronic infarct in the genu of the corpus callosum on the right. 3. Mild chronic microvascular ischemic changes. Signed by: Dr. William Villanueva M.D. on 07/07/2019 4:18 PM Transcribed By: [employer] SIGNED <electronically signed by WILLIAM VILLANUEVA MD> 1618 1620 WILLIAM VILLANUEVA MD Health Concerns No known health concerns documented Advance Directives Advance Directive Response Recorded Date/Time Advance Directives No January 31, 2016 11:47pm Advance Directive on File No July 07, 2019 3:15am Directive to Physicians/Living Will No January 31, 2016 11:47pm Health Care Proxy No January 31, 2016 11:47pm Organ Donor No January 31, 2016 11:47pm Medical Power of [place] Attendant No January 31, 2016 11:47pm Patient/Family Given Education Material R/T Directives? No July 07, 2019 3:15am Chief Complaint and Reason for Visit Chief Complaint ACUTE EXACERBATION OF CHF,ANEMIA,RENAL INSUFFICIEN Reason for Visit HTN (hypertension) CVA (cerebral vascular accident) COPD (chronic obstructive pulmonary disease) Diabetes mellitus Anxiety CAD (coronary artery disease) Facial cellulitis Anxiety Encounters Encounter Location(s) Arrival/Admit Date Discharge/Depart Date Provider(s) Discharged Inpatient (obs) [facility] July 06, 2019 11:34pm July 09, 2019 10:33pm FABIÁN DEGROOT MD Registered Clinic [facility] July 05, 2019 1:01pm FRANCES PRINGLE MD Departed Emergency Room [facility] June 27, 2019 3:10pm June 27, 2019 9:09pm ZEE DEMPSEY MD Discharged Inpatient [facility] May 21, 2019 11:54pm May 22, 2019 5:50pm MAREN FLORIAN MD Recent Diagnosis Onset Date HTN (hypertension) CVA (cerebral vascular accident) COPD (chronic obstructive pulmonary disease) Diabetes mellitus Anxiety CAD (coronary artery disease) Facial cellulitis Anxiety Assessments Diagnosis Onset Date Resolution Status HTN (hypertension) Active CVA (cerebral vascular accident) Active COPD (chronic obstructive pulmonary disease) Active Diabetes mellitus Active Anxiety Active CAD (coronary artery disease) Active Facial cellulitis Active Anxiety Active Functional Status No Functional Status information available Goals No Goals Information Available Immunizations No Immunization Information Available Mental Status No Mental Status Information Available Medical Equipment No Medical Equipment Information available Insurance Providers Guarantor RamosHilary alex Address [facility] [address] [facility] [address] Contact Info. Home Phone: Payer Policy Id Coverage Id Subscriber's Name Subscriber Id Effective Date Expiration Date [facility] [id number] Hilary Ramos [id number] Plan of Treatment Future Tests Future scheduled test information is unavailable Pending Tests Test Name Date ordered Insulin Antibody July 05, 2019 1:46pm Blood Drug Screen Comment July 07, 2019 4:00pm Future Visits Future appointment information is unavailable Referrals to Other Providers Referral information is unavailable Future Procedures Future procedure information is unavailable Future Medications Future medication information is unavailable Patient Instructions Form- Discharge Against Medical Advice Social History Smoking Status Status Date of Observation Current some day smoker July 07, 2019 3:15am Observation Status Observation Response Date of Response Hx Substance Use Treatment Y - in past July 07, 2019 3:32am Hx Alcohol Use No July 07, 2019 3:32am Hx Inhalant Use Y - METHAMPHETAMINE July 07, 2019 3:32am Hx Physical Abuse No July 07, 2019 3:32am Hx Suicide Attempt Y - june 2013 July 07, 2019 3:32am Assigned Sex Female Vital Signs Vital Reading Result Collection Date/Time
--- OUTSIDE RECORDS SUMMARY | 2020-01-14 19:19 | XMS REPORT | Continuity of Care Document ---
Author Author [facility] Organization [facility] Address [address] [place] [address] Phone Unavailable Care Team Providers Care Men'S Designer Name Role Phone MD FRANCES PRINGLE PCP Allergies, Adverse Reactions, Alerts Allergen Type Severity Reaction Last Updated Verified Status Sulfa Antibiotics ([id number]) Allergy Moderate July 07, 2019 Yes Active Medications Medication Status Dose Units Route Sig Qty Days Start Date End Date Instructions Aspirin Active 1 ORAL Daily 30 30 Atorvastatin Calcium Active 20 ORAL Daily 30 30 Clopidogrel Bisulfate Active 75 ORAL Daily Detemir Active 30 SUBCUTANEOUS Twice A Day for Diabetes 2 December 29, 2019 6:23pm Furosemide Active 40 ORAL Once Daily 30 30 Insulin Human Aspart Active Metoclopramide Hcl Active 1 ORAL Three Times A Day 90 30 Metolazone Active 1 ORAL Every 3 Days 30 30 Metoprolol Tartrate Active 25 ORAL Twice A Day 60 30 Nifedipine Active 90 ORAL Once Daily 30 30 Pantoprazole Sodium Active 40 ORAL Before Breakfast for Gerd December 08, 2018 5:41pm Potassium Chloride Er * Active 20 ORAL Once Daily Pregabalin Active 100 ORAL Three Times A Day Sacubitril-Valsartan 24-26MG * Active 1 ORAL Twice A Day 60 30 Salmeterol Xinafoate/Fluticasone Active 1 RESPIRATORY (INHALATION) Rt-Twice Daily January 04, 2014 7:39am Tamsulosin Hcl Active 1 ORAL Twice A [...] 2014 Cetirizine Hcl Discontinued 1 ORAL Daily 30 August 22, 2018 Chlorpromazine Hcl Discontinued 200 [...] Detemir Discontinued 25 SUBCUTANEOUS Twice A Day December 29, 2019 Detemir Discontinued 25 SUBCUTANEOUS Twice A [...] Hyclate Discontinued 1 ORAL Twice A Day January 01, 2016 11:58am October 27, 2017 Ergocalciferol Discontinued [id number] ORAL Daily July 07, 2019 Esomeprazole Mag * Discontinued 1 ORAL Daily December 06, 2018 Esomeprazole Mag * Discontinued 1 ORAL Daily August 22, 2018 Fluconazole Discontinued 100 ORAL Daily May 01, 2014 12:26pm August 29, 2014 one tablet daily for 7 days Fluticasone Propionate Discontinued 2 NASAL Daily July 07, 2019 Furosemide Discontinued 40 ORAL Once Daily December 29, 2015 Hydrochlorothiazide Discontinued 1 ORAL Daily 30 30 July 07, 2019 Hyoscyamine Sulfate Discontinued [...] SUBCUTANEOUS Every 12 Hours for Dm 15 30 August 24, 2018 11:04am December 06, 2018 [...] ORAL Twice A Day May 01, 2014 Loratadine Discontinued 1 ORAL Daily for Allergy Symptoms December 29, 2019 Losartan Potassium Discontinued 1 ORAL Daily 30 [...] ORAL Every 6 Hours (4-10-16-22) for N/V 07 02March 02, 2019 11:35am July 07, 2019 Ondansetron [...] 1 ORAL Twice A Day for Infection 10 07July 07, 2019 Problems Active Problems Medical Problem Onset Date Status Diabetic acidosis Active Facial cellulitis Active DKA (diabetic ketoacidoses) Active Facial cellulitis Active Poorly controlled diabetes mellitus Active Cellulitis of right upper extremity Active Hyperglycemia due to type 2 diabetes mellitus Active MRSA cellulitis Active Abscess Active DM (diabetes mellitus) Active HTN (hypertension) Active HLD (hyperlipidemia) Active CVA (cerebral vascular accident) Resolved Cellulitis and abscess of foot Active PUD (peptic ulcer disease) Active Marijuana abuse Active Methamphetamine abuse Active Hepatitis C Active Breast cancer Active COPD (chronic obstructive pulmonary disease) Active Schizophrenia Active Diabetes mellitus Active Abdominal pain Resolved Intractable vomiting with nausea Resolved Cocaine abuse Active Dehydration Active Headache Resolved Anxiety Active CAD (coronary artery disease) Active Hyponatremia Active Inactive/Resolved Problems Medical Problem Onset Date Status Abscess, scalp Resolved Hyponatremia Resolved Intractable nausea and vomiting Resolved Hypertension Resolved Liver cirrhosis Resolved Dehydration Resolved Hyperglycemia Resolved Hyponatremia Resolved Hypokalemia Resolved Contusion of back wall of thorax Resolved Forehead contusion Resolved Abnormal CT of the head Resolved Altered mental status Resolved Acute exacerbation of CHF (congestive heart failure) Resolved Anemia Resolved Renal insufficiency Resolved Benzodiazepine abuse Resolved Vomiting Resolved Procedures Procedure Date Performed Status Computed tomography of abdomen and pelvis with contrast December 26, 2019 completed Relevant Diagnostic Tests and/or Laboratory Data Laboratory Results Test Date/Time Result Interpretation Reference Range Result Comment Performing Site White Blood Count December 29, 2019 5:21am 9.3 4.0-11.[address] [facility], [address] [place], [place] [id number] Red Blood Count December 29, 2019 5:21am 4.34 3.80-5.[address] [facility], [address] [place], [place] [id number] Hemoglobin December 29, 2019 5:21am 10.3 10.5-15.[address] [facility], [address] [place] [address] Hematocrit December 29, 2019 5:21am 32.3 34.0-50.[address] [facility], [address] [place], [place] [id number] Mean Corpuscular Volume December 29, 2019 5:21am 74.4 86-[address] [facility], [address] [place], [place] [id number] Mean Corpuscular Hemoglobin December 29, 2019 5:21am 23.7 26.2-33.[address] [facility], [address] [place] [address] Mean Corpuscular Hemoglobin Concent December 29, 2019 5:21am 31.9 30-[address] [facility], [address] [place], [place] [id number] Red Cell Distribution Width December 29, 2019 5:21am 13.2 12.0-15.[address] [facility], [address] [place], [place] [id number] Platelet Count December 29, 2019 5:21am 184 165-450 [facility], [address] [place], [place] [id number] Mean Platelet Volume December 29, 2019 5:21am 12.4 9.4-12.6 [facility], [address] [place], [place] [id number] Neutrophils (%) (Auto) December 29, 2019 5:21am 67.3 44.4-80.1 [facility], [address] [place], [place] [id number] Immature Granulocyte % (Auto) December 29, 2019 5:21am 0.4 0.0-0.4 [facility], [address] [place], [place] [id number] Lymphocytes (%) (Auto) December 29, 2019 5:21am 25.0 10.0-50.0 [facility], [address] [place], [place] [id number] Monocytes (%) (Auto) December 29, 2019 5:21am 5.1 3.6-12.0 [facility], [address] [place] [address] Eosinophils (%) (Auto) December 29, 2019 5:21am 1.7 0.0-5.4 [facility], [address] [place], [place] [id number] Basophils (%) (Auto) December 29, 2019 5:21am 0.5 0.1-1.2 [facility], [address] [place] [address] Neutrophils # (Auto) December 29, 2019 5:21am 6.25 1.56-6.13 [facility], [address] [place] [address] Absolute Immature Granulocyte (auto December 29, 2019 5:21am 0.0 0.0-0.03 [facility], [address] [place] [address] Lymphocytes # (Auto) December 29, 2019 5:21am 2.3 1.18-3.74 [facility], [address] [place], [place] [id number] Monocytes # (Auto) December 29, 2019 5:21am 0.47 0.24-0.86 [facility], [address] [place] [address] Eosinophils # (Auto) December 29, 2019 5:21am 0.16 0.04-0.36 [facility], [address] [place] [address] Basophils # (Auto) December 29, 2019 5:21am 0.05 0.01-0.08 [facility], [address] [place], [place] [id number] Nucleated Red Blood Cells % December 29, 2019 5:21am 0 0-0.[address] [facility], [address] [place], [place] [id number] Nucleated Red Blood Cells # December 29, 2019 5:21am [address] [facility], [address] [place], [place] [id number] Urine Color December 27, 2019 4:40am LIGHT YELLOW [facility], [address] [place], [place] [id number] Urine Appearance December 27, 2019 4:40am CLEAR CLEAR [facility], [address] [place] [address] Urine Glucose (UA) December 27, 2019 4:40am 4+ (1000 mg/dL) NEGATIVE [facility], [address] [place], [place] [id number] Urine Bilirubin December 27, 2019 4:40am NEGATIVE NEGATIVE [facility], [address] [place] [address] Urine Ketones December 27, 2019 4:40am 1+(SMALL) NEGATIVE [facility], [address] [place], [place] [id number] Urine Specific [place] December 27, 2019 4:40am 1.046 1.003-1.030 [facility], [address] [place], [place] [id number] Urine Blood December 27, 2019 4:40am NEGATIVE NEGATIVE [facility], [address] [place], [place] [id number] Urine pH December 27, 2019 4:40am 7.000 5-9 [facility], [address] [place], [place] [id number] Urine Protein December 27, 2019 4:40am 3+ (600 mg/dL) NEGATIVE [facility], [address] [place], [place] [id number] Urine Urobilinogen December 27, 2019 4:40am NORMAL 0.2-1.0 [facility], [address] [place], [place] [id number] Urine Nitrate December 27, 2019 4:40am NEGATIVE NEGATIVE [facility], [address] [place], [place] [id number] Urine Leukocyte Esterase December 27, 2019 4:40am NEGATIVE NEGATIVE [facility], [address] [place], [place] [id number] Urine RBC December 27, 2019 4:40am 1-5 0-5 [facility], [address] [place], [place] [id number] Urine WBC December 27, 2019 4:40am 1-5 0-5 [facility], [address] [place], [place] [id number] Urine Epithelial Cells December 27, 2019 4:40am 1-5 0-5 [facility], [address] [place], [place] [id number] Urine Bacteria December 27, 2019 4:40am TRACE None Detect [facility], [address] [place] [address] Urine Casts December 27, 2019 4:40am None Detected None Detect [facility], [address] [place] [address] Urine Culture Reflexed December 27, 2019 4:40am NO [facility], [address] [place], [place] [id number] POC Capillary Blood Glucose (Chem) December 29, 2019 4:00pm 146 70.0 - [address] [facility], [address] [place] [address] Random Glucose December 29, 2019 5:21am 343 74-[address] [facility], [address] [place], [place] [id number] Blood Urea Nitrogen December 29, 2019 5:21am 45 6-[address] [facility], [address] [place], [place] [id number] Serum Osmolality December 29, 2019 5:21am 288 280-[address] [facility], [address] [place], [place] [id number] Creatinine December 29, 2019 5:21am 1.7 0.50-0.[address] [facility], [address] [place], [place] [id number] Glomerular Filtration Rate Calc December 29, 2019 5:21am 31.09 GFR RESULTS ARE REPORTED IN mL/min/1.73m2.Normal GFR: >60mL/minModerately decreased GFR: 30-59 mL/minSeverely decreased GFR: 15-29 mL/minKidney Failure (or Dialysis): <15 mL/minThe calculated eGFR is not valid for patients younger than 18 years or older than 75 years[address] [facility], [address] [place], [place] [id number] BUN/Creatinine Ratio December 29, 2019 5:21am 26.5 12-[address] [facility], [address] [place] [address] Sodium Level December 29, 2019 5:21am 131 135-[address] [facility], [address] [place], [place] [id number] Potassium Level December 29, 2019 5:21am 4.1 3.5-5.[address] [facility], [address] [place], [place] [id number] Chloride Level December 29, 2019 5:21am 95 98-[address] [facility], [address] [place], [place] [id number] Carbon Dioxide Level December 29, 2019 5:21am 25 21-[address] [facility], [address] [place] [address] Anion Gap December 29, 2019 5:21am 15.1 12-[address] [facility], [address] [place], [place] [id number] Calcium Level December 29, 2019 5:21am 8.0 8.6-10.0 [facility], [address] [place], [place] [id number] Total Protein December 26, 2019 7:46pm 6.5 6.6-8.7 [facility], [address] [place], [place] [id number] Albumin December 26, 2019 7:46pm 3.0 3.5-5.2 [facility], [address] [place], [place] [id number] Globulin December 26, 2019 7:46pm 3.5 [facility], [address] [place], [place] [id number] Albumin/Globulin Ratio December 26, 2019 7:46pm 0.9 >1.0 [facility], [address] [place], [place] [id number] Total Bilirubin December 26, 2019 7:46pm 0.4 0.0-1.2 [facility], [address] [place], [place] [id number] Aspartate Amino Transf (AST/SGOT) December 26, 2019 7:46pm 22 15-32 [facility], [address] [place], [place] [id number] Alanine Aminotransferase (ALT/SGPT) December 26, 2019 7:46pm 16 0-33 [facility], [address] [place], [place] [id number] Lipase December 26, 2019 7:46pm 134 13-60 [facility], [address] [place], [place] [id number] Total Alkaline Phosphatase December 26, 2019 7:46pm 163 35-105 [facility], [address] [place], [place] [id number] Urine Amphetamines Screen December 27, 2019 4:40am NEGATIVE NEGATIVE [facility], [address] [place], [place] [id number] Urine Barbiturates, Quantitative December 27, 2019 4:40am NEGATIVE NEGATIVE [facility], [address] [place], [place] [id number] Urine Benzodiazepines Screen December 27, 2019 4:40am NEGATIVE NEGATIVE [facility], [address] [place], [place] [id number] Urine Cannabinoids December 27, 2019 4:40am NEGATIVE NEGATIVE [facility], [address] [place], [place] [id number] Urine Cocaine Metabolite December 27, 2019 4:40am NEGATIVE NEGATIVE [facility], [address] [place], [place] [id number] Urine Opiates Screen December 27, 2019 4:40am NEGATIVE NEGATIVE [facility], [address] [place], [place] [id number] Urine Phencyclidine (PCP) Level December 27, 2019 4:40am NEGATIVE NEGATIVE [facility], [address] [place], [place] [id number] Methadone Level December 27, 2019 4:40am NEGATIVE NEGATIVE [facility], [address] [place] [address] Propoxyphene Level December 27, 2019 4:40am NEGATIVE NEGATIVE [facility], [address] [place], [place] [id number] Oxycodone Level December 27, 2019 4:40am NEGATIVE NEGATIVE [facility], [address] [place], [place] [address] Urine Drug Screen Note December 27, 2019 4:40am . DRUGS OF ABUSE CUT-OFF VALUESAMPHETAMINES (AMPH) [...] CONFIRMATION AND QUANTITATION AVAILABLE UPON MD REQUEST. [facility], [address] [place], [place] [address] Diagnostic Imaging Reports Report Dictated Date/Time Dictated By Status December 26, 2019 10:05pm BRYAN VILLEDA MD completed Patient: HILARY RAMOS MMR#: [id number] : [address] ENRIQUETA NICOLE Pt Status: REG ER Pt Location: [facility] Date/Time: 12/26/192023 Primary Care Physician: FRANCES PRINGLE MD Technologist(s): ANNALISA BROWN Procedure(s): [id number] CT/CT ABD & PELVIS W Signed EXAMINATION: CT of the abdomen and pelvis with contrast. TECHNIQUE: Helical CT images of the abdomen and pelvis were performed from the lung bases to the lesser trochanters after the intravenous administration of 100 cc of Isovue 300. Coronal and sagittal reformatted images were obtained. Dose modulation, iterative reconstruction, and/or weight based adjustment of the mA/kV was utilized to reduce the radiation dose to as low as reasonably achievable. COMPARISON: CT Abdomen/Pelvis 06/27/2019. CLINICAL HISTORY:Bilateral flank pain DISCUSSION: ABDOMEN/PELVIS: LOWER THORAX:Small hiatal hernia with mild distal esophageal wall thickening. HEPATOBILIARY: Nodular contour of the liver. No evidence of focal lesion. Hepatic steatosis. No intra-or extrahepatic biliary ductal dilation. Cholecystectomy clips. SPLEEN: No splenomegaly. PANCREAS: No focal masses or ductal dilatation. ADRENALS: Unchanged 2 cm right adrenal nodule, previously characterized as adrenal adenoma. KIDNEYS/URETERS: No evidence of hydronephrosis, stone, or solid mass. Subcentimeter right mid pole renal hypodensity is too small to characterize, but likely represents a cyst. Left upper pole renal scarring. PELVIC ORGANS/BLADDER: Partially decompressed bladder. Calcified uterine fibroid. PERITONEUM/RETROPERITONEUM: No free air or fluid. LYMPH NODES: No evidence of lymphadenopathy. VESSELS: Moderate atherosclerotic calcifications of the abdominal aorta and branch vessels. GI TRACT: Mild wall thickening in the stomach and jejunal loops. No evidence of bowel obstruction. Scattered colonic diverticulosis. Normal appendix. BONES AND SOFT TISSUE: No bony destructive lesions. Soft tissue stranding in the subcutaneous fat. IMPRESSION: Findings suggestive of gastroenteritis. Cirrhotic liver morphology. Signed by: Dr. Bryan Villeda MD on 12/26/2019 10:05 PM Transcribed By: [employer] SIGNED <electronically signed by BRYAN VILLEDA MD> 04 07 BRYAN VILLEDA MD December 27, 2019 9:50pm NI HUANG MD completed Patient: HILARY RAMOS [facility]#: [id number] : 1965 Pt Location: 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 F.A.A.C Measurements Intervals [place] Rate: 101 P: 81 CO: 136 QRS: 78 QRSD: 97 T: 56 QT: 399 QTc: 518 Interpretive Statements Sinus tachycardia Biatrial enlargement Left ventricular hypertrophy Prolonged QT interval Electronically Signed On 12-27-2019 21:50:10 CDT by Malika Glasgow Transcribed By: [employer] SIGNED <electronically signed by NI HUANG MD> 49 49 NI HUANG MD Health Concerns Health Concerns may be documented in an alternate section. Advance Directives Advance Directive Response Recorded Date/Time Advance Directives No January 31, 2016 11:47pm Advance Directive on File No December 27, 2019 12:43am Directive to Physicians/Living Will No January 31, 2016 11:47pm Health Care Proxy No January 31, 2016 11:47pm Organ Donor No January 31, 2016 11:47pm Medical Power of Media Strategist No January 31, 2016 11:47pm Patient/Family Given Education Material R/T Directives? No December 27, 2019 12:43am Chief Complaint and Reason for Visit Chief Complaint N/V, HYPERGLYCEMIA, WEAKNESS, DEHYDRATION Reason for Visit Hyperglycemia due to type 2 diabetes mellitus HTN (hypertension) COPD (chronic obstructive pulmonary disease) Anxiety CAD (coronary artery disease) Hepatitis C Hyponatremia Encounters Encounter Location(s) Arrival/Admit Date Discharge/Depart Date Provider(s) Discharged Inpatient [facility] December 27, 2019 12:01am December 29, 2019 7:45pm MIKI MASON JR, MD Recent Diagnosis Onset Date Hyperglycemia due to type 2 diabetes mellitus HTN (hypertension) COPD (chronic obstructive pulmonary disease) Anxiety CAD (coronary artery disease) Hepatitis C Hyponatremia Assessments Diagnosis Onset Date Resolution Status Hyperglycemia due to type 2 diabetes mellitus Active HTN (hypertension) Active COPD (chronic obstructive pulmonary disease) Active Anxiety Active CAD (coronary artery disease) Active Hepatitis C Active Hyponatremia Active Functional Status No Functional Status information available Goals Goals may be documented in an alternate section. Immunizations No Immunization Information Available Mental Status No Mental Status Information Available Medical Equipment No Medical Equipment Information available Insurance Providers Guarantor Hilary Ramos Address [address] [address] Contact Info. Home Phone: Payer Policy Id Coverage Id Subscriber's Name Subscriber Id Effective Date Expiration Date [facility] [id number] Hilary Ramos [id number] Plan of Treatment Future Tests Future scheduled test information is unavailable Pending Tests Test Name Date ordered Hepatitis C Virus Quantitation April 06, 2013 11:14am N/A April 06, 2013 11:14am Hepatitis C RNA (bDNA) IU/ml April 06, 2013 11:14am Hepatitis C Virus DNA (log IU/mL) April 06, 2013 11:14am Future Visits Future appointment information is unavailable Referrals to Other Providers Referral information is unavailable Future Procedures Future procedure information is unavailable Future Medications Future medication information is unavailable Patient Instructions Insulin Detemir injection 1,800-Calorie 5-Day Menus Carbohydrate Counting for Diabetes Mellitus, Adult Social History Smoking Status Status Date of Observation Smokes tobacco daily (finding) December 27, 2019 12:43am Observation Status Observation Response Date of Response Hx Substance Use Treatment Y - in past December 27, 2019 3:39am Hx Alcohol Use No December 27, 2019 3:39am Hx Inhalant Use Y - METHAMPHETAMINE December 27, 2019 3:39am Hx Physical Abuse No December 27, 2019 3:39am Hx Suicide Attempt Y - june 2013 December 27, 2019 3:39am Assigned Sex Female Vital Signs Vital Reading Result Collection Date/Time Weight 149.44 [lb_av] December 28, 2019 5:35am BMI (Body Mass Index) 24.1 kg/m2 December 28, 2019 5:35am Hospital Discharge Instructions Additional Instructions Instructions Physician Documentation Lopez follow up instructions * If you have any questions or concerns, please contact [phone] and ask for the hospitalist on duty. If you are having a medical emergency, please report to the nearest emergency room in your area. * Access your patient portal or follow up with your PCP regarding any procedures or tests that have not yet been resulted. Follow up with: PCP Follow up appointment in: 7 days Activity on discharge: as tolerated Diet on discharge: cardiac, diabetic (2000 calories) Condition on discharge: stable
[2020-01-14] MEDS ORDERED: INSULIN REGULAR, HUMAN 100 UNIT/1 ML 3ML VIAL IV ONE (19:30)
--- NOTE | 2020-01-14 20:17 | NUR ---
[facility] MAN HERE AT THIS TIME FOR BEDSIDE ECHO.
[2020-01-14] MEDS ORDERED: SODIUM CHLORIDE 0.9% 250ML 250 ML ONE (21:32)
--- NOTE | 2020-01-14 21:40 | NUR ---
1ST UNIT OF BLOOD STARTED AT THIS TIME, PT EDUCATED ABOUT S/S OF TRANSFUSION REACTION, VERBALIZED UNDERSTANDING. CALL LIGHT WITHIN REACH, ENCOURAGED TO CALL FOR ASSISTANCE.
[2020-01-14] MEDS: INSULIN LISPRO 100 UNIT/1 ML 3ML VIAL SQ SCH (23:34)
[2020-01-15] MEDS ORDERED: SODIUM CHLORIDE 0.9% 250ML 250 ML ONE ×2 (00:45→12:34)
[2020-01-15] MEDS ORDERED: ONDANSETRON HCL INJ 2MG/ML 2ML 2 MG/ML VIAL ONE (05:13)
[2020-01-15] MEDS ORDERED: MORPHINE SULFATE 2 MG/ML SYR 1ML ONE (05:14)
[2020-01-15] MEDS ORDERED: FUROSEMIDE INJ 10 MG/ML 2 ML VIAL ONE (05:28)
[2020-01-15] MEDS: ONDANSETRON HCL INJ 2MG/ML 2ML 2 MG/ML VIAL IV PRN ×2 (05:30→11:42)
[2020-01-15] MEDS: MORPHINE SULFATE 2 MG/ML SYR 1ML IV PRN ×4 (05:30→21:10)
[2020-01-15 07:04] LABS: BASOPHILS # (AUTO) 0.1 (0.0-0.1); BASOPHILS % 0.5 % (0.0-1.0); EOSINOPHILS # (AUTO) 0.1 (0.0-0.4); EOSINOPHILS % 1.2 % (0.0-6.0); HEMATOCRIT 28.5 % (34.2-44.1); HEMOGLOBIN 9.2 g/dL (12.0-16.0); LYMPHOCYTES # (AUTO) 1.4 (1.0-3.2); LYMPHOCYTES % 12.3 % (18.0-39.1); MEAN CORPUSCULAR HEMOGLOBIN 25.1 pg (28-32); MEAN CORPUSCULAR HGB CONC 32.3 g/dL (31-35); MEAN CORPUSCULAR VOLUME 77.7 fL (81-99); MONOCYTES # (AUTO) 0.6 (0.2-0.8); MONOCYTES % 5.4 % (4.4-11.3); NEUTROPHILS # (AUTO) 8.8 (2.1-6.9); NEUTROPHILS % 80.1 % (38.7-80.0); PLATELET COUNT 273 x10e3/uL (140-360); RED BLOOD COUNT 3.67 x10e6/uL (3.6-5.1); RED CELL DISTRIBUTION WIDTH 15.7 % (11.7-14.4)
[2020-01-15] MEDS ORDERED: FUROSEMIDE INJ 10 MG/ML 2 ML VIAL IV ONE (07:15)
[2020-01-15 07:33] LABS: ALBUMIN 1.7 g/dL (3.5-5.0); ALBUMIN/GLOBULIN RATIO 0.4 (0.8-2.0); ANION GAP 10.2 mmol/L (8-16); CALCIUM 8.2 mg/dL (8.4-10.2); CREATININE, SERUM 1.19 mg/dL (0.57-1.11); POTASSIUM 4.2 mmol/L (3.5-5.1)
[2020-01-15] MEDS: INSULIN LISPRO 100 UNIT/1 ML 3ML VIAL SQ SCH ×4 (07:36→21:00)
[2020-01-15] MEDS: VANCOMYCIN 1GM/NS 250 ML 250 ML IV SCH (07:47)
[2020-01-15 07:53] LABS: CREATINE KINASE MB 3.9 ng/mL (0-5.0)
[2020-01-15] MEDS ORDERED: PANTOPRAZOLE 40 MG 10ML VIAL IV SCH (09:00)
--- NOTE | 2020-01-15 09:13 | NUR ---
Received patient via bed from ER. AAOX3 to time, person, place, patient forgetful. Respirations even and unlabored. O2 2L NC.Tele #[phone] SR [id number]. Oriented patient to room. Instructed to use call light for assistance. Voiced understanding. Will continue to monitor.
[2020-01-15 09:22] VITALS: BP 189/87
[2020-01-15 09:40] VITALS: BP 189/87
[2020-01-15] MEDS ORDERED: PROVENTIL HFA6.7 GM INH (09:57)
[2020-01-15] MEDS ORDERED: LYRICA100 MG PO (09:57)
[2020-01-15] MEDS ORDERED: FUROSEMIDE40 MG PO (09:57)
[2020-01-15] MEDS ORDERED: PLAVIX75 MG PO (09:57)
[2020-01-15] MEDS ORDERED: ATORVASTATIN CA20 MG PO (09:57)
[2020-01-15] MEDS ORDERED: VANCOMYCIN HCL1 GM IV (09:57)
[2020-01-15] MEDS ORDERED: CARVEDILOL12.5 MG PO (09:57)
[2020-01-15] MEDS ORDERED: promethazine PO (09:57)
[2020-01-15] MEDS ORDERED: sodium chloride PO (09:57)
[2020-01-15] MEDS ORDERED: POTASSIUM CHLO20 ME1 PO (09:57)
[2020-01-15] MEDS ORDERED: novolog flexpen SQ (09:57)
[2020-01-15] MEDS ORDERED: ENTRESTO 24 MG1 EACH PO (09:57)
[2020-01-15] MEDS ORDERED: ASPIR 8181 MG PO (09:57)
[2020-01-15] MEDS ORDERED: PROTONIX40 MG PO (09:57)
[2020-01-15] MEDS ORDERED: NICOTINE PATCH1 EAC2 TD (09:57)
[2020-01-15] MEDS ORDERED: LEVEMIR FL100 UNIT/1 SC (09:57)
[2020-01-15] MEDS ORDERED: FLOMAX0.4 MG PO (09:57)
[2020-01-15] MEDS ORDERED: ADVAIR 250-501 EACH INH (09:57)
[2020-01-15] MEDS ORDERED: AMLODIPINE BESY10 MG PO (09:57)
[2020-01-15] MEDS: ALBUTEROL/IPRATROPIUM 3 ML NEB NEB SCH ×3 (11:00→19:27)
[2020-01-15] MEDS: ASPIRIN 325 MG TAB EC PO SCH (11:19)
[2020-01-15] MEDS: VALSARTAN/SACUBITRIL 24MG/26MG 1 EA TAB PO SCH ×2 (11:20→16:40)
[2020-01-15] MEDS: AMLODIPINE BESYLATE 10 MG TAB PO SCH (11:20)
[2020-01-15] MEDS: CLOPIDOGREL BISULFATE 75 MG TAB PO SCH (11:20)
[2020-01-15] MEDS: METOPROLOL SUCCINATE 50 MG TAB XL PO SCH (11:20)
[2020-01-15 11:44] VITALS: BP 195/92
[2020-01-15] MEDS ORDERED: INSULIN GLARGINE 100 UNITS/ML VIAL SQ SCH (11:45)
[2020-01-15] MEDS ORDERED: NICOTINE 21 MG/EA PATCH TOP PRN (12:00)
[2020-01-15] MEDS: AZITHROMYCIN 250 MG TAB PO SCH (12:40)
[2020-01-15] MEDS: CEFEPIME 1GM/NS 0.9% 50 ML 50 ML IV SCH (12:40)
[2020-01-15] MEDS: INSULIN GLARGINE 100 UNITS/ML VIAL SQ SCH (13:00)
[2020-01-15 13:02] LABS: CREATINE KINASE MB 3.8 ng/mL (0-5.0)
[2020-01-15] MEDS: METRONIDAZOLE 500MG/NS 100ML 100 ML IV SCH ×2 (13:55→21:37)
[2020-01-15 15:44] VITALS: BP 143/78
[2020-01-15] MEDS: LACTOBACILLUS ACIDOPHILUS CAPSULE PO SCH (16:40)
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
--- NOTE | 2020-01-15 19:18 | NUR ---
Report given to oncoming nurse of patient's status. Resting in bed with eyes closed. Arousable to verbal stimuli. Respirations even and unlabored. Side rails upx2, call light within reach.
--- NOTE | 2020-01-15 19:20 | NUR ---
BS nursing report with morning nurse. Pt resting in bed with eyes closed. Arousable to verbal stimuli. RR even and unlabored. Bed low and locked call light within reach.
[2020-01-15 20:00] VITALS: BP 141/92
[2020-01-15] MEDS: HEPARIN SOD (PORCINE) 5,000 UNIT/ML VIAL SC SCH (21:25)
[2020-01-15] MEDS: ATORVASTATIN 20 MG TAB PO SCH (21:25)
[2020-01-15 21:46] VITALS: BP 142/92
[2020-01-16] VITALS (8 sets, daily range): BP systolic 118–184; BP diastolic 60–87
[2020-01-16] MEDS: MORPHINE SULFATE 2 MG/ML SYR 1ML IV PRN ×3 (01:50→09:24)
[2020-01-16] MEDS: METRONIDAZOLE 500MG/NS 100ML 100 ML IV SCH ×3 (05:49→21:28)
[2020-01-16 05:52] LABS: BASOPHILS # (AUTO) 0.1 (0.0-0.1); BASOPHILS % 0.4 % (0.0-1.0); EOSINOPHILS % 0.3 % (0.0-6.0); HEMATOCRIT 29.1 % (34.2-44.1); HEMOGLOBIN 9.6 g/dL (12.0-16.0); LYMPHOCYTES % 7.9 % (18.0-39.1); MEAN CORPUSCULAR HEMOGLOBIN 25.8 pg (28-32); MEAN CORPUSCULAR VOLUME 78.2 fL (81-99); MONOCYTES # (AUTO) 0.5 (0.2-0.8); MONOCYTES % 3.8 % (4.4-11.3); PLATELET COUNT 265 x10e3/uL (140-360); RED BLOOD COUNT 3.72 x10e6/uL (3.6-5.1); RED CELL DISTRIBUTION WIDTH 15.7 % (11.7-14.4)
[2020-01-16 06:27] LABS: ANION GAP 9.5 mmol/L (8-16); CALCIUM 7.6 mg/dL (8.4-10.2); CREATININE, SERUM 1.05 mg/dL (0.57-1.11); POTASSIUM 4.5 mmol/L (3.5-5.1)
--- NOTE | 2020-01-16 07:00 | NUR ---
Received patient lying in bed with eyes open. Respiration even and unlabored without Sob. Call light in reach.
[2020-01-16] MEDS: ALBUTEROL/IPRATROPIUM 3 ML NEB NEB SCH ×3 (07:49→19:40)
[2020-01-16] MEDS: INSULIN LISPRO 100 UNIT/1 ML 3ML VIAL SQ SCH ×4 (08:33→21:00)
[2020-01-16] MEDS: VALSARTAN/SACUBITRIL 24MG/26MG 1 EA TAB PO SCH ×2 (09:04→17:41)
[2020-01-16] MEDS: ASPIRIN 325 MG TAB EC PO SCH (09:04)
[2020-01-16] MEDS: VANCOMYCIN 1GM/NS 250 ML 250 ML IV SCH (09:04)
[2020-01-16] MEDS: PANTOPRAZOLE SOD 40 MG TABEC PO SCH (09:04)
[2020-01-16] MEDS: AMLODIPINE BESYLATE 10 MG TAB PO SCH (09:05)
[2020-01-16] MEDS: METOPROLOL SUCCINATE 50 MG TAB XL PO SCH (09:05)
[2020-01-16] MEDS: AZITHROMYCIN 250 MG TAB PO SCH (09:05)
[2020-01-16] MEDS: CLOPIDOGREL BISULFATE 75 MG TAB PO SCH (09:05)
[2020-01-16] MEDS: LACTOBACILLUS ACIDOPHILUS CAPSULE PO SCH ×2 (09:05→17:41)
[2020-01-16] MEDS: HEPARIN SOD (PORCINE) 5,000 UNIT/ML VIAL SC SCH ×2 (09:06→21:29)
[2020-01-16] MEDS: INSULIN GLARGINE 100 UNITS/ML VIAL SQ SCH (09:07)
[2020-01-16] MEDS: ONDANSETRON HCL INJ 2MG/ML 2ML 2 MG/ML VIAL IV PRN (09:24)
--- NOTE | 2020-01-16 12:30 | NUR ---
FROM [facility]
[2020-01-16] MEDS: CEFEPIME 1GM/NS 0.9% 50 ML 50 ML IV SCH ×3 (12:46→23:42)
--- NOTE | 2020-01-16 17:00 | NUR ---
Patient's blood sugar is 27. Sweating and confused. Awake and respiration even and unlabored. Given D50 as ordered PRN. Notified Dr. Shultz. Verbal Orders given.
[2020-01-16] MEDS ORDERED: DEXTROSE 50% SYRINGE 50 ML IV PRN (17:15)
--- NOTE | 2020-01-16 17:15 | NUR ---
Patient's blood sugar after D50 is 73. Patient is eating dinner at this time.
--- NOTE | 2020-01-16 17:34 | NUR ---
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 Pt seen today per MST screen. 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 Pt reports not receiving enough food and still hungry, requesting supplement and snacks- RD ordered snacks and Glucerna shakes BID. Pt reports UBW of 194# 1 mo ago, no significant wt change. Pt denies any GI distress currently, reports Zofran helping. No additional questions or concerns at time of visit. Chart reviewed. Labs and meds reviewed. Will continue to monitor. Current Diet: 1800 ADA Malnutrition Evaluation (01/16/20) The patient does not meet criteria for a specified degree of malnutrition at this time. Will re-evaluate at follow-up as appropriate. Diet Education Needs Assessment: Diet education not indicated. Diet tolerance: tolerating po Nutrition Care Level: low Signed: Esther Yang RD, LD, [facility]
[2020-01-16] MEDS: NYSTATIN 15 GM POWDER UD BTL TOP SCH (17:41)
--- NOTE | 2020-01-16 19:10 | NUR ---
Report given to car shifter. Respiration even and unlabored without SOB. Call light in reach.
[2020-01-16] MEDS: ATORVASTATIN 20 MG TAB PO SCH (21:28)
[2020-01-17] VITALS (8 sets, daily range): BP systolic 132–191; BP diastolic 71–109
--- NOTE | 2020-01-17 00:40 | Consultation ---
DATE OF CONSULTATION: 01/16/2020 Cardiology Consult Note SUBJECTIVE: No major events overnight. OBJECTIVE: VITAL SIGNS: Temperature afebrile, pulse 77, respiratory rate 20, blood pressure 118/77, saturating 99% on room air. GENERAL: Elderly female, in no acute distress, sleeping in the bed. CARDIOVASCULAR: Regular rate and rhythm. No murmurs, rubs, or gallops. LUNGS: Clear to auscultation anteriorly. Decreased breath sounds at bilateral bases. ABDOMEN: Obese, soft, nontender, nondistended. NEURO AND PSYCH: Alert and oriented to person, place, and time. Normal affect. INPATIENT MEDICATIONS: Reviewed. LABORATORY DATA: Reviewed. TELEMETRY DATA: Reviewed, shows normal sinus rhythm. ASSESSMENT: 1. Suspected endocarditis. 2. Right lower lobe pneumonia. 3. Hypertension. 4. Elevated troponin. 5. Anemia. 6. Hep C with cirrhosis. RECOMMENDATIONS: Echocardiogram showed normal LV function, thickened aortic valve with moderate aortic regurgitation. If endocarditis is clinically suspected, recommend transesophageal echocardiogram. Otherwise, continue current management. Elevated troponin in the setting of anemia and pneumonia without any elevation of CK or CK-MB, likely due to type 2 MD. Given recent blood transfusion and cirrhosis, the patient is not a good candidate for anticoagulation. Continue aspirin 81 mg daily only. No need for catheterization at this time. We will continue to follow clinically. Thank you for this consult. We will continue to follow. MD ANNA YatesP/MODL /[id number]
[2020-01-17] MEDS: METRONIDAZOLE 500MG/NS 100ML 100 ML IV SCH ×3 (06:19→21:29)
[2020-01-17] MEDS: ALBUTEROL/IPRATROPIUM 3 ML NEB NEB SCH ×2 (07:20→19:57)
[2020-01-17] MEDS: PANTOPRAZOLE SOD 40 MG TABEC PO SCH (07:30)
[2020-01-17] MEDS: ONDANSETRON HCL INJ 2MG/ML 2ML 2 MG/ML VIAL IV PRN ×4 (07:45→19:55)
[2020-01-17] MEDS: MORPHINE SULFATE 2 MG/ML SYR 1ML IV PRN ×4 (07:45→19:55)
[2020-01-17] MEDS: VANCOMYCIN 1GM/NS 250 ML 250 ML IV SCH (08:00)
[2020-01-17] MEDS: ASPIRIN 325 MG TAB EC PO SCH (08:47)
[2020-01-17] MEDS: VALSARTAN/SACUBITRIL 24MG/26MG 1 EA TAB PO SCH ×2 (08:47→16:34)
[2020-01-17] MEDS: AMLODIPINE BESYLATE 10 MG TAB PO SCH (08:48)
[2020-01-17] MEDS: NYSTATIN 15 GM POWDER UD BTL TOP SCH ×2 (08:48→16:34)
[2020-01-17] MEDS: METOPROLOL SUCCINATE 50 MG TAB XL PO SCH (08:48)
[2020-01-17] MEDS: AZITHROMYCIN 250 MG TAB PO SCH (08:48)
[2020-01-17] MEDS: LACTOBACILLUS ACIDOPHILUS CAPSULE PO SCH ×2 (08:48→16:34)
[2020-01-17] MEDS: CLOPIDOGREL BISULFATE 75 MG TAB PO SCH (08:48)
[2020-01-17] MEDS ORDERED: INSULIN GLARGINE 100 UNITS/ML VIAL SQ SCH (09:00)
[2020-01-17] MEDS: HEPARIN SOD (PORCINE) 5,000 UNIT/ML VIAL SC SCH ×2 (09:00→21:00)
[2020-01-17] MEDS: INSULIN LISPRO 100 UNIT/1 ML 3ML VIAL SQ SCH ×4 (10:30→21:00)
--- NOTE | 2020-01-17 10:30 | NUR ---
ST Note: Order for modified barium swallow study noted. Spoke with radiology to coordinate time for MBS. Will call me when they are available. Discussed with NILDA Moseley.
--- NOTE | 2020-01-17 11:55 | NUR ---
pt walking in wells with PT, pt tolerating well.
[2020-01-17] MEDS: CEFEPIME 1GM/NS 0.9% 50 ML 50 ML IV SCH ×2 (12:14→23:39)
--- NOTE | 2020-01-17 16:08 | NUR ---
FAXED CLINICALS TO [facility], SPOKE WITH THE PT SHE IS IN AGREEMENT TO GO BACK AND START TRANSFER PROCESS FROM THERE IF SHE CHOOSES WHEN SHE RETURNS.
--- NOTE | 2020-01-17 19:22 | NUR ---
walking rounds complete, pt stable at shift change.
[2020-01-17] MEDS: ATORVASTATIN 20 MG TAB PO SCH (21:29)
--- NOTE | 2020-01-17 23:44 | Progress Note ---
DATE: 01/17/2020 . SUBJECTIVE: No major events overnight. OBJECTIVE: VITAL SIGNS: Temperature afebrile, pulse 83, respiratory rate 18, blood pressure 157/83, saturating 97% on 2 L nasal cannula. GENERAL: Well-developed, well-nourished, in no acute distress. CARDIOVASCULAR: Regular rate and rhythm. No murmurs, rubs, or gallops. LUNGS: Clear to auscultation anteriorly. Decreased breath sounds at the bases. ABDOMEN: Obese, soft, nontender, and nondistended. NEURO AND PSYCH: Alert and oriented to person, place, and time. Normal affect. INPATIENT MEDICATIONS: Reviewed. LABORATORY DATA: Reviewed. TELEMETRY DATA: Reviewed, shows sinus rhythm. ASSESSMENT AND PLAN: 1. Elevated troponin due to type 2 myocardial infarction. 2. Pneumonia. 3. Hypertension. 4. Hyperlipidemia. 5. Anemia. 6. Acute cirrhosis. RECOMMENDATIONS: 1. Blood cultures were negative. Transthoracic echocardiogram showed normal LV function. Thickened aortic valve, moderate aortic regurgitation. 2. Endocarditis suspected, can perform with transesophageal ultrasound, otherwise continue current management. Elevated troponin due to type [address] CT[address] Continue aspirin. No statin. Given cirrhosis. Thank you for this consult. We will continue to follow. MD KATHRYN Yates/DAVIDL /[id number]
[2020-01-18] VITALS (8 sets, daily range): BP systolic 137–190; BP diastolic 74–95
[2020-01-18] MEDS: ONDANSETRON HCL INJ 2MG/ML 2ML 2 MG/ML VIAL IV PRN ×4 (00:31→21:41)
[2020-01-18] MEDS: MORPHINE SULFATE 2 MG/ML SYR 1ML IV PRN ×6 (00:31→21:41)
[2020-01-18] MEDS: METRONIDAZOLE 500MG/NS 100ML 100 ML IV SCH (06:29)
[2020-01-18] MEDS: ALBUTEROL/IPRATROPIUM 3 ML NEB NEB SCH ×2 (07:00→19:50)
--- NOTE | 2020-01-18 07:15 | NUR ---
Bedside rounding has been completed and the pt. is in bed awake.
[2020-01-18] MEDS: PANTOPRAZOLE SOD 40 MG TABEC PO SCH (07:30)
[2020-01-18] MEDS: INSULIN LISPRO 100 UNIT/1 ML 3ML VIAL SQ SCH ×4 (08:27→21:42)
[2020-01-18] MEDS: VALSARTAN/SACUBITRIL 24MG/26MG 1 EA TAB PO SCH ×2 (09:13→17:56)
[2020-01-18] MEDS: VANCOMYCIN 1GM/NS 250 ML 250 ML IV SCH (09:13)
[2020-01-18] MEDS: METOPROLOL SUCCINATE 50 MG TAB XL PO SCH (09:14)
[2020-01-18] MEDS: CLOPIDOGREL BISULFATE 75 MG TAB PO SCH (09:14)
[2020-01-18] MEDS: LACTOBACILLUS ACIDOPHILUS CAPSULE PO SCH ×2 (09:14→17:56)
[2020-01-18] MEDS: AMLODIPINE BESYLATE 10 MG TAB PO SCH (09:14)
[2020-01-18] MEDS: NYSTATIN 15 GM POWDER UD BTL TOP SCH ×2 (09:15→17:00)
[2020-01-18] MEDS: HEPARIN SOD (PORCINE) 5,000 UNIT/ML VIAL SC SCH ×2 (09:17→21:42)
[2020-01-18] MEDS: CEFEPIME 1GM/NS 0.9% 50 ML 50 ML IV SCH ×2 (12:27→23:25)
--- NOTE | 2020-01-18 13:38 | NUR ---
FAXED COVID FORM AND NOTIFIED BUILDING DR SIMON [place] TOMORROW.
--- NOTE | 2020-01-18 14:48 | Diagnostic Imaging Report ---
EXAM: CT Chest WITH contrast- Pulmonary Embolism Protocol INDICATION: Shortness of breath COMPARISON: Chest radiograph 01/14/2020 TECHNIQUE: Chest was scanned utilizing a multidetector helical scanner from the lung apex through the level of the diaphragm after administration of IV contrast. Thin section reconstructions were obtained with special concentration on the pulmonary arteries. Coronal and sagittal reformations were obtained. Pulmonary embolism protocol was performed. IV CONTRAST: 100 cc of Isovue 370 RADIATION DOSE: Total DLP: 551 mGy*cm Dose modulation, iterative reconstruction, and/or weight based adjustment of the mA/kV was utilized to reduce the radiation dose to as low as reasonably achievable. COMPLICATIONS: None FINDINGS: LINES/ TUBES: Right PICC line terminates in superior vena cava. PULMONARY ARTERIES: No filling defect is identified within the pulmonary arteries to the segmental level. The subsegmental pulmonary arteries are not well opacified. Main pulmonary artery measures 2.6 m in diameter. LUNGS AND AIRWAYS: The central airways are patent. No focal pneumonia or pulmonary edema. Dependent right greater than left lower lobe subsegmental atelectasis. PLEURA: Small bilateral pleural effusions. No pneumothorax. HEART AND MEDIASTINUM: Heterogeneous nodules of the right and left thyroid lobes, the largest of which measures up to 2.3 cm in the right thyroid. No supraclavicular axillary, mediastinal, or hilar lymphadenopathy. The heart is not enlarged. No pericardial effusion. No right heart strain. Scattered atherosclerotic calcifications involve the aorta, coronary arteries, and proximal great vessels. UPPER ABDOMEN: Nodular liver surface contour compatible with cirrhosis. Small volume abdominal ascites. Mild splenomegaly to 14 cm. BONES: No acute osseous injury. No suspicious lytic or blastic lesions. SOFT TISSUES: Diffuse anasarca. IMPRESSION: No pulmonary embolism. No focal pneumonia or pulmonary edema. Small bilateral pleural effusions. Associated mild bibasilar dependent subsegmental atelectasis. Signed by: Lauren Sen MD on 01/18/2020 2:44 PM
[2020-01-18] MEDS ORDERED: SODIUM CHLORIDE 0.9% 50ML 50 ML ONE (18:12)
[2020-01-18] MEDS ORDERED: IOPAMIDOL 370 MG/ML 200 ML INFUS..BTL INJ ONE (18:13)
--- NOTE | 2020-01-18 19:20 | NUR ---
PATIENT RECEIVED. PATIENT IS AAOX3, RESTING IN BED. RESP EVEN AND UNLABORED. NO ACUTE DISTRESS NOTED AT THIS TIME. TELE IN PLACE. CALL LIGHT WITHIN REACH. INSTRUCT PATIENT TO CALL FOR ASSISTANCE. BED LOW/LOCKED. CONTINUE TO MONITOR CLOSELY
[2020-01-18] MEDS: ATORVASTATIN 20 MG TAB PO SCH (21:40)
[2020-01-19 00:14] VITALS: BP 184/87
[2020-01-19] MEDS: ONDANSETRON HCL INJ 2MG/ML 2ML 2 MG/ML VIAL IV PRN (02:56)
[2020-01-19] MEDS: MORPHINE SULFATE 2 MG/ML SYR 1ML IV PRN ×2 (02:56→09:53)
[2020-01-19 04:00] VITALS: BP 196/93
[2020-01-19 05:24] LABS: BASOPHILS # (AUTO) 0.1 (0.0-0.1); BASOPHILS % 1.1 % (0.0-1.0); EOSINOPHILS # (AUTO) 0.2 (0.0-0.4); HEMATOCRIT 28.8 % (34.2-44.1); HEMOGLOBIN 9.1 g/dL (12.0-16.0); LYMPHOCYTES # (AUTO) 1.5 (1.0-3.2); LYMPHOCYTES % 19.7 % (18.0-39.1); MEAN CORPUSCULAR HGB CONC 31.6 g/dL (31-35); MEAN CORPUSCULAR VOLUME 79.1 fL (81-99); MONOCYTES # (AUTO) 0.5 (0.2-0.8); MONOCYTES % 6.1 % (4.4-11.3); NEUTROPHILS # (AUTO) 5.3 (2.1-6.9); NEUTROPHILS % 70.7 % (38.7-80.0); PLATELET COUNT 228 x10e3/uL (140-360); RED BLOOD COUNT 3.64 x10e6/uL (3.6-5.1); RED CELL DISTRIBUTION WIDTH 16.9 % (11.7-14.4)
--- NOTE | 2020-01-19 05:35 | NUR ---
COMPLETED DRESSING CHANGE TO RIGHT UPPER ARM PICC LINE.
[2020-01-19 05:53] LABS: ANION GAP 9.8 mmol/L (8-16); CALCIUM 8.2 mg/dL (8.4-10.2); CREATININE, SERUM 1.14 mg/dL (0.57-1.11); POTASSIUM 4.8 mmol/L (3.5-5.1)
[2020-01-19] MEDS: ALBUTEROL/IPRATROPIUM 3 ML NEB NEB SCH (06:43)
--- NOTE | 2020-01-19 07:20 | NUR ---
The pt. is up in the room comp of not being able to breathe but does not have or cannula intact.
[2020-01-19 07:50] VITALS: BP 192/92
[2020-01-19] MEDS: VANCOMYCIN 1GM/NS 250 ML 250 ML IV SCH (08:00)
[2020-01-19] MEDS: PANTOPRAZOLE SOD 40 MG TABEC PO SCH (08:05)
[2020-01-19] MEDS: INSULIN LISPRO 100 UNIT/1 ML 3ML VIAL SQ SCH ×3 (08:06→16:51)
[2020-01-19] MEDS ORDERED: INSULIN GLARGINE 100 UNITS/ML VIAL SQ SCH (09:00)
[2020-01-19] MEDS ORDERED: ASPIRIN 81 MG ENTERIC COATED PO SCH (09:00)
[2020-01-19] MEDS: VALSARTAN/SACUBITRIL 24MG/26MG 1 EA TAB PO SCH ×2 (09:46→16:49)
[2020-01-19] MEDS: CLOPIDOGREL BISULFATE 75 MG TAB PO SCH (09:47)
[2020-01-19] MEDS: AMLODIPINE BESYLATE 10 MG TAB PO SCH (09:47)
[2020-01-19] MEDS: LACTOBACILLUS ACIDOPHILUS CAPSULE PO SCH ×2 (09:47→16:49)
[2020-01-19] MEDS: METOPROLOL SUCCINATE 50 MG TAB XL PO SCH (09:47)
[2020-01-19] MEDS: HEPARIN SOD (PORCINE) 5,000 UNIT/ML VIAL SC SCH (09:48)
[2020-01-19] MEDS: NYSTATIN 15 GM POWDER UD BTL TOP SCH ×2 (09:48→16:45)
[2020-01-19 10:22] VITALS: BP 192/92
--- NOTE | 2020-01-19 10:52 | NUR ---
ST NOTE: No order for NMES given at this time. Re-requested order with NILDA Humphreys. Pt fatigued, c/o feeling SOB when she uses the restroom. 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 Pt fatigued and deferred PO trials. Pt expected to d/c to SNF today, recommend continued Speech Therapy to treat dysphagia post acute care setting for laryngeal strengthening
[2020-01-19 12:00] VITALS: BP 139/67
[2020-01-19] MEDS: CEFEPIME 1GM/NS 0.9% 50 ML 50 ML IV SCH (13:17)
[2020-01-19] MEDS ORDERED: ALBUTEROL/IPRATROPIUM 3 ML NEB NEB SCH (15:00)
--- NOTE | 2020-01-19 15:04 | NUR ---
CORRECTION FACILITY DISCHARGE INFORMATION PATIENT HAS BEEN ACCEPTED TO: NAME: [facility] [id number] ACCEPTING PROCEDURES ANALYST: KARLI DOBBINS ACCEPTING MD:MARYSE ROOM: 152 NURSE CALL REPORT TO: [phone] IMM SIGNED AND OBTAINED (if applicable): THE FOLLOWING DOCUMENTS MUST ACCOMPANY PATIENT FOR TRANSFER: COPIED CHART:PACKET.
[2020-01-19] MEDS ORDERED: FUROSEMIDE INJ 10 MG/ML 2 ML VIAL IV ONE (15:30)
[2020-01-19] MEDS ORDERED: KETOROLAC TROMETHAMINE 30 MG/ML VIAL IV ONE (15:30)
[2020-01-19 16:18] VITALS: BP 187/96
[2020-01-19] MEDS ORDERED: METOPROLOL SUCCINATE 50 MG TAB XL PO SCH (17:00)
--- NOTE | 2020-01-19 18:12 | NUR ---
The pt. has been transferred back to the [facility] in stable condition with PICC line in place.
--- NOTE | 2020-01-20 11:54 | Discharge Summary ---
FINAL DIAGNOSIS: [id number] myocardial infarction. SECONDARY DIAGNOSES: 1. Likely chronic obstructive pulmonary disease, recent diagnosis of subacute bacterial endocarditis, on IV vancomycin. 2. PICC line, present on admission. 3. Old stroke. 4. Hepatitis C. 5. Hypertension. 6. Breast cancer. 7. Previous mastectomy. 8. Cirrhosis. 9. Chronic blood loss anemia, status post 2 units of packed red blood transfusion. CONSULTANTS: Dr. Garcia, Cardiology. PROCEDURES/STUDIES PERFORMED: 1. Echocardiogram. 2. Abdominal CT. 3. Chest CT. HISTORY: Per H and P. HOSPITAL COURSE: The patient was admitted with diabetes with hyperglycemia, also nausea, vomiting, potentially this is due to her vvn-VB-ncirbixiy [place]. The patient was evaluated by Cardiology, who recommended medical management only. The patient received 2 units of blood for her chronic anemia. IV vancomycin was continued for her recently diagnosed endocarditis. PICC line was present on admission. Initially we thought she also has right lower lobe pneumonia. The patient was started on antibiotics; however, her pleuritic chest pain on the right side and also shortness of breath did not really improve that much. Subsequently, a CT of the chest was done, there was no PE and no evidence of pneumonia either. Antibiotic was discontinued. IV Toradol and IV Lasix were given. Her metoprolol was increased for better blood pressure control to see this will help with her shortness of breath. The patient was discharged [facility] to the [facility] without a discharge order from me. I have updated [facility] doctor about this hospitalization. The patient was seen and examined today. It took 35 minutes total to discharge this patient. CONDITION ON DISCHARGE: Improved. DISCHARGE MEDICATIONS: Please see medication reconciliation form. MD CAROL Garcia/REYNALDO /[id number] MTDCharly
--- NOTE | 2020-01-23 11:56 | Diagnostic Imaging Report ---
PROCEDURE: X-RAY MODIFIED BARIUM SWALLOW COMPARISON: None. INDICATION: Anemia, cirrhosis, dysphagia Radiation Details: Fluoroscopy time: 1.8 minutes Cumulative dose: 7.3 mGy DISCUSSION: Fluoroscopic examination was performed in conjunction with speech pathology during swallowing a variety of thin and thick liquid consistencies. Provided images demonstrate shallow laryngeal penetration and no aspiration. CONCLUSION: Modified barium swallow demonstrating shallow laryngeal penetration and no aspiration. Please refer to the speech pathology report for further details. Signed by: Lauren Sen MD on 01/23/2020 11:52 AM
== END 2020-01-19 18:02 | DRG 280 ==
LOC: ER 15:50 → ERHOLD 19:12 → MED/SURG2 01-15 09:16
PROVIDERS: ADMIT Internal Medicine; ATTEND Internal Medicine
PROC: 30233N1 Transfusion of Nonautologous Red Blood Cells into Peripheral Vein, Percutaneous Approach (ICD-10-PCS; principal; 2020-01-14)
DX: I21.A1 Myocardial infarction type 2 (principal); I33.0 Acute and subacute infective endocarditis; J44.1 Chronic obstructive pulmonary disease with (acute) exacerbation; D50.0 Iron deficiency anemia secondary to blood loss (chronic); I10 Essential (primary) hypertension; K74.60 Unspecified cirrhosis of liver; B19.20 Unspecified viral hepatitis C without hepatic coma; E78.5 Hyperlipidemia, unspecified; I25.10 Atherosclerotic heart disease of native coronary artery without angina pectoris; K21.9 Gastro-esophageal reflux disease without esophagitis; Z86.73 Personal history of transient ischemic attack (TIA), and cerebral infarction without residual deficits; Z88.2 Allergy status to sulfonamides; Z87.891 Personal history of nicotine dependence; Z83.3 Family history of diabetes mellitus; Z82.49 Family history of ischemic heart disease and other diseases of the circulatory system; Z90.49 Acquired absence of other specified parts of digestive tract; Z85.3 Personal history of malignant neoplasm of breast; Z90.13 Acquired absence of bilateral breasts and nipples; I35.1 Nonrheumatic aortic (valve) insufficiency; E11.65 Type 2 diabetes mellitus with hyperglycemia; Z79.82 Long term (current) use of aspirin; Z79.4 Long term (current) use of insulin
CPT/HCPCS: 36415; 71045; 71260; 74176; 74230; 80048; 80053; 80061; 81001; 82270; 82550; 82553; 82948; 84484; 85025; 85610; 85730; 86850; 86900; 86920; 87040; 93005; 93306; 94640; 97139; 99285; J0692; J1644; J1815; J1817; J1885; J1940; J2270; J2405; J3370; J7030; J7050; J7799; P9016; Q9967